=== PATIENT | male | born 1955 | race Caucasian/White ===

== ENCOUNTER 2020-08-31 03:22 | Inpatient (IN) | payer OTHER, MEDICARE, SELFPAY ==
[2020-08-31] VITALS (12 sets, daily range): BP systolic 122–167; BP diastolic 85–101; PULSE 73–96; RESP 12–23; TEMP 36.4–36.7; O2SAT 94–98; BMI 20.7
--- NOTE | 2020-08-31 03:29 | ECG_ITS ---
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 Measurements Intervals [place] Rate: 81 P: NV: -1 QRS: 30 QRSD: 97 T: -70 QT: 368 QTc: 428 Interpretive Statements ATRIAL FIBRILLATION ST DEVIATION AND MODERATE T-WAVE ABNORMALITY, CONSIDER INFERIOR ISCHEMIA [-0.1+ mV T WAVE IN II/aVF] No previous ECG available for comparison Electronically Signed On 08-31-2020 17:27:33 CDT by Brad Rojas M.D. [id number]
--- NOTE | 2020-08-31 03:32 | ED_ITS ---
HPI - Chest Pain General: Chief Complaint: Chest Pain Stated Complaint: CP Time Seen by Provider: 08/31/20 03:29 History of Present Illness: HPI narrative: 65-year-old male presents as a direct admit transfer from [facility] in [facility]. He had come in with chest pain. His chest pain had been resolved, but he began to complain of some chest pressure as they got close to town here. He has a history of bypass surgery, last surgery and 2010. He has not had any intervention or stress test since that time. He does not have a history of atrial fibrillation, but currently is in atrial fibrillation he has not had any known COVID exposure. He has received Nitropaste and Lovenox. MD complaint: chest pain Pertinent past history: coronary artery disease and CABG Onset (ago): hour(s) Prior episodes: Yes Onset: during rest Pain location: substernal Severity: mild Quality: tightness Exacerbating factors: nothing Associated symptoms: Reports dyspnea and palpitations; Deny abdominal pain, fever(s), nausea or vomiting Review of Systems Const: Denies: fever(s) or chills Eyes: Denies: change in vision ENMT: Denies: swelling of lips/tongue or sinus pain Card: Reports: chest pain, palpitations and irregular heart rhythm; Denies: edema or swelling of feet/ankles Resp: Reports: dyspnea; Denies: productive cough, non-productive cough or wheezing GI: Denies: abdominal pain, nausea or vomiting : Denies: difficulty urinating or hematuria Musc: Denies: neck pain, back pain, joint redness or joint warmth Skin/Breast: Denies: rash or erythema Neuro: Denies: headache(s), dizziness or vertigo Psych: Denies: anxiety Physical Exam Const: GENERAL APPEARANCE: well developed ORIENTATION/CONSCIOUSNESS: Yes oriented to person, Yes oriented to place and Yes oriented to time HENMT: COMMON NORMALS: normocephalic, external ears normal and Normal external nose present HEAD & SCALP: normocephalic FACE & SINUS: normal facial exam NOSE: Normal external nose present and No nasal discharge present EXTERNAL EAR: Yes external ears normal Eye: COMMON NORMALS: Equal, round and reactive pupils present, EOMs intact bilaterally and conjunctivae normal EYELID: eyelids normal CONJUNCTIVA: Yes conjunctivae normal PUPIL: Yes Equal, round and reactive pupils present Neck/C-Spine: GENERAL: No tracheal deviation Chest: COMMONS NORMALS: normal inspection of the chest CHEST: No tenderness Resp: COMMON NORMALS: clear to auscultation bilaterally EFFORT & INSPECTION: No tachypneic, No respiratory distress, No retractions, No uses accessory muscles and No tracheal deviation AUSCULTATION: clear to auscultation bilaterally, no rhonchi, no wheezes and lung sounds not diminished Cardio: RHYTHM: abnormal rhythm irregularly irregular HEART SOUNDS: no murmurs PERIPHERAL PULSES: radial pulses present GI: INSPECTION: No abdominal distension AUSCULTATION: No Hyperactive bowel sounds present and No Hypoactive bowel sounds present PALPATION: No Guarding due to palpation present (GI) and No Rigid due to palpation PERCUSSION: no dullness to percussion and no tympanic to percussion Neuro: SENSORIUM/ORIENTATION: Yes oriented to person, Yes oriented to place and Yes oriented to time Psych: COMMON NORMALS: mental status grossly normal Skin: COMMON NORMALS: no rashes or lesions noted GENERAL SKIN EXAM: no rashes or lesions noted Course Vital Signs: Vital signs: Vital Signs Temperature 97.6 F 08/31/20 03:52 Pulse Rate 88 08/31/20 03:52 Respiratory Rate 17 08/31/20 03:52 Blood Pressure 167/100 08/31/20 03:52 Pulse Oximetry 96 08/31/20 03:52 MDM - Chest Pain MDM Narrative: Medical decision making narrative: EKG is done on arrival here. It shows minimal ST depression in the inferior leads. There is biphasic T waves in the lateral leads with minimal depression there as well along with minimal ST elevation in lead I and aVR. It otherwise shows atrial fibrillation with normal axis and rate of 80s. We will repeat a troponin x1 here. His first troponin was 17 at the outside facility. He will go to the [facility] as a direct admit otherwise. Lab Data: Labs: Lab Results 08/31/20 Range/Units 03:35 Troponin T Gen 5 n g/L 24 H (0-15) ng/L Discharge Plan Discharge Patient Disposition: Admitted As Inpatient Clinical Impression: Chest pain Qualifiers: Chest pain type: unspecified Qualified Code(s): R07.9 - Chest pain, unspecified Atrial fibrillation Qualifiers: Atrial fibrillation type: unspecified Qualified Code(s): I48.91 - Unspecified atrial fibrillation Condition: Stable Referrals: Hebert Agustin [Referring] - Coding Level of Care Code ED Power Machine Operator for Chg Fwd Exam Comprehensive
[2020-08-31] MEDS: morphine 4 mg/mL SDV 1 mL IVP (03:43)
[2020-08-31] MEDS: ondansetron 2 mg/ML SDV 2 mL 4 MG IVP (03:43)
[2020-08-31] MEDS: nitroglycerin 1 gm/inch oint Pkt 1.5 INCH TOPICAL (03:44)
[2020-08-31 04:01] LABS: Troponin T (5th) Once 24 ng/L (0-15)
--- NOTE | 2020-08-31 05:05 | PC.NURSE ---
Report given to Kahlil on cardiac step down unit
--- NOTE | 2020-08-31 05:22 | USCV_ITS ---
Shin Valera Age: 65 Gender: M : 1955 Exam Date: 08/31/2020 06:49 Ordering Phys: Courtney Nguyen MD Technologist: Priscila Alexander Exam Location: [facility] Indication: CHEST PAIN CAD BP: 158 / 95 HR: 104 Rhythm: Sinus Technical Quality: Adequate MEASUREMENTS (Male / Female) Normal Values 2D ECHO LV Diastolic Diameter PLAX 3.5 cm 4.2 - 5.9 / 3.9 - 5.3 cm LV Systolic Diameter PLAX 2.9 cm LV Chamber Size 3.7 cm IVS Diastolic Thickness 1.1 cm 0.6 - 1.0 / 0.6 - 0.9 cm IVS Systolic Thickness 1.3 cm LVPW Diastolic Thickness 1.9 cm 0.6 - 1.0 / 0.6 - 0.9 cm LVPW Systolic Thickness 3.2 cm RV Chamber Size 2.5 cm LVOT Diameter 2.0 cm LV Ejection Fraction 2D Teich 38.8 % LV Ejection Fraction MOD 2C 57.0 % LV Ejection Fraction 2C AL 55.1 % LA Diameter 4.3 cm LA Width 3.5 cm LA Height 6.0 cm RA Width 4.0 cm RA Height 5.4 cm Aorta at Sinotubular Diameter 2.1 cm M-MODE LV Diastolic Diameter MM 4.5 cm 4.2 - 5.9 / 3.9 - 5.3 cm LV Systolic Diameter MM 3.1 cm LV Ejection Fraction MM Teich 58.4 % IVS Diastolic Thickness MM 1.0 cm 0.6 - 1.0 / 0.6 - 0.9 cm IVS Systolic Thickness MM 1.1 cm LVPW Diastolic Thickness MM 1.9 cm 0.6 - 1.0 / 0.6 - 0.9 cm LVPW Systolic Thickness MM 2.0 cm Aortic Annulus Diameter 3.4 cm LA Ao Ratio MM 1.5 MV E Point Septal Separation 1.4 cm DOPPLER AV Peak Velocity 110.0 cm/s LVOT Peak Velocity 102.0 cm/s AV Area Cont Eq vti 2.9 cm squared AV Area Cont Eq pk 3.1 cm squared MV Area PHT 8.1 cm squared Mitral E to A Ratio 2.6 MV E' Velocity 53.0 cm/s Mitral E to MV E' Ratio 8.1 Mitral E to LV E' Lateral Ratio 7.7 Mitral E to LV E' Septal Ratio 8.5 TR Peak Velocity 254.5 cm/s TR Peak Gradient 25.9 mmHg TR Mean Velocity 187.9 cm/s TR Mean Gradient 16.5 mmHg TR Velocity Time Integral 108.0 cm TV Peak E Velocity 50.0 cm/s Right Atrial Pressure 3.0 mmHg Pulmonary Artery Systolic Pressu 28.9 mmHg PV Peak Velocity 69.0 cm/s RV Acceleration Time 0.1 s RV Ejection Time 0.3 s RV AcT/ET 0.3 FINDINGS Left Ventricle Moderate diffuse hypokinesia of the inferior wall and basal septal segments. Overall left ventricular ejection fraction around 50-55%. Right Ventricle Possibly of normal size ejection fraction Right Atrium Mildly increased right atrial size. Left Atrium Mildly increased left atrial size. Mitral Valve Thickened mitral valve. Mild mitral valve regurgitation. Aortic Valve Thickened aortic valve. Tricuspid Valve Moderate tricuspid valve regurgitation. Estimated pulmonary artery peak systolic pressure of 29 mmHg Pulmonic Valve Pulmonic valve not well visualized. Pericardium No pericardial effusion. Aorta Normal aortic annulus size. CONCLUSIONS 1. Moderate diffuse hypokinesia of the inferior wall and basal septal segments. Overall left ventricular ejection fraction around 50 to 55 %. 2. Mild biatrial enlargement 3. Thickened aortic and mitral valves. 4.Moderate tricuspid valve regurgitation. Estimated pulmonary artery peak systolic pressure of 29 mmHg. 5. Mild mitral regurgitation 6. There is no pericardial effusion. 7. There are no intracardiac masses. No previous studies are available for comparison Dr Pk Parker MD [facility] (Electronically Signed) Final Date: 31 August 2020 09:38 S
--- NOTE | 2020-08-31 05:30 | ECG_ITS ---
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 Measurements Intervals [place] Rate: 86 P: LA: -1 QRS: 51 QRSD: 96 T: -84 QT: 370 QTc: 443 Interpretive Statements ATRIAL FIBRILLATION ST DEVIATION AND MODERATE T-WAVE ABNORMALITY, CONSIDER INFERIOR ISCHEMIA [-0.1+ mV T WAVE IN II/aVF] Compared to ECG 08/31/2020 03:25:49 No significant changes Electronically Signed On 08-31-2020 17:44:53 CDT by Brad Rojas M.D. [id number]
--- NOTE | 2020-08-31 05:42 | PC.NURSE ---
PT ARRIVED TO ROOM 107 FROM ED. PT HAS A IRREGULAR HEART RHYTHM (A-FIB) WITH A HR OR 78. PT DENIES ANY CHEST DISCOMFORT AT THIS TIME. PT ORIENTATED TO ROOM. CALL LIGHT WITHIN REACH. WILL CONTINUE TO MONITOR.
[2020-08-31] MEDS: atorvastatin 40 mg Tablet 80 MG PO (05:57)
--- NOTE | 2020-08-31 06:03 | P.HP_ITS ---
Providers/Chief Complaint Admitting Physician: Courtney Nguyen MD Primary Care Provider: Hebert Agustin Chief Complaint: CP History of Present Illness Shin Valera is a 65 year old male who originally presented to [facility]. He reports that he had been having some chest pain which he described as intermittent brief episodes of pain in the substernal area over the preceding few weeks. Not many episodes and they were very mild but he did note that they occurred with exertion. Tonight he had much more severe chest discomfort described as a pressure sensation located again in the substernal left side of his chest associated with radiation into his left arm and down to his fingers. He took some nitroglycerin at home without improvement and ultimately ended up p resenting at [facility]. There he received additional nitroglycerin and some aspirin. He had already taken his usual beta-blockade. Initial troponin was 17. Twelve-lead EKG shows some nonspecific ST changes in inferior leads suggestive of ischemia. Patient has a known history of coronary artery disease and underwent coronary artery bypass graft x4 vessels back in possibly 2011. He has not had any type of cardiac testing for several years. He says he does not see a senior laboratory technician regularly because he does not need to. He is on chronic aspirin and beta-grace as well as amlodipine. He says that when he had the pain prior to requiring bypass surgery is much more severe than this but that this feels the same otherwise. She was transferred here for cardiac evaluation and management. On arrival here patient's blood pressure was up and he was complaining of some recurrent chest pain. He received some additional nitroglycerin and morphine with improvement in the pain. Currently chest pain- free. He does have chronic kidney disease. He tells me that his baseline kidney function is around 50% . He denies associated nausea, vomiting, acute shortness of breath. He has not had any fever, cough productive or nonproductive. No known exposures to COVID-19. Medications/Allergies Allergies Allergy/AdvReac Type Severity Reaction Status Date / Time No Known Allergies Allergy Verified 08/31/20 03:26 Additional Medication Information Aspirin 81 mg p.o. daily Metoprolol 50 mg p.o. twice daily Amlodipine 5 mg p.o. daily PFSH Acute PFSH: Medical History (Updated 08/31/20 @ 08:05 by Courtney Nguyen MD) CAD (coronary artery disease) Chronic kidney disease History of Crohn's disease Not currently requiring treatment, no immunosuppressive's History of pancreatitis By his description sounds like gallstone pancreatitis Hypertension Surgical History (Updated 08/31/20 @ 07:47 by Courtney Nguyen MD) History of cholecystectomy History of coronary artery stent placement Right coronary artery, prior to bypass History of four vessel coronary artery bypass graft (~2011) History of resection of large bowel Partial, secondary to Crohn's Family History (Updated 08/31/20 @ 07:48 by Courtney Nguyen MD) Mother Stroke CHF (congestive heart failure) Father Valvular heart disease Social History (Updated 08/31/20 @ 07:48 by Courtney Nguyen MD) Smoking and tobacco status: former smoker Alcohol intake: current Alcohol intake frequency: holidays/special occasions only Alcohol type: beer Substance/Drug Use: never Vitals/I&O/Wt Last Vital Signs Temp 97.8 F 08/31/20 05:38 Pulse 80 08/31/20 05:38 Resp 14 08/31/20 05:38 BP 158/95 08/31/20 05:38 Pulse Ox 96 08/31/20 05:38 Weight last 48 hrs Weight 63.503 kg Physical Exam Const: OTHER: Alert, oriented x3, cooperative HENMT: OTHER: Normocephalic atraumatic, moist mucus membranes Eye: OTHER: Pupils equally round and reactive to light Neck/C-Spine: OTHER: Supple Resp: OTHER: Clear to auscultation bilaterally, no rales, rhonchi or wheezes noted, no accessory muscle use noted Cardio: OTHER: Irregularly irregular rhythm, rate controlled, no murmurs gallops or rubs. Pulses equal throughout GI: OTHER: Abdomen soft, nontender, nondistended with positive bowel sounds : OTHER: Deferred Extremity: NARRATIVE EXTREMITY EXAM: No cyanosis, clubbing or edema Neuro: OTHER: Face symmetric, speech clear, moves all extremities although left hand with subjective decreased sensation at the fingertips Psych: OTHER: Normal affect Skin: OTHER: No rashes or bruising beyond lab draws noted Data Other Labs: Labs from outside facility include the following: White count 13.8, hemoglobin 14, hematocrit 42, platelet count 236, 64% neutrophils and 19% lymphocytes Sodium 140, potassium 3.9, chloride 109, CO2 19, calcium 9.4, BUN/creatinine 29/2.9, glucose 114, albumin 4.4, alkaline phosphatase 93, total bilirubin 0.5, AST 26, ALT 24 Fifth generation troponin T 17 Chest x-ray with mildly enlarged cardiac silhouette small subtle areas of peribronchial opacities within the bilateral lower lung schroeder right greater than left with no focal lung consolidation A&P Assessment and plan (1) Unstable angina: In a patient with known coronary artery disease status post four-vessel coronary artery bypass graft in 2011 and stents prior to that. Has not had any recent cardiac evaluation. Does not follow regularly with cardiology. Has only had symptoms the last few weeks but escalating to being similar to what he had prior to his bypass surgery Status: Acute (2) Atrial fibrillation: New onset, rate controlled with beta blockade Status: Chronic Qualifiers: Atrial fibrillation type: unspecified Qualified Code(s): I48.91 - Unspecified atrial fibrillation (3) Chronic kidney disease: Patient states that his baseline creatinine is around 1.2 but also mentions chronic kidney disease stage IV. I suspect that there may be an element of acute kidney injury on top of chronic kidney disease. Status: Chronic Qualifiers: Chronic kidney disease stage: unspecified stage Qualified Code(s): N18.9 - Chronic kidney disease, unspecified (4) Hypertension: Status: Chronic Qualifiers: Hypertension type: essential hypertension Qualified Code(s): I10 - Essential (primary) hypertension Additional A&P Information Inpatient admission Continue serial cardiac enzymes, EKG as well as a bnp Echocardiogram Consultation to cardiology in the morning Aspirin, statin, beta-blockade Continue nitroglycerin and morphine if needed for pain control Telemetry monitoring Will probably need arrangements for chronic anticoagulation at discharge We will continue Lovenox currently, received a dose at 2 AM at outside facility 1 mg/kg Low volume IV fluids Recheck electrolytes later this morning Urinalysis If ends up needing cardiac catheterization may want to consult nephrology Check lipase Request records from [facility] for GI prophylaxis Treatment dose Lovenox currently provides VTE prophylaxis N.p.o. in case needs cardiac procedure later today Supportive care otherwise Plans discussed with patient and he was given an opportunity to ask questions Full code Attestations Medical Necessity Statement*: Anticipated stay greater than 2 midnights in a gentleman presenting with classic unstable angina who has a known history of coronary artery disease. He additionally has new onset atrial fibrillation. He has baseline chronic kidney disease plus or minus acute kidney injury and will need management to maximize renal function before cardiac evaluation can be adequately undertaken. Coding Level of Care Code Acute Residential Treatment Counselor for Chg Fwd Diagnoses Unstable angina I20.0 Atrial fibrillation I48.91 Atrial fibrillation type: unspecified Chronic kidney disease N18.9 Chronic kidney disease stage: unspecified stage Hypertension I10 Hypertension type: essential hypertension
[2020-08-31 06:06] LABS: Lipase 230 U/L (13-60); NT Pro B Type Natriuretic Pept 7035 pg/mL (0-125)
[2020-08-31 06:53] LABS: Troponin 5 2HR 79.92 ng/L (0-15)
[2020-08-31 07:12] LABS: Troponin 5 2HR Delta 55.92 ABS# (0-10)
--- NOTE | 2020-08-31 07:30 | PC.NURSE ---
Patient resting in bed at time of assessment. Patient states that he is tired and just wants to sleep. A fib, rate controlled on telemetry. No Chest pain or shortness of breath at this time. Nurse to continue to monitor.
--- NOTE | 2020-08-31 08:00 | PC.NURSE ---
Dr. Parker at bedside to evaluate patient. Physician gave verbal order to nurse to request medical records from [facility] in [place], [place], [place]. Consent obtained from patient.
--- NOTE | 2020-08-31 08:08 | PM.CONSULT ---
Providers/Reason For Consult Consulting Physican/Specialty*: Harjeet Parker MD/cardiology Reason for Consult*: Elevated troponin T/new onset atrial fibrillation/ASHD Attending Physician: Camron Martínez MD Primary Care Provider: Hebert Agustin History of Present Illness History of Present Illness Shin Valera is a 65 year old male, with a history of coronary artery disease and four-vessel coronary artery bypass surgery, is presenting with a prolonged episode of chest pain. According the patient, he had a four-vessel coronary artery bypass surgery at the [facility], 2011. He has not had any cardiac follow-up evaluation since then. He is being followed up by his primary care physician at the [place] [facility]. Has not had any chest pain or shortness of breath up until 2 weeks ago when he started having left-sided chest pain. He had 2 episodes of chest pains, each lasting for 2 or 3 minutes and then subsiding spontaneously. Last night around 11:00, he started having pain in the left upper part of the chest which was radiated to the left shoulder and to the inner side of the left arm. He took a total of 2 sublingual nitro. The nitroglycerin was very old. Since there was no relief of the pain, after half an hour or so, he went to the [facility]. He was given 2 more sublingual nitroglycerin and 2 mg of IV morphine in the emergency room. The pain was 8/10 in intensity. Even though the intensity of the pain came down a little bit, because of the persistence of the pain, he was transferred to our hospital emergency room. He received IV nitro, sublingual nitro glycerin and aspirin in our hospital. He is admitted to the hospital for further evaluation and management. He had some discomfort in the epigastric area with the pain. No nausea vomiting. No diarrhea. No fever or chills. No cough. No unusual shortness of breath. No vomiting. No other associated symptoms or radiation of pain. Prior to the open heart surgery in 2011 he had a couple of PCI's. He had a heart attack few years prior to the open heart surgery. Along with a heart attack, he went into cardiac arrest, 3 times. The patient does not know the details but was told about this. He had a cardiac catheterization followed by PCI at that time. The second PCI was few years later. This was done for unstable angina. He was told to have abnormal kidney functions, prior to his open heart surgery. He is currently being followed by a sas developer. He was told to have stage IV kidney failure. He has a history of hypertension for the last more than 25 years. Also is known to have dyslipidemia. No history for any diabetes. History of Crohn disease for many years. No history for any peripheral artery disease, CVA or any bleeding disorders. Review of Systems Narrative: CONSTITUTIONAL: No fever or chills. EYES: No blurring of vision or other visual disturbances lately. ENT: No hoarseness of voice, auditory disturbances or sore throat. CARDIOVASCULAR: As mentioned above. RESPIRATORY: No significant cough. GASTROINTESTINAL: History of Crohn's disease and has not had any GI bleed recently. GENITOURINARY: No dysuria or hematuria. INTEGUMENTARY: Patient has a history of staph cellulitis in the lower extremities, 3 years ago NEURO: No transient ischemic attacks or amaurosis. PSYCHIATRIC: No history of psychosis or major depression. HEMATOLOGIC: No bleeding disorders or significant anemia. ENDOCRINE: No history of polyuria or polydipsia. MUSCULOSKELETAL: No recent joint pain or swelling. ALLERGY/IMMUNOLOGY: As mentioned above. Meds/Allergies Home Medications and Allergies Home Medications Medication Instructions Recorded Confirmed Last Taken Type amlodipine 10 mg PO DAILY 08/31/20 08/31/20 08/30/20 History aspirin 81 mg PO DAILY 08/31/20 08/31/20 08/30/20 History fluticasone propionate 2 spray INTRANASAL DAILY 08/31/20 08/31/20 08/30/20 History metoprolol succinate 200 mg PO DAILY 08/31/20 08/31/20 08/30/20 History testosterone 1 pump TOPICAL DAILY 08/31/20 08/31/20 08/30/20 History Allergies Allergy/AdvReac Type Severity Reaction Status Date / Time No Known Allergies Allergy Verified 08/31/20 03:26 PFSH Acute PFSH: Medical History (Updated 08/31/20 @ 15:56 by Camron Martínez MD) Atherosclerotic heart disease of [place] coronary artery with unstable angina pectoris Benign essential hypertension with target blood pressure below 140/90 CAD (coronary artery disease) Chronic kidney disease History of Crohn's disease Not currently requiring treatment, no immunosuppressive's History of pancreatitis By his description sounds like gallstone pancreatitis Hypertension Surgical History History of cholecystectomy History of coronary artery stent placement Right coronary artery, prior to bypass History of four vessel coronary artery bypass graft (~2011) History of resection of large bowel Partial, secondary to Crohn's Family History Mother Stroke CHF (congestive heart failure) Father Valvular heart disease Social History Smoking and tobacco status: former smoker Alcohol intake: current Alcohol intake frequency: holidays/special occasions only Alcohol type: beer Substance/Drug Use: never Vitals/I&O/Wt Last Vital Signs Temp 97.9 F 08/31/20 06:47 Pulse 87 08/31/20 06:47 Resp 15 08/31/20 06:47 BP 152/91 08/31/20 06:47 Pulse Ox 95 08/31/20 06:47 Weight last 48 hrs Weight 140 lb Physical Exam Narrative: EXAM NARRATIVE: GENERAL: The patient is alert and oriented times three. Not in any acute distress. HEENT: Minimal pallor. No icterus or lymphadenopathy. The pupils are reactant to light. Oral cavity: There are no mucous membrane lesions. Funduscopic examination: The fundus is not visualized NECK: Trachea appears to be central. No masses noted. No JVD or thyromegaly appreciated. No carotid bruit. RESPIRATORY: Chest is symmetrical. No intercostals muscle retraction or any accessory muscle activation. There is no chest wall tenderness. Breath sounds are heard bilaterally. No rales or rhonchi heard. No evidence of any consolidation. BREASTS: Deferred. HEART: The PMI is in the 5th left intercostals space just in the midclavicular line. No palpable precordial events. S1 and S2 is split. No S3 or S4 heard. No pericardial rub or any click heard. ABDOMEN: No vessel pulsations or distention. No tenderness. No organomegaly appreciated. No abdominal bruit. Bowel sounds are normally heard. : Deferred. RECTAL: Deferred. LYMPHATIC: No lymphadenopathy noted in the neck or groin. EXTREMITIES: No edema or cyanosis. No clubbing. The pulses are symmetrical bilaterally. The radial, femoral, dorsalis pedis and the posterior tibial pulses are palpated and found to be in good volume and amplitude. Some hyperpigmentation and superficial scarring in the medial aspect of the right foot. MUSCULOSKELETAL: Gait is normal. There is no joint deformity or swelling noted. No joint tenderness or any effusion. The shoulder and hip joints appear to have normal range of motion. SKIN: There are no significant scars or skin rash noted. NEUROPSYCHIATRIC: The patient is alert and oriented x3. Appears to be in a good mood. The higher functions are grossly within normal limits. No tremors or rigidity noted. Data Labs: Other Labs: Laboratory Last Values Troponin T Gen 5 n g/L 24 ng/L (0-15) H 08/31/20 03:35 Troponin T 120 Min ho-chunk 79.92 ng/L (0-15) H 08/31/20 05:54 Delta Troponin T 55.92 ABS# (0-10) H* 08/31/20 05:54 NT-Pro-B Natriuret Pep 7035 pg/mL (0-125 ) H 08/31/20 03:35 Lipase 230 U/L (13-60) H 08/31/20 03:35 Laboratory Results - last 24 hr 08/31/20 08/31/20 08/31/20 03:35 03:35 05:54 Troponin T Gen 5 n g/L 24 H Troponin T 120 Min ho-chunk 79.92 H Delta Troponin T 55.92 H* NT-Pro-B Natriuret Pep 7035 H Lipase 230 H EKG^: EKG 1: Harness Inspector Interpretation: Atrial fibrillation with a controlled ventricular response rate of [address]-T changes in the inferolateral leads. A&P Assessment and plan (1) Non-ST elevation myocardial infarction (NSTEMI): Patient's clinical features are consistent with a non-ST elevation myocardial infarction. Currently he seems to be stable hemodynamically. Elevated troponin T has a significant delta. EKG changes suggestive of inferolateral wall ischemia. For further evaluation of his condition, an echocardiogram will be helpful. I may start him on IV heparin, p.o. aspirin, Plavix, beta-grace and other current medications. Because of his advanced kidney disease, I may discontinue the Lovenox. We will start him on IV heparin. we will continue with the statin drug. Status: Acute (2) Atherosclerotic heart disease of [place] coronary artery with unstable angina pectoris: We will try to get the medical records from [facility]. After reviewing the echocardiogram and the medical records, further recommendations will be made. For the time being, optimizing the medical treatment would be the plan of action. Because of his stage IV kidney disease, cardiac arrest would be the last option. Status: Acute Qualifiers: [place] vs. transplanted heart: [place] heart Qualified Code(s): I25.110 - Atherosclerotic heart disease of [place] coronary artery with unstable angina pectoris (3) Chronic kidney disease: According the patient, his kidney function has been progressively declining over the years. I will be contacting Dr. Camp, if he requires a cardiac catheterization. Status: Chronic Qualifiers: Chronic kidney disease stage: unspecified stage Qualified Code(s): N18.9 - Chronic kidney disease, unspecified (4) Atrial fibrillation: It is unclear at this point whether the atrial fibrillation is new or old. According the patient, he has not had an EKG for more than 2 years. He apparently has not had any palpitation with chest pain. May continue other medications as mentioned above. For the time being, he may be started on the heparin. He may require long-term oral anticoagulation. Status: Chronic Qualifiers: Atrial fibrillation type: unspecified Qualified Code(s): I48.91 - Unspecified atrial fibrillation (5) Benign essential hypertension with target blood pressure below 140/90: Currently the blood pressure is a stage II. We will try to optimize his medical treatment. Status: Acute Additional A&P Information Based on the patient's clinical progress and the results of the above, further recommendations will be made. Thank you for the opportunity to evaluate this patient and make these recommendations. Coding Level of Care Code Acute [place]acker for g Fwd Diagnoses Non-ST elevation myocardial infarction (NSTEMI) I21.4 Atherosclerotic heart disease of [place] coronary artery with unstable angina pectoris I25.110 [place] vs. transplanted heart: [place] heart Chronic kidney disease N18.9 Chronic kidney disease stage: unspecified stage Atrial fibrillation I48.91 Atrial fibrillation type: unspecified Benign essential hypertension with target blood pressure below 140/90 I10
--- NOTE | 2020-08-31 08:30 | PC.RESP ---
PATIENT DOES NOT HAVE A QUALIFYING HX OF LUNG DISEASE AND DOES NOT QUALIFY FOR PULMONARY REHAB AT THIS TIME.
[2020-08-31 08:46] LABS: Add Urine Microscopic? YES; Bilirubin Urine Neg (Negative); Blood Urine Neg (Negative); Glucose Urine UA Norm (Normal); Ketones Urine Negative (Negative); Leukocyte Esterase Urine Negative (Negative); Nitrate Urine Negative (Negative); Protein Urine Trace (Negative); Urine Appearance Clear (CLEAR); Urine Color Yellow (Yellow); Urobilinogen Urine Norm (Negative); pH Urine 5 (5-7)
[2020-08-31 08:47] LABS: Add Urine Culture? No
[2020-08-31] MEDS: sodium chloride 0.9% 1,000 ML 50 ML IV (08:52)
[2020-08-31] MEDS: aspirin 81 mg EC Tablet PO (08:59)
[2020-08-31] MEDS: pantoprazole DR 40 mg Tablet PO (08:59)
[2020-08-31] MEDS: metoprolol tartrate 50 mg Tablet PO ×2 (08:59→16:34)
[2020-08-31] MEDS: clopidogrel 300 mg Tablet PO (09:04)
[2020-08-31] MEDS: nitroglycerin 1 gm/inch oint Pkt 1 INCH TOPICAL ×3 (09:05→21:33)
--- NOTE | 2020-08-31 09:30 | ECG_ITS ---
[facility] Test Date: 2020-08-31 Pat Name: Shin Valera Department: Room: 107 Gender: Male Nitriles Lab Technician: : 1955 Requested By: Courtney Nguyen Order Number: [id number] Claudio MD: Brad Rojas M.D. Measurements Intervals Blount Rate: 90 P: OK: -1 QRS: 47 QRSD: 88 T: -83 QT: 354 QTc: 433 Interpretive Statements ATRIAL FIBRILLATION MINIMAL VOLTAGE CRITERIA FOR LVH, CONSIDER NORMAL VARIANT [MEETS CRITERIA IN ONE OF: R(aVL), S(V1), R(V5), R(V5/V6)+S(V1)] ST DEVIATION AND MODERATE T-WAVE ABNORMALITY, CONSIDER INFERIOR ISCHEMIA [-0.1+ mV T WAVE IN II/aVF] Compared to ECG 08/31/2020 06:29:38 No significant changes Electronically Signed On 08-31-2020 17:46:14 CDT by Brad Rojas M.D. [id number]
--- NOTE | 2020-08-31 10:15 | PC.NURSE ---
Verbal order received from Dr. Martínez to discontinue lovenox injection and start patient on heparin gtt per protocol, no bolus dose. RBVO.
[2020-08-31 10:22] LABS: Platelet Count 209 10^3/cmm (130-400)
[2020-08-31 10:27] LABS: INR 0.91 (0.8-1.2)
[2020-08-31 10:28] LABS: Partial Thromboplastin Time 36.1 SECONDS (23.9-36.7)
[2020-08-31 10:42] LABS: Troponin 5 6HR 218.5 ng/L (0-15)
[2020-08-31 10:44] LABS: Anion Gap 15.9 (5-19); Blood Urea Nitrogen 28 mg/dL (8-23); Calcium 9.4 mg/dL (8.5-10.5); Carbon Dioxide 18 mmol/L (22-29); Chloride 108 mmol/L (98-107); Chol HDL Ratio 3.28 mg/dL (1.0-5.00); Cholesterol 141 mg/dL (0-200); Glomerular Filtration Rate 22.7 mL/min (90-130); Glucose 104 mg/dL (65-115); HDL Cholesterol 43 mg/dL (60-100); LDL Cholesterol Calculated 74 mg/dL (50-129); LDL HDL Ratio 1.72 RATIO (0.00-3.22); Magnesium 2.1 mg/dL (1.7-2.3); Osmolality Calculated 292 mOsm/kg (285-295); Phosphorus 3.1 mg/dL (2.5-4.5); Potassium 3.9 mmol/L (3.5-5.1); Sodium 138 mmol/L (136-145); Triglycerides 122 mg/dL (0-150); Troponin 5 6HR Delta 194.5 ng/L (0-12); Uric Acid 9.1 mg/dL (3.4-7.0)
[2020-08-31] MEDS: heparin drip 25,000 UNIT/500 ML PREMIX 18 UNIT IV (10:44)
--- NOTE | 2020-08-31 10:44 | PM.PN ---
Subjective Subjective: Interval history: He was lying comfortably in the bed. Has not experienced chest pain which he was having last night. Cardiology is on board, and he has been started on NSTEMI, management, based on the troponin rise, underlying risk factor, EKG, and typical chest pain characteristic. Vitals and labs have been reviewed. 2D echo done: Medications: Reviewed: Yes Vitals/I&O/Wt Last Vital Signs Temp 98.0 F 08/31/20 10:37 Pulse 96 08/31/20 10:37 Resp 18 08/31/20 10:37 BP 158/101 08/31/20 10:37 Pulse Ox 94 08/31/20 10:37 08/30/20 08/31/20 08/31/20 22:59 06:59 14:59 Output Total 200 / 200 Balance -200 / -200 Weight last 48 hrs Weight 63.503 kg Physical Exam Const: COMMON NORMALS: patient oriented x3 HENMT: COMMON NORMALS: normocephalic, atraumatic, hearing grossly normal bilaterally and external ears normal HEAD & SCALP: normocephalic and atraumatic EXTERNAL EAR: Yes external ears normal Eye: COMMON NORMALS: no scleral icterus GENERAL EYE: appearance normal, both eyes and all related structures Chest: COMMONS NORMALS: normal inspection of the chest and normal palpation of entire chest wall CHEST: Yes Symmetrical chest wall rise Resp: COMMON NORMALS: normal respiratory effort, No retractions, No use of accessory muscles and clear to auscultation bilaterally EFFORT & INSPECTION: Yes symmetric chest movement AUSCULTATION: clear to auscultation bilaterally Cardio: COMMON NORMALS: regular rate, regular rhythm, S1 normal heart sound present, S2 normal heart sound present, No gallops present (Cardio), No murmurs present (Cardio), No rub (Cardio) and Peripheral pulses 2+ throughout RATE: regular rate RHYTHM: regular rhythm HEART SOUNDS: S1 normal heart sound present and S2 normal heart sound present PERIPHERAL PULSES: Peripheral pulses 2+ throughout GI: COMMON NORMALS: Normal to inspection, nondistended, normoactive bowel sounds present, Soft to palpation, non-tender, No hepatosplenomegaly present and no masses AUSCULTATION: Yes normoactive bowel sounds PALPATION: Yes Soft to palpation and Yes No hepatosplenomegaly present RECTAL EXAM: Yes deferred Extremity: COMMON NORMALS: no clubbing, cyanosis or edema and no pedal edema Neuro: COMMON NORMALS: patient oriented x3 Data : 08/31/20 09:40 08/31/20 09:40 A&P Assessment and plan (1) Non-ST elevation myocardial infarction (NSTEMI): Clinical features are consistent with a non-ST elevation myocardial infarction. Currently Patient is chest pain free and hemodynamically stable. He Has not experienced chest pain which he was having last night. Cardiology is on board, and he has been started on NSTEMI, management, based on the troponin rise, underlying risk factor, EKG, and typical chest pain characteristic. 2D Echo : Moderate diffuse hypokinesia of the inferior wall and basal septal segments.Overall left ventricular ejection fraction around 50 to 55 %. EKG: changes suggestive of inferolateral wall ischemia. Status: Acute (2) Hypertension: Currently on metoprolol tart 50 mg po q12 h daily.Amlodipine 10 mg oral daily, Hydralazine 25 mg q8 h oral daily. Continue to monitor B.P. Status: Chronic Qualifiers: Hypertension type: essential hypertension Qualified Code(s): I10 - Essential (primary) hypertension (3) Atrial fibrillation: Currently rate controlled.Continue metoprolol tart 50 mg po q12 h daily. Tele Status: Chronic Qualifiers: Atrial fibrillation type: unspecified Qualified Code(s): I48.91 - Unspecified atrial fibrillation (4) CAD (coronary artery disease): CAD s/p CABG. #Management as per #1 Status: Chronic (5) Chronic kidney disease: Currently at baseline SCR: 2.8 continue to Monitor SCR. Status: Chronic Qualifiers: Chronic kidney disease stage: unspecified stage Qualified Code(s): N18.9 - Chronic kidney disease, unspecified (6) Elevated lipase: Has no symptoms consistent with Ac Pancreatitis. Likely 2/2 to underlying CKD. Status: Acute Additional A&P Information DVT PPX: On Heparin Code: Full code Disposition: Home Likely post cath. Attestations Medical Necessity Statement*: Patient needs to be in hospital for the management of NSTEMI. Coding Level of Care Code Acute Bench Hand for [facility] Fwd Exam Comprehensive Diagnoses Non-ST elevation myocardial infarction (NSTEMI) I21.4 Hypertension I10 Hypertension type: essential hypertension Atrial fibrillation I48.91 Atrial fibrillation type: unspecified CAD (coronary artery disease) I25.10 Chronic kidney disease N18.9 Chronic kidney disease stage: unspecified stage Elevated lipase R74.8
[2020-08-31] MEDS: hyDRALAzine 25 mg Tablet PO (16:32)
[2020-08-31 18:25] LABS: Partial Thromboplastin Time 111.7 SECONDS (23.9-36.7)
--- NOTE | 2020-08-31 18:30 | PC.NURSE ---
No acute events throughout shift. Heparin gtt decreased to 14 ml/hr per protocol. No needs identified at this time. Nurse to continue to monitor.
--- NOTE | 2020-08-31 19:35 | PC.NURSE ---
Rounding: patient resting in bed watching TV. Patient denies any complaints and is alert and oriented. Patient is pain free.
[2020-09-01] VITALS (9 sets, daily range): BP systolic 140–165; BP diastolic 78–95; PULSE 81–110; RESP 13–19; TEMP 36.2–36.8; O2SAT 94–98
[2020-09-01] MEDS: acetaminophen 325 mg Tablet 650 MG PO (00:43)
[2020-09-01] MEDS: hyDRALAzine 25 mg Tablet PO ×3 (00:43→16:58)
[2020-09-01 01:51] LABS: Partial Thromboplastin Time 84.4 SECONDS (23.9-36.7)
[2020-09-01] MEDS: nitroglycerin 1 gm/inch oint Pkt 1 INCH TOPICAL ×2 (04:18→09:54)
[2020-09-01] MEDS: sodium chloride 0.9% 1,000 ML 50 ML IV (04:19)
[2020-09-01 04:42] LABS: Basophils % 0.3 %; Eosinophils # 0.4 10^3/uL (0.0-0.8); Eosinophils % 3.7 %; Hematocrit 40.4 % (42.0-52.0); Lymphocytes # 1.8 10^3/uL (0.8-4.8); Mean Corpuscular HGB Conc 32.2 g/dL (30.0-36.0); Mean Corpuscular Hemoglobin 29.5 pg (28.0-34.0); Mean Corpuscular Volume 91.6 fL (80-94); Mean Platelet Volume 9.6 fL (7.4-10.4); Monocytes % 9.4 %; Neutrophils % 68.4 %; Nucleated Red Blood Cells % 0 %; Platelet Count 185 10^3/cmm (130-400); Red Blood Count 4.41 10^6/uL (4.1-5.3); Red Cell Distribution Width 14.9 % (12.1-15.1); White Blood Count 10.1 10^3/uL (4.0-10.0)
[2020-09-01 05:06] LABS: Anion Gap 15.9 (5-19); Blood Urea Nitrogen 25 mg/dL (8-23); Carbon Dioxide 16 mmol/L (22-29); Chloride 108 mmol/L (98-107); Glomerular Filtration Rate 25.9 mL/min (90-130); Glucose 86 mg/dL (65-115); Osmolality Calculated 286 mOsm/kg (285-295); Potassium 3.9 mmol/L (3.5-5.1); Sodium 136 mmol/L (136-145)
--- NOTE | 2020-09-01 06:12 | PC.NURSE ---
End of shift: patient remains alert and oriented and denies any pain. Patient has had a uneventful shift. vitals remain stable.
--- NOTE | 2020-09-01 07:22 | PC.NURSE ---
Patient to stress test at this time.
--- NOTE | 2020-09-01 07:54 | ECG_ITS ---
[facility] Test Date: 2020-09-01 Pat Name: Shin Valera Department: Room: 107 Gender: Male Ophthalmic Medical Assistant: : 1955 Requested By: Camron Martínez Order Number: [id number] Snyder MD: Pk Parker M.D. Interpretive Statements NAME OF STUDY: LEXISCAN SESTAMIBI STRESS TEST INDICATION: a fib, PROCEDURE: At the baseline, the EKG revealed atrial fibrillation with a controlled ventricular response rate of 89/min. ST depression in leads 2, 3, aVF, V4 to V6, suggestive of ischemia.. The baseline blood pressure was 161/100 mm Hg with a heart rate of 89 beats/min. Lexiscan was infused over a period of 20 seconds. A total of 0.4 milligrams of Lexiscan was infused. The stress phase was continued for a total of 5 minutes. Heart rate at the end of the stress phase was 108 with a blood pressure 173/91. The EKG at the peak infusion revealed no significant changes. no significant changes a fib, Sestamibi was injected 20 seconds after the Lexiscan infusion. Blood pressure at the end of the recovery phase was 165/90 with a heart rate of 110 per minute. CONCLUSION: 1. No significant EKG changes with the LexiScan infusion 2. No LexiScan induced chest pain or cardiac arrhythmia 3. Normal blood pressure and heart rate response 4. Sestamibi/sestamibi perfusion scan pending; see separate report. Electronically Signed On 09-02-2020 20:48:32 CDT by Pk Parker M.D. [id number]
[2020-09-01] MEDS: regadenoson 0.4 Mg/5 ml Syringe IVP (07:55)
--- NOTE | 2020-09-01 07:56 | P.PN_ITS ---
Subjective Subjective: Interval history: Patient denies any chest pain or any unusual shortness of breath. No fever or chills. Telemetry shows atrial fibrillation with a controlled ventricular response rate. He underwent a myocardial perfusion imaging today. Results are as mentioned below. Medications: Reviewed: Yes Medication Review Details: Current Medications Acetaminophen (Tylenol) 650 mg PO Q6H PRN PRN Reason: Mild/Mod Pain Or Temp >/= 101 Last Admin: 09/01/20 00:43 Dose: 650 mg Documented by: Aminophylline (Aminophylline) 25 mg IVP Q2M PRN PRN Reason: see dose instructions Stop: 09/02/20 06:42 Amlodipine Besylate (Norvasc) 10 mg PO DAILY [facility] Aspirin (Aspirin Ec) 81 mg PO DAILY [facility] Last Admin: 08/31/20 08:59 Dose: 81 mg Documented by: Atorvastatin Calcium (Lipitor) 80 mg PO BEDTIME [facility] Bisacodyl (Dulcolax) 10 mg PO DAILY PRN PRN Reason: CONSTIPATION Heparin Sodium (Beef Lung) (Heparin) 0 unit IV PRN PRN; Protocol PRN Reason: Heparin weight-base protocol Hydralazine HCl (Apresoline) 25 mg PO Q8H [facility] Last Admin: 09/01/20 00:43 Dose: 25 mg Documented by: Sodium Chloride (Sodium Chloride 0.9%) 1,000 mls @ 50 mls/hr IV .Q20H [facility] Last Infusion: 09/01/20 07:22 Dose: 0 mls/hr Documented by: Heparin Sodium/Sodium Chloride (Heparin Drip) 25,000 unit in 500 mls @ 0 mls/hr IV .Q0M [facility]; Protocol Last Titration: 09/01/20 02:05 Dose: 10.24 unit/kg/hr, 13 mls/hr Documented by: Metoprolol Tartrate (Lopressor) 50 mg PO BID [facility] Last Admin: 08/31/20 16:34 Dose: 50 mg Documented by: Morphine Sulfate (Morphine) 4 mg IVP Q4H PRN PRN Reason: SEVERE PAIN Nitroglycerin (Nitro-Bid) 1 inch TOPICAL Q6H [facility] Last Admin: 09/01/20 04:18 Dose: 1 inch Documented by: Nitroglycerin (Nitrostat) 0.4 mg SUBLINGUAL Q5M PRN PRN Reason: CHEST PAIN Nitroglycerin (Nitrostat) 0.4 mg SUBLINGUAL Q5M PRN PRN Reason: CHEST PAIN Stop: 09/02/20 06:42 Ondansetron HCl (Zofran) 4 mg IVP Q8H PRN PRN Reason: vomiting, or N/V if npo Ondansetron HCl (Zofran) 4 mg IVP Q2M PRN PRN Reason: NAUSEA Pantoprazole Sodium (Protonix) 40 mg PO DAILY [facility] Last Admin: 08/31/20 08:59 Dose: 40 mg Documented by: Vitals/I&O/Wt Last Vital Signs Temp 97.8 F 09/01/20 04:00 Pulse 88 09/01/20 04:00 Resp 13 09/01/20 04:00 BP 148/89 09/01/20 04:00 Pulse Ox 97 09/01/20 04:00 08/31/20 09/01/20 09/01/20 22:59 06:59 14:59 Intake Total 502.8 / 622.8 1476.333 / 2099.133 152.5 / 152.5 Output Total 500 / 700 650 / 1350 Balance 2.8 / -77.2 826.333 / 749.133 152.5 / 152.5 Weight last 48 hrs Weight 140 lb Physical Exam Narrative: EXAM NARRATIVE: GENERAL: The patient is alert and oriented times three. Not in any acute distress. HEENT: No significant pallor, icterus or lymphadenopathy.Oral cavity: There are no mucous membrane lesions. NECK: Trachea appears to be central. No masses noted. No JVD or thyromegaly appreciated. RESPIRATORY: Chest is symmetrical. No intercostals muscle retraction or any accessory muscle activation. There is no chest wall tenderness. Breath sounds are heard bilaterally. No rales or rhonchi heard. No evidence of any consolidation. BREASTS: Deferred. HEART: The first heart sound is variable.. No S3 or S4. Short systolic murmur in the left sternal border.. No pericardial rub ABDOMEN: No vessel pulsations or distention. No tenderness. No organomegaly appreciated. Bowel sounds are normally heard. : Deferred. RECTAL: Deferred. LYMPHATIC: No lymphadenopathy noted in the neck or groin. EXTREMITIES: No edema or cyanosis. No clubbing. Peripheral pulses are palpated in fairly good volume and amplitude MUSCULOSKELETAL: No acute joint deformities or swelling SKIN: There are no significant rashes or ecchymosis NEUROPSYCHIATRIC: The patient is alert and oriented x3. Appears to be in a good mood. No tremors or rigidity noted. Data : 09/01/20 04:03 09/01/20 04:03 Other Labs: Laboratory Last Values WBC 10.1 10^3/uL (4.0-10.0) H 09/01/20 04:03 RBC 4.41 10^6/uL (4.1-5.3) 09/01/20 04:03 Hgb 13.0 g/dL (11.7-16.6) 09/01/20 04:03 Hct 40.4 % (42.0-52.0) L 09/01/20 04:03 MCV 91.6 fL (80-94) 09/01/20 04:03 MCH 29.5 pg (28.0-34.0) 09/01/20 04:03 MCHC 32.2 g/dL (30.0-36.0) 09/01/20 04:03 RDW 14.9 % (12.1-15.1) 09/01/20 04:03 Plt Count 185 10^3/cmm (130-400) 09/01/20 04:03 MPV 9.6 fL (7.4-10.4) 09/01/20 04:03 Neut % (Auto) 68.4 % 09/01/20 04:03 Lymph % (Auto) 18.0 % 09/01/20 04:03 [place] % (Auto) 9.4 % 09/01/20 04:03 Eos % (Auto) 3.7 % 09/01/20 04:03 Baso % (Auto) 0.3 % 09/01/20 04:03 Neut # (Auto) 6.90 10^3/uL (1.8-7.7) 09/01/20 04:03 Lymph # (Auto) 1.8 10^3/uL (0.8-4.8) 09/01/20 04:03 [place] # (Auto) 1.0 10^3/uL (0.2-0.9) H 09/01/20 04:03 Eos # (Auto) 0.4 10^3/uL (0.0-0.8) 09/01/20 04:03 Baso # (Auto) 0.0 10^3/uL (0.0-0.1) 09/01/20 04:03 Nucleated RBC % (auto) 0 % 09/01/20 04:03 Nucleated RBCs # 0.0 /100WBC 09/01/20 04:03 PT 12.50 SECONDS (12.1-14.9) 08/31/20 09:40 INR 0.91 (0.8-1.2) 08/31/20 09:40 APTT 84.4 SECONDS (23.9-36.7) H 09/01/20 01:20 Sodium 136 mmol/L (136-145) 09/01/20 04:03 Potassium 3.9 mmol/L (3.5-5.1) 09/01/20 04:03 Chloride 108 mmol/L (98-107) H 09/01/20 04:03 Carbon Dioxide 16 mmol/L (22-29) L 09/01/20 04:03 Anion Gap 15.9 (5-19) 09/01/20 04:03 BUN 25 mg/dL (8-23) H 09/01/20 04:03 Creatinine 2.5 mg/dL (0.7-1.2) H 09/01/20 04:03 GFR Calculation 25.9 mL/min (90-130) L 09/01/20 04:03 Glucose 86 mg/dL (65-115) 09/01/20 04:03 Calculated Osmolality 286 mOsm/kg (285-295) 09/01/20 04:03 Uric Acid 9.1 mg/dL (3.4-7.0) H 08/31/20 09:40 Calcium 9.0 mg/dL (8.5-10.5) 09/01/20 04:03 Phosphorus 3.1 mg/dL (2.5-4.5) 08/31/20 09:40 Magnesium 2.1 mg/dL (1.7-2.3) 08/31/20 09:40 Troponin T Gen 5 ng/L 24 ng/L (0-15) H 08/31/20 03:35 Troponin T 120 Minute 79.92 ng/L (0-15) H 08/31/20 05:54 Delta Troponin T 55.92 ABS# (0-10) H* 08/31/20 05:54 Troponin T Hi Sens 6Hr 218.5 ng/L (0-15) H 08/31/20 09:40 Troponin T Hi Sens 6Hr Delta 194.5 ng/L (0-12) H* 08/31/20 09:40 NT-Pro-B Natriuret Pep 7035 pg/mL (0-125) H 08/31/20 03:35 Triglycerides 122 mg/dL (0-150) 08/31/20 09:40 Cholesterol 141 mg/dL (0-200) 08/31/20 09:40 LDL Cholesterol, Calc 74 mg/dL (50-129) 08/31/20 09:40 HDL Cholesterol 43 mg/dL (60-100) L 08/31/20 09:40 LDL/HDL Ratio 1.72 RATIO (0.00-3.22) 08/31/20 09:40 Cholesterol/HDL Ratio 3.28 mg/dL (1.0-5.00) 08/31/20 09:40 Lipase 230 U/L (13-60) H 08/31/20 03:35 Urine Color Yellow (Yellow) 08/31/20 08:07 Urine Appearance Clear (CLEAR) 08/31/20 08:07 Urine pH 5 (5-7) 08/31/20 08:07 Ur Specific [place] 1.010 (1.005-1.030) 08/31/20 08:07 Urine Protein Trace (Negative) 08/31/20 08:07 Urine Glucose (UA) Norm (Normal) 08/31/20 08:07 Urine Ketones Negative (Negative) 08/31/20 08:07 Urine Blood Neg (Negative) 08/31/20 08:07 Urine Nitrate Negative (Negative) 08/31/20 08:07 Urine Bilirubin Neg (Negative) 08/31/20 08:07 Urine Urobilinogen Norm mg/dL (Negative) 08/31/20 08:07 Ur Leukocyte Esterase Negative (Negative) 08/31/20 08:07 Urine RBC None /hpf (0-2) 08/31/20 08:07 Urine WBC None /hpf (0-5) 08/31/20 08:07 Ur Squamous Epith Cells None /hpf (0-5) 08/31/20 08:07 Amorphous Sediment Not Reportable 08/31/20 08:07 Urine Bacteria None /hpf (NONE) 08/31/20 08:07 myocardial perfusion imaging from today 1. Myocardial perfusion imaging revealing a small to moderate area of decreased tracer uptake in the mid and apical inferior and mid inferolateral region, with a significant reversibility, suggestive of myocardial scarring with ischemia in the distribution of the right coronary artery/circumflex artery. 2. Normal LV ejection fraction 52%. 3. LV wall motion analysis revealing diffuse hypokinesia of the septum. 4. Minimally elevated LV volume, end-systolic volume of 48 mL. No similar previous studies are available for comparison A&P Assessment and plan (1) Non-ST elevation myocardial infarction (NSTEMI): Patient currently is asymptomatic. May continue the current medications. Status: Acute (2) Atherosclerotic heart disease of [place] coronary artery with unstable angina pectoris: Still awaiting the CABG report from the [facility]. Discussed with the patient in detail, the implications of the myocardial perfusion imaging results. For further evaluation of his coronary status as well as the graft status, he requires a cardiac catheterization. The risk of bleeding, hematoma, vascular injury, myocardial infarction, CVA, renal failure and other concomitant complications were explained in detail. Because of his chronic kidney disease, he carries a high risk for contrast-induced nephropathy. The option of optimizing the medical treatment was also discussed. Patient is undecided at this time. He will let me know. Status: Acute Qualifiers: [place] vs. transplanted heart: [place] heart Qualified Code(s): I25.110 - Atherosclerotic heart disease of [place] coronary artery with unstable angina pectoris (3) Chronic kidney disease: Patient is a GFR is around 26. He carries a high risk for contrast- induced nerve nephropathy. Patient is very much concerned about this. Status: Chronic Qualifiers: Chronic kidney disease stage: unspecified stage Qualified Code(s): N18.9 - Chronic kidney disease, unspecified (4) Atrial fibrillation: Patient is on IV heparin. If the patient decides to try the medical treatment, may discontinue the IV heparin and start him on Eliquis 2.5 mg p.o. twice daily. Discussed with Dr. Martínez. Status: Chronic Qualifiers: Atrial fibrillation type: unspecified Qualified Code(s): I48.91 - Unspecified atrial fibrillation (5) Benign essential hypertension with target blood pressure below 140/90: Currently the blood pressure is a stage II. The blood pressure seems to be slowly getting under control. Status: Acute Additional A&P Information Patient is advised to get up and move around the floor to see whether he has any recurrence of chest pain. If he decides to go home with a medical treatment, I may see him in the office in 3 weeks. Addendum After discussing with the family, the patient has decided to try the medical treatment for a while. If there is any change of mind, he will let us know Attestations Medical Necessity Statement*: Disposition as per the primary Coding Level of Care Code Acute Retail Loan Originator Assistant for [facility] Fwd Diagnoses Non-ST elevation myocardial infarction (NSTEMI) I21.4 Atherosclerotic heart disease of [place] coronary artery with unstable angina pec toris I25.110 [place] vs. transplanted heart: [place] heart Chronic kidney disease N18.9 Chronic kidney disease stage: unspecified stage Atrial fibrillation I48.91 Atrial fibrillation type: unspecified Benign essential hypertension with target blood pressure below 140/90 I10
--- NOTE | 2020-09-01 08:41 | PC.NURSE ---
dr cali called to look at ekg prior to start of test due to an apparent st depression. he okayed the start of stress test. he stayed though test and ordered 5mg of metoprolol iv push one time. administered as prescribed.
--- NOTE | 2020-09-01 09:42 | PC.CHAP ---
Pastoral Care Encounter/Spiritual Assessment Type of Contact [] Declined bundling machine operator visit [] Patient/Family/Request visit [] Outpatient visit [] Follow-up visit [] Physician referral [] Code/Alert [x] Routine visit [] Staff referral [] Actively dying [] Patient sleeping [] Family support [] [x] Out of room [] Palliative care [] [] Receiving care in room [] Pre-surgical visit [] Trauma [] Long length of stay [] ICU visit [] Other: Relational/Emotional Strength [] Patient feels connected with others/family/visitors/staff [] Distress [] Loneliness/isolation [] Abandonment Spirituality of Patient [] Person of Jelly [] Attends Holiness of their Jelly [] Believes in Prayer [] Reads Bible or Judaism materials [] There are Spiritual issues to be addressed Director Software Interventions [] Prayer [] Active listening [] Non-anxious presence [] Spiritual/emotional support [] Crisis/trauma care [] Spiritual counseling [] Bereavement support [] Provided bereavement packet [] Provided Bible/devotional materials [] Provided toy/stuffed animal, coloring book to patient or family member [] Provided Communion [] Anointing/[place] [] Salvation [x] Completed spiritual assessment [] Other: Impact on Illness or Injury [] Angry [] Fearful [] Anxious [] Often cries [] Exhaustion [] Unable to work [] Unable to attend sikh [] Unable to walk/stand [] Unable to read [] Unable to drive [] Unable to eat/drink [] Unable to sleep [] Unable to be with family [] Patient intubated [] Other: Summary Time spent with patient
[2020-09-01] MEDS: aspirin 81 mg EC Tablet PO (09:47)
[2020-09-01] MEDS: amlodipine 10 mg Tablet PO (09:48)
[2020-09-01] MEDS: clopidogrel 75 mg Tablet PO (09:48)
[2020-09-01] MEDS: pantoprazole DR 40 mg Tablet PO (09:48)
[2020-09-01] MEDS: metoprolol tartrate 50 mg Tablet PO ×3 (09:48→17:00)
--- NOTE | 2020-09-01 10:39 | PC.NURSE ---
Dr. Martínez updated on patient condition. Patient a fib c rvr, HR 100-130s BP 155/86. Patient asymptomatic. Patient received 5 mg metoprolol IVP during stress test and 50 mg metoprolol tartrate PO at 0945. Physician gave telephone order to administer additional 50 mg metoprolol tartrate PO now. Call provider in 1 hour if heart rate has not improved. RBTO.
[2020-09-01 10:41] LABS: Partial Thromboplastin Time 56.5 SECONDS (23.9-36.7)
--- NOTE | 2020-09-01 13:47 | PC.NURSE ---
Dr. Martínez gave verbal order to discontinue heparin gtt, RBVO. Dr. Parker at bedside when nurse went to discontinue gtt. Physician gave verbal order to continue heparin gtt per protocol. Physician to discuss plan of care with Dr. Martínez. Nurse to continue to monitor.
[2020-09-01] MEDS: isosorbide mononitrate ER 60 mg Tablet PO (13:52)
[2020-09-01] MEDS: heparin drip 25,000 UNIT/500 ML PREMIX 13 UNIT IV ×2 (13:53→16:57)
[2020-09-01 17:18] LABS: Partial Thromboplastin Time 57.2 SECONDS (23.9-36.7)
--- NOTE | 2020-09-01 19:02 | PC.NURSE ---
CABG Report Fax received from [facility], facility does not have records of seeing patient before 2019. Patient is unsure of which facility he had [facility]. [facility] call back number. Dr. Parker updated on status of records.
--- NOTE | 2020-09-01 20:03 | PC.NURSE ---
Telephone order received from Dr. Parker to discontinue heparin gtt and start patient on eliquis 2.5 mg BID first dose now. RBTO.
[2020-09-01] MEDS: atorvastatin 40 mg Tablet 80 MG PO (20:28)
[2020-09-01] MEDS: apixaban 5 mg Tablet 2.5 MG PO (20:28)
--- NOTE | 2020-09-01 20:50 | NMCV_ITS ---
NM kika perf SPECT r/s* [id number] Shin Valera Age: 65 Gender: M : 1955 Exam Date: 09/01/2020 06:58 Ordering Phys: Pk Parker MD ([email or web address]) Technologist: PB Gee Exam Location: [facility] Indications: CHEST PAIN STRESS TEST [facility] IMAGE PROTOCOL Rest/Stress 1 Lexiscan Day Radiopharmaceutical Dose (mCi) Administration Site Administered by Rest: Tc-99m 10.7 IV PB Puckett Sestamibi Stress:Tc-99m 32.3 IV PB Puckett Sestamibi Rest: 01-Sep-2020 60 Discovery 630 Stress: 01-Sep-2020 30 Discovery 630 0.4mg Lexiscan. Images obtained in supine and prone position. SPECT RESULTS Technical Quality: Excellent Raw Data Analysis: Normal Image Corrections: No attenuation or motion correction applied Summed Stress Score: 5 Summed Rest Score: 0 Summed Difference Score: 5 PERFUSION FINDINGS Small to moderate area of decreased tracer uptake in the mid and apical inferior and mid inferolateral region. Significant reversibility was noted in these regions at rest. FUNCTIONAL RESULTS (calculated via Gated SPECT) Stress Image LV EF (%): 52 Stress EDV (mL):101 TID: 0.86 Stress ESV (mL):48 FUNCTIONAL FINDINGS: Segmental wall motion analysis revealed diffuse hypokinesia of the septum IMPRESSIONS 1. Myocardial perfusion imaging revealing a small to moderate area of decreased tracer uptake in the mid and apical inferior and mid inferolateral region, with a significant reversibility, suggestive of myocardial scarring with ischemia in the distribution of the right coronary artery/circumflex artery. 2. Normal LV ejection fraction 52%. 3. LV wall motion analysis revealing diffuse hypokinesia of the septum. 4. Minimally elevated LV volume, end-systolic volume of 48 mL. No similar previous studies are available for comparison Dr Pk Parker MD FACC (Electronically Signed) Final Date: 01 September 2020 13:33 S
--- NOTE | 2020-09-01 23:19 | PC.NURSE ---
Patient and this nurse ambulated the lazaro 6 times and patient stated he felt great and had no complaints of chest pain.
[2020-09-02] VITALS (7 sets, daily range): BP systolic 139–150; BP diastolic 61–92; PULSE 90–119; RESP 17–18; TEMP 36.4–36.8; O2SAT 95–97
[2020-09-02] MEDS: hyDRALAzine 25 mg Tablet PO ×2 (00:09→08:56)
[2020-09-02] MEDS: sodium chloride 0.9% 1,000 ML 50 ML IV (03:33)
--- NOTE | 2020-09-02 08:53 | P.PN_ITS ---
Subjective Subjective: Interval history: Patient has been ambulating on telemetry. He has not had any chest pain or unusual shortness of breath. According to him, his functional status is back to his baseline. He is wanting to go home today. He has no change of mind regarding the coronary angiogram. Medications: Reviewed: Yes Medication Review Details: Current Medications Acetaminophen (Tylenol) 650 mg PO Q6H PRN PRN Reason: Mild/Mod Pain Or Temp >/= 101 Last Admin: 09/01/20 00:43 Dose: 650 mg Documented by: Amlodipine Besylate (Norvasc) 10 mg PO DAILY [facility] Last Admin: 09/01/20 09:48 Dose: 10 mg Documented by: Apixaban (Eliquis) 2.5 mg PO BID [facility] Last Admin: 09/01/20 20:28 Dose: 2.5 mg Documented by: Aspirin (Aspirin Ec) 81 mg PO DAILY [facility] Last Admin: 09/01/20 09:47 Dose: 81 mg Documented by: Atorvastatin Calcium (Lipitor) 80 mg PO BEDTIME [facility] Last Admin: 09/01/20 20:28 Dose: 80 mg Documented by: Bisacodyl (Dulcolax) 10 mg PO DAILY PRN PRN Reason: CONSTIPATION Clopidogrel Bisulfate (Plavix) 75 mg PO DAILY [facility] Last Admin: 09/01/20 09:48 Dose: 75 mg Documented by: Hydralazine HCl (Apresoline) 25 mg PO Q8H [facility] Last Admin: 09/02/20 00:09 Dose: 25 mg Documented by: Sodium Chloride (Sodium Chloride 0.9%) 1,000 mls @ 50 mls/hr IV .Q20H [facility] Last Admin: 09/02/20 03:33 Dose: 50 mls/hr Documented by: Isosorbide Mononitrate (Imdur) 60 mg PO DAILY [facility] Last Admin: 09/01/20 13:52 Dose: 60 mg Documented by: Metoprolol Tartrate (Lopressor) 50 mg PO BID [facility] Last Admin: 09/01/20 17:00 Dose: 50 mg Documented by: Morphine Sulfate (Morphine) 4 mg IVP Q4H PRN PRN Reason: SEVERE PAIN Nitroglycerin (Nitrostat) 0.4 mg SUBLINGUAL Q5M PRN PRN Reason: CHEST PAIN Ondansetron HCl (Zofran) 4 mg IVP Q8H PRN PRN Reason: vomiting, or N/V if npo Ondansetron HCl (Zofran) 4 mg IVP Q2M PRN PRN Reason: NAUSEA Pantoprazole Sodium (Protonix) 40 mg PO DAILY [facility] Last Admin: 09/01/20 09:48 Dose: 40 mg Documented by: Vitals/I&O/Wt Last Vital Signs Temp 98.2 F 09/02/20 08:00 Pulse 119 H 09/02/20 08:00 Resp 17 09/02/20 08:00 BP 146/92 09/02/20 08:00 Pulse Ox 97 09/02/20 08:00 09/01/20 09/02/20 09/02/20 22:59 06:59 14:59 Intake Total 735.584 / 1621.484 824.167 / 2445.651 720 / 720 Output Total 575 / 1275 Balance 735.584 / 921.484 249.167 / 1170.651 720 / 720 Physical Exam Narrative: EXAM NARRATIVE: GENERAL: The patient is alert and oriented times three. Not in any acute distress. HEENT: No significant pallor, icterus or lymphadenopathy.Oral cavity: There are no mucous membrane lesions. NECK: Trachea appears to be central. No masses noted. No JVD or thyromegaly appreciated. RESPIRATORY: Chest is symmetrical. No intercostals muscle retraction or any acce ssory muscle activation. There is no chest wall tenderness. Breath sounds are heard bilaterally. No rales or rhonchi heard. No evidence of any consolidation. BREASTS: Deferred. HEART: The first heart sound is variable.. No S3 or S4. Short systolic murmur in the left sternal border.. No pericardial rub ABDOMEN: No vessel pulsations or distention. No tenderness. No organomegaly appreciated. Bowel sounds are normally heard. : Deferred. RECTAL: Deferred. LYMPHATIC: No lymphadenopathy noted in the neck or groin. EXTREMITIES: No edema or cyanosis. No clubbing. Peripheral pulses are palpated in fairly good volume and amplitude MUSCULOSKELETAL: No acute joint deformities or swelling SKIN: There are no significant rashes or ecchymosis NEUROPSYCHIATRIC: The patient is alert and oriented x3. Appears to be in a good mood. No tremors or rigidity noted. Data : 09/01/20 04:03 09/01/20 04:03 A&P Assessment and plan (1) Non-ST elevation myocardial infarction (NSTEMI): Patient currently is asymptomatic. May continue the current medications. Status: Acute (2) Atherosclerotic heart disease of [place] coronary artery with unstable angina pectoris: Since the cardiac status seems to be stable, may continue on the current medications. We will hold off on the angiogram at this time as per patient's request. Status: Acute Qualifiers: [place] vs. transplanted heart: [place] heart Qualified Code(s): I25.110 - Atherosclerotic heart disease of [place] coronary artery with unstable angina pectoris (3) Chronic kidney disease: Patient is a GFR is around 26. He carries a high risk for contrast- induced nerve nephropathy. Patient is very much concerned about this. The function seems to be stable at this time. Status: Chronic Qualifiers: Chronic kidney disease stage: unspecified stage Qualified Code(s): N18.9 - Chronic kidney disease, unspecified (4) Atrial fibrillation: Patient is on IV heparin. If the patient decides to try the medical treatment, may discontinue the IV heparin and start him on Eliquis 2.5 mg p.o. twice daily. Discussed with Dr. Martínez. Status: Chronic Qualifiers: Atrial fibrillation type: unspecified Qualified Code(s): I48.91 - Unspecified atrial fibrillation (5) Benign essential hypertension with target blood pressure below 140/90: Currently the blood pressure is a stage II. I may increase the dose of hydralazine to 50 mg p.o. every 8 hours Status: Acute Additional A&P Information The patient continues to remain stable, may be discharged home from a cardiac standpoint. I will see him in the office in 3 weeks. Advised to keep his appointment with the technician submarine cable equipment. In the event of the patient developing any recurrence of chest pain or any new symptoms, advised to contact our office or come back to the hospital. Attestations Medical Necessity Statement*: Possible discharge home today Coding Level of Care Code Acute Latcher for [facility] Diagnoses Non-ST elevation myocardial infarction (NSTEMI) I21.4 Atherosclerotic heart disease of [place] coronary artery with unstable angina pectoris I25.110 [place] vs. transplanted heart: [place] heart Chronic kidney disease N18.9 Chronic kidney disease stage: unspecified stage Atrial fibrillation I48.91 Atrial fibrillation type: unspecified Benign essential hypertension with target blood pressure below 140/90 I10
[2020-09-02] MEDS: aspirin 81 mg EC Tablet PO (08:56)
[2020-09-02] MEDS: pantoprazole DR 40 mg Tablet PO (08:57)
[2020-09-02] MEDS: amlodipine 10 mg Tablet PO (08:57)
[2020-09-02] MEDS: apixaban 5 mg Tablet 2.5 MG PO (08:57)
[2020-09-02] MEDS: isosorbide mononitrate ER 60 mg Tablet PO (08:57)
[2020-09-02] MEDS: metoprolol tartrate 50 mg Tablet PO (08:57)
[2020-09-02] MEDS: clopidogrel 75 mg Tablet PO (08:57)
--- NOTE | 2020-09-02 09:00 | PC.NURSE ---
Afib w/ HR in 110-125 not sustaining. HR ranges from from 110-125. Dr. kimballied.
--- NOTE | 2020-09-02 09:23 | PM.DCS ---
Discharge Providers Date of Admission: 08/31/20 04:48 Date of Discharge: September 02, 2020 Attending Provider at Admission: Courtney Nguyen MD Attending Provider at Discharge: Camron Martínez MD Primary Care Provider: Hebert Agustin Diagnoses at Discharge Discharge Diagnosis (1) Non-ST elevation myocardial infarction (NSTEMI): Status: Acute (2) Atherosclerotic heart disease of [place] coronary artery with unstable angina pectoris: Status: Acute Qualifiers: [place] vs. transplanted heart: [place] heart Qualified Code(s): I25.110 - Atherosclerotic heart disease of [place] coronary artery with unstable angina pectoris (3) Chronic kidney disease: Status: Chronic Qualifiers: Chronic kidney disease stage: unspecified stage Qualified Code(s): N18.9 - Chronic kidney disease, unspecified (4) Atrial fibrillation: Status: Chronic Qualifiers: Atrial fibrillation type: unspecified Qualified Code(s): I48.91 - Unspecified atrial fibrillation (5) Benign essential hypertension with target blood pressure below 140/90: Status: Acute Reason for Visit Reason for Visit: CP Hospital Course Hospital Course: 65-year-old male with past medical history, hypertension, coronary artery disease status post CABG, CKD, with chief complaint of intermittent substernal chest progressively worsing over few-weeks on the day of admission his chest pain was worse when he decided to go to [facility]. Initial troponin was 17. Twelve-lead EKG shows some nonspecific ST changes in inferior leads suggestive of ischemia. Post stabilization [place] [facility] [place] [facility] [place] was diagnosed as NSTEMI based on his troponin and EKG changes, and typical cardiac chest pain characteristics. He was started on ACS protocol. The 2D echo was done: Which showed moderate diffuse hypokinesia of the inferior wall and basal septal segments. Overall left ventricular ejection fraction around 50 to 55 %. Mild biatrial enlargement. Thickened aortic and mitral valves.Moderate tricuspid valve regurgitation. Estimated pulmonary artery peak systolic pressure of 29 mmHg. Mild mitral regurgitation. There is no pericardial effusion. During the hospital stay he was chest pain free: He underwent myocardial perfusion Scan:small to moderate area of decreased tracer uptake in the mid and apical inferior and mid inferolateraL region, with a significant reversibility, suggestive of myocardial scarring with ischemia in the distribution of the right coronary artery/circumflex artery. Possibility of doing coronary angiogram was discussed with him, he was explained the risks and benefit coronary angiogram in presence of stage IV CKD. Patient understood the risk and benefits and he decided to go with medical management. He was a started on imdur 60 mg oral daily along with Plavix. He was also diagnosed with new onset A. fib and hence was started on Eliquis 2.5 mg every 12 hours. Patient was discharged in stable condition to home. Physical Exam Const: COMMON NORMALS: patient oriented x3 HENMT: COMMON NORMALS: normocephalic, atraumatic, hearing grossly normal bilaterally and external ears normal HEAD & SCALP: normocephalic and atraumatic EXTERNAL EAR: Yes external ears normal Eye: COMMON NORMALS: no scleral icterus GENERAL EYE: appearance normal, both eyes and all related structures Chest: COMMONS NORMALS: normal inspection of the chest and normal palpation of entire chest wall CHEST: Yes Symmetrical chest wall rise Resp: COMMON NORMALS: normal respiratory effort, No retractions, No use of accessory muscles and clear to auscultation bilaterally EFFORT & INSPECTION: Yes symmetric chest movement AUSCULTATION: clear to auscultation bilaterally Cardio: COMMON NORMALS: regular rate, regular rhythm, S1 normal heart sound present, S2 normal heart sound present, No gallops present (Cardio), No murmurs present (Cardio), No rub (Cardio) and Peripheral pulses 2+ throughout RATE: regular rate RHYTHM: regular rhythm HEART SOUNDS: S1 normal heart sound present and S2 normal heart sound present PERIPHERAL PULSES: Peripheral pulses 2+ throughout GI: COMMON NORMALS: Normal to inspection, nondistended, normoactive bowel sounds present, Soft to palpation, non-tender, No hepatosplenomegaly present and no masses AUSCULTATION: Yes normoactive bowel sounds PALPATION: Yes Soft to palpation and Yes No hepatosplenomegaly present RECTAL EXAM: Yes deferred Extremity: COMMON NORMALS: no clubbing, cyanosis or edema and no pedal edema Neuro: COMMON NORMALS: patient oriented x3 Discharge Data Data Completed and Pending: Completed Studies During Hospitalization Category Date Time Status Cardiac Stress Te st MIBI [Sestamibi Stress Test Reque st Exams 09/01/20 07:54 Draft ] Routine NM kika perf SPECT r/s* 12912 Routin e Nuc Med 09/01/20 20:50 Completed CV echo complete* 20690 Urgent Ultrasound 08/31/20 05:22 Completed Labs from last 24 hours 09/01/20 09/01/20 17:00 10:12 APTT 57.2 H 56.5 H Vitals: Last Vital Signs Temp 98.2 F 09/02/20 08:00 Pulse 119 H 09/02/20 08:00 Resp 17 09/02/20 08:00 BP 146/92 09/02/20 08:00 Pulse Ox 97 09/02/20 08:00 Discharge Plan Discharge Patient Disposition: Home Condition: Stable Prescriptions: New Eliquis 2.5 mg tablet 2.5 mg PO Q12H Qty: 60 RF: 0 isosorbide mononitrate 60 mg tablet extended release 24 hr 60 mg PO DAILY Qty: 30 RF: 0 Plavix 75 mg tablet 75 mg PO DAILY Qty: 30 RF: 0 Continued metoprolol succinate 200 mg Tablet Extended Release 24 Hr 200 mg PO DAILY RF: 0 amlodipine 10 mg Tablet 10 mg PO DAILY RF: 0 testosterone 20.25 mg/1.25 gram (1.62 %) Gel In Metered-Dose Pump 1 pump TOPICAL DAILY RF: 0 fluticasone propionate 50 mcg/actuation [place],Suspension 2 spray INTRANASAL DAILY RF: 0 Discontinued aspirin 81 mg Tablet,Chewable 81 mg PO DAILY RF: 0 Discharge Orders: Discharge Order (Routine); Ordered 09/02/20 Ordered By: Camron Martínez Referrals: Pk Parker MD [Physician] - 2 weeks (Please follow-up with Dr. Santiago on with check-in at 2:15p.m. If you have any questions or need to reschedule. Please call ) Hebert Agustin [Primary Care Provider] - (Please follow-up with Dr. Agsutin on at 2:00p.m. If you have any questions or need to reschedule. Please call ) Discharge Diet: Cardiac and Low Salt Discharge Activity: Resume usual activity Patient Instructions: Isosorbide Mononitrate (By mouth), Clopidogrel (By mouth), Apixaban (By mouth), Atrial Fibrillation (DC), Chest Pain Stoplight Discharge Date/Time: 09/02/20 12:27 Discharge Attestations Time Spent in Discharge Care*: greater than 30 min Specific Discharge Activities: Specific discharge activities: educating patient, educating and/or supporting family/caregiver, discussing with pcp/other providers, discussing with geriatric case manager/social workers/dc planners, documenting/other paperwork and evaluating patient/reviewing data Status at Discharge: Cognitive status at discharge: cognitively intact, Behavioral status at discharge: cooperative, Functional status at discharge: independent ambulation Overall status at discharge: patient is back to baseline Quality Metrics Clinical Quality Measures During this hospital stay, did patient experience: AMI Clinical Trial Participant: No Contraindication to aspirin (AMI): Aspirin given Contraindication to statin: Statin prescribed Coding Level of Care Code Acute [employer] for [employer] Fwd Diagnoses Non-ST elevation myocardial infarction (NSTEMI) I21.4 Atherosclerotic heart disease of [place] coronary artery with unstable angina pectoris I25.110 [place] vs. transplanted heart: [place] heart Chronic kidney disease N18.9 Chronic kidney disease stage: unspecified stage Atrial fibrillation I48.91 Atrial fibrillation type: unspecified Benign essential hypertension with target blood pressure below 140/90 I10
--- NOTE | 2020-09-02 11:46 | PC.NURSE ---
meds to bed [facility]. He would like us to fill his new Rx for 2 weeks then he can [facility]. [facility].
--- NOTE | 2020-09-02 12:28 | PC.NURSE ---
discharge to home w/ caregiver Instructed pt to follow-up w/pcp and affiliate marketing manager. New meds educated on pt on reason why they are prescribed, dosing, timing and possible s/e. Discharge papers provided to pt. New meds delivered at bedside.
--- NOTE | 2020-09-02 17:18 | PM.PN ---
Subjective Subjective: Interval history: No acute event overnight. Vitals and labs. Reviewed. Patient is due for stress test today. Medications: Reviewed: Yes Vitals/I&O/Wt Last Vital Signs Temp 98.2 F 09/02/20 11:46 Pulse 105 H 09/02/20 12:26 Resp 18 09/02/20 11:46 BP 139/61 09/02/20 11:46 Pulse Ox 96 09/02/20 12:26 09/02/20 09/02/20 09/02/20 06:59 14:59 22:59 Intake Total 824.167 / 2445.651 1200 / 1200 Output Total 575 / 1275 Balance 249.167 / 4344.246 8853 / 1200 Physical Exam Const: COMMON NORMALS: patient oriented x3 HENMT: COMMON NORMALS: normocephalic, atraumatic, hearing grossly normal bilaterally and external ears normal HEAD & SCALP: normocephalic and atraumatic EXTERNAL EAR: Yes external ears normal Eye: COMMON NORMALS: no scleral icterus GENERAL EYE: appearance normal, both eyes and all related structures Chest: COMMONS NORMALS: normal inspection of the chest and normal palpation of entire chest wall CHEST: Yes Symmetrical chest wall rise Resp: COMMON NORMALS: normal respiratory effort, No retractions, No use of accessory muscles and clear to auscultation bilaterally EFFORT & INSPECTION: Yes symmetric chest movement AUSCULTATION: clear to auscultation bilaterally Cardio: COMMON NORMALS: regular rate, regular rhythm, S1 normal heart sound present, S2 normal heart sound present, No gallops present (Cardio), No murmurs present (Cardio), No rub (Cardio) and Peripheral pulses 2+ throughout RATE: regular rate RHYTHM: regular rhythm HEART SOUNDS: S1 normal heart sound present and S2 normal heart sound present PERIPHERAL PULSES: Peripheral pulses 2+ throughout GI: COMMON NORMALS: Normal to inspection, nondistended, normoactive bowel sounds present, Soft to palpation, non-tender, No hepatosplenomegaly present and no masses AUSCULTATION: Yes normoactive bowel sounds PALPATION: Yes Soft to palpation and Yes No hepatosplenomegaly present RECTAL EXAM: Yes deferred Extremity: COMMON NORMALS: no clubbing, cyanosis or edema and no pedal edema Neuro: COMMON NORMALS: patient oriented x3 Data : 09/01/20 04:03 09/01/20 04:03 A&P Assessment and plan (1) Non-ST elevation myocardial infarction (NSTEMI): Clinical features are consistent with a non-ST elevation myocardial infarction. Currently Patient is chest pain free and hemodynamically stable. He Has not experienced chest pain which he was having last night. Cardiology is on board, and he has been started on NSTEMI, management, based on the troponin rise, underlying risk factor, EKG, and typical chest pain characteristic. 2D Echo : Moderate diffuse hypokinesia of the inferior wall and basal septal segments.Overall left ventricular ejection fraction around 50 to 55 %. EKG: changes suggestive of inferolateral wall ischemia. Since the patient is chest pain free: He is due to undergo myocardial perfusion scan. Status: Acute (2) Atherosclerotic heart disease of [place] coronary artery with unstable angina pectoris: Status: Acute Qualifiers: [place] vs. transplanted heart: [place] heart Qualified Code(s): I25.110 - Atherosclerotic heart disease of [place] coronary artery with unstable angina pectoris (3) Chronic kidney disease: Currently at baseline SCR: 2.8 continue to Monitor SCR. Status: Chronic Qualifiers: Chronic kidney disease stage: unspecified stage Qualified Code(s): N18.9 - Chronic kidney disease, unspecified (4) Atrial fibrillation: Currently rate controlled.Continue metoprolol tart 50 mg po q12 h daily. Tele: On heparin drip Status: Chronic Qualifiers: Atrial fibrillation type: unspecified Qualified Code(s): I48.91 - Unspecified atrial fibrillation (5) Benign essential hypertension with target blood pressure below 140/90: Status: Acute Additional A&P Information DVT PPX: On Heparin Code: Full code Disposition: Home Likely post cath. Attestations Medical Necessity Statement*: Patient needs to stay in hospital for management of NSTEMI Coding Level of Care Code Acute Leather Drier for [facility] Fwd Diagnoses Non-ST elevation myocardial infarction (NSTEMI) I21.4 Atherosclerotic heart disease of [place] coronary artery with unstable angina pectoris I25.110 [place] vs. transplanted heart: [place] heart Chronic kidney disease N18.9 Chronic kidney disease stage: unspecified stage Atrial fibrillation I48.91 Atrial fibrillation type: unspecified Benign essential hypertension with target blood pressure below 140/90 I10
== END 2020-09-02 12:27 | disposition home or self-care (01) | DRG 281 ==
LOC: ER 04:54 → CSU 04:55
PROVIDERS: Emergency Medicine; Admitting Provider Hospitalist; PCP Family Medicine; Visit Provider Internal Medicine
DX: I21.4 Non-ST elevation (NSTEMI) myocardial infarction (principal); N18.4 Chronic kidney disease, stage 4 (severe); N17.9 Acute kidney failure, unspecified; I25.110 Atherosclerotic heart disease of native coronary artery with unstable angina pectoris; Z95.1 Presence of aortocoronary bypass graft; Z95.5 Presence of coronary angioplasty implant and graft; I12.9 Hypertensive chronic kidney disease with stage 1 through stage 4 chronic kidney disease, or unspecified chronic kidney disease; Z87.891 Personal history of nicotine dependence; I48.91 Unspecified atrial fibrillation; I25.2 Old myocardial infarction; Z86.74 Personal history of sudden cardiac arrest; E78.5 Hyperlipidemia, unspecified; Z90.49 Acquired absence of other specified parts of digestive tract; I08.1 Rheumatic disorders of both mitral and tricuspid valves
CPT/HCPCS: 12345; 36415; 78452; 80048; 80061; 81001; 83690; 83735; 83880; 84100; 84484; 84550; 85025; 85049; 85610; 85730; 93005; 93017; 93306; 96375; 99283; A9500; G0378; J1644; J2270; J2405; J2785; J3490; J7030

== ENCOUNTER 2020-10-20 13:28 | Emergency (ER) | payer OTHER, MEDICARE, SELFPAY ==
[2020-10-20] VITALS (10 sets, daily range): BP systolic 106–129; BP diastolic 65–81; PULSE 81–100; RESP 15–16; TEMP 36.9; O2SAT 93–98; BMI 19.5
--- NOTE | 2020-10-20 13:42 | ECG_ITS ---
[facility] Test Date: 2020-10-20 Pat Name: Shin Valera Department: Room: Gender: Male Nutrition Worker: : 1955 Requested By: Seda Hinson Order Number: [id number] Claudio MD: LAYLA SHEEHAN Measurements Intervals [place] Rate: 101 P: [place]: QRS: 65 QRSD: 89 T: 62 QT: 354 QTc: 460 Interpretive Statements ATRIAL FIBRILLATION WITH RAPID VENTRICULAR RESPONSE NONSPECIFIC ST & T-WAVE ABNORMALITY ABNORMAL RHYTHM ECG WARNING: DATA QUALITY MAY AFFECT INTERPRETATION Compared to ECG 08/31/2020 10:07:00 Possible ischemia no longer present T-wave abnormality still present Electronically Signed On 10-22-2020 15:26:22 RIVET HOLE PUNCHER by LAYLA SHEEHAN [id number]
--- NOTE | 2020-10-20 13:42 | XR_ITS ---
WS: [id number] XR chest 1V portable [id number] REASON FOR EXAM: abd pain, chest pain FINDINGS: Status post coronary artery bypass surgery. Heart is at the upper limits of normal in size. Calcified granulomatous changes in both hemithoraces. No active pulmonary parenchymal or pleural abnormality noted. Dual-lumen catheter in place through the right internal jugular vein with the tip at the cavoatrial j unction. XR/XR chest 1V portable [id number] IMPRESSION: No acute chest abnormality.
--- NOTE | 2020-10-20 13:42 | CT_ITS ---
WS: [id number] CT ANGIOGRAPHY chest, abdomen and pelvis AORTA HISTORY: recent AAA with repair, now left abdominal pain TECHNIQUE: Noncontrast examination is first performed. CT angiogram is performed during IV injection. Reformation images reviewed. All CT scans at [facility] use at least one of these dose op timization techniques: automated exposure control; mA and/or kV adjustment per patient size (includes targeted exams where dose is matched to clinical indication); or iterative reconstruction. CONTRAST: Visipaque 320; 95 mL IV. DLP: 1039.79 mGy-cm. COMPARISON: None available. Moderate to severe atherosclerosis thoracic aorta. Diameter of the aorta is 3.6 cm. Irregular plaque and intimal thickening. No dissection identified. Pulmonary artery is equal to the aorta. No central pulmonary embolism. Chronic emphysema. Mild haziness over both lungs is probably due to small amount of fluid overload. Calcified benign granuloma LEFT upper lobe. No mass or effusion. Severe enlargemen t of the LEFT heart chambers. Tricuspid regurgitation into hepatic veins. Additional moderate enlarge ment of the LEFT atrium. No pericardial effusion. Abdominal aorta: Endovascular stent graft begins near the level of the renal arteries. Graft extends into the proximal common iliac arteries bilaterally. The [facility] aneurysm size is 5.7 x 5.6 cm. There is good enhancement of the lumen of the endovascular graft. Beginning just above the endovascular aortic graft and at the level of the LEFT renal artery is a foc al outpouching from the LEFT lateral abdominal aorta. Outpouching is beyond the calcification within the wall. On the postcontrast study this does fill with contrast. This outpouching measures 12 x 12 m m. Contrast enhancement is 8 x 8 mm. SMA and celiac axis are still patent although there is significa nt atherosclerotic plaque and luminal irregularity. There is free fluid in the abdomen with mildly increased Hounsfield units. There is no evidence for acute ischemia at this time. There is some very minimal prominence of the vasa recta in the LEFT late ral abdominal wall. Single loop of mild bowel wall thickening at the terminal ileum. No free air. Kidneys are atrophic bilaterally with perinephric stranding. There is mild delayed enhancement. LEFT renal artery is not definitely identified. Atherosclerotic plaque in the proximal RIGHT renal artery. CT/CT angio chest abdomen pelvis IMPRESSION: 1. Status post endovascular graft repair large abdominal aortic aneurysm. 2. 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 3. Cannot identify the LEFT renal artery but there is enhancement of the kidne y. 4. Small amount of free fluid in the pelvis may be hemoperitoneum. 5. No free air or obstruction. 6. Extensive atherosclerotic plaque throughout the entire aorta. 7. Marked cardiomegaly. Notified Seda Mojica MD at 10/20/2020 3:23 PM.
[2020-10-20 14:01] LABS: Basophils % 0.2 %; Eosinophils # 0.5 10^3/uL (0.0-0.8); Eosinophils % 3.3 %; Hematocrit 26.6 % (42.0-52.0); Hemoglobin 8.3 g/dL (11.7-16.6); Lymphocytes # 0.7 10^3/uL (0.8-4.8); Lymphocytes % 5.2 %; Mean Corpuscular HGB Conc 31.2 g/dL (30.0-36.0); Mean Corpuscular Hemoglobin 28.9 pg (28.0-34.0); Mean Corpuscular Volume 92.7 fL (80-94); Mean Platelet Volume 10.6 fL (7.4-10.4); Monocytes # 1.1 10^3/uL (0.2-0.9); Monocytes % 8.1 %; Neutrophils # 11.15 10^3/uL (1.8-7.7); Neutrophils % 82.7 %; Nucleated Red Blood Cells % 0 %; Platelet Count 317 10^3/cmm (130-400); Red Blood Count 2.87 10^6/uL (4.1-5.3); Red Cell Distribution Width 14.1 % (12.1-15.1); White Blood Count 13.5 10^3/uL (4.0-10.0)
[2020-10-20] MEDS: morphine 4 mg/mL SDV 1 mL IVP ×2 (14:15→15:10)
[2020-10-20 14:32] LABS: Alanine Aminotransferase 19 U/L (0-41); Albumin Level 3.7 g/dL (3.5-5.2); Alkaline Phosphatase 80 IU/L (40-130); Anion Gap 15.4 (5-19); Aspartate Amino Transferase 22 U/L (0-40); Blood Urea Nitrogen 18 mg/dL (8-23); Calcium 8.7 mg/dL (8.5-10.5); Carbon Dioxide 29 mmol/L (22-29); Chloride 97 mmol/L (98-107); Glomerular Filtration Rate 12.8 mL/min (90-130); Glucose 128 mg/dL (65-115); Osmolality Calculated 290 mOsm/kg (285-295); Potassium 3.4 mmol/L (3.5-5.1); Sodium 138 mmol/L (136-145); Total Bilirubin 0.7 mg/dL (0.15-1.2); Total Protein 6.7 g/dL (6.6-8.7)
[2020-10-20 14:47] LABS: INR 8.91 (0.8-1.2)
[2020-10-20] MEDS: iodixanol 320 mg/mL 100mL Btl IV (15:12)
[2020-10-20 15:49] LABS: Lipase 217 U/L (13-60)
[2020-10-20] MEDS: phytonadione (ADULT) 10 mg/mL Ampule 1 mL 2.5 MG SUBCUT (16:11)
--- NOTE | 2020-10-20 16:31 | ED_ITS ---
HPI - Abdominal Pain General: Chief Complaint: Abdominal Pain Stated Complaint: abd pain Time Seen by Provider: 10/20/20 13:35 History of Present Illness: HPI narrative: This patient is a 65-year-old gentleman who comes in by ambulance today. He was recently admitted to [facility] with a AAA. He had an endovascular stent placed by Dr. Chahal. He was eventually discharged home on dialysis. He went home and had dialysis yesterday. This morning he woke up and had left-sided abdominal pain. He called the ambulance and was brought here because the CT scanner at [facility] apparently is not working. On arrival he had tenderness in the left upper quadrant. His vital signs were stable. Pain medications given by EMS had relieved his pain somewhat. Our CT scanner was also down because of Covid cleaning and so he was sent by EMS over to the [facility] for an urgent CT. MD elicited complaint: abdominal pain Pertinent past history: other (AAA) Onset (ago): unknown Pain Consistency: constant Location: LUQ Severity: severe Quality: sharp Radiation: none Associated Symptoms: Reports diarrhea; Denies chills, fever(s), nausea and vomiting Review of Systems General: Reports: 10 or more systems reviewed and unremarkable except in HPI and below Const: Reports: fatigue and malaise; Denies: fever(s) or chills Eyes: Denies: change in vision ENMT: Denies: odynophagia Card: Denies: chest pain or swelling of feet/ankles Resp: Denies: dyspnea, productive cough or non-productive cough GI: Reports: abdominal pain and diarrhea; Denies: nausea or vomiting : Denies: flank pain Musc: Denies: neck pain or back pain Skin/Breast: Denies: rash Neuro: Denies: headache(s), numbness in extremities or weakness in extremities Chris/Lymph: Denies: easy bruising or easy bleeding PFS ED PFSH: Medical History (Updated 10/20/20 @ 18:02 by Seda Mojica MD) Atherosclerotic heart disease of [place] coronary artery with unstable angina pectoris Atrial fibrillation Benign essential hypertension with target blood pressure below 140/90 CAD (coronary artery disease) Chronic kidney disease History of Crohn's disease Not currently requiring treatment, no immunosuppressive's History of pancreatitis By his description sounds like gallstone pancreatitis Hypertension Non-ST elevation myocardial infarction (NSTEMI) Recent non-ST elevation myocardial infarction Unstable angina Surgical History History of cholecystectomy History of coronary artery stent placement Right coronary artery, prior to bypass History of four vessel coronary artery bypass graft (~2011) History of resection of large bowel Partial, secondary to Crohn's Family History Mother Stroke CHF (congestive heart failure) Father Valvular heart disease Social History Smoking and tobacco status: former smoker Alcohol intake: never Physical Exam Const: COMMON NORMALS: no acute distress, patient oriented x3, no limitations and alert GENERAL APPEARANCE: cooperative and comfortable HENMT: HEAD & SCALP: normal to inspection FACE & SINUS: normal facial exam Eye: GENERAL EYE: appearance normal, both eyes and all related structures Neck/C-Spine: COMMON NORMALS: supple, no meningeal signs and no JVD Chest: COMMONS NORMALS: normal inspection of the chest Resp: COMMON NORMALS: normal respiratory effort, No use of accessory muscles and clear to auscultation bilaterally AUSCULTATION: clear to auscultation bilaterally Cardio: COMMON NORMALS: no JVD, regular rate, regular rhythm and No murmurs present (Cardio) RATE: regular rate RHYTHM: regular rhythm GI: PALPATION: Yes Tenderness to palpation present (GI) Details: LUQ and Yes Palpable mass present (Fullness to the left and superior of the umbilicus) Back/Pelvis: COMMON NORMALS: thoracic and lumbar spine normal to inspection Extremity: COMMON NORMALS: normal to inspection NARRATIVE EXTREMITY EXAM: 2+ pulses in both arms and both feet Neuro: COMMON NORMALS: patient oriented x3, moves all extremities, no focal motor deficits and no sensory deficits noted SENSORIUM/ORIENTATION: Yes alert MENINGEAL SIGNS: Yes no meningeal signs Psych: COMMON NORMALS: mental status grossly normal, cooperative and normal affect Skin: COMMON NORMALS: no rashes or lesions noted and turgor normal GENERAL SKIN EXAM: no rashes or lesions noted and turgor normal Course ED course: Patient was sent to the [facility] for an emergent CT. This showed no obvious leak. It did show the stent in place in the aortic aneurysm. 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 That is 12 mm x 12 mm. The renal artery was not visualized but there is perfusion to the kidney on delayed imaging. There is some fluid in the pelvis which could be hemoperitoneum. There are some other vascular issues including plaque and partial blockages in the celiac and SMA. There is no evidence of ischemic bowel. Patient's INR came back at 8.9. Hemoglobin is 8.3. Creatinine is 4.6. He does tell me that he did not take his Plavix this morning because he did not like the idea of being on 2 blood thinners. I spoke to Dr. Chahal from [facility]. We were able to share the images to them and he was able to review them as we were on the phone. He did not feel there was anything that needed acute intervention but did agree that the patient should be admitted. He suggested some vitamin K to reverse the INR. He would like the patient admitted to the hospitalist. The family support coordinator at [facility] spoke to the hospitalist and he did not feel that he should be admitting the patient. I then spoke to Dr. Salazar from trauma surgery and he did not feel there was any sort of surgical issue at this time either. At this point were just trying to find an admitting physician to transfer the patient back to [facility]. I did go ahead and give 2-1/2 mg of subcu vitamin K. I am hesitant to fully reverse the INR given the questionable findings of some partial blockages and delayed flow to the kidney on CT. Vital Signs: Vital signs: Vital Signs Temperature 98.4 F 10/20/20 13:31 Pulse Rate 100 10/20/20 18:59 Respiratory Rate 16 10/20/20 18:59 Blood Pressure 129/72 10/20/20 18:59 Pulse Oximetry 95 10/20/20 18:59 MDM - Abdominal Pain Lab Data: Labs: Lab Results 10/20/20 10/20/20 10/20/20 Range/Units 12:40 12:40 12:40 WBC 13.5 H (4.0-10.0) 10^3/ uL RBC 2.87 L (4.1-5.3) 10^6/u L Hgb 8.3 L (11.7-16.6) g/dL Hct 26.6 L (42.0-52.0) % MCV 92.7 (80-94) fL MCH 28.9 (28.0-34.0) pg MCHC 31.2 (30.0-36.0) g/dL RDW 14.1 (12.1-15.1) % Plt Count 317 (130-400) 10^3/c mm MPV 10.6 H (7.4-10.4) fL Neut % (Auto) 82.7 % Lymph % (Auto) 5.2 % [place] % (Auto) 8.1 % Eos % (Auto) 3.3 % Baso % (Auto) 0.2 % Neut # (Auto) 11.15 H (1.8-7.7) 10^3/u L Lymph # (Auto) 0.7 L (0.8-4.8) 10^3/u L [place] # (Auto) 1.1 H (0.2-0.9) 10^3/u L Eos # (Auto) 0.5 (0.0-0.8) 10^3/u L Baso # (Auto) 0.0 (0.0-0.1) 10^3/u L Nucleated RBC % (a uto) 0 % Nucleated RBCs # 0.0 /100WBC PT 76.60 H (12.1-14.9) SECO NDS INR 8.91 H* (0.8-1.2) Sodium 138 (136-145) mmol/L Potassium 3.4 L (3.5-5.1) mmol/L Chloride 97 L (98-107) mmol/L Carbon Dioxide 29 (22-29) mmol/L Anion Gap 15.4 (5-19) BUN 18 (8-23) mg/dL Creatinine 4.6 H (0.7-1.2) mg/dL GFR Calculation 12.8 L (90-130) mL/min Glucose 128 H (65-115) mg/dL Calculated Osmolal ity 290 (285-295) mOsm/k g Calcium 8.7 (8.5-10.5) mg/dL Total Bilirubin 0.7 (0.15-1.2) mg/dL AST 22 (0-40) U/L ALT 19 (0-41) U/L Alkaline Phosphata se 80 (40-130) IU/L Total Protein 6.7 (6.6-8.7) g/dL Albumin 3.7 (3.5-5.2) g/dL Globulin 3.0 (1.3-4.6) g/dL Lipase (13-60) U/L 24/20 Range/Units 12:40 WBC (4.0-10.0) 10^3/ uL RBC (4.1-5.3) 10^6/u L Hgb (11.7-16.6) g/dL Hct (42.0-52.0) % MCV (80-94) fL MCH (28.0-34.0) pg MCHC (30.0-36.0) g/dL RDW (12.1-15.1) % Plt Count (130-400) 10^3/c mm MPV (7.4-10.4) fL Neut % (Auto) % Lymph % (Auto) % [place] % (Auto) % Eos % (Auto) % Baso % (Auto) % Neut # (Auto) (1.8-7.7) 10^3/u L Lymph # (Auto) (0.8-4.8) 10^3/u L [place] # (Auto) (0.2-0.9) 10^3/u L Eos # (Auto) (0.0-0.8) 10^3/u L Baso # (Auto) (0.0-0.1) 10^3/u L Nucleated RBC % (a uto) % Nucleated RBCs # /100WBC PT (12.1-14.9) SECO NDS INR (0.8-1.2) Sodium (136-145) mmol/L Potassium (3.5-5.1) mmol/L Chloride (98-107) mmol/L Carbon Dioxide (22-29) mmol/L Anion Gap (5-19) BUN (8-23) mg/dL Creatinine (0.7-1.2) mg/dL GFR Calculation (90-130) mL/min Glucose (65-115) mg/dL Calculated Osmolal ity (285-295) mOsm/k g Calcium (8.5-10.5) mg/dL Total Bilirubin (0.15-1.2) mg/dL AST (0-40) U/L ALT (0-41) U/L Alkaline Phosphata se (40-130) IU/L Total Protein (6.6-8.7) g/dL Albumin (3.5-5.2) g/dL Globulin (1.3-4.6) g/dL Lipase 217 H (13-60) U/L Discharge Plan Discharge Patient Disposition: Xfer Short-Term Hosp Clinical Impression: Coagulopathy Abdominal pain Qualifiers: Abdominal location: left upper quadrant Qualified Code(s): R10.12 - Left upper quadrant pain Condition: Stable Patient Instructions: Abdominal Pain (ED) Coding Level of Care Code ED Seafood Preparer for Singh Fwd Exam Comprehensive
== END 2020-10-20 19:00 | disposition short-term general hospital (02) ==
PROVIDERS: Emergency Provider Emergency Medicine
DX: R10.12 Left upper quadrant pain (principal); D68.9 Coagulation defect, unspecified; I48.91 Unspecified atrial fibrillation; I25.10 Atherosclerotic heart disease of native coronary artery without angina pectoris; I10 Essential (primary) hypertension; I25.2 Old myocardial infarction; Z87.891 Personal history of nicotine dependence
CPT/HCPCS: 12345; 71045; 71275; 74174; 80053; 83690; 85025; 85610; 93005; 96372; 96374; 96376; 99283; J2270; J3430; Q9967

== ENCOUNTER 2020-11-02 02:47 | Inpatient (IN) | payer OTHER, MEDICARE, SELFPAY ==
[2020-11-02] VITALS (135 sets, daily range): BP systolic 121–162; BP diastolic 61–126; PULSE 83–156; RESP 12–45; TEMP 36.7–37.8; O2SAT 70–100; BMI 16.7
--- NOTE | 2020-11-02 03:03 | XR_ITS ---
WS: [id number] XR chest 1V portable [id number] REASON FOR EXAM: sob FINDINGS: The chest is unchanged compared to previous examination of 10/20/2020. Previous coronary artery bypass surgery. The heart is not enlarged. Right internal jugular temporary dialysis catheter with tip at the cavoatrial junction. No active pulmonary parenchymal or pleural disease is identified. Bony thorax is intact. XR/XR chest 1V portable [id number] IMPRESSION: No acute abnormality.
--- NOTE | 2020-11-02 03:04 | ECG_ITS ---
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: : [id number] Requested By: Arya Cassidy Order Number: [id number] Claudio MD: LAYLA SHEEHAN Measurements Intervals [place] Rate: 107 P: VT: QRS: 70 QRSD: 88 T: 30 QT: 308 QTc: 411 Interpretive Statements ATRIAL FIBRILLATION WITH RAPID VENTRICULAR RESPONSE NONSPECIFIC ST & T-WAVE ABNORMALITY ABNORMAL RHYTHM ECG INTERPRETATION BASED ON A DEFAULT AGE OF 40 YEARS Compared to ECG 10/20/2020 14:02:17 No significant changes Electronically Signed On 11-02-2020 18:38:56 [employer]REL LATHE OPERATOR OUTSIDE by LAYLA SHEEHAN [email or web address]
[2020-11-02 03:24] LABS: ABG PCO2 35.3 mmHg (35-45); ABG PH Result 7.47 (7.35-7.45); Arterial Blood Gas Hematocrit 21.6 % (42-52); Base Excess ABG 2.2 mmol/L (-2.0-2.0); Blood Gas Allen Test Pos; Blood Gas Sample Site Radial, left; Blood Gas Sample Type Arterial; Carboxyhemoglobin 1.4 %THgb (0.4-20.1); HCO3 ABG 25.9 mmol/L (22-26); HGB O2 Sat 96.6 % (95-100); Methemoglobin 1.2 % (0.4-1.5); Oxygen Device NC; PO2 ABG 98.4 mmHg (80.0-100.0); Total Hemoglobin 7.1 g/dL (14-18)
--- NOTE | 2020-11-02 03:29 | W.ED.SOB ---
Documented by User: Arya Sky DO 11/02/20 05:38 HPI - SOB/Dyspnea General: Chief Complaint: Shortness of Breath/Dyspnea Stated Complaint: FEVER Time Seen by Provider: 11/02/20 03:28 History of Present Illness: HPI Narrative: 65-year-old dialysis patient who was in a group home. He reports sudden onset of shortness of breath around 130. It worsened, and evidently had a low pulse ox in the group home. He also had a temperature of 102 there. He had received a gram of Tylenol, and it is on its way down now. He notes a nonproductive cough for the past 24 to 48 hours. MD elicited complaint: shortness of breath and cough Pertinent past history: congestive heart failure Onset (ago): hour(s) Associated symptoms: Deny abdominal pain, chest pain, dizziness, fever(s), nausea, palpitations or vomiting Review of Systems Const: Denies: fever(s) or chills Eyes: Denies: change in vision or blurry vision ENMT: Denies: odynophagia or sinus pain Card: Denies: chest pain, palpitations or irregular heart rhythm Resp: Reports: dyspnea and non-productive cough; Denies: productive cough or wheezing GI: Denies: abdominal pain, nausea or vomiting : Denies: difficulty urinating, dysuria or hematuria Musc: Reports: back pain; Denies: neck pain, joint redness or joint warmth Skin/Breast: Denies: rash, pruritus or erythema Neuro: Denies: headache(s), dizziness, vertigo or confusion Psych: Denies: anxiety PFSH ED PFSH: Medical History (Updated 11/02/20 @ 09:39 by Edson Yu DO) 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 Atrial fibrillation Benign essential hypertension with target blood pressure below 140/90 CAD (coronary artery disease) Chronic kidney disease History of Crohn's disease Not currently requiring treatment, no immunosuppressive's History of pancreatitis By his description sounds like gallstone pancreatitis Hypertension Non-ST elevation myocardial infarction (NSTEMI) Recent non-ST elevation myocardial infarction Unstable angina Surgical History History of cholecystectomy History of coronary artery stent placement Right coronary artery, prior to bypass History of four vessel coronary artery bypass graft (~2011) History of resection of large bowel Partial, secondary to Crohn's Family History Mother Stroke CHF (congestive heart failure) Father Valvular heart disease Social History Smoking and tobacco status: former smoker Alcohol intake: never Physical Exam Const: GENERAL APPEARANCE: well developed ORIENTATION/CONSCIOUSNESS: Yes oriented to person, Yes oriented to place and Yes oriented to time HENMT: COMMON NORMALS: normocephalic, external ears normal and Normal external nose present HEAD & SCALP: normocephalic FACE & SINUS: normal facial exam NOSE: Normal external nose present and No nasal discharge present EXTERNAL EAR: Yes external ears normal Eye: COMMON NORMALS: Equal, round and reactive pupils present, EOMs intact bilaterally and conjunctivae normal EYELID: eyelids normal CONJUNCTIVA: Yes conjunctivae normal PUPIL: Yes Equal, round and reactive pupils present Neck/C-Spine: GENERAL: No tracheal deviation Chest: COMMONS NORMALS: normal inspection of the chest CHEST: No tenderness Resp: COMMON NORMALS: clear to auscultation bilaterally EFFORT & INSPECTION: Yes tachypneic, No respiratory distress, No retractions, No uses accessory muscles and No tracheal deviation AUSCULTATION: clear to auscultation bilaterally, no rhonchi, no wheezes and lung sounds not diminished Cardio: COMMON NORMALS: regular rate and regular rhythm RATE: regular rate RHYTHM: regular rhythm HEART SOUNDS: no murmurs PERIPHERAL PULSES: radial pulses present GI: INSPECTION: No abdominal distension AUSCULTATION: No Hyperactive bowel sounds present and No Hypoactive bowel sounds present PALPATION: No Guarding due to palpation present (GI) and No Rigid due to palpation PERCUSSION: no dullness to percussion and no tympanic to percussion Neuro: SENSORIUM/ORIENTATION: Yes oriented to person, Yes oriented to place and Yes oriented to time Psych: COMMON NORMALS: mental status grossly normal Skin: COMMON NORMALS: no rashes or lesions noted GENERAL SKIN EXAM: no rashes or lesions noted Course Vital Signs: Vital signs: Vital Signs Temperature 98.0 F 11/02/20 06:00 Pulse Rate 89 11/02/20 06:00 Respiratory Rate 17 11/02/20 06:00 Blood Pressure 126/67 11/02/20 06:00 Pulse Oximetry 98 11/02/20 06:00 MDM - SOB/Dyspnea MDM Narrative: Medical decision making narrative: 65-year-old male presents with a temperature of 102, and acute onset of shortness of breath. He is a dialysis patient. His white blood cell count is 17.4. His hemoglobin is down to 6.1. His BUN and creatinine are 38 and 7.8. Sodium 132. Magnesium and phosphorus pending. His D-dimer is significantly elevated. His chest x-ray does not show an infiltrate. His rapid COVID-19 test is negative. He is going to CTA, which will be pending. He will be checked out to Dr. Yu at shift change. Lab Data: Labs: Lab Results 11/02/20 11/02/20 11/02/20 Range/Units 03:15 03:20 03:30 WBC 17.4 H (4.0-10.0) 10^3/ uL RBC 2.14 L (4.1-5.3) 10^6/u L Hgb 6.1 L* (11.7-16.6) g/dL Hct 19.7 L* (42.0-52.0) % MCV 92.1 (80-94) fL MCH 28.5 (28.0-34.0) pg MCHC 31.0 (30.0-36.0) g/dL RDW 15.2 H (12.1-15.1) % Plt Count 201 (130-400) 10^3/c mm MPV 10.1 (7.4-10.4) fL Neut % (Auto) 85.8 % Lymph % (Auto) 5.2 % Wallace % (Auto) 5.4 % Eos % (Auto) 2.7 % Baso % (Auto) 0.1 % Neut # (Auto) 14.89 H (1.8-7.7) 10^3/u L Lymph # (Auto) 0.9 (0.8-4.8) 10^3/u L Wallace # (Auto) 0.9 (0.2-0.9) 10^3/u L Eos # (Auto) 0.5 (0.0-0.8) 10^3/u L Baso # (Auto) 0.0 (0.0-0.1) 10^3/u L Nucleated RBC % (a uto) 0.1 % Nucleated RBCs # 0.0 /100WBC PT (12.1-14.9) SECO NDS INR (0.8-1.2) D-Dimer (0-0.59) ug/mIFE U Specimen Type Arterial Sample Site Radial, left ABG pH 7.47 H (7.35-7.45) ABG pCO2 35.3 (35-45) mmHg ABG pO2 98.4 (80.0-100.0) mmH g ABG HCO3 25.9 (22-26) mmol/L ABG Base Excess 2.2 H (-2.0-2.0) mmol/ L Eusebio Test Pos Hematocrit 21.6 L (42-52) % Hgb O2 Saturation 96.6 (95-100) % Carboxyhemoglobin 1.4 (0.4-20.1) %THgb Methemoglobin 1.2 (0.4-1.5) % Total Hemoglobin 7.1 L (14-18) g/dL O2 Delivery Device Nc O2 Liters/Min 5.0 % FiO2 40.0 % Balance Wheel Hand Filer ID [id number] Sodium (136-145) mmol/L Potassium (3.5-5.1) mmol/L Chloride (98-107) mmol/L Carbon Dioxide (22-29) mmol/L Anion Gap (5-19) BUN (8-23) mg/dL Creatinine (0.7-1.2) mg/dL GFR Calculation (90-130) mL/min Glucose (65-115) mg/dL Calculated Osmolal ity (285-295) mOsm/k g Lactic Acid (0.5-2.2) mmol/L Calcium (8.5-10.5) mg/dL Total Bilirubin (0.15-1.2) mg/dL AST (0-40) U/L ALT (0-41) U/L Alkaline Phosphata se (40-130) IU/L Lactate Dehydrogen ase (135-225) U/L Troponin T Baselin e (0-15) ng/L Troponin T 120 Min [place] (0-15) ng/L Delta Troponin T (0-10) ABS# C-Reactive Protein (0.0-4.9) mg/L NT-Pro-B Natriuret Pep (0-125) pg/mL Total Protein (6.6-8.7) g/dL Albumin (3.5-5.2) g/dL Globulin (1.3-4.6) g/dL Procalcitonin (0-0.5) ng/mL SARS-CoV-2 Ag (Rap id) Negative (Negative) Blood Type Rho(D) Type Antibody Screen Crossmatch 11/02/20 11/02/20 11/02/20 Range/Units 03:30 03:30 03:30 WBC (4.0-10.0) 10^3/ uL RBC (4.1-5.3) 10^6/u L Hgb (11.7-16.6) g/dL Hct (42.0-52.0) % MCV (80-94) fL MCH (28.0-34.0) pg MCHC (30.0-36.0) g/dL RDW (12.1-15.1) % Plt Count (130-400) 10^3/c mm MPV (7.4-10.4) fL Neut % (Auto) % Lymph % (Auto) % Wallace % (Auto) % Eos % (Auto) % Baso % (Auto) % Neut # (Auto) (1.8-7.7) 10^3/u L Lymph # (Auto) (0.8-4.8) 10^3/u L Wallace # (Auto) (0.2-0.9) 10^3/u L Eos # (Auto) (0.0-0.8) 10^3/u L Baso # (Auto) (0.0-0.1) 10^3/u L Nucleated RBC % (a uto) % Nucleated RBCs # /100WBC PT 33.50 H (12.1-14.9) SECO NDS INR 3.14 H (0.8-1.2) D-Dimer 2.19 H (0-0.59) ug/mIFE U Specimen Type Sample Site ABG pH (7.35-7.45) ABG pCO2 (35-45) mmHg ABG pO2 (80.0-100.0) mmH g ABG HCO3 (22-26) mmol/L ABG Base Excess (-2.0-2.0) mmol/ L Eusebio Test Hematocrit (42-52) % Hgb O2 Saturation (95-100) % Carboxyhemoglobin (0.4-20.1) %THgb Methemoglobin (0.4-1.5) % Total Hemoglobin (14-18) g/dL O2 Delivery Device O2 Liters/Min % FiO2 % Balance Wheel Hand Filer ID Sodium 132 L (136-145) mmol/L Potassium 4.6 (3.5-5.1) mmol/L Chloride 94 L (98-107) mmol/L Carbon Dioxide 26 (22-29) mmol/L Anion Gap 16.6 (5-19) BUN 38 H (8-23) mg/dL Creatinine 7.8 H* (0.7-1.2) mg/dL GFR Calculation 7.0 L (90-130) mL/min Glucose 129 H (65-115) mg/dL Calculated Osmolal ity 285 (285-295) mOsm/k g Lactic Acid 1.4 (0.5-2.2) mmol/L Calcium 8.3 L (8.5-10.5) mg/dL Total Bilirubin 0.4 (0.15-1.2) mg/dL AST 23 (0-40) U/L ALT 21 (0-41) U/L Alkaline Phosphata se 84 (40-130) IU/L Lactate Dehydrogen ase 215 (135-225) U/L Troponin T Baselin e (0-15) ng/L Troponin T 120 Min [place] (0-15) ng/L Delta Troponin T (0-10) ABS# C-Reactive Protein 36.9 H (0.0-4.9) mg/L NT-Pro-B Natriuret Pep > 52610 H (0-125) pg/mL Total Protein 6.2 L (6.6-8.7) g/dL Albumin 3.0 L (3.5-5.2) g/dL Globulin 3.2 (1.3-4.6) g/dL Procalcitonin 1.03 H (0-0.5) ng/mL SARS-CoV-2 Ag (Rap id) (Negative) Blood Type Rho(D) Type Antibody Screen Crossmatch 11/02/20 11/02/20 11/02/20 Range/Units 03:30 05:00 05:00 WBC (4.0-10.0) 10^3/ uL RBC (4.1-5.3) 10^6/u L Hgb 6.0 L* (11.7-16.6) g/dL Hct (42.0-52.0) % MCV (80-94) fL MCH (28.0-34.0) pg MCHC (30.0-36.0) g/dL RDW (12.1-15.1) % Plt Count (130-400) 10^3/c mm MPV (7.4-10.4) fL Neut % (Auto) % Lymph % (Auto) % Wallace % (Auto) % Eos % (Auto) % Baso % (Auto) % Neut # (Auto) (1.8-7.7) 10^3/u L Lymph # (Auto) (0.8-4.8) 10^3/u L Wallace # (Auto) (0.2-0.9) 10^3/u L Eos # (Auto) (0.0-0.8) 10^3/u L Baso # (Auto) (0.0-0.1) 10^3/u L Nucleated RBC % (a uto) % Nucleated RBCs # /100WBC PT (12.1-14.9) SECO NDS INR (0.8-1.2) D-Dimer (0-0.59) ug/mIFE U Specimen Type Sample Site ABG pH (7.35-7.45) ABG pCO2 (35-45) mmHg ABG pO2 (80.0-100.0) mmH g ABG HCO3 (22-26) mmol/L ABG Base Excess (-2.0-2.0) mmol/ L Eusebio Test Hematocrit (42-52) % Hgb O2 Saturation (95-100) % Carboxyhemoglobin (0.4-20.1) %THgb Methemoglobin (0.4-1.5) % Total Hemoglobin (14-18) g/dL O2 Delivery Device O2 Liters/Min % FiO2 % Balance Wheel Hand Filer ID Sodium (136-145) mmol/L Potassium (3.5-5.1) mmol/L Chloride (98-107) mmol/L Carbon Dioxide (22-29) mmol/L Anion Gap (5-19) BUN (8-23) mg/dL Creatinine (0.7-1.2) mg/dL GFR Calculation (90-130) mL/min Glucose (65-115) mg/dL Calculated Osmolal ity (285-295) mOsm/k g Lactic Acid (0.5-2.2) mmol/L Calcium (8.5-10.5) mg/dL Total Bilirubin (0.15-1.2) mg/dL AST (0-40) U/L ALT (0-41) U/L Alkaline Phosphata se (40-130) IU/L Lactate Dehydrogen ase (135-225) U/L Troponin T Baselin e 68 H (0-15) ng/L Troponin T 120 Min [place] 65.12 H (0-15) ng/L Delta Troponin T -2.88 L (0-10) ABS# C-Reactive Protein (0.0-4.9) mg/L NT-Pro-B Natriuret Pep (0-125) pg/mL Total Protein (6.6-8.7) g/dL Albumin (3.5-5.2) g/dL Globulin (1.3-4.6) g/dL Procalcitonin (0-0.5) ng/mL SARS-CoV-2 Ag (Rap id) (Negative) Blood Type Rho(D) Type Antibody Screen Crossmatch 11/02/20 Range/Units 05:28 WBC (4.0-10.0) 10^3/ uL RBC (4.1-5.3) 10^6/u L Hgb (11.7-16.6) g/dL Hct (42.0-52.0) % MCV (80-94) fL MCH (28.0-34.0) pg MCHC (30.0-36.0) g/dL RDW (12.1-15.1) % Plt Count (130-400) 10^3/c mm MPV (7.4-10.4) fL Neut % (Auto) % Lymph % (Auto) % Wallace % (Auto) % Eos % (Auto) % Baso % (Auto) % Neut # (Auto) (1.8-7.7) 10^3/u L Lymph # (Auto) (0.8-4.8) 10^3/u L Wallace # (Auto) (0.2-0.9) 10^3/u L Eos # (Auto) (0.0-0.8) 10^3/u L Baso # (Auto) (0.0-0.1) 10^3/u L Nucleated RBC % (a uto) % Nucleated RBCs # /100WBC PT (12.1-14.9) SECO NDS INR (0.8-1.2) D-Dimer (0-0.59) ug/mIFE U Specimen Type Sample Site ABG pH (7.35-7.45) ABG pCO2 (35-45) mmHg ABG pO2 (80.0-100.0) mmH g ABG HCO3 (22-26) mmol/L ABG Base Excess (-2.0-2.0) mmol/ L Eusebio Test Hematocrit (42-52) % Hgb O2 Saturation (95-100) % Carboxyhemoglobin (0.4-20.1) %THgb Methemoglobin (0.4-1.5) % Total Hemoglobin (14-18) g/dL O2 Delivery Device O2 Liters/Min % FiO2 % Balance Wheel Hand Filer ID Sodium (136-145) mmol/L Potassium (3.5-5.1) mmol/L Chloride (98-107) mmol/L Carbon Dioxide (22-29) mmol/L Anion Gap (5-19) BUN (8-23) mg/dL Creatinine (0.7-1.2) mg/dL GFR Calculation (90-130) mL/min Glucose (65-115) mg/dL Calculated Osmolal ity (285-295) mOsm/k g Lactic Acid (0.5-2.2) mmol/L Calcium (8.5-10.5) mg/dL Total Bilirubin (0.15-1.2) mg/dL AST (0-40) U/L ALT (0-41) U/L Alkaline Phosphata se (40-130) IU/L Lactate Dehydrogen ase (135-225) U/L Troponin T Baselin e (0-15) ng/L Troponin T 120 Min [place] (0-15) ng/L Delta Troponin T (0-10) ABS# C-Reactive Protein (0.0-4.9) mg/L NT-Pro-B Natriuret Pep (0-125) pg/mL Total Protein (6.6-8.7) g/dL Albumin (3.5-5.2) g/dL Globulin (1.3-4.6) g/dL Procalcitonin (0-0.5) ng/mL SARS-CoV-2 Ag (Rap id) (Negative) Blood Type A Positive Rho(D) Type Positive Antibody Screen Positive Crossmatch See Detail Discharge Plan Discharge Patient Disposition: Admitted As Inpatient Clinical Impression: Anemia, End stage chronic kidney disease, Bladder outlet obstruction, Acute dyspnea Condition: Stable Prescriptions: No Action warfarin 5 mg tablet 5 mg PO DAILY Qty: 90 RF: 3 metoprolol succinate 200 mg Tablet Extended Release 24 Hr 200 mg PO DAILY RF: 0 amlodipine 10 mg Tablet 10 mg PO DAILY RF: 0 testosterone 20.25 mg/1.25 gram (1.62 %) Gel In Metered-Dose Pump 1 pump TOPICAL DAILY RF: 0 fluticasone propionate 50 mcg/actuation [place],Suspension 2 spray INTRANASAL DAILY RF: 0 isosorbide mononitrate 60 mg tablet extended release 24 hr 60 mg PO DAILY Qty: 30 RF: 0 clopidogrel [Plavix] 75 mg tablet 75 mg PO DAILY Qty: 30 RF: 0 omeprazole 40 mg Capsule,Delayed Release(Dr/Ec) 40 mg PO BID RF: 0 Protonix 40 mg tablet,delayed release (DR/EC) 40 mg PO DAILY RF: 0 Benadryl 25 mg Capsule 25 mg PO PRN RF: 0 Sign Out Sign Out Data: Patient Sign Out occurred on 11/02/20 at 06:39. Patient's care was discussed, and care was transferred from to Edson Yu DO. 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 Atrial fibrillation Benign essential hypertension with target blood pressure below 140/90 CAD (coronary artery disease) Chronic kidney disease History of Crohn's disease Not currently requiring treatment, no immunosuppressive's History of pancreatitis By his description sounds like gallstone pancreatitis Hypertension Non-ST elevation myocardial infarction (NSTEMI) Recent non-ST elevation myocardial infarction Unstable angina Surgical History History of cholecystectomy History of coronary artery stent placement Right coronary artery, prior to bypass History of four vessel coronary artery bypass graft (~2011) History of resection of large bowel Partial, secondary to Crohn's Family History Mother Stroke CHF (congestive heart failure) Father Valvular heart disease Social History Smoking and tobacco status: former smoker Alcohol intake: never Course Vital Signs: Vital signs: Vital Signs Temperature 98.0 F 11/02/20 06:00 Pulse Rate 89 11/02/20 06:00 Respiratory Rate 17 11/02/20 06:00 Blood Pressure 126/67 11/02/20 06:00 Pulse Oximetry 98 11/02/20 06:00 MDM - SOB/Dyspnea MDM Narrative: Medical decision making narrative: Assumed a change of shift. CT does not show anything acute other than there is urine in the bladder some which is obviously new as it has contrast. Neal placed. Discussed Dr. Avelar patient will be admitted to ICU transfused nephrology consulted for dialysis. Lab Data: Labs: Lab Results 11/02/20 11/02/20 11/02/20 Range/Units 03:15 03:20 03:30 WBC 17.4 H (4.0-10.0) 10^3/ uL RBC 2.14 L (4.1-5.3) 10^6/u L Hgb 6.1 L* (11.7-16.6) g/dL Hct 19.7 L* (42.0-52.0) % MCV 92.1 (80-94) fL MCH 28.5 (28.0-34.0) pg MCHC 31.0 (30.0-36.0) g/dL RDW 15.2 H (12.1-15.1) % Plt Count 201 (130-400) 10^3/c mm MPV 10.1 (7.4-10.4) fL Neut % (Auto) 85.8 % Lymph % (Auto) 5.2 % Wallace % (Auto) 5.4 % Eos % (Auto) 2.7 % Baso % (Auto) 0.1 % Neut # (Auto) 14.89 H (1.8-7.7) 10^3/u L Lymph # (Auto) 0.9 (0.8-4.8) 10^3/u L Wallace # (Auto) 0.9 (0.2-0.9) 10^3/u L Eos # (Auto) 0.5 (0.0-0.8) 10^3/u L Baso # (Auto) 0.0 (0.0-0.1) 10^3/u L Nucleated RBC % (a uto) 0.1 % Nucleated RBCs # 0.0 /100WBC PT (12.1-14.9) SECO NDS INR (0.8-1.2) D-Dimer (0-0.59) ug/mIFE U Specimen Type Arterial Sample Site Radial, left ABG pH 7.47 H (7.35-7.45) ABG pCO2 35.3 (35-45) mmHg ABG pO2 98.4 (80.0-100.0) mmH g ABG HCO3 25.9 (22-26) mmol/L ABG Base Excess 2.2 H (-2.0-2.0) mmol/ L Eusebio Test Pos Hematocrit 21.6 L (42-52) % Hgb O2 Saturation 96.6 (95-100) % Carboxyhemoglobin 1.4 (0.4-20.1) %THgb Methemoglobin 1.2 (0.4-1.5) % Total Hemoglobin 7.1 L (14-18) g/dL O2 Delivery Device Nc O2 Liters/Min 5.0 % FiO2 40.0 % Balance Wheel Hand Filer ID [id number] Sodium (136-145) mmol/L Potassium (3.5-5.1) mmol/L Chloride (98-107) mmol/L Carbon Dioxide (22-29) mmol/L Anion Gap (5-19) BUN (8-23) mg/dL Creatinine (0.7-1.2) mg/dL GFR Calculation (90-130) mL/min Glucose (65-115) mg/dL Calculated Osmolal ity (285-295) mOsm/k g Lactic Acid (0.5-2.2) mmol/L Calcium (8.5-10.5) mg/dL Total Bilirubin (0.15-1.2) mg/dL AST (0-40) U/L ALT (0-41) U/L Alkaline Phosphata se (40-130) IU/L Lactate Dehydrogen ase (135-225) U/L Troponin T Baselin e (0-15) ng/L Troponin T 120 Min [place] (0-15) ng/L Delta Troponin T (0-10) ABS# C-Reactive Protein (0.0-4.9) mg/L NT-Pro-B Natriuret Pep (0-125) pg/mL Total Protein (6.6-8.7) g/dL Albumin (3.5-5.2) g/dL Globulin (1.3-4.6) g/dL Procalcitonin (0-0.5) ng/mL SARS-CoV-2 Ag (Rap id) Negative (Negative) Blood Type Rho(D) Type Antibody Screen Crossmatch 11/02/20 11/02/20 11/02/20 Range/Units 03:30 03:30 03:30 WBC (4.0-10.0) 10^3/ uL RBC (4.1-5.3) 10^6/u L Hgb (11.7-16.6) g/dL Hct (42.0-52.0) % MCV (80-94) fL MCH (28.0-34.0) pg MCHC (30.0-36.0) g/dL RDW (12.1-15.1) % Plt Count (130-400) 10^3/c mm MPV (7.4-10.4) fL Neut % (Auto) % Lymph % (Auto) % Wallace % (Auto) % Eos % (Auto) % Baso % (Auto) % Neut # (Auto) (1.8-7.7) 10^3/u L Lymph # (Auto) (0.8-4.8) 10^3/u L Wallace # (Auto) (0.2-0.9) 10^3/u L Eos # (Auto) (0.0-0.8) 10^3/u L Baso # (Auto) (0.0-0.1) 10^3/u L Nucleated RBC % (a uto) % Nucleated RBCs # /100WBC PT 33.50 H (12.1-14.9) SECO NDS INR 3.14 H (0.8-1.2) D-Dimer 2.19 H (0-0.59) ug/mIFE U Specimen Type Sample Site ABG pH (7.35-7.45) ABG pCO2 (35-45) mmHg ABG pO2 (80.0-100.0) mmH g ABG HCO3 (22-26) mmol/L ABG Base Excess (-2.0-2.0) mmol/ L Eusebio Test Hematocrit (42-52) % Hgb O2 Saturation (95-100) % Carboxyhemoglobin (0.4-20.1) %THgb Methemoglobin (0.4-1.5) % Total Hemoglobin (14-18) g/dL O2 Delivery Device O2 Liters/Min % FiO2 % Balance Wheel Hand Filer ID Sodium 132 L (136-145) mmol/L Potassium 4.6 (3.5-5.1) mmol/L Chloride 94 L (98-107) mmol/L Carbon Dioxide 26 (22-29) mmol/L Anion Gap 16.6 (5-19) BUN 38 H (8-23) mg/dL Creatinine 7.8 H* (0.7-1.2) mg/dL GFR Calculation 7.0 L (90-130) mL/min Glucose 129 H (65-115) mg/dL Calculated Osmolal ity 285 (285-295) mOsm/k g Lactic Acid 1.4 (0.5-2.2) mmol/L Calcium 8.3 L (8.5-10.5) mg/dL Total Bilirubin 0.4 (0.15-1.2) mg/dL AST 23 (0-40) U/L ALT 21 (0-41) U/L Alkaline Phosphata se 84 (40-130) IU/L Lactate Dehydrogen ase 215 (135-225) U/L Troponin T Baselin e (0-15) ng/L Troponin T 120 Min [place] (0-15) ng/L Delta Troponin T (0-10) ABS# C-Reactive Protein 36.9 H (0.0-4.9) mg/L NT-Pro-B Natriuret Pep > 50363 H (0-125) pg/mL Total Protein 6.2 L (6.6-8.7) g/dL Albumin 3.0 L (3.5-5.2) g/dL Globulin 3.2 (1.3-4.6) g/dL Procalcitonin 1.03 H (0-0.5) ng/mL SARS-CoV-2 Ag (Rap id) (Negative) Blood Type Rho(D) Type Antibody Screen Crossmatch 11/02/20 11/02/20 11/02/20 Range/Units 03:30 05:00 05:00 WBC (4.0-10.0) 10^3/ uL RBC (4.1-5.3) 10^6/u L Hgb 6.0 L* (11.7-16.6) g/dL Hct (42.0-52.0) % MCV (80-94) fL MCH (28.0-34.0) pg MCHC (30.0-36.0) g/dL RDW (12.1-15.1) % Plt Count (130-400) 10^3/c mm MPV (7.4-10.4) fL Neut % (Auto) % Lymph % (Auto) % Wallace % (Auto) % Eos % (Auto) % Baso % (Auto) % Neut # (Auto) (1.8-7.7) 10^3/u L Lymph # (Auto) (0.8-4.8) 10^3/u L Wallace # (Auto) (0.2-0.9) 10^3/u L Eos # (Auto) (0.0-0.8) 10^3/u L Baso # (Auto) (0.0-0.1) 10^3/u L Nucleated RBC % (a uto) % Nucleated RBCs # /100WBC PT (12.1-14.9) SECO NDS INR (0.8-1.2) D-Dimer (0-0.59) ug/mIFE U Specimen Type Sample Site ABG pH (7.35-7.45) ABG pCO2 (35-45) mmHg ABG pO2 (80.0-100.0) mmH g ABG HCO3 (22-26) mmol/L ABG Base Excess (-2.0-2.0) mmol/ L Eusebio Test Hematocrit (42-52) % Hgb O2 Saturation (95-100) % Carboxyhemoglobin (0.4-20.1) %THgb Methemoglobin (0.4-1.5) % Total Hemoglobin (14-18) g/dL O2 Delivery Device O2 Liters/Min % FiO2 % Balance Wheel Hand Filer ID Sodium (136-145) mmol/L Potassium (3.5-5.1) mmol/L Chloride (98-107) mmol/L Carbon Dioxide (22-29) mmol/L Anion Gap (5-19) BUN (8-23) mg/dL Creatinine (0.7-1.2) mg/dL GFR Calculation (90-130) mL/min Glucose (65-115) mg/dL Calculated Osmolal ity (285-295) mOsm/k g Lactic Acid (0.5-2.2) mmol/L Calcium (8.5-10.5) mg/dL Total Bilirubin (0.15-1.2) mg/dL AST (0-40) U/L ALT (0-41) U/L Alkaline Phosphata se (40-130) IU/L Lactate Dehydrogen ase (135-225) U/L Troponin T Baselin e 68 H (0-15) ng/L Troponin T 120 Min [place] 65.12 H (0-15) ng/L Delta Troponin T -2.88 L (0-10) ABS# C-Reactive Protein (0.0-4.9) mg/L NT-Pro-B Natriuret Pep (0-125) pg/mL Total Protein (6.6-8.7) g/dL Albumin (3.5-5.2) g/dL Globulin (1.3-4.6) g/dL Procalcitonin (0-0.5) ng/mL SARS-CoV-2 Ag (Rap id) (Negative) Blood Type Rho(D) Type Antibody Screen Crossmatch 11/02/20 Range/Units 05:28 WBC (4.0-10.0) 10^3/ uL RBC (4.1-5.3) 10^6/u L Hgb (11.7-16.6) g/dL Hct (42.0-52.0) % MCV (80-94) fL MCH (28.0-34.0) pg MCHC (30.0-36.0) g/dL RDW (12.1-15.1) % Plt Count (130-400) 10^3/c mm MPV (7.4-10.4) fL Neut % (Auto) % Lymph % (Auto) % Wallace % (Auto) % Eos % (Auto) % Baso % (Auto) % Neut # (Auto) (1.8-7.7) 10^3/u L Lymph # (Auto) (0.8-4.8) 10^3/u L Wallace # (Auto) (0.2-0.9) 10^3/u L Eos # (Auto) (0.0-0.8) 10^3/u L Baso # (Auto) (0.0-0.1) 10^3/u L Nucleated RBC % (a uto) % Nucleated RBCs # /100WBC PT (12.1-14.9) SECO NDS INR (0.8-1.2) D-Dimer (0-0.59) ug/mIFE U Specimen Type Sample Site ABG pH (7.35-7.45) ABG pCO2 (35-45) mmHg ABG pO2 (80.0-100.0) mmH g ABG HCO3 (22-26) mmol/L ABG Base Excess (-2.0-2.0) mmol/ L Eusebio Test Hematocrit (42-52) % Hgb O2 Saturation (95-100) % Carboxyhemoglobin (0.4-20.1) %THgb Methemoglobin (0.4-1.5) % Total Hemoglobin (14-18) g/dL O2 Delivery Device O2 Liters/Min % FiO2 % Balance Wheel Hand Filer ID Sodium (136-145) mmol/L Potassium (3.5-5.1) mmol/L Chloride (98-107) mmol/L Carbon Dioxide (22-29) mmol/L Anion Gap (5-19) BUN (8-23) mg/dL Creatinine (0.7-1.2) mg/dL GFR Calculation (90-130) mL/min Glucose (65-115) mg/dL Calculated Osmolal ity (285-295) mOsm/k g Lactic Acid (0.5-2.2) mmol/L Calcium (8.5-10.5) mg/dL Total Bilirubin (0.15-1.2) mg/dL AST (0-40) U/L ALT (0-41) U/L Alkaline Phosphata se (40-130) IU/L Lactate Dehydrogen ase (135-225) U/L Troponin T Baselin e (0-15) ng/L Troponin T 120 Min [place] (0-15) ng/L Delta Troponin T (0-10) ABS# C-Reactive Protein (0.0-4.9) mg/L NT-Pro-B Natriuret Pep (0-125) pg/mL Total Protein (6.6-8.7) g/dL Albumin (3.5-5.2) g/dL Globulin (1.3-4.6) g/dL Procalcitonin (0-0.5) ng/mL SARS-CoV-2 Ag (Rap id) (Negative) Blood Type A Positive Rho(D) Type Positive Antibody Screen Positive Crossmatch See Detail Discharge Plan Discharge Patient Disposition: Admitted As Inpatient Clinical Impression: Anemia, End stage chronic kidney disease, Bladder outlet obstruction, Acute dyspnea Condition: Stable Prescriptions: No Action warfarin 5 mg tablet 5 mg PO DAILY Qty: 90 RF: 3 metoprolol succinate 200 mg Tablet Extended Release 24 Hr 200 mg PO DAILY RF: 0 amlodipine 10 mg Tablet 10 mg PO DAILY RF: 0 testosterone 20.25 mg/1.25 gram (1.62 %) Gel In Metered-Dose Pump 1 pump TOPICAL DAILY RF: 0 fluticasone propionate 50 mcg/actuation [place],Suspension 2 spray INTRANASAL DAILY RF: 0 isosorbide mononitrate 60 mg tablet extended release 24 hr 60 mg PO DAILY Qty: 30 RF: 0 clopidogrel [Plavix] 75 mg tablet 75 mg PO DAILY Qty: 30 RF: 0 omeprazole 40 mg Capsule,Delayed Release(Dr/Ec) 40 mg PO BID RF: 0 Protonix 40 mg tablet,delayed release (DR/EC) 40 mg PO DAILY RF: 0 Benadryl 25 mg Capsule 25 mg PO PRN RF: 0 Sign Out Sign Out Data: Patient Sign Out occurred on 11/02/20 at 06:39. Patient's care was discussed, and care was transferred from to Edson Yu DO. Coding Level of Care Code ED Burning Supervisor for Chg Fwd Exam Comprehensive
--- NOTE | 2020-11-02 03:30 | PC.NURSE ---
Pt presents to ED with reports of sudden onset SOB from [facility] Nursing. [facility] reports pt had fever greater than 102F and was given tylenol 1000mg PO there. Also reports that pt pulse ox was 71% at nursing facility. Pt arrived on 4L per [facility] with pulse ox 98% on arrival. Noted dialysis CVC to right chest wall on arrival. Noted that CVC had no dressing in place and was open to air. Pt reports that staff at [facility] removed dressing on Monday and reported that [facility] would replace dressing on Monday. Noted slightly red around insertion site with no drainage. Site slightly tender per pt report. Dr Sky notified. Site cleaned with clorahexadine swabs x 3, covered with sterile 2x2, and dressed with tegaderm using sterile procedure. Blood cultures obtained from venouse lumen of CVC, flushed with 10ml NS, and packed with 1.8 ML heparin flush per labeling on clamp of catheter. CVC clamped and cap replaced using sterile procedure. All done per Dr Sky's orders. Pt tolerated well.
[2020-11-02 04:12] LABS: Basophils % 0.1 %; Eosinophils # 0.5 10^3/uL (0.0-0.8); Eosinophils % 2.7 %; Lymphocytes # 0.9 10^3/uL (0.8-4.8); Lymphocytes % 5.2 %; Mean Corpuscular Hemoglobin 28.5 pg (28.0-34.0); Mean Corpuscular Volume 92.1 fL (80-94); Mean Platelet Volume 10.1 fL (7.4-10.4); Monocytes # 0.9 10^3/uL (0.2-0.9); Monocytes % 5.4 %; Neutrophils # 14.89 10^3/uL (1.8-7.7); Neutrophils % 85.8 %; Nucleated Red Blood Cells % 0.1 %; Platelet Count 201 10^3/cmm (130-400); Red Blood Count 2.14 10^6/uL (4.1-5.3); Red Cell Distribution Width 15.2 % (12.1-15.1); White Blood Count 17.4 10^3/uL (4.0-10.0)
[2020-11-02 04:14] LABS: INR 3.14 (0.8-1.2)
[2020-11-02 04:16] LABS: D Dimer 2.19 ug/mIFEU (0-0.59)
[2020-11-02 04:20] LABS: Lactic Sepsis W/Reflex 1.4 mmol/L (0.5-2.2)
[2020-11-02 04:22] LABS: Troponin(5th) Baseline 68 ng/L (0-15)
--- NOTE | 2020-11-02 04:44 | PC.NURSE ---
Lab called for update on labs. Diamond in lab reports that machine is down at this time and working to recover. Will result as soon as possible.
--- NOTE | 2020-11-02 04:51 | CTR_ITS ---
PROCEDURE INFORMATION: Exam: CT Angiography Chest With Contrast Exam date and time: 11/02/2020 5:37 AM Age: 65 years old Clinical indication: Abnormal findings; Other: Elevated d dimer; Prior surgery; Surgery date: 6+ months; Surgery type: Cabg , dialysis cath; Additional info: Chest pain TECHNIQUE: Imaging protocol: Computed tomographic angiography of the chest with intravenous contrast. 3D rendering (Not supervised by radiologist): MIP and/or 3D reconstructed images were created by the technologist. Radiation optimization: All CT scans at this facility use at least one of these dose optimization techniques: automated exposure control; mA and/or kV adjustment per patient size (includes targeted exams where dose is matched to clinical indication); or iterative reconstruction. Contrast material: VISI 320; Contrast volume: 95 ml; Contrast route: INTRAVENOUS (IV); COMPARISON: CT angio chest abdomen pelvis 10/20/2020 2:32 PM RADIATION DOSE METRICS: Total DLP (mGy-cm): 548.95 FINDINGS: Tubes, catheters and devices: Tip of the right dialysis catheter still in the right atrium. Pulmonary arteries: Still no central or segmental pulmonary embolus. No suggestion of a subsegmental embolus. Aorta: Continued atherosclerosis. Still no aortic aneurysm. No significant aortic enhancement. Superior aspect of the endovascular stent in the abdominal aorta again evident. Lungs: Continued calcified granuloma in the left upper and lower lobes. Innumerable centrilobular and paraseptal blebs again evident in the lungs. Pleural space: Interval appearance of the small right pleural effusion. Still no pneumothorax or left pleural fluid. Heart: Continued cardiomegaly. CABG again apparent. Still no pericardial effusion. Lymph nodes: Continued calcified nodes in the left hilum. Gallbladder and bile ducts: Cholecystectomy again evident. Intraperitoneal space: Interval extensive stranding and haziness in the left anterior pararenal and bilateral perirenal fat. Interval stranding and haziness in the fat around the adrenal glands. Probable interval worsening of the plumpness of the left adrenal gland. Bones/joints: Median sternotomy again evident. Old compression fractures again evident. Continued degeneration of a few discs and the right glenohumeral joint. Old bilateral rib fractures still present. Soft tissues: Continued little subcutaneous fat. CT/CT angio chest PE protcl [id number] IMPRESSION: 1. No apparent pulmonary embolus. 2. Prominent emphysema again evident. Interval small right pleural effusion. 3. Interval haziness and stranding in the posterior fat in the upper abdomen as detailed above, significance unclear. 4. Stable positioning of the right dialysis catheter. Continued cardiomegaly and evidence of CABG. Other findings detailed above. Radiation Dose CTDIVOL = (mGy): DLP = 548.95 (mGy-cm)
[2020-11-02 04:53] LABS: Hemoglobin 6.1 g/dL (11.7-16.6)
[2020-11-02 04:54] LABS: Hematocrit 19.7 % (42.0-52.0)
[2020-11-02 04:59] LABS: Alanine Aminotransferase 21 U/L (0-41); Alkaline Phosphatase 84 IU/L (40-130); Anion Gap 16.6 (5-19); Aspartate Amino Transferase 23 U/L (0-40); Blood Urea Nitrogen 38 mg/dL (8-23); C Reactive Protein 36.9 mg/L (0.0-4.9); Calcium 8.3 mg/dL (8.5-10.5); Carbon Dioxide 26 mmol/L (22-29); Chloride 94 mmol/L (98-107); Globulin 3.2 g/dL (1.3-4.6); Glucose 129 mg/dL (65-115); Lactate Dehydrogenase 215 U/L (135-225); Osmolality Calculated 285 mOsm/kg (285-295); Potassium 4.6 mmol/L (3.5-5.1); Sodium 132 mmol/L (136-145); Total Bilirubin 0.4 mg/dL (0.15-1.2); Total Protein 6.2 g/dL (6.6-8.7)
--- NOTE | 2020-11-02 05:04 | ECG_ITS ---
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 Measurements Intervals [place] Rate: 90 P: [place]: QRS: 72 QRSD: 90 T: 69 QT: 339 QTc: 416 Interpretive Statements ATRIAL FIBRILLATION MODERATE ST DEPRESSION [0.05+ mV ST DEPRESSION] Compared to ECG 10/20/2020 14:02:17 ST (T wave) deviation now present T-wave abnormality no longer present Electronically Signed On 11-03-2020 17:17:46 MARKET MAKER by Brielle Valderrama M.D. [id number] f
[2020-11-02 05:12] LABS: SARS Covid-2 Antigen Negative (Negative)
--- NOTE | 2020-11-02 05:32 | PC.NURSE ---
Blood for type and cross collected per policy. Given to Diamond in lab and labeling verified.
--- NOTE | 2020-11-02 05:47 | PC.NURSE ---
DELANEY Vogel at [facility] notified pt in hospital. Reported condition of CVC dialysis catheter to DELANEY Vogel. Lela reports that pt is scheduled to get Mircera 50mcg q 2 weeks. Lela reported extended absence from dialysis due to hospitalization. Reports that pt had labs drawn while there on Monday and that pt did not receive Mircera. Unknown last administration of Mircera.
[2020-11-02] MEDS: iodixanol 320 mg/mL 100mL Btl IV ×2 (05:55→08:10)
[2020-11-02 05:56] LABS: NT Pro B Type Natriuretic Pept > 70000 pg/mL (0-125); Procalcitonin 1.03 ng/mL (0-0.5)
[2020-11-02 07:00] LABS: Troponin 5 2HR 65.12 ng/L (0-15)
[2020-11-02 07:10] LABS: Troponin 5 2HR Delta -2.88 ABS# (0-10)
--- NOTE | 2020-11-02 07:11 | CT_ITS ---
WS: [id number] CT ABDOMEN AND PELVIS WITH CONTRAST HISTORY: Abdominal pain, short of breath. TECHNIQUE: Imaging performed of the abdomen and pelvis with IV contrast. Single phase imaging of the abdomen. Coronal and sagittal reformats are submitted. All CT scans at [facility] use at least one of these dose optimization techniques: automated exposure control; mA and/or kV adjustment per patient size (includes targeted exams where dose is matched to clinical indication); or iterativ e reconstruction. IV CONTRAST: Visipaque 320; 95 mL IV. Oral contrast: No DLP: 278.37 mGy.cm COMPARISON: 10/20/2020 Lower thorax: Chronic emphysematous changes at the lung bases. Moderately enlarged heart. Small hiata l hernia. Small RIGHT pleural effusion since 10/20/2020. Liver/biliary system: Mildly enlarged liver. No mass or bile duct dilatation. Gallbladder: Prior cholecystectomy. Pancreas: Pancreatic duct is top normal size. Spleen: Variable enhancement pattern throughout the spleen. There may be prior infarcts. Early phase of enhancement may be responsible for some of the variability. Similar in appearance to prior studies . Adrenal glands: Normal. Right kidney: Small RIGHT kidney with variable enhancement. Moderate amount of stranding around the e ntire kidney. There is decreased enhancement. Renal artery is difficult to visualize. Left kidney: Small kidney with moderate perinephric stranding. No obstruction. Aorta: Status post endovascular graft repair. 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 No endovascular leak is identified. Size of the [place] aneurysm is stable. Lymphadenopathy: None. Free fluid: Small amount of fluid in the pelvis. There is diffuse soft tissue anasarca with mesenteri c edema. GI tract: Diffuse constipation. No obstruction or free air. Abdominal wall: Unremarkable abdominal wall. No hernia. Pelvis: Well-distended urinary bladder. There is high density contrast in the urinary bladder from pr ior contrast injections. Bones: Unremarkable. CT/CT abdomen pelvis w con* [id number] IMPRESSION: 1. Mild diffuse mesenteric edema and a small amount of free fluid. May be rela nehemias to renal failure/fluid overload. 2. Endovascular graft repair of the abdominal aortic aneurysm is similar to . No rupture. 3. 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 4. Bilateral heterogeneous enhancement within each kidney with perinephric str anding and renal atrophy. Differential includes renal insufficiency as a possib le etiology. 5. New small RIGHT pleural effusion. 6. Marked cardiomegaly. Notified Edson Yu DO at 11/02/2020 8:42 AM.
[2020-11-02] MEDS: vancomycin 750 MG in sodium chloride 0.9% 250 ML 250 MG IV (08:17)
[2020-11-02] MEDS: pantoprazole 40 mg SDV IVP (09:03)
--- NOTE | 2020-11-02 09:04 | ECG_ITS ---
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 Measurements Intervals [place] Rate: 93 P: [place]: QRS: 62 QRSD: 104 T: 29 QT: 332 QTc: 413 Interpretive Statements ATRIAL FIBRILLATION NONSPECIFIC ST & T-WAVE ABNORMALITY Compared to ECG 11/02/2020 04:53:44 T-wave abnormality now present ST (T wave) deviation no longer present Electronically Signed On 11-03-2020 17:17:10 EXPERIMENTAL MACHINIST by Brielle Valderrama M.D. [id number]
[2020-11-02 10:02] LABS: Bilirubin Urine Neg (Negative); Blood Urine Neg (Negative); Glucose Urine UA Norm (Normal); Ketones Urine Negative (Negative); Leukocyte Esterase Urine Negative (Negative); Mucus Urine 1+ /hpf; Nitrate Urine Negative (Negative); Protein Urine Trace (Negative); RBC Urine 0-4 /hpf (0-2); Squamous Epithelial Cell Urine 0-4 /hpf (0-5); Urine Appearance Cloudy (CLEAR); Urine Color Yellow (Yellow); Urobilinogen Urine Norm (Negative); pH Urine 6.5 (5-7)
[2020-11-02 10:03] LABS: Add Urine Culture? No
[2020-11-02 10:20] LABS: Bacteria Urine 1+ /hpf
[2020-11-02] MEDS: piperacillin-tazobactam 3.375 GM in sodium chloride 0.9% (plus) 50 ML IV ×2 (10:20→22:38)
--- NOTE | 2020-11-02 11:18 | PM.HP ---
Providers/Chief Complaint Admitting Physician: Golden Harris MD Chief Complaint: FEVER History of Present Illness Shin Valera is a 65 year old male who presents from the nursing facility where he is getting rehabilitation, secondary to fever 102 ?F. He reports he has felt cold, and had some chills. He felt short of breath, with a fever and was placed on 3 L of oxygen at the emergency department. He denies any productive cough but has had a nonproductive cough for several days. No nausea or vomiting. He was recently at the hospital in [facility], October 22 for concerns of endovascular leak. He had previously had an abdominal aortic aneurysm repair with a stent graft on October 04. Apparently prior to his surgery he had a Dieulafoy lesion in his colon that was cauterized. On their evaluation at [facility], there was no evidence of endovascular leak or fistula and he was discharged on October 28. They maintained him on Zosyn during his hospital stay for concerns of possible enteritis. He reports he has had some slight abdominal discomfort since that time, but nothing new. In the emergency department, stool stained slightly heme positive. Review of Systems General: Reports: 10 or more systems reviewed and unremarkable except in HPI and below Const: Reports: fever(s) and fatigue Eyes: Denies: change in vision ENMT: Denies: throat pain Card: Denies: chest pain Resp: Denies: dyspnea GI: Reports: abdominal pain; Denies: hematochezia or melena : Denies: flank pain Musc: Denies: neck pain Skin/Breast: Denies: rash Neuro: Denies: headache(s) Psych: Denies: anxiety Endo: Denies: polyuria Chris/Lymph: Denies: easy bruising All/Imm: Denies: urticaria Medications/Allergies Home Medications Medication Instructions Recorded Confirmed Last Taken Type amlodipine 10 mg PO DAILY 08/31/20 11/02/20 08/30/20 History fluticasone propionate 2 spray INTRANASAL DAILY PRN 08/31/20 11/02/20 08/30/20 History metoprolol succinate 200 mg PO DAILY 08/31/20 11/02/20 08/30/20 History testosterone 1 pump TOPICAL DAILY 08/31/20 11/02/20 08/30/20 History clopidogrel [Plavix] 75 mg PO DAILY #30 tab 09/02/20 11/02/20 Unknown Rx isosorbide mononitrate 60 mg PO DAILY #30 tab 09/02/20 11/02/20 Unknown Rx warfarin 5 mg tablet 5 mg PO DAILY #90 tab 09/10/20 11/02/20 Unknown Rx diphenhydramine HCl [Benadryl] 25 mg PO PRN 11/02/20 11/02/20 Unknown History omeprazole 40 mg PO BID 11/02/20 11/02/20 Unknown History pantoprazole [Protonix] 40 mg PO DAILY 11/02/20 11/02/20 Unknown History Allergies Allergy/AdvReac Type Severity Reaction Status Date / Time No Known Allergies Allergy Verified 11/02/20 09:40 PFSH Acute PFSH: Medical History (Updated 11/02/20 @ 11:35 by Golden Harris MD) Abdominal aortic aneurysm Atherosclerotic heart disease of [place] coronary artery with unstable angina pectoris Atrial fibrillation Benign essential hypertension with target blood pressure below 140/90 CAD (coronary artery disease) Chronic kidney disease History of Crohn's disease Not currently requiring treatment, no immunosuppressive's History of pancreatitis By his description sounds like gallstone pancreatitis Hypertension Non-ST elevation myocardial infarction (NSTEMI) Recent non-ST elevation myocardial infarction Unstable angina Surgical History H/O aortic aneurysm repair 09/2020 [facility] History of cholecystectomy History of coronary artery stent placement Right coronary artery, prior to bypass History of four vessel coronary artery bypass graft (~2011) History of resection of large bowel Partial, secondary to Crohn's Family History Mother Stroke CHF (congestive heart failure) Father Valvular heart disease Social History Smoking and tobacco status: former smoker Alcohol intake: never Vitals/I&O/Wt Last Vital Signs Temp 98.0 F 11/02/20 06:00 Pulse 89 11/02/20 06:00 Resp 17 11/02/20 06:00 BP 126/67 11/02/20 06:00 Pulse Ox 98 11/02/20 06:00 Weight last 48 hrs Weight 51.256 kg Physical Exam Narrative: EXAM NARRATIVE: General exam is a white male, in no apparent distress. Vital signs appear stable HEENT: Pupils equally round. Oropharynx clear. Neck is supple no lymphadenopathy or thyromegaly Cardiovascular regular rate and rhythm without murmur, no S3 or S4 Lungs a few crackles noted left side. No wheezes. Abdomen is soft. Slight periumbilical tenderness. Positive bowel sounds. No obvious organomegaly was deferred Extremities no cyanosis clubbing or edema, cap refill brisk Skin no rash Neuro no obvious focal deficits Urinary Catheter Management^: Neal: Cath Placed During This Visit: yes Reason for Continuing Indwelling Catheter: Not indwelling catheter Urinary Catheter Date of Insertion: 11/02/20 Urinary Catheter Time of Insertion: : Data : 11/02/20 05:00 11/02/20 03:30 Micro: Microbiology 11/02/20 03:14 Blood Culture - Preliminary Blood SPECIMEN COLLECTED 11/02/20 03:30 Blood Culture - Preliminary Blood SPECIMEN COLLECTED Other data: INR 3.14 ABG demonstrates a pH 7.47, PCO2 35, PO2 98 Lactic acid 1.4 Calcium 8.3 Troponin 68 with repeat 65 and 120 minutes BNP greater than 70,000 CRP 37 Pro calcitonin 1.03 Urinalysis 5-10 white blood cells 1+ bacteria 0-4 reds Covid PCR pending and rapid negative CT abdomen and pelvis with contrast demonstrated mild diffuse mesenteric edema, graft repair, pseudoaneurysm left renal artery stable, mild enhancement each kidney, small right pleural effusion, cardiomegaly CTA chest no pulmonary embolism, dialysis catheter Chest x-ray negative A&P Assessment and plan (1) Fever: Not hypotensive or tachycardic, and lactic acid normal but could potentially be developing sepsis. Sources could be UTI, dialysis catheter, aortic graft although less likely. Also with nonproductive cough, although no CT findings of pneumonia, Covid is still a possibility and PCR is being obtained. Zosyn, vancomycin will be initiated Blood, urine cultures Dialysis port was visualized right side of chest, tunneled catheter, no obvious evidence of infection on viewing. Status: Acute (2) Anemia: Significant anemia. History of chronic anemia and I do not believe he has had any Epogen products lately. Transfuse 1 unit packed red blood cells with dialysis Stool Hemoccult was lightly positive in the emergency department, light brown stool Protonix 40 mg twice daily Monitor for any significant bleeding Hold Coumadin for now. Consider restarting to shoot for INR approximately 2 if restarted Hold Plavix today, reevaluate tomorrow. Overall does not appear to be having bowel ischemia. Status: Acute (3) Acute dyspnea: Requiring 3 L of oxygen. Taper as tolerated Await Covid PCR May be related to fluid overload and dialysis may help Echocardiogram in August demonstrated an EF of approximately 50%. We will check a limited echo for EF. Status: Acute (4) Acute hypoxemic respiratory failure: Oxygen as needed Status: Acute (5) Leukocytosis: See notations under fever Status: Acute (6) Coagulopathy: Hold Coumadin currently Status: Acute (7) Hyponatremia: Recheck tomorrow following dialysis Status: Acute (8) UTI (urinary tract infection): Zosyn, vancomycin Await culture Status: Acute Additional A&P Information Atrial fibrillation. Currently heart rate controlled History of aortic aneurysm repair. No evidence of fistula currently Coronary artery disease. No evidence of chest discomfort currently End-stage renal disease on hemodialysis. History of hypertension History of Crohn's disease Multiple other medical problems as outlined in past medical history Full code SCDs for DVT prophylaxis. Pharmacological on hold secondary to concern of anemia and GI bleed Attestations Medical Necessity Statement*: Will need greater than 2 midnight stay for evaluation of significant severe anemia and fever. Critical Care Time: 63 minutes spent in critical care time at bedside reviewing patient's clinical course, multiple records from hospitalization at [facility], discussing with subspecialist in this patient with severe anemia, heme positive stool, fever, possible early sepsis, recent aortic aneurysm grafting, need for transfusion. High risk for decompensation and/or disability. Coding Level of Care Code Acute Pick Pulling Machine Tender for Singh Chairez Diagnoses Fever R50.9 Anemia D64.9 Acute dyspnea R06.00 Acute hypoxemic respiratory failure J96.01 Leukocytosis D72.829 Coagulopathy D68.9 Hyponatremia E87.1 UTI (urinary tract infection) N39.0
[2020-11-02 11:35] LABS: Lactate (Lactic Acid level) 1.3 mmol/L (0.5-2.2)
--- NOTE | 2020-11-02 12:35 | USCV_ITS ---
Shin Valera Age: 65 Gender: M : 1955 Exam Date: 11/02/2020 15:08 Ordering Phys: Golden Harris MD Technologist: Marito Zavaleta [place] [facility] [place]: ? EF BP: 148 / 91 HR: 102 Rhythm: Sinus Technical Quality: Fair MEASUREMENTS (Male / Female) Normal Values 2D ECHO LV Diastolic Diameter PLAX 3.7 cm 4.2 - 5.9 / 3.9 - 5.3 cm LV Systolic Diameter PLAX 2.4 cm IVS Diastolic Thickness 0.9 cm 0.6 - 1.0 / 0.6 - 0.9 cm IVS Systolic Thickness 1.3 cm LVPW Diastolic Thickness 1.1 cm 0.6 - 1.0 / 0.6 - 0.9 cm LVPW Systolic Thickness 1.3 cm LVOT Diameter 2.1 cm LV Ejection Fraction 2D Teich 54.5 % LV Ejection Fraction MOD 2C 54.7 % LV Ejection Fraction 2C AL 55.2 % LA Diameter 4.4 cm LA Width 4.8 cm LA Height 4.3 cm RA Width 3.6 cm RA Height 5.0 cm M-MODE LV Diastolic Diameter MM 6.4 cm 4.2 - 5.9 / 3.9 - 5.3 cm LV Systolic Diameter MM 4.4 cm LV Ejection Fraction MM Teich 57.5 % IVS Diastolic Thickness MM 1.0 cm 0.6 - 1.0 / 0.6 - 0.9 cm IVS Systolic Thickness MM 1.5 cm LVPW Diastolic Thickness MM 1.1 cm 0.6 - 1.0 / 0.6 - 0.9 cm LVPW Systolic Thickness MM 2.0 cm RV Diastolic Diameter MM 0.6 cm Aortic Annulus Diameter 3.6 cm LA Ao Ratio MM 1.3 MV E Point Septal Separation 0.9 cm FINDINGS Left Ventricle Normal left ventricular cavity size. Normal left ventricular wall thickness. Normal left ventricular systolic function. Left ventricular ejection fraction is estimated at 50-55 %. There is septal hypokinesis. Right Ventricle Normal right ventricular size and systolic function. Right Atrium Mildly increased right atrial size. Left Atrium Moderately increased left atrial size. Mitral Valve Thickened mitral valve. Aortic Valve Aortic valve not well visualized. Tricuspid Valve Structurally normal tricuspid valve. Pulmonic Valve Structurally normal pulmonic valve. Pericardium Trivial pericardial effusion. Aorta Normal-sized aortic root. CONCLUSIONS 1. This is a limited study. 2. Normal left ventricular cavity size and systolic function. Left ventricular ejection fraction is estimated at 50-55 %. There is septal hypokinesis. 3. When compared to previous echocardiogram dated 08/31/2020, there may not has been any significant change. Brielle Valderrama MD (Electronically Signed) Final Date: 02 November 2020 18:35 S
--- NOTE | 2020-11-02 12:48 | PM.CONSULT ---
Providers/Reason For Consult Consulting Physican/Specialty*: Nephrology Reason for Consult*: ESRD Attending Physician: Golden Harris MD History of Present Illness History of Present Illness Thank you for consultation. Today I reviewed Mr. Valera for evaluation and management of renal failure. He presented today having difficulty catching his breath he felt generally weak and unwell. He did have a fever of 102.4 with the occasional chills. He denies any cough, sputum. Recent hospitalization in [place] for concerns of endovascular leak. He reports that he has been on dialysis only for 2-3 weeks. He has a right tunneled dialysis catheter. Typically he dialyzes for 4 hours. He is unsure of his dry weight. He was noted to be quite profoundly anemic with hemoglobin level of 6 and is pending a blood transfusion for this. Rapid Covid test was negative. Other basic chemistries looked well balanced with minor aberration. Imaging including CTA of the abdomen pelvis and chest demonstrates an array of abnormalities, however no evidence of acute bleeding, no evidence of pulmonary edema, no evidence of pulmonary embolism, prominent emphysema. Review of Systems Narrative: ROS - 12 point review of systems completed per HPI and subjective assessment, this includes Constitutional: Weakness, fatigue Respiratory: No SOB on exertion, comfortable at rest CardioVasc: No chest pain, palpitations Gastrointestinal: No nausea, no vomiting Neurological: No seizures, no AMS Derm: No new rashes, lesions or wounds Immunological: No seasonal and no food allergies Meds/Allergies Home Medications and Allergies Home Medications Medication Instructions Recorded Confirmed Last Taken Type amlodipine 10 mg PO DAILY 08/31/20 11/02/20 08/30/20 History fluticasone propionate 2 spray INTRANASAL DAILY PRN 08/31/20 11/02/20 08/30/20 History metoprolol succinate 200 mg PO DAILY 08/31/20 11/02/20 08/30/20 History testosterone 1 pump TOPICAL DAILY 08/31/20 11/02/20 08/30/20 History clopidogrel [Plavix] 75 mg PO DAILY #30 tab 09/02/20 11/02/20 Unknown Rx isosorbide mononitrate 60 mg PO DAILY #30 tab 09/02/20 11/02/20 Unknown Rx warfarin 5 mg tablet 5 mg PO DAILY #90 tab 09/10/20 11/02/20 Unknown Rx diphenhydramine HCl [Benadryl] 25 mg PO PRN 11/02/20 11/02/20 Unknown History omeprazole 40 mg PO BID 11/02/20 11/02/20 Unknown History pantoprazole [Protonix] 40 mg PO DAILY 11/02/20 11/02/20 Unknown History Allergies Allergy/AdvReac Type Severity Reaction Status Date / Time No Known Allergies Allergy Verified 11/02/20 09:40 Current Medications Current Medications Generic Name Dose Route Start Last Admin Trade Name Freq PRN Reason Stop Dose Admin Piperacillin Sod/Tazobactam 50 mls @ 12.5 mls/hr 11/02/20 09:00 11/02/20 10:20 Sod 3.375 gm/ Sodium Chloride IV 12.5 mls/hr Q12H LEOBARDO Administration Protocol PFSH Acute PFSH: Medical History (Updated 11/02/20 @ 11:35 by Golden Harris MD) Abdominal aortic aneurysm Atherosclerotic heart disease of telida coronary artery with unstable angina pectoris Atrial fibrillation Benign essential hypertension with target blood pressure below 140/90 CAD (coronary artery disease) Chronic kidney disease History of Crohn's disease Not currently requiring treatment, no immunosuppressive's History of pancreatitis By his description sounds like gallstone pancreatitis Hypertension Non-ST elevation myocardial infarction (NSTEMI) Recent non-ST elevation myocardial infarction Unstable angina Surgical History H/O aortic aneurysm repair 09/2020 [facility] History of cholecystectomy History of coronary artery stent placement Right coronary artery, prior to bypass History of four vessel coronary artery bypass graft (~2011) History of resection of large bowel Partial, secondary to Crohn's Family History Mother Stroke CHF (congestive heart failure) Father Valvular heart disease Social History Smoking and tobacco status: former smoker Alcohol intake: never Vitals/I&O/Wt Last Vital Signs Temp 98.4 F 11/02/20 11:54 Pulse 99 11/02/20 11:54 Resp 20 H 11/02/20 11:54 BP 142/91 11/02/20 11:54 Pulse Ox 92 11/02/20 11:54 Weight last 48 hrs Weight 51.256 kg Physical Exam Narrative: EXAM NARRATIVE: Constitutional: Awake, conversant HEENT: Wet mucosa, no jvp, non icteric Lungs: Bilaterally clear without discernible wheeze, rales in all lung zones CVS: S1 S2, no murmurs Abdo: Soft, BS ok Ext 4: Minimal edema, peripheral perfusion with no cyanosis Neurological: Grossly non-focal Urinary Catheter Management^: Neal: Cath Placed During This Visit: yes Reason for Continuing Indwelling Catheter: Not indwelling catheter Urinary Catheter Date of Insertion: 11/02/20 Urinary Catheter Time of Insertion: 09:20 Data Micro: Micro: Microbiology 11/02/20 03:14 Blood Culture - Pr eliminary Blood SPEC[facility]EN [facility] 11/02/20 03:30 Blood Culture - Pr eliminary Blood [facility] A&P Additional A&P Information 1. End-stage kidney disease. Hemodialysis is prescribed today. We will ultrafilter him 2.5 L on a 3K bath. Continue Monday dialysis schedule. Dose medications for GFR less than 15 on dialysis. 2. Anemia. No evidence of acute bleeding, consider FOBT. Pending blood transfusion. As an outpatient he will be receiving iron and Epogen in the dialysis clinic. A.m. iron levels. 3. Hemodynamics. Remained stable. We will continue to monitor closely during dialysis. 4. Shortness of breath. Likely in part secondary to his severe anemia and underlying emphysema. Covid rapid test is negative, PCR is pending. Received combination antibiotics to cover him for healthcare acquired pneumonia. Khanh Orr MD Nephrology [phone] Patient seen and examined via telemedicine, with the assistance of the bedside RN Coding Level of Care Code Acute Slag Expander for Singh Chairez
[2020-11-02] MEDS: metoprolol tartrate 50 mg Tablet 100 MG PO (16:43)
[2020-11-02] MEDS: sodium chloride 0.9% (100 ml) 100 ML (17:52)
--- NOTE | 2020-11-02 17:57 | PC.NURSE ---
Call to physician patient stating that he is feeling anxious. vital signs: HR between 140s-160s BP:160/103. oral metoprolol already given per MAR by primary nurse. Call to physician and updated on patient complaint and current vital signs. telephone order for Ativan 0.25IVP Q6H PRN for anxiety. Diltiazem gtt to be started.
[2020-11-02] MEDS: LORazepam 2 mg/mL INJ 1 mL 0.25 MG IVP (18:05)
[2020-11-02 21:14] LABS: Basophils # 0.1 10^3/uL (0.0-0.1); Basophils % 0.3 %; Eosinophils # 0.1 10^3/uL (0.0-0.8); Eosinophils % 0.8 %; Hematocrit 24.7 % (42.0-52.0); Hemoglobin 7.8 g/dL (11.7-16.6); Lymphocytes # 0.8 10^3/uL (0.8-4.8); Lymphocytes % 4.3 %; Mean Corpuscular HGB Conc 31.6 g/dL (30.0-36.0); Mean Corpuscular Hemoglobin 28.5 pg (28.0-34.0); Mean Corpuscular Volume 90.1 fL (80-94); Mean Platelet Volume 9.6 fL (7.4-10.4); Monocytes # 0.9 10^3/uL (0.2-0.9); Monocytes % 5.1 %; Neutrophils # 16.35 10^3/uL (1.8-7.7); Neutrophils % 88.7 %; Nucleated Red Blood Cells % 0 %; Platelet Count 164 10^3/cmm (130-400); Red Blood Count 2.74 10^6/uL (4.1-5.3); Red Cell Distribution Width 15.4 % (12.1-15.1); White Blood Count 18.4 10^3/uL (4.0-10.0)
[2020-11-03] VITALS (208 sets, daily range): BP systolic 120–154; BP diastolic 66–99; PULSE 75–123; RESP 11–33; TEMP 36.7–37.1; O2SAT 65–100; BMI 16.7
[2020-11-03 04:18] LABS: INR 3.54 (0.8-1.2)
[2020-11-03 04:31] LABS: Alanine Aminotransferase 17 U/L (0-41); Albumin Level 2.7 g/dL (3.5-5.2); Alkaline Phosphatase 78 IU/L (40-130); Aspartate Amino Transferase 18 U/L (0-40); Blood Urea Nitrogen 33 mg/dL (8-23); Calcium 8.1 mg/dL (8.5-10.5); Carbon Dioxide 22 mmol/L (22-29); Chloride 96 mmol/L (98-107); Globulin 2.9 g/dL (1.3-4.6); Glomerular Filtration Rate 8.8 mL/min (90-130); Glucose 160 mg/dL (65-115); Osmolality Calculated 287 mOsm/kg (285-295); Sodium 133 mmol/L (136-145); Total Bilirubin 0.5 mg/dL (0.15-1.2); Total Protein 5.6 g/dL (6.6-8.7)
[2020-11-03] MEDS: metoprolol tartrate 50 mg Tablet 100 MG PO ×2 (04:55→18:11)
[2020-11-03 05:49] LABS: Basophils % 0.3 %; Eosinophils # 0.2 10^3/uL (0.0-0.8); Eosinophils % 1.2 %; Hematocrit 23.1 % (42.0-52.0); Hemoglobin 7.4 g/dL (11.7-16.6); Lymphocytes % 7.6 %; Mean Corpuscular Hemoglobin 28.6 pg (28.0-34.0); Mean Corpuscular Volume 89.2 fL (80-94); Mean Platelet Volume 10.4 fL (7.4-10.4); Monocytes # 0.9 10^3/uL (0.2-0.9); Monocytes % 6.7 %; Neutrophils # 11.28 10^3/uL (1.8-7.7); Neutrophils % 83.6 %; Nucleated Red Blood Cells % 0 %; Platelet Count 166 10^3/cmm (130-400); Red Blood Count 2.59 10^6/uL (4.1-5.3); Red Cell Distribution Width 15.9 % (12.1-15.1); White Blood Count 13.5 10^3/uL (4.0-10.0)
--- NOTE | 2020-11-03 08:01 | PM.PN ---
Subjective Subjective: Interval history: He. He would like something to eat. He reports he had a bowel movement yesterday, and no evidence of blood. Unfortunately I do not think Hemoccult was done on this. Medications: Reviewed: Yes Vitals/I&O/Wt Last Vital Signs Temp 98.1 F 11/03/20 01:50 Pulse 89 11/03/20 05:55 Resp 23 H 11/03/20 05:55 BP 154/76 11/03/20 05:55 Pulse Ox 98 11/03/20 05:55 11/02/20 11/03/20 11/03/20 22:59 06:59 14:59 Intake Total 352.5 / 402.5 360 / 762.5 Output Total 400 / 400 Balance 352.5 / 402.5 -40 / 362.5 Weight last 48 hrs Weight 51.256 kg Weight 51.256 kg Physical Exam Narrative: EXAM NARRATIVE: General exam is a white male, in no apparent distress. He has many appropriate conditions regarding his condition Cardiovascular irregular, irregular without murmur Lungs clear but with diminished breath sounds today Abdomen is soft. No tenderness Extremities no cyanosis clubbing or edema, cap refill brisk Urinary Catheter Management^: Neal: Cath Placed During This Visit: yes Reason for Continuing Indwelling Catheter: Accurate Measurement of Urinary Output in Critically Ill Patients Urinary Catheter Date of Insertion: 11/02/20 Urinary Catheter Time of Insertion: : Data : 11/03/20 03:10 11/03/20 03:10 Micro: Microbiology 11/02/20 03:14 Blood Culture - Preliminary Blood NEGATIVE TO DATE 11/02/20 03:30 Blood Culture - Preliminary Blood NEGATIVE TO DATE A&P Assessment and plan (1) Fever: Not hypotensive or tachycardic, and lactic acid normal but could potentially be developing sepsis. Sources could be UTI, dialysis catheter, aortic graft although less likely. Also with nonproductive cough, although no CT findings of pneumonia, Covid is still a possibility and PCR was obtained and pending Continue Zosyn and vancomycin. Await blood and urine cultures Dialysis port was visualized right side of chest, tunneled catheter, no obvious evidence of infection on viewing. Status: Acute (2) Anemia: Significant anemia. History of chronic anemia and I do not believe he has had any Epogen products lately. He was transfused 2 units of packed red blood cells. Hemoglobin this morning 7.4, following transfusion 7.8. No evidence of active bleeding. Currently he is asymptomatic. Stool Hemoccult pending. May need further transfusion but will await hemoglobin tomorrow prior to decision. If needed, would like to give with dialysis. Continue Protonix Continue to hold Coumadin currently. Note that his INR is 3.5 today. Stool Hemoccult was lightly positive in the emergency department, light brown stool Need to hold Plavix currently Overall does not appear to be having bowel ischemia. Advance diet Status: Acute (3) Acute dyspnea: Significantly improved after dialysis. May have been fluid related. Await Covid PCR Echocardiogram limited views demonstrated no change, EF 50 to 55% Wean oxygen off if tolerated Status: Acute (4) Acute hypoxemic respiratory failure: Appears to be resolving. Try to wean oxygen off. Status: Acute (5) Leukocytosis: Significantly improved. Status: Acute (6) Coagulopathy: Hold Coumadin currently Status: Acute (7) Hyponatremia: Improved Status: Acute (8) UTI (urinary tract infection): Continue Zosyn, vancomycin Await culture Status: Acute Additional A&P Information Atrial fibrillation. Left atrial fibrillation with rapid ventricular rate. Cardizem initiated. Home metoprolol started. Cardizem being tapered off. Hopefully heart rate will remain stable. History of aortic aneurysm repair. No evidence of fistula currently Coronary artery disease. No evidence of chest discomfort currently End-stage renal disease on hemodialysis. History of hypertension History of Crohn's disease Multiple other medical problems as outlined in past medical history Full code SCDs for DVT prophylaxis. Pharmacological on hold secondary to concern of anemia and GI bleed May transfer out of ICU to CSU. 11/03 Awaiting cultures. Continue IV antibiotics. Recheck hemoglobin tomorrow. Transfer out of ICU. Neal can stay off Cardizem. Attestations Medical Necessity Statement*: Needs continued hospital stay for follow-up of fever, concern of UTI and possible early sepsis. Needs continued hospitalization for significant anemia as well. Coding Level of Care Code Acute Steam Bone Press Tender for Chg Fwd Diagnoses Fever R50.9 Anemia D64.9 Acute dyspnea R06.00 Acute hypoxemic respiratory failure J96.01 Leukocytosis D72.829 Coagulopathy D68.9 Hyponatremia E87.1 UTI (urinary tract infection) N39.0
--- NOTE | 2020-11-03 08:20 | PC.CHAP ---
Pastoral Care Encounter/Spiritual Assessment Type of Contact [] Declined kitchen porter visit [] Patient/Family/Request visit [] Outpatient visit [] Follow-up visit [] Physician referral [] Code/Alert [] Routine visit [] Staff referral [] Actively dying [] Patient sleeping [] Family support [] [] Out of room [] Palliative care [] [] Receiving care in room [] Pre-surgical visit [] Trauma [] Long length of stay [] ICU visit [] Other: Relational/Emotional Strength [] Patient feels connected with others/family/visitors/staff [] Distress [] Loneliness/isolation [] Abandonment Spirituality of Patient [] Person of Jelly [] Attends Episcopal of their Jelly [] Believes in Prayer [] Reads Bible or Protestant materials [] There are Spiritual issues to be addressed Gas Pit Worker Interventions [x] Prayer [] Active listening [] Non-anxious presence [] Spiritual/emotional support [] Crisis/trauma care [] Spiritual counseling [] Bereavement support [] Provided bereavement packet [] Provided Bible/devotional materials [] Provided toy/stuffed animal, coloring book to patient or family member [] Provided Communion [] Anointing/[place] [] Salvation [x] Completed spiritual assessment [] Other: Impact on Illness or Injury [] Angry [] Fearful [] Anxious [] Often cries [] Exhaustion [] Unable to work [] Unable to attend caodaism [] Unable to walk/stand [] Unable to read [] Unable to drive [] Unable to eat/drink [] Unable to sleep [] Unable to be with family [] Patient intubated [] Other: Summary Time spent with patient
[2020-11-03 09:10] LABS: Coronavirus Lab Test PTC Negative
[2020-11-03] MEDS: piperacillin-tazobactam 3.375 GM in sodium chloride 0.9% (plus) 50 ML IV ×2 (09:47→21:29)
[2020-11-03] MEDS: isosorbide mononitrate ER 60 mg Tablet PO (09:49)
--- NOTE | 2020-11-03 11:09 | PC.NURSE ---
Shift status: Patient to transfer to CSU when bed available. Patient has been anxious without success to redirection related to hospital admission. Patient demanding with care, restless, and impulsive. Patient has had x2 liquid brown mucoid type of bowel movement. One large and one medium in size. Protonix IV changed to PO due to unavailability of IV form. Patient spoke with superintendent of generation. Patient to dialyze tomorrow. HD catheter to right anterior chest wall with occlusive dressing clean dry and intact. Patient has not c/o any pain or discomfort since beginning of this shift. Patient can turn and reposition independently in bed but needs encouragement. Verbal order by Dr. Harris to remove SPO2 line, Discontinue O2 as patient has been in upper 90% and does not use O2 at home, and BP to cycle Q2 hours. Interventions initiated to decrease anxiety and restlessness.
--- NOTE | 2020-11-03 12:52 | P.PN_ITS ---
Subjective Subjective: Interval history: He feels significantly better today. Breathing much more comfortably. His atrial fibrillation was controlled with a pulse down to 84, however, on my interview with him his pulse had popped up to 120. He was somewhat anxious on dialysis yesterday and we did stop the treatment early. He denies uremic symptoms, denies extremity edema and other volume symptoms. Medications: Reviewed: Yes Vitals/I&O/Wt Last Vital Signs Temp 98.5 F 11/03/20 08:00 Pulse 114 H 11/03/20 12:15 Resp 27 H 11/03/20 12:15 BP 141/82 11/03/20 12:15 Pulse Ox 92 11/03/20 08:15 11/02/20 11/03/20 11/03/20 22:59 06:59 14:59 Intake Total 352.5 / 402.5 410 / 812.5 480 / 480 Output Total 400 / 400 625 / 625 Balance 352.5 / 402.5 10 / 412.5 -145 / -145 Weight last 48 hrs Weight 51.256 kg Weight 51.256 kg Physical Exam 2 Narrative: EXAM NARRATIVE: Constitutional: Awake, conversant HEENT: Wet mucosa, no jvp, non icteric Lungs: Bilaterally clear without discernible wheeze, rales in all lung zones CVS: S1 S2, no murmurs Abdo: Soft, BS ok Ext 4: Minimal edema, peripheral perfusion with no cyanosis Neurological: Grossly non-focal Urinary Catheter Management^: Neal: Cath Placed During This Visit: yes Reason for Continuing Indwelling Catheter: Accurate Measurement of Urinary Output in Critically Ill Patients Urinary Catheter Date of Insertion: 11/02/20 Urinary Catheter Time of Insertion: 09:20 Data : 11/03/20 03:10 11/03/20 03:10 Micro: Microbiology 11/03/20 08:30 Occult Blood (FIT) - Final Stool - Stool Aspirate 11/02/20 03:14 Blood Culture - Preliminary Blood NEGATIVE TO DATE 11/02/20 03:30 Blood Culture - Preliminary Blood NEGATIVE TO DATE A&P Additional A&P Information 1. End-stage kidney disease. Continue Monday dialysis schedule. 3K, UF 2-3L Dose medications for GFR less than 15 on dialysis. 2. Anemia. No evidence of acute bleeding, FOBT pending. S/p blood transfusion. As an outpatient he will be receiving iron and Epogen in the dialysis clinic. Iron levels pending 3. Hemodynamics. Remained stable. We will continue to monitor closely during dialysis. 4. Shortness of breath. Likely in part secondary to his severe anemia and underlying emphysema. Covid neg. Received combination antibiotics to cover him for healthcare acquired pneumonia. Khanh Orr MD Nephrology [phone] Patient seen and examined via telemedicine, with the assistance of the bedside RN Attestations Medical Necessity Statement*: eval for ESRD mgmt Coding Level of Care Code Acute Development Representative for Singh Chairez
[2020-11-03] MEDS: dilTIAZem 30 mg Tablet PO ×2 (13:41→19:26)
[2020-11-03] MEDS: pantoprazole DR 40 mg Tablet PO (18:11)
[2020-11-03] MEDS: vancomycin 750 MG in sodium chloride 0.9% 250 ML 250 MG IV ×2 (18:30→18:36)
--- NOTE | 2020-11-03 18:37 | PC.NURSE ---
Vancomycin was ordered for after HD last noc but presumed to have never been administered. Spoke with pharmacist about dosing and assumed missed dose from last noc. Vancomycin started at this time. Patient has transfer orders with room assignment that was assigned at 1830. Report not called at this time as patient is eating dinner and vanc started.
[2020-11-03] MEDS: amlodipine 10 mg Tablet PO (21:29)
[2020-11-04] VITALS (9 sets, daily range): BP systolic 113–140; BP diastolic 74–79; PULSE 84–98; RESP 16–29; TEMP 36.4–37.1; O2SAT 98; BMI 18.1
[2020-11-04] MEDS: dilTIAZem 30 mg Tablet PO ×2 (01:23→07:43)
[2020-11-04] MEDS: metoprolol tartrate 50 mg Tablet 100 MG PO (04:25)
[2020-11-04 05:39] LABS: Basophils % 0.3 %; Eosinophils # 0.6 10^3/uL (0.0-0.8); Eosinophils % 6.8 %; Hematocrit 24.2 % (42.0-52.0); Hemoglobin 7.7 g/dL (11.7-16.6); Lymphocytes # 0.9 10^3/uL (0.8-4.8); Lymphocytes % 10.1 %; Mean Corpuscular HGB Conc 31.8 g/dL (30.0-36.0); Mean Corpuscular Hemoglobin 28.3 pg (28.0-34.0); Mean Platelet Volume 10.5 fL (7.4-10.4); Monocytes # 0.6 10^3/uL (0.2-0.9); Monocytes % 6.4 %; Neutrophils # 6.97 10^3/uL (1.8-7.7); Neutrophils % 75.7 %; Nucleated Red Blood Cells % 0 %; Platelet Count 197 10^3/cmm (130-400); Red Blood Count 2.72 10^6/uL (4.1-5.3); Red Cell Distribution Width 15.9 % (12.1-15.1); White Blood Count 9.2 10^3/uL (4.0-10.0)
[2020-11-04 06:10] LABS: Alanine Aminotransferase 16 U/L (0-41); Albumin Level 2.7 g/dL (3.5-5.2); Alkaline Phosphatase 82 IU/L (40-130); Anion Gap 17.8 (5-19); Aspartate Amino Transferase 14 U/L (0-40); Blood Urea Nitrogen 43 mg/dL (8-23); Calcium 8.4 mg/dL (8.5-10.5); Carbon Dioxide 21 mmol/L (22-29); Chloride 99 mmol/L (98-107); Globulin 3.1 g/dL (1.3-4.6); Glomerular Filtration Rate 6.7 mL/min (90-130); Glucose 95 mg/dL (65-115); Osmolality Calculated 289 mOsm/kg (285-295); Potassium 3.8 mmol/L (3.5-5.1); Sodium 134 mmol/L (136-145); Total Bilirubin 0.4 mg/dL (0.15-1.2); Total Protein 5.8 g/dL (6.6-8.7)
--- NOTE | 2020-11-04 06:19 | PC.NURSE ---
PT ARRIVED TO ROOM 107 VIA WHEELCHAIR. PT DENIES PAIN. VS WNL. PT ORIENTATED TO ROOM. WILL CONTINUE TO MONITOR.
[2020-11-04 06:28] LABS: INR 3.47 (0.8-1.2)
--- NOTE | 2020-11-04 06:32 | PC.NURSE ---
VENAGUARD TO RIGHT FA WAS REPLACE AND OPTIFOAM WAS PLACE ON THE COCCYX. WILL CONTINUE TO MONITOR.
--- NOTE | 2020-11-04 06:42 | PC.NURSE ---
PT DIDN'T SLEEP VERY WELL. PT UP MOST OF THE NIGHT. PT STATES THAT THEY ARE GOING TO ASK THE DR FOR SOMETHING TO HELP THEM SLEEP TONIGHT. WILL PASS ALONG TO DAYSHIFT NURSE.
--- NOTE | 2020-11-04 06:50 | PC.NURSE ---
CREATININE OF 8.1 WAS CALLED TO
[2020-11-04] MEDS: lanolin oint 7 gm 1 APPLIC TOPICAL (08:32)
--- NOTE | 2020-11-04 10:39 | PM.DCS ---
Discharge Providers Date of Admission: 11/02/20 09:26 Date of Discharge: November 04, 2020 Attending Provider at Admission: Golden Harris MD Attending Provider at Discharge: Golden Harris MD Diagnoses at Discharge Discharge Diagnosis (1) Fever: Status: Acute Permanent problem details: Resolved (2) Anemia: Status: Acute Permanent problem details: Lightly heme positive stool. Ultimately transfused 2 units. Hemoglobin currently stable. (3) Acute dyspnea: Status: Acute Permanent problem details: Resolved (4) Acute hypoxemic respiratory failure: Status: Acute Permanent problem details: Resolved (5) Leukocytosis: Status: Acute Permanent problem details: Resolved (6) Coagulopathy: Status: Acute (7) Hyponatremia: Status: Acute (8) UTI (urinary tract infection): Status: Acute Reason for Visit Reason for Visit: FEVER Hospital Course Hospital Course Shin is a 65-year-old white male who came into the emergency department after the nursing facility reported he had a fever of 102 ?F, was short of breath and had a nonproductive cough. On arrival to the emergency department he was afebrile, had an elevated white blood cell count, and had a hemoglobin of 6. He has underlying end-stage renal disease on hemodialysis, history of abdominal aortic aneurysm, history of GI bleeding with intervention rather recently, and recent history of non-ST elevation CT. His anticoagulation of Plavix and Coumadin were held. He was transfused 2 units of packed red blood cells. Broad-spectrum antibiotics were started and cultures obtained. Nephrology was consulted. Over the course of his hospital stay he received 2 treatments of dialysis. White blood cell count slowly returned to normal. He had no evidence of fever. He required slight amount of oxygen initially which he was able to be tapered off of after dialysis. Rapid and PCR Covid were negative and CT chest demonstrated no evidence of pneumonia. He did have some diarrhea during his hospital stay and there was concern of colitis. Secondary to anemia, a heme positive stool in the hospital that was lightly heme positive his anticoagulation was reduced. Plavix was changed to aspirin 81 mg. Coumadin was discontinued as he was coagulopathic on admission. He will take Eliquis 2.5 mg twice daily. The risks and benefits of these changes were discussed in detail with the patient. He will follow-up with his primary care provider as an outpatient and receive a hemoglobin with the next hemodialysis. Hemoglobin 7.7 prior to dialysis on November 04. He will receive dialysis prior to discharge. While in the hospital he did have concerns of atrial fibrillation with rapid ventricular rate. Control was achieved with discontinuing Norvasc, and adding diltiazem which she will continue as an outpatient. He should not start his Eliquis until his INR is less than 3. Physical Exam Narrative: EXAM NARRATIVE: General exam is no apparent distress Cardiovascular irregular, irregular Lungs clear Abdomen is soft and positive bowel sounds. Nontender. Extremities no cyanosis clubbing or edema Right chest demonstrates dialysis port without any evidence of infection. Urinary Catheter Management^: Neal: Cath Placed During This Visit: yes Reason for Continuing Indwelling Catheter: Accurate Measurement of Urinary Output in Critically Ill Patients Urinary Catheter Date of Insertion: 11/02/20 Urinary Catheter Time of Insertion: 09: Discharge Data Data Completed and Pending: Completed Studies During Hospitalization Category Date Time Status CT abdomen pelvis w con* [id number] Stat Cat Scan 11/02/20 07:[address] angio chest PE protcl [id number] Urge nt Cat Scan 11/02/20 04:51 Completed XR chest 1V consuelo ble [id number] Urgent Exams 11/02/20 03:03 Completed CV echo limited 9 [id number] Routine Ultrasound 11/02/20 12:35 Completed Pending at discharge Category Date Time Status Blood Culture Sta t Lab 11/02/20 03:14 Results Clostridioides Di fficile PCR Routin e Lab 11/03/20 08:30 Results Stool Culture, Ba cterial [Enteric B acterial Panel by Lab 11/03/20 08:30 Results PCR] Routine Labs from last 24 hours 11/04/20 11/04/20 11/04/20 03:35 03:35 03:35 WBC 9.2 RBC 2.72 L Hgb 7.7 L Hct 24.2 L MCV 89.0 MCH 28.3 MCHC 31.8 RDW 15.9 H Plt Count 197 MPV 10.5 H Neut % (Auto) 75.7 Lymph % (Auto) 10.1 [place] % (Auto) 6.4 Eos % (Auto) 6.8 Baso % (Auto) 0.3 Neut # (Auto) 6.97 Lymph # (Auto) 0.9 [place] # (Auto) 0.6 Eos # (Auto) 0.6 Baso # (Auto) 0.0 Nucleated RBC % (a uto) 0 Nucleated RBCs # 0.0 PT 36.20 H INR 3.47 H Sodium 134 L Potassium 3.8 Chloride 99 Carbon Dioxide 21 L Anion Gap 17.8 BUN 43 H Creatinine 8.1 H* GFR Calculation 6.7 L Glucose 95 Calculated Osmolal ity 289 Calcium 8.4 L Total Bilirubin 0.4 AST 14 ALT 16 Alkaline Phosphata se 82 Total Protein 5.8 L Albumin 2.7 L Globulin 3.1 Vitals: Last Vital Signs Temp 98.7 F 11/04/20 07:41 Pulse 86 11/04/20 07:41 Resp 21 H 11/04/20 07:41 BP 116/79 11/04/20 07:41 Pulse Ox 98 11/04/20 07:41 Discharge Plan Discharge Patient Disposition: Xfer SNF Condition: Stable Prescriptions: New metoprolol tartrate 50 mg Tablet 100 mg PO Q12H Qty: 60 RF: 0 diltiazem HCl 120 mg capsule,extended release 24 hr 120 mg PO DAILY Qty: 30 RF: 0 aspirin 81 mg tablet,delayed release (DR/EC) 81 mg PO DAILY Qty: 30 RF: 0 metronidazole [Flagyl] 500 mg tablet 500 mg PO TID Qty: 15 RF: 0 Eliquis 2.5 mg tablet 2.5 mg PO BID Qty: 60 RF: 0 ciprofloxacin HCl [Cipro] 250 mg tablet 250 mg PO Q24H Qty: 5 RF: 0 Continued testosterone 20.25 mg/1.25 gram (1.62 %) Gel In Metered-Dose Pump 1 pump TOPICAL DAILY RF: 0 fluticasone propionate 50 mcg/actuation [place],Suspension 2 spray INTRANASAL DAILY PRN (Reason: Allergy Symptoms) RF: 0 isosorbide mononitrate 60 mg tablet extended release 24 hr 60 mg PO DAILY Qty: 30 RF: 0 omeprazole 40 mg Capsule,Delayed Release(Dr/Ec) 40 mg PO BID RF: 0 Protonix 40 mg tablet,delayed release (DR/EC) 40 mg PO DAILY RF: 0 Benadryl 25 mg Capsule 25 mg PO PRN RF: 0 Discontinued warfarin 5 mg tablet 5 mg PO DAILY Qty: 90 RF: 3 metoprolol succinate 200 mg Tablet Extended Release 24 Hr 200 mg PO DAILY RF: 0 amlodipine 10 mg Tablet 10 mg PO DAILY RF: 0 clopidogrel [Plavix] 75 mg tablet 75 mg PO DAILY Qty: 30 RF: 0 Discharge Orders: Discharge Order (Routine); Ordered 11/04/20 Ordered By: Golden Harris Referrals: Madi Griffith DO [Physician] - 4-7 days Discharge Diet: Usual diet Discharge Activity: Increase activity as tolerated Activity Restrictions/Additional Instructions: Resume renal diet. INR tomorrow. Repeat daily until INR less than 2 Start Eliquis when INR less than 2. Hemoglobin with next dialysis on Monday. Keep follow-up with nephrology Keep follow-up with physicians in [place]. Discharge Attestations Time Spent in Discharge Care*: greater than 30 min Status at Discharge: Cognitive status at discharge: cognitively intact, Behavioral status at discharge: cooperative, Quality Metrics Clinical Quality Measures During this hospital stay, did patient experience: None Coding Level of Care Code Acute Operator Coating Furnace for Chg Fwd Diagnoses Fever R50.9 Anemia D64.9 Acute dyspnea R06.00 Acute hypoxemic respiratory failure J96.01 Leukocytosis D72.829 Coagulopathy D68.9 Hyponatremia E87.1 UTI (urinary tract infection) N39.0
--- NOTE | 2020-11-04 11:51 | PM.PN ---
Subjective Subjective: Interval history: Doing well today and has no specific complaints. He is seen and examined on hemodialysis. Blood pressure noted to be 116/85 and a pulse of 80. Breathing comfortably, no cough cold, fevers or chills. No extremity edema or other volume associated symptoms. Medications: Reviewed: Yes Vitals/I&O/Wt Last Vital Signs Temp 98.7 F 11/04/20 07:41 Pulse 86 11/04/20 07:41 Resp 21 H 11/04/20 07:41 BP 116/79 11/04/20 07:41 Pulse Ox 98 11/04/20 07:41 11/03/20 11/04/20 11/04/20 22:59 06:59 14:59 Intake Total 640 / 1170 110 / 1280 Output Total 0 / 625 Balance 640 / 545 110 / 655 Weight last 48 hrs Weight 55.928 kg Weight 51.256 kg Physical Exam Narrative: EXAM NARRATIVE: Constitutional: Awake, conversant HEENT: Wet mucosa, no jvp, non icteric Lungs: Bilaterally clear without discernible wheeze, rales in all lung zones CVS: S1 S2, no murmurs Abdo: Soft, BS ok Ext 4: Minimal edema, peripheral perfusion with no cyanosis Neurological: Grossly non-focal Urinary Catheter Management^: Neal: Cath Placed During This Visit: yes Reason for Continuing Indwelling Catheter: Accurate Measurement of Urinary Output in Critically Ill Patients Urinary Catheter Date of Insertion: 11/02/20 Urinary Catheter Time of Insertion: 09:20 Data : 11/04/20 03:35 11/04/20 03:35 Micro: Microbiology 11/03/20 08:30 C.difficile Toxin B Gene (PCR) - Final Stool Routine Collection 11/03/20 08:30 Occult Blood (FIT) - Final Stool - Stool Aspirate A&P Additional A&P Information 1. End-stage kidney disease. Continue Monday dialysis schedule. seen and examined on dialysis today 3K, UF 2-3L Dose medications for GFR less than 15 on dialysis. 2. Anemia. No evidence of acute bleeding, FOBT pending. S/p blood transfusion. As an outpatient he will be receiving iron and Epogen in the dialysis clinic. Iron levels pending 3. Hemodynamics. Remained stable. We will continue to monitor closely during dialysis. 4. Shortness of breath. Likely in part secondary to his severe anemia and underlying emphysema. Covid neg. Received combination antibiotics to cover him for healthcare acquired pneumonia. - likely DC back to SNF today Khanh Orr MD Nephrology [phone] Patient seen and examined via telemedicine, with the assistance of the bedside RN Attestations Medical Necessity Statement*: eval and mgmt of ESRD Coding Level of Care Code Acute Food Service Supervisor for [facility] Mihaela
[2020-11-04] MEDS: isosorbide mononitrate ER 60 mg Tablet PO (13:10)
[2020-11-04] MEDS: dilTIAZem ER (24HR) 120 mg Capsule PO (13:10)
[2020-11-04] MEDS: pantoprazole DR 40 mg Tablet PO (13:11)
== END 2020-11-04 15:58 | disposition skilled nursing facility (03) | DRG 871 ==
LOC: ER 09:39 → ICU 10:44 → CSU 11-03 20:33
PROVIDERS: Emergency Medicine; Admitting Provider Internal Medicine; Emergency Provider Family Medicine; Visit Provider Internal Medicine
DX: A41.9 Sepsis, unspecified organism (principal); J96.01 Acute respiratory failure with hypoxia; N18.6 End stage renal disease; D68.9 Coagulation defect, unspecified; E87.1 Hypo-osmolality and hyponatremia; N39.0 Urinary tract infection, site not specified; K92.2 Gastrointestinal hemorrhage, unspecified; I12.0 Hypertensive chronic kidney disease with stage 5 chronic kidney disease or end stage renal disease; D64.9 Anemia, unspecified; Z99.2 Dependence on renal dialysis; I25.2 Old myocardial infarction; Z79.01 Long term (current) use of anticoagulants; Z79.02 Long term (current) use of antithrombotics/antiplatelets; I25.10 Atherosclerotic heart disease of native coronary artery without angina pectoris; I48.91 Unspecified atrial fibrillation; Z95.5 Presence of coronary angioplasty implant and graft; Z95.1 Presence of aortocoronary bypass graft; Z87.891 Personal history of nicotine dependence; Z20.828 Contact with and (suspected) exposure to other viral communicable diseases
CPT/HCPCS: 12345; 36415; 36430; 36600; 51702; 71045; 71275; 74177; 80053; 80500; 81001; 82274; 82805; 83605; 83615; 83880; 84145; 84484; 85018; 85025; 85378; 85610; 86140; 86850; 86870; 86900; 86920; 87040; 87426; 87493; 87506; 87635; 90935; 93005; 93308; 96375; 99283; C9113; J1642; J2060; J2543; J3370; J3490; J7050; P9016; Q3014; Q9967

== ENCOUNTER 2021-04-04 22:01 | Inpatient (IN) | payer OTHER, MEDICARE, SELFPAY ==
[2021-04-04 22:06] VITALS: BP 127/92; PULSE 74; RESP 18; TEMP 34.2; O2SAT 71; BMI 22.1
--- NOTE | 2021-04-04 22:12 | XRR_ITS ---
PROCEDURE INFORMATION: Exam: XR Chest Exam date and time: 04/04/2021 10:56 PM Age: 66 years old Clinical indication: Device placement; Ett placement (vent status); Prior surgery; Surgery type: Aaa, gb, stent, cabg; Additional info: Tube placement TECHNIQUE: Imaging protocol: XR of the chest. Views: 1 view. COMPARISON: CR XR chest 1V portable [id number] 11/02/2020 3:02 AM FINDINGS: Tubes, catheters and devices: Endotracheal tube tip resides 3.8 cm above the ulices. Dual lumen central vascular catheter tip at the cavoatrial junction. Left infrahilar and medial left lower lung parenchymal opacity reflecting infiltrate or atelectasis is significantly obscured by external defibrillator pad. Lungs: Calcified granuloma left mid lung. Pleural spaces: See Diaphragm finding. Heart/Mediastinum: Cardiac enlargement. Vasculature: Calcified thoracic aorta. Diaphragm: Slight elevation left hemidiaphragm. Minor blunting left costophrenic angle. Bones/joints: Postoperative sternotomy. Gastrointestinal tract: Moderate air distention of the stomach. XR/XR chest 1V portable [id number] IMPRESSION: Left infrahilar and left lower lung atelectasis versus infiltrate.
--- NOTE | 2021-04-04 22:12 | ECG_ITS ---
[facility] Test Date: 2021-04-04 Pat Name: Shin Valera Department: Room: Gender: Male Emergency Technician: : 1955 Requested By: Socorro Ambrocio Order Number: [id number] Claudio MD: Brielle Valderrama M.D. Measurements Intervals [place] Rate: 72 P: OR: QRS: 80 QRSD: 96 T: 202 QT: 373 QTc: 409 Interpretive Statements ATRIAL FIBRILLATION LOW QRS VOLTAGE IN EXTREMITY LEADS [QRS DEFLECTION < 0.5 mV IN LIMB LEADS] ST DEVIATION AND MODERATE T-WAVE ABNORMALITY, CONSIDER ANTEROLATERAL ISCHEMIA [-0.1+ mV T WAVE IN V3-V6] Compared to ECG 11/02/2020 10:38:15 Low QRS voltage now present Possible ischemia now present T-wave abnormality still present Electronically Signed On 04-06-2021 9:32:43 CDT by Brielle Valderrama M.D. [id number] f
[2021-04-04 22:22] LABS: Basophils # 0.1 10^3/uL (0.0-0.1); Basophils % 0.7 %; Eosinophils # 0.3 10^3/uL (0.0-0.8); Hematocrit 41.7 % (42.0-52.0); Hemoglobin 12.1 g/dL (11.7-16.6); Lymphocytes # 2.7 10^3/uL (0.8-4.8); Lymphocytes % 28.1 %; Mean Corpuscular Hemoglobin 27.3 pg (28.0-34.0); Mean Corpuscular Volume 94.1 fL (80-94); Mean Platelet Volume 10.5 fL (7.4-10.4); Monocytes # 0.8 10^3/uL (0.2-0.9); Monocytes % 8.5 %; Neutrophils # 5.58 10^3/uL (1.8-7.7); Neutrophils % 59.2 %; Nucleated Red Blood Cells % 0 %; Platelet Count 177 10^3/cmm (130-400); Red Blood Count 4.43 10^6/uL (4.1-5.3); Red Cell Distribution Width 19.1 % (12.1-15.1); White Blood Count 9.4 10^3/uL (4.0-10.0)
[2021-04-04 22:25] LABS: Glucose Point of Care 84 mg/dL (70-110)
[2021-04-04 22:26] LABS: ABG PCO2 35.5 mmHg (35-45); Arterial Blood Gas Hematocrit 26.4 % (42-52); Base Excess ABG -15.8 mmol/L (-2.0-2.0); Blood Gas Allen Test Pos; Blood Gas Sample Site Brachial, right; Blood Gas Sample Type Arterial; Carboxyhemoglobin 1.5 %THgb (0.4-20.1); HGB O2 Sat 84.9 % (95-100); Ionized Calcium Level - ABG 0.7 mmol/L (1.1-1.4); Oxygen Device AMBU; Oxygen Saturation ABG 87.1; PO2 ABG 69.8 mmHg (80.0-100.0); Potassium Level - ABG 4.7 mmol/L (3.5-5.0); Total Hemoglobin 8.6 g/dL (14-18)
[2021-04-04 22:27] LABS: ABG PH Result 7.14 (7.35-7.45); Alveolar-Arterial Oxygen Gradi 77.8 mmHg (5-10)
[2021-04-04 22:30] VITALS: RESP 14
--- NOTE | 2021-04-04 22:34 | PC.NURSE ---
Pt triaged by Ewa Ford RN
[2021-04-04 22:43] LABS: Blood Urea Nitrogen 23 mg/dL (8-23); Chloride 103 mmol/L (98-107); Sodium 139 mmol/L (136-145); Total Bilirubin 0.4 mg/dL (0.15-1.2)
[2021-04-04 23:05] VITALS: BP 145/85; PULSE 99; RESP 18; O2SAT 100
[2021-04-04 23:13] LABS: Alanine Aminotransferase 27 U/L (0-41); Alkaline Phosphatase 130 IU/L (40-130); Aspartate Amino Transferase 24 U/L (0-40); Carbon Dioxide 22 mmol/L (22-29); Globulin 3.5 g/dL (1.3-4.6); Glucose 108 mg/dL (65-115); Osmolality Calculated 292 mOsm/kg (285-295); Total Protein 6.6 g/dL (6.6-8.7)
[2021-04-04 23:16] LABS: Lactate (Lactic Acid level) 5.7 mmol/L (0.5-2.2)
[2021-04-04 23:18] LABS: Albumin Level 3.1 g/dL (3.5-5.2); Anion Gap 19.7 (5-19); Calcium 8.2 mg/dL (8.5-10.5); Potassium 5.7 mmol/L (3.5-5.1)
--- NOTE | 2021-04-04 23:30 | CTR_ITS ---
PROCEDURE INFORMATION: Exam: CT Head Without Contrast Exam date and time: 04/04/2021 11:44 PM Age: 66 years old Clinical indication: Other: Unresponsive TECHNIQUE: Imaging protocol: Computed tomography of the head without contrast. Radiation optimization: All CT scans at this facility use at least one of these dose optimization techniques: automated exposure control; mA and/or kV adjustment per patient size (includes targeted exams where dose is matched to clinical indication); or iterative reconstruction. COMPARISON: No relevant prior studies available. RADIATION DOSE METRICS: Total DLP (mGy-cm): 777.95 FINDINGS: Brain: No acute intracranial hemorrhage or mass effect. There is decreased attenuation in the periventricular white matter, likely from microvascular disease. There are old lacunar infarcts in the basal ganglia/internal capsule regions bilaterally. Old infarct in the superior left cerebellar hemisphere. Old infarct in the high right posterior parietal region. No definite acute infarct by CT. MRI could be more sensitive/specific for detection, as clinically directed. Cerebral ventricles: Ventricle size is normal for age. Bones/joints: No definite acute skull fracture. Paranasal sinuses: Included paranasal sinuses are essentially clear. Mastoid air cells: No significant acute finding. Vasculature: Prominent vascular calcifications in the internal carotid arteries. CT/CT head wo con* [id number] IMPRESSION: 1. No acute intracranial hemorrhage or mass effect. 2. Changes of microvascular disease, and old infarcts, details above. 3. No definite acute infarct by CT, see above. 4. Other findings discussed above. Radiation Dose CTDIVOL = (mGy): DLP = 777.95 (mGy-cm)
[2021-04-05] VITALS (47 sets, daily range): BP systolic 103–121; BP diastolic 54–84; PULSE 60–131; RESP 14–18; TEMP 37; O2SAT 90–100
[2021-04-05] MEDS: EPINEPHrine 2.5 MG in sodium chloride 0.9% 250 ML 12.1 MG IV ×2 (00:41→05:56)
[2021-04-05] MEDS: dextrose 50% syringe 50 mL IVP ×2 (01:00→21:16)
--- NOTE | 2021-04-05 01:15 | PC.NURSE ---
pt becoming agitated, gag reflex returning. Dr notified. vo obtained for fentanyl drip with 50mcg loading dose and titrate to effect
--- NOTE | 2021-04-05 01:21 | PM.HP ---
Providers/Chief Complaint Chief Complaint: cpr History of Present Illness Shin Valera is a 66 year old male who has history of end-stage renal disease, atrial fibrillation, history of abdominal aortic aneurysm, GI bleed, coronary artery disease status post CABG, takes Eliquis 2.5 twice called EMS for low blood pressure and heart rate today. On arrival of EMS, blood pressure was low heart rate in 30s he was given 2 doses of atropine 0.5 mg which did not show much improvement, decision to start transcutaneous pacing was made for which Versed 5 mg was given according to EMS protocol which sedated him completely, failed attempt of intubation by EMS, he was brought in with LMA with undetectable blood pressure and pulse in the 30s slow ventricular response, however after given 1 mg of epinephrine adequate blood pressure and heart rate detected, he was intubated by Dr. Sky with ET tube size 8 secured at lip by 25 cm, failed right femoral vein central line placement, Lt internal jugular triple-lumen catheter was placed successfully, chest x-ray showing satisfactory position of IJ and ET tube,. At the time of my evaluation he is on epinephrine gtt. at 1mics per minute, blood pressure 127/92 pulse 101 atrial fibrillation, rectal temperature 93.5 currently on Rosendo hugger, blood glucose 85 improved to 160 after 2 amps of D50, brother Anil Valera was updated and notified. After intubation and initiation of vasopressors patient started waking up, he was biting tube, opening his eyes positive gag reflex, fentanyl was initiated. It was running at 100 at the time of my evaluation, Versed added because he was not adequately sedated. I am requesting another EKG, serial troponin, D-dimer, holding his Eliquis and start him on heparin drip, telemetry nephro consulted Accu-Cheks every 6 hours, ICU nurse updated Review of Systems General: Reports: ROS unobtainable due to endotracheal tube Medications/Allergies Home Medications Medication Instructions Recorded Confirmed Last Taken Type fluticasone propionate 2 spray INTRANASAL DAILY PRN 08/31/20 11/02/20 08/30/20 History testosterone 1 pump TOPICAL DAILY 08/31/20 11/02/20 08/30/20 History isosorbide mononitrate 60 mg PO DAILY #30 tab 09/02/20 11/02/20 Unknown Rx Benadryl 25 mg PO PRN 11/02/20 11/02/20 Unknown History Protonix 40 mg PO DAILY 11/02/20 11/02/20 Unknown History omeprazole 40 mg PO BID 11/02/20 11/02/20 Unknown History aspirin 81 mg PO DAILY #30 tab 11/04/20 Unknown Rx ciprofloxacin HCl [Cipro] 250 mg PO Q24H #5 tab 11/04/20 Unknown Rx diltiazem HCl 120 mg PO DAILY #30 cap 11/04/20 Unknown Rx metoprolol tartrate 100 mg PO Q12H #60 tab 11/04/20 Unknown Rx metronidazole [Flagyl] 500 mg PO TID #15 tab 11/04/20 Unknown Rx apixaban 2.5 mg tablet 2.5 mg PO BID #120 tab 11/10/20 Unknown Rx Allergies Allergy/AdvReac Type Severity Reaction Status Date / Time No Known Allergies Allergy Verified 01/27/21 08:38 PFSH Acute PFSH: Medical History (Updated 04/05/21 @ 02:38 by Marla Solis MD) Abdominal aortic aneurysm Atherosclerotic heart disease of [place] coronary artery with unstable angina pectoris Atrial fibrillation CAD (coronary artery disease) Chronic kidney disease History of Crohn's disease History of pancreatitis Gallstone pancreatitis Hypertension Non-ST elevation myocardial infarction (NSTEMI) Recent non-ST elevation myocardial infarction Unstable angina Surgical History H/O aortic aneurysm repair 09/[address] [facility] History of cholecystectomy History of coronary artery stent placement Right coronary artery, prior to bypass History of four vessel coronary artery bypass graft (~2011) History of resection of large bowel Partial, secondary to Crohn's Family History Mother Stroke CHF (congestive heart failure) Father Valvular heart disease Social History Smoking and tobacco status: former smoker Alcohol intake: never Vitals/I&O/Wt Last Vital Signs Temp 93.5 F L 04/04/21 22:06 Pulse 74 04/04/21 22:06 Resp 14 04/05/21 00:56 BP 127/92 04/04/21 22:06 Pulse Ox 71 L 04/04/21 22:06 Weight last 48 hrs Weight 68.039 kg Physical Exam Narrative: EXAM NARRATIVE: Patient is currently intubated and sedated ET tube size 8 secured at lip by 25 cm Patient is showing gag reflex with his attempt to bite the tube on fentanyl running at 100, Atrial fibrillation heart rate 101, mean arterial pressure 90 mmHg Variable S1-S2 no murmur appreciated no signs of active fluid overload Surgical scar juan manuel noted Right fifth toe amputation, right toes with cyanosis however Doppler detected weak dorsalis pedis pulses, no active signs of ischemic ulcer Pupils are equal however sluggish to react, positive gag reflex, Soft abdomen, nondistended Neuro exam limited Assisted bilateral breath sound Currently on Rosendo hugger for hypothermia No joint swelling or signs of cellulitis Urinary Catheter Management^: Neal: Cath Placed During This Visit: yes Urinary Catheter Date of Insertion: 04/05/21 Data : 04/04/21 20:51 04/04/21 20:51 Micro: Microbiology 04/04/21 22:36 Blood Culture - Preliminary Blood SPECIMEN COLLECTED A&P Assessment and plan (1) Atrial fibrillation with slow ventricular response: Status: Acute (2) Hypothermia: Status: Acute (3) Bradycardia: Status: Acute (4) Hypotension: Status: Acute (5) End stage chronic kidney disease: Status: Acute (6) Metabolic acidosis: Status: Acute Additional A&P Information 66-year-old male who has history of end-stage renal disease, atrial fibrillation chronic anticoagulation with Eliquis who called EMS for low heart rate and blood pressure, did not respond to atropine 0.5 mg x 2, for transcutaneous pacing he was given 5 mg of Versed which caused respiratory failure with subsequent placement of LMA after unsuccessful intubation by EMS Respiratory failure requiring mechanical ventilation Respiratory failure in the field after getting 5 mg of Versed, patient never lost pulse, never required chest compressions, responded well to 1 mg of epi in the ER and later on epinephrine gtt. Currently on CMV settings PEEP 5 FiO2 50% tidal volume 400 with good minute ventilation He received 2 A of bicarb metabolic acidosis Chest x-ray does not show any signs of pneumonia, mild pulmonary vascular congestion Clinically does not look fluid overloaded Sedation with fentanyl and Versed avoid propofol for now Hypothermia with slow ventricular response Avoid transcutaneous pacing until body temperature is normal Current heart rate 101 atrial fibrillation mean arterial pressure 90 mmHg Titrated epinephrine down to 1 mics per minute Check TSH Hold AV yesica blocking agent Would use heparin for anticoagulation, first EKG showing T wave inversion and ST depression however no infarctive changes no QTC prolongation, first troponin is 70, please note he has history of GI bleed, after his NSTEMI Plavix was discontinued along Coumadin and Eliquis low-dose was initiated, currently hemoglobin stable, closely monitor for now He takes to AV yesica blocking agents Cardizem and metoprolol, I will hold these agents for now, potassium 5.7, hypothermia and AV yesica blocking agent most likely related to his slow ventricular response, I do not see any significant AV yesica blockage on EKG, beta and calcium grace toxicity not ruled out, please consider cardiology evaluation in the morning Serial troponin and EKG for now Requested D-dimer End-stage renal disease Telemetry nephro consulted Potassium 5.7 We will give 1 amp of calcium gluconate Received 2 A of bicarb as well Hypoglycemia Received 2 A of D50 which improved his blood sugar 160 Accu-Cheks every 6 hours, start tube feeding High anion gap metabolic acidosis secondary to lactic acidemia No active signs of sepsis or infection this most likely secondary to respiratory failure requiring mechanical ventilation, hypoperfusion secondary to hypotension Currently hemodynamically stable Full code: Anil Valera updated and notified Start nasogastric tube feeding DVT prophylaxis not indicated Attestations Medical Necessity Statement*: Anticipating stay in the hospital cross more than 2 midnights for respiratory failure requiring mechanical ventilation, slow ventricular response Time Spent in Patient Care: (>than 50% of time spent in counselling and/or direct pt care on unit). 40mins Coding Level of Care Code Acute Zoology Technical Officer for [facility] Fwd Diagnoses Atrial fibrillation with slow ventricular response I48.91 Hypothermia T68.XXXA Bradycardia R00.1 Hypotension I95.9 End stage chronic kidney disease N18.6 Metabolic acidosis E87.2
[2021-04-05 01:31] LABS: Glucose Point of Care 162 mg/dL (70-110)
--- NOTE | 2021-04-05 02:22 | ECG_ITS ---
[facility] Test Date: 2021-04-05 Pat Name: Shin Valera Department: Room: ICU11 Gender: Male Housing Assistant Property Manager: : 1955 Requested By: Marla Solis Order Number: [id number] Claudio MD: Brielle Valderrama M.D. Measurements Intervals [place] Rate: 104 P: IA: QRS: 71 QRSD: 111 T: 245 QT: 364 QTc: 480 Interpretive Statements ATRIAL FLUTTER/TACHYCARDIA WITH RAPID VENTRICULAR RESPONSE MODERATE INTRAVENTRICULAR CONDUCTION DELAY [110+ ms QRS DURATION] ST DEVIATION AND MODERATE T-WAVE ABNORMALITY, CONSIDER LATERAL ISCHEMIA [-0.1+ mV T WAVE IN I/aVL/V5/V6] ST DEVIATION AND MODERATE T-WAVE ABNORMALITY, CONSIDER INFERIOR ISCHEMIA [-0.1+ mV T WAVE IN II/aVF] Compared to ECG 04/04/2021 22:05:10 Intraventricular conduction delay now present Atrial fibrillation no longer present T-wave abnormality still present Possible ischemia still present Electronically Signed On 04-06-2021 9:32:27 CDT by Brielle Valderrama M.D. [email or web address] [email or web address].[email or web address]/[id number]
[2021-04-05 02:39] LABS: Troponin(5th) Baseline 70 ng/L (0-15)
[2021-04-05] MEDS: sodium bicarbonate 8.4% 1 mEq/mL 50mL Syr 100 MEQ IVP (02:49)
--- NOTE | 2021-04-05 02:52 | PC.NURSE ---
arrived from ED via stretcher, Dr. Solis at bedside gave v.o. for Versed drip, Bicarb 100 mEq IVP, Levophed and to transition off of the Epi drip, ET 25 @ lip
[2021-04-05 02:57] LABS: Troponin 5 2HR 63.13 ng/L (0-15)
[2021-04-05 02:59] LABS: Troponin 5 2HR Delta -6.87 ABS# (0-10)
[2021-04-05 02:59] LABS: D Dimer 6.15 ug/mIFEU (0-0.59)
--- NOTE | 2021-04-05 03:19 | USCV_ITS ---
Soto Shin Age: 66 Gender: M : 1955 Exam Date: 04/05/2021 06:26 Ordering Phys: Marla Solis MD Technologist: Wendy Roque Exam Location: [facility] [place] Indication: BLE SWELLING HISTORY: Lower extremity swelling. PROCEDURES: Venous duplex imaging was performed in bilateral lower extremities. The following venous structures were evaluated: common femoral vein, profunda vein, proximal portion of the greater saphenous vein, superficial femoral vein, and the popliteal vein. In addition, the posterior tibial and peroneal trunk were evaluated. Serial compression, augmentation maneuvers, and spectral Doppler flow evaluation were performed. FINDINGS: Extensive , occlusive DVT right CFV, deep profunda and SFV. RIGHT POP V, PTV, and peroneal V are negative for DVT. NO DVT SEEN LLE AT THIS TIME. CONCLUSIONS Acute right lower extremity deep venous thrombosis. No DVT left lower extremity. Nurse notified at time of study. Dr. Shawanda Flowers DO (Electronically Signed) Final Date: 05 Apr 2021 10:25 S
--- NOTE | 2021-04-05 03:22 | XRR_ITS ---
PROCEDURE INFORMATION: Exam: XR Chest Exam date and time: 04/05/2021 1:00 AM Age: 66 years old Clinical indication: Device placement; Prior surgery; Surgery type: Aaa, gb, stent, cabg; Additional info: Post line placement TECHNIQUE: Imaging protocol: XR of the chest. Views: 1 view. COMPARISON: CR XR chest 1V portable [id number] 04/04/2021 10:10 PM FINDINGS: Tubes, catheters and devices: Dual lumen central vascular catheter tip overlies cavoatrial junction. A left internal jugular central vascular catheter tip resides at the lower superior vena cava. CS endotracheal tube tip resides 3.6 cm above the ulices. Lungs: Interstitial opacity of left lower lobe with suspected manifesting left effusion. Hazy opacity of right lower lung. Pleural spaces: No pneumothorax. Heart/Mediastinum: Accentuation of the heart size. Bones/joints: Postoperative sternotomy. XR/XR chest 1V portable [id number] IMPRESSION: 1. Cardiac enlargement. 2. Infiltrate left lower lobe with left effusion. 3. Interstitial opacity of right lower lung which may reflect atelectasis or early interstitial infiltrates.
[2021-04-05] MEDS: sodium chloride 0.9% 250 ML IV (03:24)
[2021-04-05] MEDS: calcium gluconate 0.1 gm/mL 10% SDV 10mL 1 GM IVP (03:30)
[2021-04-05 03:40] LABS: Basophils # 0.1 10^3/uL (0.0-0.1); Basophils % 0.4 %; Eosinophils % 0.1 %; Hematocrit 37.9 % (42.0-52.0); Lymphocytes # 0.5 10^3/uL (0.8-4.8); Lymphocytes % 3.3 %; Mean Corpuscular Hemoglobin 27.4 pg (28.0-34.0); Mean Corpuscular Volume 94.3 fL (80-94); Mean Platelet Volume 10.7 fL (7.4-10.4); Monocytes # 1.2 10^3/uL (0.2-0.9); Monocytes % 8.8 %; Neutrophils # 11.59 10^3/uL (1.8-7.7); Nucleated Red Blood Cells % 0 %; Platelet Count 166 10^3/cmm (130-400); Red Blood Count 4.02 10^6/uL (4.1-5.3); Red Cell Distribution Width 19.1 % (12.1-15.1); White Blood Count 13.5 10^3/uL (4.0-10.0)
[2021-04-05] MEDS: heparin drip 25,000 UNIT/500 ML PREMIX 19 UNIT IV (03:50)
[2021-04-05 03:56] LABS: ABG PCO2 34.9 mmHg (35-45); ABG PH Result 7.44 (7.35-7.45); Arterial Blood Gas Hematocrit 33.5 % (42-52); Base Excess ABG -0.1 mmol/L (-2.0-2.0); Blood Gas Allen Test Pos; Blood Gas Sample Type Arterial; HCO3 ABG 23.8 mmol/L (22-26)
[2021-04-05 03:57] LABS: Blood Gas Sample Site Radial, right; Blood Gas Tidal Volume 0.45; Oxygen Device VENT
[2021-04-05 04:11] LABS: Lactate (Lactic Acid level) 2.3 mmol/L (0.5-2.2)
[2021-04-05 04:15] LABS: Anion Gap 20.2 (5-19); Blood Urea Nitrogen 25 mg/dL (8-23); Calcium 7.2 mg/dL (8.5-10.5); Carbon Dioxide 23 mmol/L (22-29); Chloride 104 mmol/L (98-107); Glomerular Filtration Rate 9.4 mL/min (90-130); Glucose 160 mg/dL (65-115); Osmolality Calculated 302 mOsm/kg (285-295); Potassium 5.2 mmol/L (3.5-5.1); Sodium 142 mmol/L (136-145); Thyroid Stimulating Hormone 2.41 uIU/mL (0.27-4.20)
--- NOTE | 2021-04-05 04:27 | ECG_ITS ---
[facility] Test Date: 2021-04-05 Pat Name: Shin Valera Department: Room: ICU11 Gender: Male Outside Medical Sales Representative: : 1955 Requested By: Marla Solis Order Number: [id number] Claudio MD: Brielle Valderrama M.D. Measurements Intervals [place] Rate: 79 P: AR: QRS: 68 QRSD: 103 T: 265 QT: 391 QTc: 449 Interpretive Statements ATRIAL FLUTTER/TACHYCARDIA LOW QRS VOLTAGE IN EXTREMITY LEADS [QRS DEFLECTION < 0.5 mV IN LIMB LEADS] ST DEVIATION AND MODERATE T-WAVE ABNORMALITY, CONSIDER INFERIOR ISCHEMIA [-0.1+ mV T WAVE IN II/aVF] WARNING: DATA QUALITY MAY AFFECT INTERPRETATION Compared to ECG 04/05/2021 02:23:25 Low QRS voltage now present Intraventricular conduction delay no longer present T-wave abnormality still present Possible ischemia still present Electronically Signed On 04-06-2021 17:42:23 CDT by Brielle Valderrama M.D. [id number]
--- NOTE | 2021-04-05 04:42 | ED_ITS ---
HPI - General Adult General: Chief complaint: General Medical Stated complaint: cpr Time Seen by Provider: 04/04/21 22:18 History of Present Illness: HPI narrative: 66-year-old dialysis patient presents unresponsive. EMS was called for weakness, and found the patient to have a low blood pressure and heart rate. His blood pressure was low, and heart rate was in the 30s. They attempted atropine 0.5 mg twice without improvement. They decided to pace the patient, at which point they gave the patient 5 mg of midazolam. Shortly after, his breathing stopped. Attempted intubation was made in route, but failed, and an LMA was placed. Patient has not nor did he ever lose pulses, but has been unresponsive. Onset (ago): minute(s) Radiation: non-radiation Severity: severe Review of Systems General: Reports: ROS unobtainable due to medical condition and ROS unobtainab le due to mental status [facility] ED PFSH: Medical History (Updated 04/05/21 @ 05:01 by Arya Sky DO) Abdominal aortic aneurysm Atherosclerotic heart disease of hoh coronary artery with unstable angina pectoris Atrial fibrillation CAD (coronary artery disease) Chronic kidney disease History of Crohn's disease History of pancreatitis Gallstone pancreatitis Hypertension Non-ST elevation myocardial infarction (NSTEMI) Recent non-ST elevation myocardial infarction Unstable angina Surgical History H/O aortic aneurysm repair 09/2020 [place] History of cholecystectomy History of coronary artery stent placement Right coronary artery, prior to bypass History of four vessel coronary artery bypass graft (~2011) History of resection of large bowel Partial, secondary to Crohn's Family History Mother Stroke CHF (congestive heart failure) Father Valvular heart disease Social History Smoking and tobacco status: former smoker Alcohol intake: never Physical Exam Const: EXAM LIMITATIONS: altered mental status GENERAL APPEARANCE: ill appearing and patient mechanically ventilated NUTRITIONAL APPEARANCE: thin ORIENTATION/CONSCIOUSNESS: Yes Other orientation findings HENMT: COMMON NORMALS: normocephalic and atraumatic HEAD & SCALP: normocephalic and atraumatic FACE & SINUS: face symmetric Chest: CHEST: No crepitus, No Sternal flail present and No Ecchymosis present Resp: AUSCULTATION: diminished lung sounds GI: COMMON NORMALS: Soft to palpation INSPECTION: Yes abdominal distension (mild) PALPATION: Yes Soft to palpation Neuro: VANE COMA SCALE: document GCS findings Vane coma scale eye opening: None Vane coma scale verbal response: None [place] coma scale motor response: None [place] coma scale total score: 3 Procedures Central Line Placement Left IJ: Time Out Performed: No Patient Placed on Monitor/Pulse Ox: Yes MD Prep: mask, gown and gloves Central Line Prep: Chlorhexidine scrub and sterile drapes applied Local Anesthetic: lidocaine 1% Amount of anesthesia used (mL): 3 Ultrasound Used for Placement: Yes Central Line Lumen Inserted: triple Post Procedure: sutured in place, good blood return, all ports aspirated, flushed, capped and sterile dressing applied Post Procedure X-Ray: tip of catheter in good position and no pneumothorax seen Patient Tolerated Procedure: no complications Complications: none Intubation Time out performed: No sedative: none Laryngoscope: Pati (4) ET Tube Size: 8 ET Tube Uncuffed: No Tube Secured Depth (cm): 22 Tube Secured Location: lips Tube Placement Confirmation: visualized tube passing through cords, equal breath sounds bilaterally, no breath sounds over epigastrium and confirmation by capnometry Patient Tolerated Procedure: no complications Intubation Complications: unable to intubate Course Consultations: Consultation #1: ricky Vital Signs: Vital signs: Vital Signs Temperature 93.5 F L 04/04/21 22:06 Pulse Rate 94 04/05/21 02:54 Respiratory Rate 18 04/05/21 02:54 Blood Pressure 113/84 04/05/21 02:54 Pulse Oximetry 100 04/05/21 02:54 MDM - General Adult MDM Narrative: Medical decision making narrative: Unresponsive 66-year-old male dialysis patient presents on arrival with a thready bradycardic pulse, not consistently generating a blood pressure, and with bag valve respirations via LMA. On arrival he was given 1 mg of epinephrine IV. His increase his heart rate and his blood pressure appropriately. He received 3 L of fluid for resuscitation. He was placed on an epinephrine drip. On his arrival, the LMA was replaced with an endotracheal tube without complication. His initial temperature was 93.5 rectal. Bear hugger was placed. These parameters improved significantly, to the point that he had an increased heart rate into the 100s, and blood pressures in the 120s systolic. He began to bite on the tube and moved to some degree. A triple-lumen catheter was attempted in the right groin, but the wire would not pass. It was instead placed in the left internal jugular vein without complication he will go to the ICU. Hospitalist is involved. Lab Data: Labs: Lab Results 04/04/21 04/04/21 04/04/21 Range/Units 20:51 20:51 20:51 WBC 9.4 (4.0-10.0) 10^3/ uL RBC 4.43 (4.1-5.3) 10^6/u L Hgb 12.1 (11.7-16.6) g/dL Hct 41.7 L (42.0-52.0) % MCV 94.1 H (80-94) fL MCH 27.3 L (28.0-34.0) pg MCHC 29.0 L (30.0-36.0) g/dL RDW 19.1 H (12.1-15.1) % Plt Count 177 (130-400) 10^3/c mm MPV 10.5 H (7.4-10.4) fL Neut % (Auto) 59.2 % Lymph % (Auto) 28.1 % [place] % (Auto) 8.5 % Eos % (Auto) 3.0 % Baso % (Auto) 0.7 % Neut # (Auto) 5.58 (1.8-7.7) 10^3/u L Lymph # (Auto) 2.7 (0.8-4.8) 10^3/u L [place] # (Auto) 0.8 (0.2-0.9) 10^3/u L Eos # (Auto) 0.3 (0.0-0.8) 10^3/u L Baso # (Auto) 0.1 (0.0-0.1) 10^3/u L Nucleated RBC % (a uto) 0 % Nucleated RBCs # 0.0 /100WBC Specimen Type Sample Site ABG pH (7.35-7.45) ABG pCO2 (35-45) mmHg ABG pO2 (80.0-100.0) mmH g ABG HCO3 (22-26) mmol/L ABG O2 Saturation ABG Base Excess (-2.0-2.0) mmol/ L Eusebio Test A-a O2 Gradient (5-10) mmHg Hematocrit (42-52) % Hgb O2 Saturation (95-100) % Carboxyhemoglobin (0.4-20.1) %THgb Methemoglobin (0.4-1.5) % Total Hemoglobin (14-18) g/dL Ionized Calcium (1.1-1.4) mmol/L O2 Delivery Device O2 Liters/Min % FiO2 % Lamination Spinner ID Sodium 139 (136-145) mmol/L Potassium 5.7 H (3.5-5.1) mmol/L Chloride 103 (98-107) mmol/L Carbon Dioxide 22 (22-29) mmol/L Anion Gap 19.7 H (5-19) BUN 23 (8-23) mg/dL Creatinine 6.2 H* (0.7-1.2) mg/dL GFR Calculation 9.0 L (90-130) mL/min Glucose 108 (65-115) mg/dL POC Glucose (70-110) mg/dL Calculated Osmolal ity 292 (285-295) mOsm/k g Lactate (0.5-2.2) mmol/L Calcium 8.2 L (8.5-10.5) mg/dL Total Bilirubin 0.4 (0.15-1.2) mg/dL AST 24 (0-40) U/L ALT 27 (0-41) U/L Alkaline Phosphata se 130 (40-130) IU/L Troponin T Gen 5 n g/L Cancelled Troponin T Baselin e (0-15) ng/L Troponin T 120 Min lizabeth (0-15) ng/L Delta Troponin T (0-10) ABS# Total Protein 6.6 (6.6-8.7) g/dL Albumin 3.1 L (3.5-5.2) g/dL Globulin 3.5 (1.3-4.6) g/dL 04/04/21 04/04/21 04/04/21 Range/Units 20:51 22:16 22:22 WBC (4.0-10.0) 10^3/ uL RBC (4.1-5.3) 10^6/u L Hgb (11.7-16.6) g/dL Hct (42.0-52.0) % MCV (80-94) fL MCH (28.0-34.0) pg MCHC (30.0-36.0) g/dL RDW (12.1-15.1) % Plt Count (130-400) 10^3/c mm MPV (7.4-10.4) fL Neut % (Auto) % Lymph % (Auto) % [place] % (Auto) % Eos % (Auto) % Baso % (Auto) % Neut # (Auto) (1.8-7.7) 10^3/u L Lymph # (Auto) (0.8-4.8) 10^3/u L [place] # (Auto) (0.2-0.9) 10^3/u L Eos # (Auto) (0.0-0.8) 10^3/u L Baso # (Auto) (0.0-0.1) 10^3/u L Nucleated RBC % (a uto) % Nucleated RBCs # /100WBC Specimen Type Arterial Sample Site Brachial, right ABG pH 7.14 L* (7.35-7.45) ABG pCO2 35.5 (35-45) mmHg ABG pO2 69.8 L (80.0-100.0) mmH g ABG HCO3 12.0 L (22-26) mmol/L ABG O2 Saturation 87.1 ABG Base Excess -15.8 L (-2.0-2.0) mmol/ L Eusebio Test Pos A-a O2 Gradient 77.8 H (5-10) mmHg Hematocrit 26.4 L (42-52) % Hgb O2 Saturation 84.9 L (95-100) % Carboxyhemoglobin 1.5 (0.4-20.1) %THgb Methemoglobin 1.0 (0.4-1.5) % Total Hemoglobin 8.6 L (14-18) g/dL Ionized Calcium 0.7 L (1.1-1.4) mmol/L O2 Delivery Device Ambu O2 Liters/Min 15.0 % FiO2 100.0 % Lamination Spinner ID jmn Sodium 137.0 (136-145) mmol/L Potassium 4.7 (3.5-5.1) mmol/L Chloride (98-107) mmol/L Carbon Dioxide (22-29) mmol/L Anion Gap (5-19) BUN (8-23) mg/dL Creatinine (0.7-1.2) mg/dL GFR Calculation (90-130) mL/min Glucose 63.0 L (65-115) mg/dL POC Glucose 84 (70-110) mg/dL Calculated Osmolal ity (285-295) mOsm/k g Lactate (0.5-2.2) mmol/L Calcium (8.5-10.5) mg/dL Total Bilirubin (0.15-1.2) mg/dL AST (0-40) U/L ALT (0-41) U/L Alkaline Phosphata se (40-130) IU/L Troponin T Gen 5 n g/L Troponin T Baselin e 70 H (0-15) ng/L Troponin T 120 Min lizabeth (0-15) ng/L Delta Troponin T (0-10) ABS# Total Protein (6.6-8.7) g/dL Albumin (3.5-5.2) g/dL Globulin (1.3-4.6) g/dL 04/04/21 04/04/21 04/05/21 Range/Units 22:36 22:36 01:28 WBC (4.0-10.0) 10^3/ uL RBC (4.1-5.3) 10^6/u L Hgb (11.7-16.6) g/dL Hct (42.0-52.0) % MCV (80-94) fL MCH (28.0-34.0) pg MCHC (30.0-36.0) g/dL RDW (12.1-15.1) % Plt Count (130-400) 10^3/c mm MPV (7.4-10.4) fL Neut % (Auto) % Lymph % (Auto) % [place] % (Auto) % Eos % (Auto) % Baso % (Auto) % Neut # (Auto) (1.8-7.7) 10^3/u L Lymph # (Auto) (0.8-4.8) 10^3/u L [place] # (Auto) (0.2-0.9) 10^3/u L Eos # (Auto) (0.0-0.8) 10^3/u L Baso # (Auto) (0.0-0.1) 10^3/u L Nucleated RBC % (a uto) % Nucleated RBCs # /100WBC Specimen Type Sample Site ABG pH (7.35-7.45) ABG pCO2 (35-45) mmHg ABG pO2 (80.0-100.0) mmH g ABG HCO3 (22-26) mmol/L ABG O2 Saturation ABG Base Excess (-2.0-2.0) mmol/ L Eusebio Test A-a O2 Gradient (5-10) mmHg Hematocrit (42-52) % Hgb O2 Saturation (95-100) % Carboxyhemoglobin (0.4-20.1) %THgb Methemoglobin (0.4-1.5) % Total Hemoglobin (14-18) g/dL Ionized Calcium (1.1-1.4) mmol/L O2 Delivery Device O2 Liters/Min % FiO2 % Lamination Spinner ID Sodium (136-145) mmol/L Potassium (3.5-5.1) mmol/L Chloride (98-107) mmol/L Carbon Dioxide (22-29) mmol/L Anion Gap (5-19) BUN (8-23) mg/dL Creatinine (0.7-1.2) mg/dL GFR Calculation (90-130) mL/min Glucose (65-115) mg/dL POC Glucose 162 H (70-110) mg/dL Calculated Osmolal ity (285-295) mOsm/k g Lactate 5.7 H* (0.5-2.2) mmol/L Calcium (8.5-10.5) mg/dL Total Bilirubin (0.15-1.2) mg/dL AST (0-40) U/L ALT (0-41) U/L Alkaline Phosphata se (40-130) IU/L Troponin T Gen 5 n g/L Troponin T Baselin e (0-15) ng/L Troponin T 120 Min lizabeth 63.13 H (0-15) ng/L Delta Troponin T -6.87 L (0-10) ABS# Total Protein (6.6-8.7) g/dL Albumin (3.5-5.2) g/dL Globulin (1.3-4.6) g/dL Critical Care Time Critical Care Time: Critical Care Time: Yes Total Critical Care Time: 50 Attestation: This case had a high probability of a clinically significant, sudden, or life threatening deterioration of this patient's condition which required my full and direct attention, intervention and personal management. Discharge Plan Discharge Patient Disposition: Admitted As Inpatient Admit Provider: Marla Solis Clinical Impression: Recent non-ST elevation myocardial infarction, Atrial fibrillation with slow ventricular response, Hypotension Condition: Stable Coding Level of Care Code ED Medical Transcriptionist for Singh Chairez
[2021-04-05 04:45] LABS: Troponin 5 6HR 36.62 ng/L (0-15)
[2021-04-05 05:15] LABS: Glucose Point of Care 69 mg/dL (70-110)
[2021-04-05 06:37] LABS: Glucose Point of Care 108 mg/dL (70-110)
--- NOTE | 2021-04-05 08:27 | ECG_ITS ---
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 Measurements Intervals [place] Rate: 82 P: DC: QRS: 66 QRSD: 101 T: 267 QT: 393 QTc: 461 Interpretive Statements ATRIAL FLUTTER LOW QRS VOLTAGE IN EXTREMITY LEADS ST DEVIATION AND MODERATE T-WAVE ABNORMALITY, CONSIDER INFERIOR ISCHEMIA Compared to ECG 04/05/2021 04:41:49 No significant changes Electronically Signed On 04-06-2021 17:41:02 CDT by Brielle Valderrama M.D. [id number]
[2021-04-05 10:30] LABS: Partial Thromboplastin Time 111.2 SECONDS (23.9-36.7)
[2021-04-05 11:14] LABS: Hepatitis B Surface Antigen Non-Reactive (Nonreactive); Hepatitis C Virus Antibody Reactive (Nonreactive)
--- NOTE | 2021-04-05 11:16 | PM.PN ---
Subjective Subjective: Interval history: Chart reviewed. Not entirely sure what happened. Patient had called for EMS. He was bradycardic and hypotensive. He did not respond to atropine but did respond to epinephrine. He had received some Versed for transcutaneous pacing and subsequently had respiratory arrest and required intubation. No loss of pulses, no CPR required. Venous duplex of the lower extremities has revealed DVT in the right lower extremity. Heparin drip was started. He has been on sedation. Nephrology is consulted and will he will be dialyzed today. He is a chronic dialysis patient. He has had a trend downward in his troponin series here therefore no positive delta. Medications: Reviewed: Yes Medication Review Details: Antibiotics: None Anticoagulants: Heparin drip secondary to DVT right lower extremity IV meds to monitor: Epinephrine at 2 Norepinephrine at 4 Versed at 2 Fentanyl at 75 Heparin drip Other medications to note: None currently Vitals/I&O/Wt Last Vital Signs Temp 93.5 F L 04/04/21 22:06 Pulse 60 04/05/21 06:55 Resp 16 04/05/21 10:37 BP 113/84 04/05/21 02:54 Pulse Ox 96 04/05/21 10:37 04/04/21 04/05/21 04/05/21 22:59 06:59 14:59 Intake Total 28.543 / 28.543 132.367 / 132.367 Balance 28.543 / 28.543 132.367 / 132.367 Weight last 48 hrs Weight 67.132 kg Weight 67.132 kg Weight 68.039 kg Physical Exam Narrative: EXAM NARRATIVE: Constitutional: Sedated on ventilator HEENT: Pupils are equally round and reactive Respiratory: Clear to auscultation bilaterally, no is rales rhonchi or wheezes noted Cardiovascular: Irregularly irregular rhythm, no murmurs, JVD noted Abdomen: Soft, positive bowel sounds, nondistended Extremities: Right lower extremity larger than left lower extremity, pulses intact Neuro: Normal reflexes Other: Dialysis catheter intact right upper chest, has bruising in the right upper chest medial to this. Also has bruising to the upper extremities left more so than right. Skin is dry. Urinary Catheter Management^: Neal: Cath Placed During This Visit: yes Reason for Continuing Indwelling Catheter: Accurate Measurement of Urinary Output in Critically Ill Patients Urinary Catheter Date of Insertion: 04/05/21 Data : 04/05/21 02:58 04/05/21 02:58 Micro: Microbiology 04/04/21 22:36 Blood Culture - Preliminary Blood SPECIMEN COLLECTED Other data: Labs: Initial ABG with metabolic acidosis, initial lactate 5.7, repeat down to 2.3, hepatitis C antibody positive, hepatitis B surface antigen negative, TSH normal, albumin 3.1 Laboratory Tests 04/04/21 04/04/21 04/05/21 20:51 22:36 02:58 Troponin T Baseline 70 H Troponin T 120 Minute 63.13 H Troponin T Hi Sens 6Hr 36.62 H Micro: Blood culture pending Radiological studies: CT head FINDINGS: Brain: No acute intracranial hemorrhage or mass effect. There is decreased attenuation in the periventricular white matter, likely from microvascular disease. There are old lacunar infarcts in the basal ganglia/internal capsule regions bilaterally. Old infarct in the superior left cerebellar hemisphere. Old infarct in the high right posterior parietal region. No definite acute infarct by CT. MRI could be more sensitive/specific for detection, as clinically directed. Cerebral ventricles: Ventricle size is normal for age. Bones/joints: No definite acute skull fracture. Paranasal sinuses: Included paranasal sinuses are essentially clear. Mastoid air cells: No significant acute finding. Vasculature: Prominent vascular calcifications in the internal carotid arteries. IMPRESSION: 1. No acute intracranial hemorrhage or mass effect. 2. Changes of microvascular disease, and old infarcts, details above. 3. No definite acute infarct by CT, see above. 4. Other findings discussed above. Venous Duplex Lower Extremities PROCEDURES: Venous duplex imaging was performed in bilateral lower extremities. The following venous structures were evaluated: common femoral vein, profunda vein, proximal portion of the greater saphenous vein, superficial femoral vein, and the popliteal vein. In addition, the posterior tibial and peroneal trunk were evaluated. Serial compression, augmentation maneuvers, and spectral Doppler flow evaluation were performed. FINDINGS: Extensive , occlusive DVT right CFV, deep profunda and SFV. RIGHT POP V, PTV, and peroneal V are negative for DVT. NO DVT SEEN LLE AT THIS TIME. CONCLUSIONS Acute right lower extremity deep venous thrombosis. No DVT left lower extremity. CXR FINDINGS: Tubes, catheters and devices: Dual lumen central vascular catheter tip overlies cavoatrial junction. A left internal jugular central vascular catheter tip resides at the lower superior vena cava. CS endotracheal tube tip resides 3.6 cm above the ulices. Lungs: Interstitial opacity of left lower lobe with suspected manifesting left effusion. Hazy opacity of right lower lung. Pleural spaces: No pneumothorax. Heart/Mediastinum: Accentuation of the heart size. Bones/joints: Postoperative sternotomy. XR/XR chest 1V portable [id number] IMPRESSION: 1. Cardiac enlargement. 2. Infiltrate left lower lobe with left effusion. 3. Interstitial opacity of right lower lung which may reflect atelectasis or early interstitial infiltrates. Discussed with other providers: Dr Parker, Dr Martinez A&P Assessment and plan (1) Respiratory arrest: In the field, necessitated intubation upon arrival to the ER Status: Acute (2) Atrial fibrillation with slow ventricular response: Heart rate in the 30s on EMS arrival, ultimately treated with epinephrine Status: Acute (3) Hypotension: Upon arrival, has required pressor support thus far Status: Acute Qualifiers: Hypotension type: other hypotension type Qualified Code(s): I95.89 - Other hypotension (4) DVT (deep venous thrombosis): Right lower extremity, extensive, present prior to admission Status: Acute Qualifiers: DVT location: lower extremity Affected thrombotic vein of extremity: other lower extremity vein Chronicity: acute Laterality: right Qualified Code(s): I82.491 - Acute embolism and thrombosis of other specified deep vein of right lower extremity (5) Hypothermia: Unclear reason currently, temperature was 93, not stated anywhere if he was found outside or if windows open. Temperature was in the 40s upper last night. Temperature has improved to 98 with bear hugger. No urine production thus far. Chest x-ray with some infiltrates versus atelectasis noted. Status: Acute Qualifiers: Encounter type: initial encounter Qualified Code(s): T68.XXXA - Hypothermia, initial encounter (6) Lactic acidosis: Likely related to respiratory arrest, improved with respiratory and cardiovascular support Status: Acute (7) End stage chronic kidney disease: Status: Acute (8) CAD (coronary artery disease): Status: Chronic Qualifiers: Coronary Disease-Associated Artery/Lesion type: [place] artery [place] vs. transplanted heart: [place] heart Associated angina: without angina Qualified Code(s): I25.10 - Atherosclerotic heart disease of [place] coronary artery without angina pectoris (9) Chronic anticoagulation: Secondary to atrial fibrillation, usually on Coumadin Status: Chronic Additional A&P Information Currently suspect patient likely had PE contributing to bradycardia, hypotension and subsequent respiratory arrest although unclear at this time. He does have DVT and was started on heparin drip. He is supposed to be chronically on Coumadin. Elevated troponin, currently of unclear significance, may be type II process from above but he does have known coronary artery disease with prior bypass Hepatitis C positive antibody, prior history unknown Variable blood sugar Cardiology consultation given downward trend of troponins and nonspecific EKG changes combined with history; my suspicion is that this is probably due to a thrombotic event secondary to the DVT Stat INR Continue heparin drip currently Would ideally like to get a CTA of the chest to evaluate for PE under the circumstances but will need to coordinate with dialysis/nephrology Wean pressors as able Nephrology is on board for dialysis, briefly discussed with Dr. Martinez Not currently on any IV fluids Maintain Neal catheter presently for monitoring of urine output until we get a bit more history but I suspect he does not make urine Follow-up pending blood cultures Check sputum culture Monitor for indication to initiate antibiotics Watch blood sugars Follow temperature curve off of bear hugger which I have asked to stop Tube feeds with Nepro Start weaning sedation after dialysis so we can evaluate what his current status is I have requested medical records to verify if he has had previous hepatitis C positivity or not as well as to get a clearer problem with medication list Supportive care otherwise Plans discussed with nursing staff Pending/ordered tests to follow: Blood culture, sputum culture, echo Lines/tubes: Dialysis catheter in the right upper chest, EJ in the neck, no central line DVT prophylaxis: Currently on heparin drip secondary to DVT in the right lower extremity Anticipated Disposition: Currently anticipate disposition home but will depend on clinical course Code Status: Full code Attestations Medical Necessity Statement*: Patient requires ongoing inpatient stay for continued management of issues as noted above. He is presently requiring both ventilatory and cardiovascular support. Coding Level of Care Code Acute [employer] for [facility] Mihaela Diagnoses Respiratory arrest R09.2 Atrial fibrillation with slow ventricular response I48.91 Hypotension I95.89 Hypotension type: other hypotension type DVT (deep venous thrombosis) I82.491 DVT location: lower extremity Affected thrombotic vein of extremity: other lower extremity vein Chronicity: acute Laterality: right Hypothermia T68.XXXA Encounter type: initial encounter Lactic acidosis E87.2 End stage chronic kidney disease N18.6 CAD (coronary artery disease) I25.10 Coronary Disease-Associated Artery/Lesion type: [place] artery [place] vs. transplanted heart: [place] heart Associated angina: without angina Chronic anticoagulation Z79.01
[2021-04-05 11:38] LABS: Glucose Point of Care 80 mg/dL (70-110)
--- NOTE | 2021-04-05 12:24 | P.CONIM_ITS ---
Providers/Reason For Consult Consulting Physican/Specialty*: RADHA Parker MD/cardiology Reason for Consult*: Patient with bradycardia/hypotension/elevated troponin T/ASHD Requesting Physcian: Courtney Nguyen MD Attending Physician: Courtney Nguyen MD History of Present Illness History of Present Illness Shin Valera is a 66 year old male with a history of atherosclerotic heart disease, status post coronary bypass surgery, end-stage renal disease, on hemodialysis, is admitted to hospital through the emergency room where he was brought by EMS in an unresponsive state. Apparently the EMS was called in for slow heart rate and low blood pressure. His heart rate was reported as in the 30s. He was given atropine in the field but was of no response. At that time external pacing premature atrial contractions initiated. Was given 5 mg of Versed prior to this. Based on the records, patient became unresponsive afterwards. Intubation was attempted in the field but was unsuccessful. Patient was intubated in the emergency room. He was started on IV vasopressors. He is admitted to hospital for further evaluation management. Currently the patient's heart rate is in the 80s. He is on IV Levophed of 4 mics per KG per minute. His blood pressure is around 100. He states intubated and continues to be semiunresponsive. Patient apparently lives alone and has no family numbers or friends available for any other details. This patient was admitted to hospital August of last year with features of a non-ST elevation myocardial infarction. At that time, he had a myocardial perfusion imaging which revealed some small areas of reversible defect. He decided not to have a cardiac catheterization at that time. Patient is known to have coronary artery disease and had a four-vessel coronary bypass surgery in 2011 at the [facility], in [facility]. Det ails of this is not available.Prior to the open heart surgery in 2011 he had a couple of PCI's. He had a heart attack few years prior to the open heart surgery. Along with a heart attack, he went into cardiac arrest, 3 times. The patient does not know the details but was told about this. He had a cardiac catheterization followed by PCI at that time. The second PCI was few years later. This was done for unstable angina. He was told to have abnormal kidney functions, prior to his open heart surgery. He is currently being followed by a [facility] consultant. He was told to have stage IV kidney failure. He has a history of hypertension for the last more than 25 years. Also is known to have dyslipidemia. No history for any diabetes. History of Crohn disease for many years. No history for any peripheral artery disease, CVA or any bleeding disorders. Review of Systems Narrative: CONSTITUTIONAL: No documented fever or chills. EYES: No specific complaints documented ENT: No documentation of any specific complaints CARDIOVASCULAR: As mentioned above. RESPIRATORY: As mentioned above GASTROINTESTINAL: No hematemesis or melena. GENITOURINARY: On hemodialysis INTEGUMENTARY: No skin rashes or history of skin cancer. NEURO: Patient is currently intubated and sedated PSYCHIATRIC: No specific history of any ongoing psychiatric illness HEMATOLOGIC: History of anemia ENDOCRINE: No history of polyuria or polydipsia. MUSCULOSKELETAL: No recent injuries documented ALLERGY/IMMUNOLOGY: As mentioned above. Meds/Allergies Home Medications and Allergies Home Medications Medication Instructions Recorded Confirmed Last Taken Type fluticasone propionate 2 spray INTRANASAL DAILY PRN 08/31/20 04/05/21 08/30/20 History testosterone 1 pump TOPICAL DAILY 08/31/20 04/05/21 08/30/20 History isosorbide mononitrate 60 mg PO DAILY #30 tab 09/02/20 04/05/21 Unknown Rx diphenhydramine HCl [Benadryl] 25 mg PO PRN 11/02/20 04/05/21 Unknown History pantoprazole [Protonix] 40 mg PO DAILY 11/02/20 04/05/21 Unknown History aspirin 81 mg PO DAILY #30 tab 11/04/20 04/05/21 Unknown Rx diltiazem HCl 120 mg PO DAILY #30 cap 11/04/20 04/05/21 Unknown Rx metoprolol tartrate 100 mg PO Q12H #60 tab 11/04/20 04/05/21 Unknown Rx apixaban 2.5 mg tablet 2.5 mg PO BID #120 tab 11/10/20 04/05/21 Unknown Rx gabapentin 300 mg PO TID 04/05/21 04/05/21 Unknown History Allergies Allergy/AdvReac Type Severity Reaction Status Date / Time No Known Allergies Allergy Verified 01/27/21 08:38 Current Medications Current Medications Generic Name Dose Route Start Last Admin Trade Name Freq PRN Reason Stop Dose Admin Aspirin 81 mg 04/05/21 09:00 04/05/21 09:19 Aspirin 81 Mg Ec Tablet PO Not Given DAILY LEOBARDO Norepinephrine Bitartrate 4 mg 254 mls @ 0 mls/hr 04/05/21 02:30 04/05/21 05:31 / Dextrose IV 4 mcg/min .Q0M LEOBARDO 15.2 mls/hr Titration Protocol Per Protocol Midazolam HCl 100 mg/ Sodium 100 mls @ 0 mls/hr 04/05/21 02:30 04/05/21 05:32 Chloride IV 2 mg/hr .Q0M LEOBARDO 2 mls/hr Titration Protocol Per Protocol Heparin Sodium/Sodium Chloride 25,000 unit in 500 mls @ 0 mls/hr 04/05/21 02:45 04/05/21 10:48 Heparin Drip IV 11.76 unit/kg/hr .Q0M LEOBARDO 16 mls/hr Titration Protocol Per Protocol Fentanyl 1,000 mcg/ Sodium 100 mls @ 0 mls/hr 04/05/21 05:45 04/05/21 12:17 Chloride IV 75 mcg/hr .Q0M LEOBARDO 7.5 mls/hr Administration Protocol Per Protocol Epinephrine HCl 2.5 mg/ Sodium 252.5 mls @ 0 mls/hr 04/05/21 05:45 04/05/21 11:59 Chloride IV 1 mcg/min .Q0M LEOBARDO 6.1 mls/hr Titration Protocol Per Protocol Pantoprazole Sodium 40 mg 04/05/21 09:00 04/05/21 09:[address] 40 Mg Tablet PO Not Given BID LEOBARDO PFSH Acute PFSH: Medical History Abdominal aortic aneurysm Anemia Atherosclerotic heart disease of [place] coronary artery with unstable angina pe ctoris Atrial fibrillation CAD (coronary artery disease) Chronic kidney disease History of Crohn's disease History of pancreatitis Gallstone pancreatitis Hypertension Surgical History H/O aortic aneurysm repair 09/2020 [facility] History of cholecystectomy History of coronary artery stent placement Right coronary artery, prior to bypass History of four vessel coronary artery bypass graft (~2011) History of resection of large bowel Partial, secondary to Crohn's Family History Mother Stroke CHF (congestive heart failure) Father Valvular heart disease Social History Smoking and tobacco status: former smoker Alcohol intake: never Vitals/I&O/Wt Last Vital Signs Temp 93.5 F L 04/04/21 22:06 Pulse 60 04/05/21 06:55 Resp 16 04/05/21 10:37 BP 113/84 04/05/21 02:54 Pulse Ox 96 04/05/21 10:37 04/04/21 04/05/21 04/05/21 22:59 06:59 14:59 Intake Total 28.543 / 28.543 205.572 / 205.572 Balance 28.543 / 28.543 205.572 / 205.572 Weight last 48 hrs Weight 148 lb Weight 148 lb Weight 150 lb Physical Exam Narrative: EXAM NARRATIVE: GENERAL: The patient is intubated and sedated. HEENT: Minimal pallor. Pupils are dilated and sluggishly reacting to light. Oral cavity: There are no mucous membrane lesions. Funduscopic examination: The fundus is not visualized NECK: Trachea appears to be central. No masses noted. No JVD or thyromegaly appreciated. No carotid bruit. RESPIRATORY: There are some slight bilateral no rales or rhonchi BREASTS: Deferred. HEART: The heart sounds are normal no S3 or S4. Short systolic murmur in the left sternal border. Ejection systolic murmur of grade 2/6 in the aortic area. No diastolic murmurs. ABDOMEN: No vessel pulsations or distention. No tenderness. No organomegaly appreciated. No abdominal bruit. Bowel sounds are normally heard. : Deferred. RECTAL: Deferred. LYMPHATIC: No lymphadenopathy noted in the neck or groin. EXTREMITIES: There is hematoma in the left upper extremity. Dialysis access site on the left side. MUSCULOSKELETAL: No acute joint deformities or swelling. SKIN: Multiple ecchymotic areas in the upper extremity. Healing skin abrasions in the anterior knee bilaterally NEUROPSYCHIATRIC: Patient is intubated and sedated. Moving all extremities. Urinary Catheter Management^: Neal: Cath Placed During This Visit: yes Urinary Catheter Date of Insertion: 04/05/21 Data Labs: Other Labs: Laboratory Last Values WBC 13.5 10^3/uL (4.0 -10.0) H 04/05/21 02:58 RBC 4.02 10^6/uL (4.1 -5.3) L 04/05/21 02:58 Hgb 11.0 g/dL (11.7-1 6.6) L 04/05/21 02:58 Hct 37.9 % (42.0-52.0 ) L 04/05/21 02:58 MCV 94.3 fL (80-94) H 04/05/21 02:58 MCH 27.4 pg (28.0-34. 0) L 04/05/21 02:58 MCHC 29.0 g/dL (30.0-3 6.0) L 04/05/21 02:58 RDW 19.1 % (12.1-15.1 ) H 04/05/21 02:58 Plt Count 166 10^3/cmm (130 -400) 04/05/21 02:58 MPV 10.7 fL (7.4-10.4 ) H 04/05/21 02:58 Neut % (Auto) 86.0 % 04/05/21 02:58 Lymph % (Auto) 3.3 % 04/05/21 02:58 Sheridan % (Auto) 8.8 % 04/05/21 02:58 Eos % (Auto) 0.1 % 04/05/21 02:58 Baso % (Auto) 0.4 % 04/05/21 02:58 Neut # (Auto) 11.59 10^3/uL (1. 8-7.7) H 04/05/21 02:58 Lymph # (Auto) 0.5 10^3/uL (0.8- 4.8) L 04/05/21 02:58 Sheridan # (Auto) 1.2 10^3/uL (0.2- 0.9) H 04/05/21 02:58 Eos # (Auto) 0.0 10^3/uL (0.0- 0.8) 04/05/21 02:58 Baso # (Auto) 0.1 10^3/uL (0.0- 0.1) 04/05/21 02:58 Nucleated RBC % (a uto) 0 % 04/05/21 02:58 Nucleated RBCs # 0.0 /100WBC 04/05/21 02:58 APTT 111.2 SECONDS (23 .9-36.7) H 04/05/21 09:58 D-Dimer 6.15 ug/mIFEU (0- 0.59) H 04/05/21 02:31 Specimen Type Arterial 04/05/21 03:44 Sample Site Radial, right 04/05/21 03:44 ABG pH 7.44 (7.35-7.45) 04/05/21 03:44 ABG pCO2 34.9 mmHg (35-45) L 04/05/21 03:44 ABG pO2 105.0 mmHg (80.0- 100.0) H 04/05/21 03:44 ABG HCO3 23.8 mmol/L (22-2 6) 04/05/21 03:44 ABG O2 Saturation 87.1 04/04/21 22:16 ABG Base Excess -0.1 mmol/L (-2.0 -2.0) 04/05/21 03:44 Eusebio Test Pos 04/05/21 03:44 A-a O2 Gradient 77.8 mmHg (5-10) H 04/04/21 22:16 Hematocrit 33.5 % (42-52) L 04/05/21 03:44 Hgb O2 Saturation 84.9 % (95-100) L 04/04/21 22:16 Carboxyhemoglobin 1.5 %THgb (0.4-20 .1) 04/04/21 22:16 Methemoglobin 1.0 % (0.4-1.5) 04/04/21 22:16 Total Hemoglobin 8.6 g/dL (14-18) L 04/04/21 22:16 Sodium 137.0 mmol/L (131 -143) 04/04/21 22:16 Potassium 4.7 mmol/L (3.5-5 .0) 04/04/21 22:16 Glucose 63.0 mg/dL (70-11 5) L 04/04/21 22:16 Ionized Calcium 0.7 mmol/L (1.1-1 .4) L 04/04/21 22:16 O2 Delivery Device Vent 04/05/21 03:44 O2 Liters/Min 15.0 % 04/04/21 22:16 FiO2 50.0 % 04/05/21 03:44 Tidal Volume 0.45 04/05/21 03:44 PEEP 5.0 cmH20 04/05/21 03:44 Char Dust Clean[employer] Salvager ID [id number] 04/05/21 03:44 Sodium 142 mmol/L (136-1 45) 04/05/21 02:58 Potassium 5.2 mmol/L (3.5-5 .1) H 04/05/21 02:58 Chloride 104 mmol/L (98-10 7) 04/05/21 02:58 Carbon Dioxide 23 mmol/L (22-29) 04/05/21 02:58 Anion Gap 20.2 (5-19) H 04/05/21 02:58 BUN 25 mg/dL (8-23) H 04/05/21 02:58 Creatinine 6.0 mg/dL (0.7-1. 2) H* 04/05/21 02:58 GFR Calculation 9.4 mL/min (90-13 0) L 04/05/21 02:58 Glucose 160 mg/dL (65-115 ) H 04/05/21 02:58 POC Glucose 80 mg/dL (70-110) 04/05/21 11:36 Calculated Osmolal ity 302 mOsm/kg (285- 295) H 04/05/21 02:58 Lactate 2.3 mmol/L (0.5-2 .2) H 04/05/21 02:58 Calcium 7.2 mg/dL (8.5-10 .5) L 04/05/21 02:58 Total Bilirubin 0.4 mg/dL (0.15-1 .2) 04/04/21 20:51 AST 24 U/L (0-40) 04/04/21 20:51 ALT 27 U/L (0-41) 04/04/21 20:51 Alkaline Phosphata se 130 IU/L (40-130) 04/04/21 20:51 Troponin T Gen 5 n g/L Cancelled 04/04/21 20:51 Troponin T Baselin e 70 ng/L (0-15) H 04/04/21 20:51 Troponin T 120 Min lizabeth 63.13 ng/L (0-15) H 04/04/21 22:36 Delta Troponin T -6.87 ABS# (0-10) L 04/04/21 22:36 Troponin T Hi Sens 6Hr 36.62 ng/L (0-15) H 04/05/21 02:58 Troponin T Hi Sens 6Hr Delta -33.38 ng/L (0-12 ) L 04/05/21 02:58 Total Protein 6.6 g/dL (6.6-8.7 ) 04/04/21 20:51 Albumin 3.1 g/dL (3.5-5.2 ) L 04/04/21 20:51 Globulin 3.5 g/dL (1.3-4.6 ) 04/04/21 20:51 TSH 2.41 uIU/mL (0.27 -4.20) 04/05/21 02:58 Hep Bs Antigen Non-reactive (No nreactive) 04/05/21 09:58 Hepatitis C Antibo dy Reactive (Nonrea ctive) H 04/05/21 09:58 Micro: Micro: Microbiology 04/04/21 22:36 Blood Culture - Pr eliminary Blood SPECIMEN [facility] Imaging^: Echo: My impression: Echocardiogram on 08/31/2020 1. Moderate diffuse hypokinesia of the inferior wall and basal septal segments. Overall left ventricular ejection fraction around 50 to 55 %. 2. Mild biatrial enlargement 3. Thickened aortic and mitral valves. 4.Moderate tricuspid valve regurgitation. Estimated pulmonary artery peak systolic pressure of 29 mmHg. 5. Mild mitral regurgitation 6. There is no pericardial effusion. 7. There are no intracardiac masses. No previous studies are available for comparison Myocardial perfusion imaging in August 2020: My impression: IMPRESSIONS 09/15/2020 1. Myocardial perfusion imaging revealing a small to moderate area of decreased tracer uptake in the mid and apical inferior and mid inferolateral region, with a significant reversibility, suggestive of myocardial scarring with ischemia in the distribution of the right coronary artery/circumflex artery. 2. Normal LV ejection fraction 52%. 3. LV wall motion analysis revealing diffuse hypokinesia of the septum. 4. Minimally elevated LV volume, end-systolic volume of 48 mL. No similar previous studies are available for comparison EKG^: EKG 1: My Interpretation: Atrial fibrillation with a controlled ventricular response rate of [address]-T changes. A&P Assessment and plan (1) Bradycardia: Patient may have a sinus yesica dysfunction causing the bradycardia. However the medications, acute hypoxia etc. causing this also are considerations. Currently the patient is in the normal rate. He has been taking high dose of metoprolol at home along with the Cardizem. Currently he may not require any specific intervention Status: Acute (2) Respiratory arrest: Allergies not clear. Medication could be accountability factor. An acute pulmonary embolism causing respiratory distress also is a consideration e specially in view of the oximeter DVT. Status: Acute (3) DVT (deep venous thrombosis): Etiology is not clear. Patient is currently on IV heparin. Status: Acute Qualifiers: Affected thrombotic vein of extremity: other lower extremity vein Chronicity: acute DVT location: lower extremity Laterality: right Qualified Code(s): I82.491 - Acute embolism and thrombosis of other specified deep vein of right lower extremity (4) Chronic anticoagulation: He has a history of longstanding atrial fibrillation. He is on oral anticoagulation Status: Chronic (5) Atrial fibrillation with slow ventricular response: Patient may have underlying sinus floor dysfunction. Medication causing the bradycardia also are considerations. Status: Acute (6) Hypotension: This could be multifactorial. Chronic kidney disease, medications, pulmonary embolism, sepsis, etc. are considerations. Blood pressure seems to be slowly improving. Status: Acute Qualifiers: Hypotension type: other hypotension type Qualified Code(s): I95.89 - Other hypotension (7) Elevated troponin: In view of the underlying end-stage renal disease, the relevance of elevated troponin T is not clear. The EKG does not reveal any acute ischemic changes. Status: Acute Additional A&P Information An echocardiogram would be helpful to evaluate LV function and rule out any other pathology. After reviewing the above and also based on the patient's clinical progress, further recommendations will be made. For the time being, we may hold off on the Cardizem and the metoprolol. We may have to slowly reinstate his medications at a lower lower dose. Also may try to gradually taper off the vasopressors as the blood pressure stabilized. 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
--- NOTE | 2021-04-05 12:24 | USCV_ITS ---
Shin Valera Age: 66 Gender: M : 1955 Exam Date: 04/05/2021 13:33 Ordering Phys: Courtney Nguyen MD Technologist: CULLEN [place] [facility] [place]: EF BP: 109 / 69 HR: 80 Rhythm: Sinus Technical Quality: Good MEASUREMENTS (Male / Female) Normal Values 2D ECHO LV Diastolic Diameter PLAX 5.0 cm 4.2 - 5.9 / 3.9 - 5.3 cm LV Systolic Diameter PLAX 4.5 cm IVS Diastolic Thickness 1.1 cm 0.6 - 1.0 / 0.6 - 0.9 cm IVS Systolic Thickness 1.1 cm LVPW Diastolic Thickness 0.8 cm 0.6 - 1.0 / 0.6 - 0.9 cm LVPW Systolic Thickness 1.4 cm LVOT Diameter 2.0 cm LV Ejection Fraction 2D Teich 24.1 % LV Ejection Fraction MOD 2C 48.1 % LV Ejection Fraction 2C AL 51.0 % LA Diameter 3.8 cm LA Width 3.3 cm LA Height 7.0 cm RA Width 4.1 cm RA Height 6.5 cm Aorta at Sinotubular Diameter 3.4 cm M-MODE LV Diastolic Diameter MM 5.8 cm 4.2 - 5.9 / 3.9 - 5.3 cm LV Systolic Diameter MM 5.1 cm LV Ejection Fraction MM Teich 26.1 % IVS Diastolic Thickness MM 0.7 cm 0.6 - 1.0 / 0.6 - 0.9 cm IVS Systolic Thickness MM 1.3 cm LVPW Diastolic Thickness MM 0.8 cm 0.6 - 1.0 / 0.6 - 0.9 cm LVPW Systolic Thickness MM 1.1 cm Aortic Annulus Diameter 3.1 cm LA Ao Ratio MM 1.0 DOPPLER MV E' Velocity 11.0 cm/s TR Peak Velocity 263.1 cm/s TR Peak Gradient 27.7 mmHg TR Mean Velocity 185.5 cm/s TR Mean Gradient 15.5 mmHg TR Velocity Time Integral 80.4 cm Right Atrial Pressure 15.0 mmHg Pulmonary Artery Systolic Pressu 42.7 mmHg FINDINGS Left Ventricle Normal LV size with a diminished ejection fraction of around 40-45%. Diffuse hypokinesia of the ventricle Right Ventricle Mildly increased right ventricular size. Right Atrium Moderately increased right atrial size. Left Atrium Mildly increased left atrial size. Mitral Valve Minimally thickened Aortic Valve Thickened aortic valve. Tricuspid Valve Severe tricuspid valve regurgitation. Pulmonary hypertension with an estimated pulmonary artery peak systolic pressure of 43 mmHg Pulmonic Valve Pulmonic valve not well visualized. Pericardium Normal pericardium without effusion. Aorta Normal aortic annulus size. CONCLUSIONS Normal LV size with a diminished ejection fraction of around 40 to 45%. Wall motion of abnormalities as mentioned above Mild biatrial enlargement Mildly dilated right ventricle with a slightly diminished ejection fraction. Pulmonary hypertension with estimated pulmonary artery peak systolic pressure of 43 mmHg. Mildly thickened aortic, mitral and tricuspid valve leaflets. Severe tricuspid valve regurgitation. Compared to the previous study from 08/31/2020, there is worsening of the LV systolic function and tricuspid regurgitation Dr Pk Parker MD FAC (Electronically Signed) Final Date: 05 Apr 2021 19:58 S
[2021-04-05 12:39] LABS: INR 1.76 (0.8-1.2)
--- NOTE | 2021-04-05 15:02 | XRR_ITS ---
PROCEDURE INFORMATION: Exam: XR Chest Exam date and time: 04/05/2021 3:04 PM Age: 66 years old Clinical indication: Device placement; Other: Og; Additional info: Og placement TECHNIQUE: Imaging protocol: XR of the chest. Views: 1 view. COMPARISON: CR XR chest 1V portable [id number] 04/05/2021 12:58 AM FINDINGS: Tubes, catheters and devices: There is a large bore right central line extending into the right atrium Endotracheal tube is 6.5 cm above the ulices. NG tube extends into the stomach. Lungs: Unremarkable. No consolidation. Pleural spaces: Unremarkable. No pleural effusion. No pneumothorax. Heart/Mediastinum: Unremarkable. No cardiomegaly. Vasculature: A left jugular line is in place extending into the SVC. Bones/joints: Metallic sternotomy wires are in place. XR/XR chest 1V portable [id number] IMPRESSION: 1. No acute findings. 2. Right central line in the right atrium 3. Left central line in the SVC 4. Endotracheal tube is above the ulices 5. NG tube is in the stomach 6. Status post sternotomy
--- NOTE | 2021-04-05 15:33 | P.CONIM_ITS ---
Providers/Reason For Consult Consulting Physican/Specialty*: Sugar Martinez DO, telenephrology Reason for Consult*: ESRD Attending Physician: Courtney Nguyen MD History of Present Illness History of Present Illness Shin Valera is a 66 year old male called EMS - low BP/HR, respiratory arrest, now on pressors, intubated. ESRD, HD MWF Review of Systems General: Reports: ROS unobtainable due to endotracheal tube and ROS unobtai nable due to medical condition Meds/Allergies Home Medications and Allergies Home Medications Medication Instructions Recorded Confirmed Last Taken Type fluticasone propionate 2 spray INTRANASAL DAILY PRN 08/31/20 04/05/21 08/30/20 History testosterone 1 pump TOPICAL DAILY 08/31/20 04/05/21 08/30/20 History isosorbide mononitrate 60 mg PO DAILY #30 tab 09/02/20 04/05/21 Unknown Rx diphenhydramine HCl [Benadryl] 25 mg PO PRN 11/02/20 04/05/21 Unknown History pantoprazole [Protonix] 40 mg PO DAILY 11/02/20 04/05/21 Unknown History aspirin 81 mg PO DAILY #30 tab 11/04/20 04/05/21 Unknown Rx diltiazem HCl 120 mg PO DAILY #30 cap 11/04/20 04/05/21 Unknown Rx metoprolol tartrate 100 mg PO Q12H #60 tab 11/04/20 04/05/21 Unknown Rx apixaban 2.5 mg tablet 2.5 mg PO BID #120 tab 11/10/20 04/05/21 Unknown Rx gabapentin 300 mg PO TID 04/05/21 04/05/21 Unknown History Allergies Allergy/AdvReac Type Severity Reaction Status Date / Time No Known Allergies Allergy Verified 01/27/21 08:38 Current Medications Current Medications Generic Name Dose Route Start Last Admin Trade Name Freq PRN Reason Stop Dose Admin Aspirin 81 mg 04/05/21 09:00 04/05/21 09:19 Aspirin 81 Mg Ec Tablet PO Not Given DAILY LEOBARDO Norepinephrine Bitartrate 4 mg 254 mls @ 0 mls/hr 04/05/21 02:30 04/05/21 05:31 / Dextrose IV 4 mcg/min .Q0M LEOBARDO 15.2 mls/hr Titration Protocol Per Protocol Midazolam HCl 100 mg/ Sodium 100 mls @ 0 mls/hr 04/05/21 02:30 04/05/21 15:10 Chloride IV 0 mg/hr .Q0M LEOBARDO 0 mls/hr Titration Protocol Per Protocol Heparin Sodium/Sodium Chloride 25,000 unit in 500 mls @ 0 mls/hr 04/05/21 02:45 04/05/21 10:48 Heparin Drip IV 11.76 unit/kg/hr .Q0M LEOBARDO 16 mls/hr Titration Protocol Per Protocol Fentanyl 1,000 mcg/ Sodium 100 mls @ 0 mls/hr 04/05/21 05:45 04/05/21 12:17 Chloride IV 75 mcg/hr .Q0M LEOBARDO 7.5 mls/hr Administration Protocol Per Protocol Epinephrine HCl 2.5 mg/ Sodium 252.5 mls @ 0 mls/hr 04/05/21 05:45 04/05/21 11:59 Chloride IV 1 mcg/min .Q0M LEOBARDO 6.1 mls/hr Titration Protocol Per Protocol Pantoprazole Sodium 40 mg 04/05/21 09:00 04/05/21 09:[address] 40 Mg Tablet PO Not Given BID LEOBARDO PFSH Acute PFSH: Medical History Abdominal aortic aneurysm Anemia Atherosclerotic heart disease of [place] coronary artery with unstable angina pectoris Atrial fibrillation CAD (coronary artery disease) Chronic kidney disease History of Crohn's disease History of pancreatitis Gallstone pancreatitis Hypertension Surgical History H/O aortic aneurysm repair 09/2020 [facility] History of cholecystectomy History of coronary artery stent placement Right coronary artery, prior to bypass History of four vessel coronary artery bypass graft (~2011) History of resection of large bowel Partial, secondary to Crohn's Family History Mother Stroke CHF (congestive heart failure) Father Valvular heart disease Social History Smoking and tobacco status: former smoker Alcohol intake: never Vitals/I&O/Wt Last Vital Signs Temp 93.5 F L 04/04/21 22:06 Pulse 60 04/05/21 06:55 Resp 14 04/05/21 14:30 BP 113/84 04/05/21 02:54 Pulse Ox 97 04/05/21 14:30 04/05/21 04/05/21 04/05/21 06:59 14:59 22:59 Intake Total 28.543 / 28.543 205.572 / 205.572 19.267 / 224.839 Balance 28.543 / 28.543 205.572 / 205.572 19.267 / 224.839 Weight last 48 hrs Weight 67.132 kg Weight 67.132 kg Weight 68.039 kg Physical Exam Const: OTHER: sedated on ventilator, on epi and norepi Neck/C-Spine: OTHER: tunneled right IJ dialysis catheter Extremity: GENERAL: Yes edema (1+ LE) OTHER: 1+ LE edema Urinary Catheter Management^: Neal: Cath Placed During This Visit: yes Reason for Continuing Indwelling Catheter: Accurate Measurement of Urinary Output in Critically Ill Patients Urinary Catheter Date of Insertion: 04/05/21 Data Labs: Other Labs: 7.44/35/105 50% Micro: Micro: Microbiology 04/04/21 22:36 Blood Culture - Pr eliminary Blood SPECIMEN COLLEC CHIKA Other Data: Other data: CXR 1. No acute findings. 2. Right central line in the right atrium 3. Left central line in the SVC 4. Endotracheal tube is above the ulices 5. NG tube is in the stomach 6. Status post sternotomy A&P Additional A&P Information 1. ESRD, HD MWF 2. Bradycardia, hypotension, improved Recommend: HD today, 2L UF as BP tolerates via dialysis catheter. Adjust meds for eGFR < 10 ml/min Consult Attestations Medical Necessity Statement: critically ill in ICU Time Spent in Patient Care: 16 - 35 minutes Coding Level of Care Code Acute Superintendent Transportation for Singh Chairez
[2021-04-05 16:58] LABS: Partial Thromboplastin Time 88.7 SECONDS (23.9-36.7)
[2021-04-05 17:15] LABS: Glucose Point of Care 75 mg/dL (70-110)
[2021-04-05 21:16] LABS: Glucose Point of Care 54 mg/dL (70-110)
[2021-04-05 21:16] LABS: Glucose Point of Care 41 mg/dL (70-110)
[2021-04-05] MEDS: dextrose 5 % 500 ML 100 ML IV (21:17)
--- NOTE | 2021-04-05 21:22 | ECG_ITS ---
[facility] Test Date: 2021-04-05 Pat Name: Shin Valera Department: Room: ICU11 Gender: Male Senior Business Architect: : 1955 Requested By: Courtney Nguyen Order Number: [id number] Claudio MD: Pk Parker M.D. Measurements Intervals Elmer Rate: 89 P: SC: QRS: 56 QRSD: 95 T: 262 QT: 331 QTc: 405 Interpretive Statements ATRIAL FLUTTER/TACHYCARDIA ST DEVIATION AND MODERATE T-WAVE ABNORMALITY, CONSIDER INFERIOR ISCHEMIA [-0.1+ mV T WAVE IN II/aVF] Compared to ECG 04/05/2021 08:10:01 No significant changes Electronically Signed On 04-06-2021 19:24:56 CDT by Pk Parker M.D. [id number]
[2021-04-05 21:58] LABS: Glucose Point of Care 147 mg/dL (70-110)
[2021-04-05 22:19] LABS: Partial Thromboplastin Time 84.8 SECONDS (23.9-36.7)
[2021-04-06] VITALS (163 sets, daily range): BP systolic 79–131; BP diastolic 46–82; PULSE 66–117; RESP 14–37; TEMP 36.7–38.3; O2SAT 86–100
[2021-04-06 04:19] LABS: Basophils % 0.4 %; Eosinophils # 0.1 10^3/uL (0.0-0.8); Hematocrit 35.6 % (42.0-52.0); Hemoglobin 10.9 g/dL (11.7-16.6); Lymphocytes # 1.5 10^3/uL (0.8-4.8); Lymphocytes % 14.7 %; Mean Corpuscular HGB Conc 30.6 g/dL (30.0-36.0); Mean Corpuscular Hemoglobin 27.4 pg (28.0-34.0); Mean Corpuscular Volume 89.4 fL (80-94); Mean Platelet Volume 9.4 fL (7.4-10.4); Monocytes # 0.8 10^3/uL (0.2-0.9); Monocytes % 7.6 %; Neutrophils % 75.9 %; Nucleated Red Blood Cells % 0 %; Platelet Count 174 10^3/cmm (130-400); Red Blood Count 3.98 10^6/uL (4.1-5.3); Red Cell Distribution Width 19.4 % (12.1-15.1); White Blood Count 10.4 10^3/uL (4.0-10.0)
[2021-04-06 04:31] LABS: Partial Thromboplastin Time 59.5 SECONDS (23.9-36.7)
[2021-04-06 04:36] LABS: Anion Gap 11.2 (5-19); Blood Urea Nitrogen 14 mg/dL (8-23); Calcium 7.3 mg/dL (8.5-10.5); Carbon Dioxide 28 mmol/L (22-29); Chloride 98 mmol/L (98-107); Glomerular Filtration Rate 14.6 mL/min (90-130); Glucose 89 mg/dL (65-115); Magnesium 1.9 mg/dL (1.7-2.3); Osmolality Calculated 276 mOsm/kg (285-295); Phosphorus 3.1 mg/dL (2.5-4.5); Potassium 4.2 mmol/L (3.5-5.1); Sodium 133 mmol/L (136-145)
--- NOTE | 2021-04-06 06:50 | PC.NURSE ---
Shift Summary; Patient has had eventful shift. Increase in HR reported at beginning of shift to Patrick, with decrease pressures. New orders for EKG to be completed. Results reported inside of chart. During BG check, RN found patient to be hypoglycemic with BG level in 40's. D50 and D5W given per protocol. MD Patrick updated on this change. After patient became sedated and settled, HR converted to a SR/Aflutter. Some spikes in rate noted at times, but has remained 70-115 a-flutter. Weaning trial initiated in vice president of nursing hours. Levo titrated down alongside Fentanyl, per Will's instructions. Patient failed weaning trials, and became extremely agitated, with large increase in RR and HR. BP and Map's decreased at same time. Sedation and levo restarted as ordered. 25 u/o in gallegos noted. 2L reportedly removed by dialysis nurse. Patient currently resting a this time. Report given to harley hill RN.
[2021-04-06 06:56] LABS: Procalcitonin 2.99 ng/mL (0-0.5)
--- NOTE | 2021-04-06 07:35 | XRR_ITS ---
PROCEDURE INFORMATION: Exam: XR Chest Exam date and time: 04/06/2021 7:49 AM Age: 66 years old Clinical indication: Device placement; Ett placement (vent status); Fever; Additional info: Fever, vent TECHNIQUE: Imaging protocol: XR of the chest. Views: 1 view. COMPARISON: CR XR chest 1V portable [id number] 04/05/2021 3:13 PM FINDINGS: Tubes, catheters and devices: Endotracheal tube tip resides 4.2 cm above the ulices. Central vascular catheter tips reside at the right atrium and cavoatrial junction. Enteric tube extends to the lateral left upper quadrant. Lungs: Minor interstitial stranding in the lower left lung. Left lung suspected calcified granulomata. No pneumothorax. Pleural spaces: Minor blunting at the left costophrenic angle. Heart/Mediastinum: Similar cardiomediastinal silhouette. Bones/joints: Postoperative sternotomy. XR/XR chest 1V portable [id number] IMPRESSION: 1. Stable chest without acute process. 2. Stable position of life support structures.
--- NOTE | 2021-04-06 08:12 | PM.PN ---
Subjective Subjective: Interval history: Patient had transient A. fib with RVR last evening. Metoprolol was ordered but was not given as he had normalization of rate prior to administration. Had hypoglycemia last evening. No insulin had been given. There was a question of potential beta-grace toxicity as a cause for presentation. Hypoglycemia can go along with that but has not had persistent bradycardia or hypotension. He is on trophic feeds. He did receive D5W/D50 for blood sugar of 41. He remains on ventilator. Weaning trial this morning was unsuccessful. He has had some fevers this morning. Medications: Reviewed: Yes Medication Review Details: Antibiotics: None prior to today Anticoagulants: On heparin drip IV medicaitons of note: Epinephrine off Norepinephrine at 2 Versed off On Fentanyl Vitals/I&O/Wt Last Vital Signs Temp 100.9 F H 04/06/21 05:00 Pulse 84 04/06/21 06:45 Resp 37 H 04/06/21 04:15 BP 96/62 04/06/21 06:45 Pulse Ox 95 04/06/21 06:45 04/05/21 04/06/21 04/06/21 22:59 06:59 14:59 Intake Total 681.166 / 886.738 828.956 / 1715.694 Balance 681.166 / 886.738 828.956 / 1715.694 Weight last 48 hrs Weight 67.214 kg Weight 67.132 kg Weight 67.132 kg Weight 68.039 kg Physical Exam Narrative: EXAM NARRATIVE: Constitutional: Sedated on ventilator, awakens, with direction will follow simple commands HEENT: Pupils are equally round and reactive, lips with some dried blood on the right side, do not see any cut to the lip Respiratory: Clear to auscultation bilaterally, no is rales rhonchi or wheezes noted, chest expansion equal bilaterally Cardiovascular: Irregularly irregular rhythm, no murmurs, no JVD noted today Abdomen: Soft, positive bowel sounds, nondistended Extremities: Right lower extremity remains slightly larger than left lower extremity. Fifth digit on the right foot is missing with scabbed wound without erythema or drainage. Neuro: moves all extremities, face symmetric Other: Dialysis catheter intact right upper chest, no new bruising, skin dry Urinary Catheter Management^: Gallegos: Cath Placed During This Visit: yes Reason for Continuing Indwelling Catheter: Accurate Measurement of Urinary Output in Critically Ill Patients Urinary Catheter Date of Insertion: 04/05/21 Data : 04/06/21 04:00 04/06/21 04:00 Other Labs: Short CBC 04/06/21 Range/Units 04:00 WBC 10.4 H (4.0-10.0) 10^3/uL Hgb 10.9 L (11.7-16.6) g/dL Hct 35.6 L (42.0-52.0) % Plt Count 174 (130-400) 10^3/cmm BMP 04/06/21 04:00 Sodium 133 L Potassium 4.2 Chloride 98 Carbon Dioxide 28 BUN 14 Creatinine 4.1 H Glucose 89 Calcium 7.3 L Micro: Microbiology 04/04/21 22:36 Blood Culture - Preliminary Blood NEGATIVE TO DATE Other data: ECHO CONCLUSIONS Normal LV size with a diminished ejection fraction of around 40 to 45%. Wall motion of abnormalities as mentioned above Mild biatrial enlargement Mildly dilated right ventricle with a slightly diminished ejection fraction. Pulmonary hypertension with estimated pulmonary artery peak systolic pressure of 43 mmHg. Mildly thickened aortic, mitral and tricuspid valve leaflets. Severe tricuspid valve regurgitation. Compared to the previous study from 08/31/2020, there is worsening of the LV systolic function and tricuspid regurgitation A&P Assessment and plan (1) Respiratory arrest: In the field, necessitated intubation upon arrival to the ER. Occurred after administration of Versed for pacing. PE is within the differential and with elevation in D-dimer, right lower extremity DVT and other findings current working diagnosis. Chest x-ray has shown some infiltrates versus atelectasis. Low-grade fever today could be from either atelectasis or infection. Status: Acute (2) Hypoglycemia: Unclear inciting event. He does not have a diagnosis of diabetes. Repeat EKG at the time of hypoglycemia only showed nonspecific changes with atrial flutter/fibrillation at that time rate controlled. Beta-grace toxicity a consideration. Infection. Status: Acute (3) Atrial fibrillation with slow ventricular response: Heart rate in the 30s on EMS arrival, ultimately treated with epinephrine. Has not had recurrent bradycardia but remains on Levophed presently. Has had transient A. fib with RVR but thus far not required treatment. Chronically on Cardizem and beta-grace for rate control. Status: Acute (4) Hypotension: Upon arrival, has required pressor support thus far. Differential includes medication effect, sepsis, cardio pulmonary etiology. Sepsis secondary to infection seems less likely given improvement without antibiotic coverage. Status: Acute Qualifiers: Hypotension type: other hypotension type Qualified Code(s): I95.89 - Other hypotension (5) Elevated troponin: Unclear significance, may be type II process from above but he does have known coronary artery disease with prior bypass. Has had previous similar baseline elevations. Status: Acute (6) DVT (deep venous thrombosis): Right lower extremity, extensive, present prior to admission Status: Acute Qualifiers: DVT location: lower extremity Affected thrombotic vein of extremity: other lower extremity vein Chronicity: acute Laterality: right Qualified Code(s): I82.491 - Acute embolism and thrombosis of other specified deep vein of right lower extremity (7) Hypothermia: Unclear reason currently, temperature was 93 initially, not stated anywhere if he was found outside or if windows open. Temperature was in the 40s upper last night. Temperature improved with bear hugger. Infection is a consideration. Now with low-grade fever making this more likely possibility. Status: Acute Qualifiers: Encounter type: initial encounter Qualified Code(s): T68.XXXA - Hypothermia, initial encounter (8) Lactic acidosis: Van related to respiratory arrest, improved with respiratory and cardiovascular support. Status: Acute (9) Hepatitis C antibody test positive: Prior history unknown Status: Acute (10) End stage chronic kidney disease: On hemodialysis Wednesdays and Fridays Status: Acute (11) CAD (coronary artery disease): Prior coronary artery bypass and PCI as previously Status: Chronic Qualifiers: Coronary Disease-Associated Artery/Lesion type: [place] artery [place] vs. transplanted heart: [place] heart Associated angina: without angina Qualified Code(s): I25.10 - Atherosclerotic heart disease of [place] coronary artery without angina pectoris (12) Chronic anticoagulation: Secondary to atrial fibrillation, usually on Coumadin, INR was subtherapeutic at arrival Status: Chronic Additional A&P Information Current working diagnosis is PE secondary to DVT in the right lower extremity. Low-grade fevers could be associated with this but cannot rule out an infection. Procalcitonin level is elevated suggesting possibility of pneumonia which would have been present on admission given nonspecific infiltrates on chest x-ray since that time. Add broad-spectrum antibiotics Repeat blood cultures Repeat chest x-ray Continue heparin drip Will need resumption of Coumadin and bridging therapy Need to discuss with nephrology coordination of CTA tomorrow prior to dialysis to evaluate for PE Nephrology and cardiology have been consulted; assistance greatly appreciated Monitor rate for need to resume lower dose diltiazem and/or beta-blockade Also at home isosorbide On home PPI and aspirin Dialysis Wednesdays and Fridays Continue to wean pressors Now that patient is more awake will repeat weaning trial, discussed with respiratory Maintain Gallegos catheter for monitoring of urine output in this ICU patient Follow-up pending blood culture and sputum culture thus far no growth to date Increase tube feeds per nutrition recommendations Monitor blood sugars Check hemoglobin A1c; had lipid panel in August 2020 with low HDL but otherwise unremarkable Await requested medical records Check hepatitis C viral load and genotype Need to review with family when available Supportive care otherwise Pending/ordered tests to follow: Blood cultures, sputum culture Lines/tubes: Dialysis catheter in the right upper chest, EJ in the neck, no central rosina, gallegos DVT prophylaxis: Currently on heparin drip secondary to DVT in the right lower extremity Anticipated Disposition: Currently anticipate disposition home but will depend on clinical course Code Status: Full code Attestations Medical Necessity Statement*: Requires ongoing inpatient stay for continued management of respiratory arrest and other abnormalities as noted below. Remains on ventilator, heparin drip and IV antibiotics have been started. Coding Level of Care Code Acute Photograph Enlarger for [facility] Mihaela Diagnoses Respiratory arrest R09.2 Hypoglycemia E16.2 Atrial fibrillation with slow ventricular response I48.91 Hypotension I95.89 Hypotension type: other hypotension type Elevated troponin R77.8 DVT (deep venous thrombosis) I82.491 DVT location: lower extremity Affected thrombotic vein of extremity: other lower extremity vein Chronicity: acute Laterality: right Hypothermia T68.XXXA Encounter type: initial encounter Lactic acidosis E87.2 Hepatitis C antibody test positive R76.8 End stage chronic kidney disease N18.6 CAD (coronary artery disease) I25.10 Coronary Disease-Associated Artery/Lesion type: [place] artery [place] vs. transplanted heart: [place] heart Associated angina: without angina Chronic anticoagulation Z79.01
--- NOTE | 2021-04-06 08:57 | P.PN_ITS ---
Subjective Subjective: Interval history: Patient still remains intubated. Apparently try to wean him off the vent but was unsuccessful. He remains afebrile. He, according to the nurses, was responding appropriately, while being off the IV sedation. No fever or chills. No cough. Medications: Reviewed: Yes Medication Review Details: Current Medications Aspirin (Aspirin 81 Mg Ec Tablet) 81 mg PO DAILY LEOBARDO Last Admin: 04/05/21 09:19 Dose: Not Given Documented by: Dextrose (Dextrose 50% Syringe 50 Ml) 25 ml IVP ONCE PRN; Protocol PRN Reason: hypoglycemia protocol Dextrose (Dextrose 50% Syringe 50 Ml) 50 ml IVP PRN PRN; Protocol PRN Reason: hypoglycemia protocol Last Admin: 04/05/21 21:16 Dose: 50 ml Documented by: Glucagon (Glucagon 1 Mg/Ml Inj 1 Ml) 1 mg IM ONCE PRN; Protocol PRN Reason: Adult Acute Hypoglycemia Prot. Heparin Sodium (Beef Lung) (Heparin 5,000 Unit/Ml Inj 1 Ml) 0 unit IV PRN PRN; Protocol PRN Reason: Heparin weight-base protocol Norepinephrine Bitartrate 4 mg (/ Dextrose) 254 mls @ 0 mls/hr IV .Q0M LEOBARDO; Protocol Last Titration: 04/06/21 05:03 Dose: 2 mcg/min, 7.6 mls/hr Documented by: Midazolam HCl 100 mg/ Sodium (Chloride) 100 mls @ 0 mls/hr IV .Q0M LEOBARDO; Protocol Last Titration: 04/05/21 15:10 Dose: 0 mg/hr, 0 mls/hr Documented by: Heparin Sodium/Sodium Chloride (Heparin Drip) 25,000 unit in 500 mls @ 0 mls/hr IV .Q0M LEOBARDO; Protocol Last Titration: 04/05/21 22:24 Dose: 9.55 unit/kg/hr, 13 mls/hr Documented by: Fentanyl 1,000 mcg/ Sodium (Chloride) 100 mls @ 0 mls/hr IV .Q0M LEOBARDO; Protocol Last Titration: 04/06/21 05:35 Dose: 75 mcg/hr, 7.5 mls/hr Documented by: Epinephrine HCl 2.5 mg/ Sodium (Chloride) 252.5 mls @ 0 mls/hr IV .Q0M LEOBARDO; Protocol Last Titration: 04/05/21 19:03 Dose: 0 mcg/min, 0 mls/hr Documented by: Sodium Chloride (Sodium Chloride 0.9%) 1,000 mls @ 0 mls/hr IV .Q0M PRN PRN Reason: hypotension or symptomatic Dextrose (D5w) 500 mls @ 100 mls/hr IV ONCE PRN; Protocol PRN Reason: Adult Acute Hypoglycemia Prot Last Infusion: 04/06/21 02:30 Dose: Infused Documented by: Vancomycin HCl 750 mg/ Sodium (Chloride) 250 mls @ 250 mls/hr IV MoWeFr LEOBARDO; Protocol Piperacillin Sod/Tazobactam (Sod 3.375 gm/ Sodium Chloride) 50 mls @ 12.5 mls/hr IV Q12H LEOBARDO; Protocol Levofloxacin/Dextrose (Levaquin-D5w) 750 mg in 150 mls @ 100 mls/hr IV ONCE ONE; Protocol Stop: 04/06/21 09:29 Levofloxacin/Dextrose (Levaquin-D5w) 500 mg in 100 mls @ 100 mls/hr IV Q48H LEOBARDO Vancomycin/PEG/NADA/Lysine/Water (Vancocin) 1,250 mg in 250 mls @ 200 mls/hr IV ONCE ONE Stop: 04/06/21 11:14 Insulin Aspart (Insulin Aspart 100 Unit/1 Ml) 0 unit SUBCUT BEDTIME LEOBARDO; Protocol Last Admin: 04/05/21 21:28 Dose: Not Given Documented by: Insulin Aspart (Insulin Aspart 100 Unit/1 Ml) 0 unit SUBCUT TIDWM LEOBARDO; Protocol Last Admin: 04/05/21 18:26 Dose: Not Given Documented by: Pantoprazole Sodium (Pantoprazole Dr 40 Mg Tablet) 40 mg PO BID LEOBARDO Last Admin: 04/05/21 18:26 Dose: Not Given Documented by: Vitals/I&O/Wt Last Vital Signs Temp 100.9 F H 04/06/21 05:00 Pulse 84 04/06/21 06:45 Resp 14 04/06/21 08:32 BP 96/62 04/06/21 06:45 Pulse Ox 96 04/06/21 08:32 04/05/21 04/06/21 04/06/21 22:59 06:59 14:59 Intake Total 681.166 / 886.738 828.956 / 1715.694 Balance 681.166 / 886.738 828.956 / 1715.694 Weight last 48 hrs Weight 148 lb 2.904 oz Weight 148 lb Weight 148 lb Weight 150 lb Physical Exam Narrative: EXAM NARRATIVE: GENERAL: The patient is intubated and sedated. HEENT: Minimal pallor. Pupils are dilated and sluggishly reacting to light. Or al cavity: There are no mucous membrane lesions. Funduscopic examination: The fundus is not visualized NECK: Trachea appears to be central. No masses noted. No JVD or thyromegaly appreciated. No carotid bruit. RESPIRATORY: There are some slight bilateral no rales or rhonchi BREASTS: Deferred. HEART: The heart sounds are normal no S3 or S4. Short systolic murmur in the left sternal border. Ejection systolic murmur of grade 2/6 in the aortic area. No diastolic murmurs. ABDOMEN: No vessel pulsations or distention. No tenderness. No organomegaly appreciated. No abdominal bruit. Bowel sounds are normally heard. : Deferred. RECTAL: Deferred. LYMPHATIC: No lymphadenopathy noted in the neck or groin. EXTREMITIES: There is hematoma in the left upper extremity. Dialysis access site on the left side. MUSCULOSKELETAL: No acute joint deformities or swelling. SKIN: Multiple ecchymotic areas in the upper extremity. Healing skin abrasions in the anterior knee bilaterally NEUROPSYCHIATRIC: Patient is intubated and sedated. Moving all extremities. Urinary Catheter Management^: Neal: Cath Placed During This Visit: yes Reason for Continuing Indwelling Catheter: Accurate Measurement of Urinary Output in Critically Ill Patients Urinary Catheter Date of Insertion: 04/05/21 Data : 04/07/21 05:32 04/07/21 05:32 Other Labs: Laboratory Last Values WBC 10.4 10^3/uL (4.0-10.0) H 04/06/21 04:00 RBC 3.98 10^6/uL (4.1-5.3) L 04/06/21 04:00 Hgb 10.9 g/dL (11.7-16.6) L 04/06/21 04:00 Hct 35.6 % (42.0-52.0) L 04/06/21 04:00 MCV 89.4 fL (80-94) 04/06/21 04:00 MCH 27.4 pg (28.0-34.0) L 04/06/21 04:00 MCHC 30.6 g/dL (30.0-36.0) 04/06/21 04:00 RDW 19.4 % (12.1-15.1) H 04/06/21 04:00 Plt Count 174 10^3/cmm (130-400) 04/06/21 04:00 MPV 9.4 fL (7.4-10.4) 04/06/21 04:00 Neut % (Auto) 75.9 % 04/06/21 04:00 Lymph % (Auto) 14.7 % 04/06/21 04:00 [place] % (Auto) 7.6 % 04/06/21 04:00 Eos % (Auto) 1.0 % 04/06/21 04:00 Baso % (Auto) 0.4 % 04/06/21 04:00 Neut # (Auto) 7.90 10^3/uL (1.8-7.7) H 04/06/21 04:00 Lymph # (Auto) 1.5 10^3/uL (0.8-4.8) 04/06/21 04:00 [place] # (Auto) 0.8 10^3/uL (0.2-0.9) 04/06/21 04:00 Eos # (Auto) 0.1 10^3/uL (0.0-0.8) 04/06/21 04:00 Baso # (Auto) 0.0 10^3/uL (0.0-0.1) 04/06/21 04:00 Nucleated RBC % (auto) 0 % 04/06/21 04:00 Nucleated RBCs # 0.0 /100WBC 04/06/21 04:00 PT 18.50 SECONDS (12.1-14.9) H 04/06/21 04:00 INR 1.50 (0.8-1.2) H 04/06/21 04:00 APTT 59.5 SECONDS (23.9-36.7) H 04/06/21 04:00 D-Dimer 6.15 ug/mIFEU (0-0.59) H 04/05/21 02:31 Specimen Type Arterial 04/05/21 03:44 Sample Site Radial, right 04/05/21 03:44 ABG pH 7.44 (7.35-7.45) 04/05/21 03:44 ABG pCO2 34.9 mmHg (35-45) L 04/05/21 03:44 ABG pO2 105.0 mmHg (80.0-100.0) H 04/05/21 03:44 ABG HCO3 23.8 mmol/L (22-26) 04/05/21 03:44 ABG O2 Saturation 87.1 04/04/21 22:16 ABG Base Excess -0.1 mmol/L (-2.0-2.0) 04/05/21 03:44 Eusebio Test Pos 04/05/21 03:44 A-a O2 Gradient 77.8 mmHg (5-10) H 04/04/21 22:16 Hematocrit 33.5 % (42-52) L 04/05/21 03:44 Hgb O2 Saturation 84.9 % (95-100) L 04/04/21 22:16 Carboxyhemoglobin 1.5 %THgb (0.4-20.1) 04/04/21 22:16 Methemoglobin 1.0 % (0.4-1.5) 04/04/21 22:16 Total Hemoglobin 8.6 g/dL (14-18) L 04/04/21 22:16 Sodium 137.0 mmol/L (131-143) 04/04/21 22:16 Potassium 4.7 mmol/L (3.5-5.0) 04/04/21 22:16 Glucose 63.0 mg/dL (70-115) L 04/04/21 22:16 Ionized Calcium 0.7 mmol/L (1.1-1.4) L 04/04/21 22:16 O2 Delivery Device Vent 04/05/21 03:44 O2 Liters/Min 15.0 % 04/04/21 22:16 FiO2 50.0 % 04/05/21 03:44 Tidal Volume 0.45 04/05/21 03:44 PEEP 5.0 cmH20 04/05/21 03:44 Biodiesel Process Control Technician ID [email or web address] 04/05/21 03:44 Sodium 133 mmol/L (136-145) L 04/06/21 04:00 Potassium 4.2 mmol/L (3.5-5.1) 04/06/21 04:00 Chloride 98 mmol/L (98-107) 04/06/21 04:00 Carbon Dioxide 28 mmol/L (22-29) 04/06/21 04:00 Anion Gap 11.2 (5-19) 04/06/21 04:00 BUN 14 mg/dL (8-23) 04/06/21 04:00 Creatinine 4.1 mg/dL (0.7-1.2) H 04/06/21 04:00 GFR Calculation 14.6 mL/min (90-130) L 04/06/21 04:00 Glucose 89 mg/dL (65-115) 04/06/21 04:00 POC Glucose 147 mg/dL (70-110) H 04/05/21 21:54 Calculated Osmolality 276 mOsm/kg (285-295) L 04/06/21 04:00 Lactate 2.3 mmol/L (0.5-2.2) H 04/05/21 02:58 Calcium 7.3 mg/dL (8.5-10.5) L 04/06/21 04:00 Phosphorus 3.1 mg/dL (2.5-4.5) 04/06/21 04:00 Magnesium 1.9 mg/dL (1.7-2.3) 04/06/21 04:00 Total Bilirubin 0.4 mg/dL (0.15-1.2) 04/04/21 20:51 AST 24 U/L (0-40) 04/04/21 20:51 ALT 27 U/L (0-41) 04/04/21 20:51 Alkaline Phosphatase 130 IU/L (40-130) 04/04/21 20:51 Troponin T Gen 5 ng/L Cancelled 04/04/21 20:51 Troponin T Baseline 70 ng/L (0-15) H 04/04/21 20:51 Troponin T 120 Minute 63.13 ng/L (0-15) H 04/04/21 22:36 Delta Troponin T -6.87 ABS# (0-10) L 04/04/21 22:36 Troponin T Hi Sens 6Hr 36.62 ng/L (0-15) H 04/05/21 02:58 Troponin T Hi Sens 6Hr Delta -33.38 ng/L (0-12) L 04/05/21 02:58 Total Protein 6.6 g/dL (6.6-8.7) 04/04/21 20:51 Albumin 3.1 g/dL (3.5-5.2) L 04/04/21 20:51 Globulin 3.5 g/dL (1.3-4.6) 04/04/21 20:51 Procalcitonin 2.99 ng/mL (0-0.5) H 04/06/21 04:00 TSH 2.41 uIU/mL (0.27-4.20) 04/05/21 02:58 Hep Bs Antigen Non-reactive (Nonreactive) 04/05/21 09:58 Hepatitis C Antibody Reactive (Nonreactive) H 04/05/21 09:58 Micro: Microbiology 04/04/21 22:36 Blood Culture - Preliminary Blood NEGATIVE TO DATE Echo: I personally reviewed and interpreted this imaging study as follows: My impression: Echocardiogram from 04/05/2021 revealed Normal LV size with a diminished ejection fraction of around 40 to 45%. Wall motion of abnormalities as mentioned above Mild biatrial enlargement Mildly dilated right ventricle with a slightly diminished ejection fraction. Pulmonary hypertension with estimated pulmonary artery peak systolic pressure of 43 mmHg. Mildly thickened aortic, mitral and tricuspid valve leaflets. Severe tricuspid valve regurgitation. Compared to the previous study from 08/31/2020, there is worsening of the LV systolic function and tricuspid regurgitation A&P Assessment and plan (1) Bradycardia: The heart rate is in the normal range at this time. Patient continues to be in atrial fibrillation. Status: Acute (2) Respiratory arrest: Etiology is not clear. Medication could be a contributing factor . An acute pulmonary embolism causing respiratory distress also is a consideration especially in view of the proximal DVT. May continue on the heparin. Status: Acute (3) DVT (deep venous thrombosis): Etiology is not clear. Patient is currently on IV heparin. Status: Acute Qualifiers: Affected thrombotic vein of extremity: other lower extremity vein Chronicity: acute DVT location: lower extremity Laterality: right Qualified Code(s): I82.491 - Acute embolism and thrombosis of other specified deep vein of right lower extremity (4) Chronic anticoagulation: He has a history of longstanding atrial fibrillation. He is on oral anticoagulation Status: Chronic (5) Atrial fibrillation with slow ventricular response: Patient may have underlying sinus yesica dysfunction. Medication causing the bradycardia also are considerations. Currently the heart rate is in the normal range. May continue on the current measures. Status: Acute (6) Hypotension: This could be multifactorial. Chronic kidney disease, medications, pulmonary embolism, sepsis, etc. are considerations. Blood pressure seems to be slowly improving. Currently on 2 mics per KG per minute of Levophed. Is in the process of being tapered off. Status: Acute Qualifiers: Hypotension type: other hypotension type Qualified Code(s): I95.89 - Other hypotension (7) Elevated troponin: He has LV dysfunction, possibility of him having had a coronary event causing elevated troponin T and LV systolic dysfunction is a consideration. Patient may benefit from a cardiac catheterization, to further evaluate the coronary status. Status: Acute Additional A&P Information Once the patient is medical condition is stable, we may consider doing a cardiac catheterization, to further evaluate the coronary status and decide on further management. Attestations Medical Necessity Statement*: Patient requires continued hospital stay for close monitoring and further management Coding Level of Care Code Acute Director Of Physician Practices for [facility] Diagnoses Bradycardia R00.1 Respiratory arrest R09.2 DVT (deep venous thrombosis) I82.491 Affected thrombotic vein of extremity: other lower extremity vein Chronicity: acute DVT location: lower extremity Laterality: right Chronic anticoagulation Z79.01 Atrial fibrillation with slow ventricular response I48.91 Hypotension I95.89 Hypotension type: other hypotension type Elevated troponin R77.8
[2021-04-06] MEDS: aspirin 81 mg EC Tablet PO (09:04)
[2021-04-06] MEDS: levofloxacin-dextrose 5 % 750 MG/150 ML PREMIX 100 MG IV (09:04)
[2021-04-06] MEDS: pantoprazole DR 40 mg Tablet PO ×2 (09:05→18:14)
[2021-04-06] MEDS: vancomycin 1,250 MG/250 ML PIGGYBACK 200 MG IV (09:05)
[2021-04-06 10:32] LABS: Glucose Point of Care 82 mg/dL (70-110)
[2021-04-06 10:41] LABS: Partial Thromboplastin Time 59.1 SECONDS (23.9-36.7)
[2021-04-06 11:12] LABS: Glucose Point of Care 74 mg/dL (70-110)
--- NOTE | 2021-04-06 11:18 | PC.NUTR ---
Tube feeding recommendations: Recommend increase Nepro 1.8 by 10 ml/hr every 6-8 hours to reach goal of 42 ml/hr with 100 ml H2O flush q 4 hours, to provide 1784 kcal, 82 g protein, 1333 ml H2O. Additional fluid to be provided at MD discretion. Will adjust recommendations at follow up according to vent status and other nutritional indicators. See full RD assessments for nutritional needs estimations and other details.
[2021-04-06] MEDS: piperacillin-tazobactam 3.375 GM in sodium chloride 0.9% (plus) 50 ML IV (11:36)
--- NOTE | 2021-04-06 12:19 | PC.CHAP ---
Pastoral Care Encounter/Spiritual Assessment Type of Contact [] Declined heat treating operator visit [] Patient/Family/Request visit [] Outpatient visit [] Follow-up visit [] Physician referral [] Code/Alert [x] Routine visit [] Staff referral [] Actively dying [x] Patient sleeping [] Family support [] [] Out of room [] Palliative care [] [] Receiving care in room [] Pre-surgical visit [] Trauma [] Long length of stay [] ICU visit [] Other: Relational/Emotional Strength [] Patient feels connected with others/family/visitors/staff [] Distress [] Loneliness/isolation [] Abandonment Spirituality of Patient [] Person of Jelly [] Attends Sabianist of their Jelly [] Believes in Prayer [] Reads Bible or Druze materials [] There are Spiritual issues to be addressed Scooter Mechanic Interventions [] Prayer [] Active listening [] Non-anxious presence [] Spiritual/emotional support [] Crisis/trauma care [] Spiritual counseling [] Bereavement support [] Provided bereavement packet [] Provided Bible/devotional materials [] Provided toy/stuffed animal, coloring book to patient or family member [] Provided Communion [] Anointing/[place] [] Salvation [] Completed spiritual assessment [] Other: Impact on Illness or Injury [] Angry [] Fearful [] Anxious [] Often cries [] Exhaustion [] Unable to work [] Unable to attend uatsdin [] Unable to walk/stand [] Unable to read [] Unable to drive [] Unable to eat/drink [] Unable to sleep [] Unable to be with family [] Patient intubated [] Other: Summary Time spent with patient
--- NOTE | 2021-04-06 13:47 | P.PN_ITS ---
Subjective Subjective: Interval history: He remains intubated and mechanically ventilated. He is opening his eyes and responds to verbal command however he did fail a spontaneous breathing trial this morning. FiO2 noted to be 35% and PEEP noted to be 5. Atrial fibrillation with RVR overnight and he is currently on Levophed at 2. He did receive hemodialysis yesterday. Vitals/I&O/Wt Last Vital Signs Temp 100.9 F H 04/06/21 05:00 Pulse 84 04/06/21 06:45 Resp 19 H 04/06/21 13:16 BP 96/62 04/06/21 06:45 Pulse Ox 98 04/06/21 13:16 04/05/21 04/06/21 04/06/21 22:59 06:59 14:59 Intake Total 681.166 / 886.738 828.956 / 1715.694 Balance 681.166 / 886.738 828.956 / 1715.694 Weight last 48 hrs Weight 67.214 kg Weight 67.132 kg Weight 67.132 kg Weight 68.039 kg Physical Exam Narrative: EXAM NARRATIVE: Constitutional: Sedated and vented HEENT: Wet mucosa, no jvp, non icteric Lungs: Bilaterally clear without discernible wheeze, rales in all lung zones CVS: S1 S2, no murmurs Abdo: Soft, BS ok Ext 4: Minimal edema, peripheral perfusion with no cyanosis Neurological: Grossly non-focal Urinary Catheter Management^: Neal: Cath Placed During This Visit: yes Reason for Continuing Indwelling Catheter: Accurate Measurement of Urinary Output in Critically Ill Patients Urinary Catheter Date of Insertion: 04/05/21 Data : 04/06/21 04:00 04/06/21 04:00 Micro: Microbiology 04/06/21 08:36 Blood Culture - Preliminary Blood SPECIMEN COLLECTED 04/06/21 08:56 Blood Culture - Preliminary Blood SPECIMEN COLLECTED 04/04/21 22:36 Blood Culture - Preliminary Blood NEGATIVE TO DATE A&P Additional A&P Information 1. ESRD No acute indication for dialysis today, plan to do dialysis again on him tomorrow, 2K, UF 2-3 L. Dose medication GFR less than 15 on dialysis 2. Vent dependent respiratory failure Weaning per ICU team. Opening his eyes, neurologically responsive which is promising. Currently vent settings are quite stable. 3. Hemodynamics A. fib with RVR last evening management per Dr. Parker is noted. Khanh Orr MD Nephrology [phone] Patient seen and examined via telemedicine, with the assistance of the bedside RN > 25 min spent in evaluation and mgmt of patient Attestations Medical Necessity Statement*: eval for ESRD mgmt Coding Level of Care Code Acute Diagnostic Technologist for [facility]
[2021-04-06] MEDS: heparin drip 25,000 UNIT/500 ML PREMIX 13 UNIT IV (16:24)
[2021-04-06] MEDS: dextrose 50% syringe 50 mL IVP ×2 (16:30→21:05)
--- NOTE | 2021-04-06 16:40 | PC.NURSE ---
Patient blood glucose low. Treated per hypoglycemia protocol. Will recheck blood glucose in [address] Clay.
--- NOTE | 2021-04-06 16:50 | PC.NURSE ---
Dr. Clay in ICU. Updated on patient condition et recent hypoglycemic episode et treatment. No new orders at this time.
[2021-04-06 17:25] LABS: Partial Thromboplastin Time 41.5 SECONDS (23.9-36.7)
[2021-04-06 17:34] LABS: Glucose Point of Care 65 mg/dL (70-110)
[2021-04-06 17:34] LABS: Glucose Point of Care 174 mg/dL (70-110)
[2021-04-06] MEDS: heparin 5,000 unit/mL INJ 1 mL IV (18:14)
[2021-04-06] MEDS: dextrose 5%-sod chloride 0.9% 1,000 ML 100 ML IV (21:11)
[2021-04-06 23:35] LABS: Partial Thromboplastin Time 55.1 SECONDS (23.9-36.7)
[2021-04-07] VITALS (103 sets, daily range): BP systolic 88–136; BP diastolic 47–88; PULSE 65–112; RESP 14–18; TEMP 36.8–37.7; O2SAT 88–100; BMI 21.6
[2021-04-07] MEDS: piperacillin-tazobactam 3.375 GM in sodium chloride 0.9% (plus) 50 ML IV ×2 (00:23→16:04)
[2021-04-07] MEDS: dextrose 50% syringe 50 mL IVP (04:14)
[2021-04-07 04:27] LABS: Glucose Point of Care 56 mg/dL (70-110)
[2021-04-07 04:27] LABS: Glucose Point of Care 109 mg/dL (70-110)
[2021-04-07 04:50] LABS: Glucose Point of Care 66 mg/dL (70-110)
[2021-04-07 05:57] LABS: Basophils % 0.3 %; Eosinophils # 0.2 10^3/uL (0.0-0.8); Eosinophils % 1.6 %; Hematocrit 36.8 % (42.0-52.0); Hemoglobin 11.1 g/dL (11.7-16.6); Lymphocytes # 1.1 10^3/uL (0.8-4.8); Mean Corpuscular HGB Conc 30.2 g/dL (30.0-36.0); Mean Corpuscular Hemoglobin 27.5 pg (28.0-34.0); Mean Corpuscular Volume 91.1 fL (80-94); Mean Platelet Volume 9.9 fL (7.4-10.4); Monocytes # 0.9 10^3/uL (0.2-0.9); Monocytes % 8.7 %; Neutrophils # 7.71 10^3/uL (1.8-7.7); Neutrophils % 77.9 %; Nucleated Red Blood Cells % 0 %; Platelet Count 147 10^3/cmm (130-400); Red Blood Count 4.04 10^6/uL (4.1-5.3); Red Cell Distribution Width 18.6 % (12.1-15.1); White Blood Count 9.9 10^3/uL (4.0-10.0)
[2021-04-07 06:26] LABS: Estmated Average Glucose 91; Hemoglobin A1C 4.8 % (4.0-6.0)
[2021-04-07 06:32] LABS: Anion Gap 11.3 (5-19); Blood Urea Nitrogen 25 mg/dL (8-23); Calcium 7.3 mg/dL (8.5-10.5); Carbon Dioxide 26 mmol/L (22-29); Chloride 97 mmol/L (98-107); Glomerular Filtration Rate 11.1 mL/min (90-130); Glucose 128 mg/dL (65-115); Magnesium 1.9 mg/dL (1.7-2.3); Osmolality Calculated 276 mOsm/kg (285-295); Phosphorus 4.4 mg/dL (2.5-4.5); Potassium 4.3 mmol/L (3.5-5.1); Sodium 130 mmol/L (136-145)
--- NOTE | 2021-04-07 08:27 | CT_ITS ---
WS: [id number] CT CHEST ANGIOGRAPHY WITH REFORMATS HISTORY: Respiratory failure, DVT, not weaning from vent TECHNIQUE: Contiguous axial images are obtained through the chest during arterial injection of intrav enous contrast. Images are reconstructed to evaluate the pulmonary arteries. MIP imaging also reviewe d. All CT scans at [facility] use at least one of these dose optimization techniques: aut omated exposure control; mA and/or kV adjustment per patient size (includes targeted exams where dose is matched to clinical indication); or iterative reconstruction. CONTRAST: Visipaque 320; 95 mL IV. DLP: 573.02 mGy.cm COMPARISON: 11/02/2020 Adequate opacification of the pulmonary arteries. No pulmonary embolism through the segmental and por tions of the subsegmental branches. Pulmonary artery size is slightly enlarged. Moderate atherosclero tic changes throughout the thoracic aorta. No aneurysm. There is marked enlargement of the RIGHT heart chambers which has progressed since 11/02/2020. There i s also mild RIGHT heart strain with clockwise rotation of the heart which is new since 11/02/2020. Mil d flattening of the interventricular septum. There is tricuspid regurgitation into hepatic veins. Patient is intubated. Endotracheal tube ends just above the ulices in good position. There is also a nasogastric tube with tip terminating in the stomach. RIGHT subclavian dialysis catheter with tips te rminating over the RIGHT heart. There is also a LEFT central line. At the LEFT central line insertion site there is increased soft tissue stranding within the anterior mediastinal fat which is probably some hemorrhage related to the line placement. Moderate bilateral pleural effusions with compressive atelectasis in the dependent lungs. There is al so evidence for mild paraseptal emphysema. Mild CHF and fluid overload. Benign calcified granuloma LE FT upper lobe. Mildly prominent RIGHT hilar lymph nodes are probably reactive. Prior CABG. Small amount of ascites surrounding the liver. Mild soft tissue anasarca. CT/CT angio chest PE protcl [id number] IMPRESSION: 1. No pulmonary embolism. 2. Moderate bilateral pleural effusions with compressive atelectasis at the tanya ng bases. 3. Endotracheal and nasogastric tubes in good position. 4. Marked enlargement of the RIGHT heart chambers with evidence for increased RIGHT heart strain and tricuspid regurgitation into the hepatic veins. The RIGH T heart has increased in size since 11/02/2020. 5. Small amount of ascites adjacent to the liver. 6. Anterior mediastinal stranding secondary to small amount of posttraumatic b leeding at the site of the LEFT central line insertion site. No active bleeding . 7. Soft tissue anasarca.
--- NOTE | 2021-04-07 08:28 | PM.PN ---
Subjective Subjective: Interval history: Was not cooperative with weaning attempts yesterday. Increase secretions noted. He did have some drop in saturations. He continues to have intermittent hypoglycemia. Was put on some low dose D5W. He has not received any insulin though it is ordered. Remains on Levophed at 1 mcg. Still on heparin drip. For hemodialysis today. Have discussed case with Dr. Gavin Reviewed with Dr. Orr Discussed overnight events with nursing Family evidently reached out and indicated that all of his medications were messed up at home. Not sure what this indicates. Have not been able to speak with them directly. Medications: Reviewed: Yes Vitals/I&O/Wt Last Vital Signs Temp 98.6 F 04/07/21 08:00 Pulse 80 04/07/21 08:00 Resp 14 04/07/21 07:51 BP 103/53 04/07/21 08:00 Pulse Ox 100 04/07/21 08:00 04/06/21 04/07/21 04/07/21 22:59 06:59 14:59 Intake Total 1071.458 / 1614.125 306.087 / 1920.212 Output Total 0 / 0 50 / 50 Balance 1071.458 / 1614.125 256.087 / 1870.212 No bowel movement recorded Little to no urine output at baseline Weight last 48 hrs Weight 66.366 kg Weight 67.214 kg Physical Exam Narrative: EXAM NARRATIVE: Constitutional: Will awaken, follow simple commands HEENT: Lips are not as dry, tubes intact Respiratory: Scattered wheeze right more so than left otherwise clear, chest expansion equal bilaterally Cardiovascular: Irregularly irregular in the 80s Abdomen: Soft, positive bowel sounds, nondistended : gallegos in place Extremities: Decreased edema in the right lower extremity. No change to fifth digit wound on the right foot. Neuro: Moves all extremities, face symmetric, positive gag Other: Dialysis catheter intact right upper chest Urinary Catheter Management^: Gallegos: Cath Placed During This Visit: yes Reason for Continuing Indwelling Catheter: Accurate Measurement of Urinary Output in Critically Ill Patients Urinary Catheter Date of Insertion: 04/05/21 Data : 04/07/21 05:32 04/07/21 05:32 Micro: Microbiology 04/06/21 08:36 Blood Culture - Preliminary Blood SPECIMEN COLLECTED 04/06/21 08:56 Blood Culture - Preliminary Blood SPECIMEN COLLECTED A&P Assessment and plan (1) Respiratory arrest: In the field, necessitated intubation upon arrival to the ER. Occurred after administration of Versed for pacing. PE is within the differential and with elevation in D-dimer, right lower extremity DVT and other findings current working diagnosis. Chest x-ray has shown some infiltrates versus atelectasis. Low-grade fever 04/06 could be from either atelectasis or infection. Having increased secretions. Status: Acute (2) Hypoglycemia: Recurrent problem despite being on feeds. He does not have a diagnosis of diabetes. No medications to specifically account for hypoglycemia. No evidence of acute coronary syndrome identified. Beta-grace toxicity a consideration from the time of admission and could still be a recurring problem. Infection also in the differential as her other metabolic processes. A1c 4.8. Unknown if any sulfonylureas in his home Status: Acute (3) Atrial fibrillation with slow ventricular response: Heart rate in the 30s on EMS arrival, ultimately treated with epinephrine. Has not had recurrent bradycardia but remains on Levophed presently. Has had transient A. fib with RVR but thus far not required treatment. Chronically on Cardizem and beta-grace for rate control. Status: Acute (4) Hypotension: Upon arrival, has required pressor support thus far. Differential includes medication effect, sepsis, cardiopulmonary etiology such as PE. Sepsis secondary to infection seems less likely given initial improvement without antibiotic coverage. Status: Acute Qualifiers: Hypotension type: other hypotension type Qualified Code(s): I95.89 - Other hypotension (5) Elevated troponin: Unclear acute significance, may be type II process from above but he does have known coronary artery disease with prior bypass. Has had previous similar baseline elevations. Status: Acute (6) DVT (deep venous thrombosis): Right lower extremity, extensive, present prior to admission Status: Acute Qualifiers: DVT location: lower extremity Affected thrombotic vein of extremity: other lower extremity vein Chronicity: acute Laterality: right Qualified Code(s): I82.491 - Acute embolism and thrombosis of other specified deep vein of right lower extremity (7) Hypothermia: Unclear reason currently, temperature was 93 initially, not stated anywhere if he was found outside or if windows open. Temperature was in the 40s upper night of admission. Temperature improved with bear hugger. Infection is a consideration as is other etiology for the impaired thermoregulation. Status: Acute Qualifiers: Encounter type: initial encounter Qualified Code(s): T68.XXXA - Hypothermia, initial encounter (8) Lactic acidosis: [place] related to respiratory arrest, improved with respiratory and cardiovascular support. Status: Acute (9) Hepatitis C antibody test positive: Prior history unknown Status: Acute (10) End stage chronic kidney disease: On hemodialysis Wednesdays and Fridays Status: Acute (11) CAD (coronary artery disease): Prior coronary artery bypass and PCI previously Status: Chronic Qualifiers: Coronary Disease-Associated Artery/Lesion type: [place] artery [place] vs. transplanted heart: l[place] heart Associated angina: without angina Qualified Code(s): I25.10 - Atherosclerotic heart disease of [place] coronary artery without angina pectoris (12) Chronic anticoagulation: Secondary to atrial fibrillation, previously was on coumadin last cardiology visit 08/2020. Home medication list at admission (taken from [place] records but not confirmed due to unable to reach family and medical condition) apixaban. Indications in cardiology notes are that he was on coumadin. Unclear which he was taking. Status: Chronic Additional A&P Information Current working diagnosis is PE secondary to DVT in the right lower extremity. Low-grade fevers could be associated with this but cannot rule out an infection. Procalcitonin level is elevated suggesting possibility of pneumonia which would have been present on admission given nonspecific infiltrates on chest x-ray since that time. Continues to have intermittent hypoglycemia and requiring low-dose pressor support. Not weaning from ventilator as expected. Continue antibiotics Follow-up blood cultures Pulmonology consultation today CTA of the chest prior to hemodialysis today Continue hemodialysis support as per usual Wednesdays and Fridays schedule, appreciate nephrology assistance We will work on further weaning post hemodialysis Continue heparin drip Will need resumption of oral anticoagulation when medically appropriate - either coumadin versus eliquis, unclear what he was taking prior to admission Continue attempts to wean off pressors Cardiology follows, cardiac catheterization may be considered when medically stableCardiology follows, cardiac catheterization may be considered when medically stable Monitor rate for need to resume lower dose diltiazem and/or beta-blockade Off of home isosorbide On home PPI and aspirin Continue Gallegos catheter for now with plan to remove once extubated On trophic tube feeds Monitor blood sugars closely If hypoglycemia persists, consider checking insulin, c-peptide, betahydroxybuterate, proinsulin and drug levels (sulfonylurea and meglitinide) Requested medical records have still not arrived Hepatitis C viral load and genotype pending Need to review with family when available, they did call last evening Supportive care otherwise Pending/ordered tests to follow: Blood cultures, sputum culture, Hep C labs Lines/tubes: Dialysis catheter in the right upper chest, EJ in the neck, no central line, gallegos DVT prophylaxis: Currently on heparin drip secondary to DVT in the right lower extremity Anticipated Disposition: Currently anticipate disposition home but will depend on clinical course Code Status: Full code Attestations Medical Necessity Statement*: Requires ongoing inpatient care for management as noted above. Continues to require question of support, ventilatory support, heparin drip, antibiotics. Coding Level of Care Code Acute Reclaimer for [facility] Fwd Diagnoses Respiratory arrest R09.2 Hypoglycemia E16.2 Atrial fibrillation with slow ventricular response I48.91 Hypotension I95.89 Hypotension type: other hypotension type Elevated troponin R77.8 DVT (deep venous thrombosis) I82.491 DVT location: lower extremity Affected thrombotic vein of extremity: other lower extremity vein Chronicity: acute Laterality: right Hypothermia T68.XXXA Encounter type: initial encounter Lactic acidosis E87.2 Hepatitis C antibody test positive R76.8 End stage chronic kidney disease N18.6 CAD (coronary artery disease) I25.10 Coronary Disease-Associated Artery/Lesion type: [place] artery [place] vs. transplanted heart: l[place] heart Associated angina: without angina Chronic anticoagulation Z79.01
[2021-04-07] MEDS: iodixanol 320 mg/mL 100mL Btl IV (09:06)
[2021-04-07] MEDS: pantoprazole DR 40 mg Tablet PO ×2 (09:20→17:43)
[2021-04-07] MEDS: aspirin 81 mg EC Tablet PO (09:20)
[2021-04-07] MEDS: dextrose 5%-sod chloride 0.9% 1,000 ML 100 ML IV ×3 (09:20→23:26)
--- NOTE | 2021-04-07 10:30 | PC.NURSE ---
Patient to CT on monitor with RN et RT.
--- NOTE | 2021-04-07 11:00 | PC.NURSE ---
Patient returned to ICU #11. Patient connected to bedside monitor. Patient tolerated CT et transport well.
[2021-04-07 11:39] LABS: HEP C RNA Viral Load Quant <1.18 NOT DETECTED Log IU/mL (NOT DETECTED); HEP C RNA Viral Load Quant <15 NOT DETECTED IU/mL (NOT DETECTED)
[2021-04-07 12:02] LABS: Glucose Point of Care 80 mg/dL (70-110)
[2021-04-07 12:02] LABS: Glucose Point of Care 97 mg/dL (70-110)
--- NOTE | 2021-04-07 13:45 | PM.PN ---
Subjective Subjective: Interval history: He remains intubated and mechanically ventilated. FiO2 noted to be 30% and PEEP noted to be 5. Will be having SBTs after dialysis today. CT shows fluid overload and no PE Vitals/I&O/Wt Last Vital Signs Temp 98.6 F 04/07/21 08:00 Pulse 104 H 04/07/21 09:15 Resp 17 04/07/21 11:36 BP 126/71 04/07/21 09:15 Pulse Ox 99 04/07/21 11:36 04/06/21 04/07/21 04/07/21 22:59 06:59 14:59 Intake Total 1071.458 / 1614.125 306.087 / 7671.938 2870 / 1000 Output Total 0 / 0 50 / 50 Balance 1071.458 / 1614.125 256.087 / 9454.644 7608 / 1000 Weight last 48 hrs Weight 66.366 kg Weight 67.214 kg Physical Exam Narrative: EXAM NARRATIVE: Constitutional: Sedated and vented HEENT: Wet mucosa, no jvp, non icteric Lungs: Bilaterally clear without discernible wheeze, rales in all lung zones CVS: S1 S2, no murmurs Abdo: Soft, BS ok Ext 4: Minimal edema, peripheral perfusion with no cyanosis Neurological: Grossly non-focal Urinary Catheter Management^: Neal: Cath Placed During This Visit: yes Reason for Continuing Indwelling Catheter: Accurate Measurement of Urinary Output in Critically Ill Patients Urinary Catheter Date of Insertion: 04/05/21 Data : 04/07/21 05:32 04/07/21 05:32 Micro: Microbiology 04/06/21 08:36 Blood Culture - Preliminary Blood NEGATIVE TO DATE 04/06/21 08:56 Blood Culture - Preliminary Blood NEGATIVE TO DATE A&P Additional A&P Information 1. ESRD Seen and examined on dialysis, 2K, UF 2-3 L. Plan next treatment on Monday but will review tomorrow for additional need Dose medication GFR less than 15 on dialysis 2. Vent dependent respiratory failure Weaning per ICU team. Opening his eyes, neurologically responsive which is promising. Currently vent settings are quite stable. SBTs after dialysis today 3. Hemodynamics A. fib with RVR last evening management per Dr. 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
[2021-04-07] MEDS: vancomycin 750 MG in sodium chloride 0.9% 250 ML 250 MG IV (16:03)
--- NOTE | 2021-04-07 17:41 | P.CONIM_ITS ---
Providers/Reason For Consult Consulting Physican/Specialty*: Jeremías Gavin MD/ Pulmonary critical care Reason for Consult*: vent management and help with weaning Requesting Physcian: Courtney Nguyen MD Attending Physician: Courtney Nguyen MD History of Present Illness History of Present Illness Shin Valera is a 65 year old male with a history of end-stage renal disease, atrial fibrillation, history of abdominal aortic aneurysm, GI bleed, coronary artery disease status post CABG, takes Eliquis 2.5 twice brought by EMS to ER for low blood pressure and bradycardia s/p 2 doses of atropine 0.5 mg which did not show much improvement, decision to start transcutaneous pacing was made for which Versed 5 mg was given according to EMS protocol which sedated him completely, failed attempt of intubation by EMS, he was brought in with LMA with undetectable blood pressure and pulse in the 30s slow ventricular response, however after given 1 mg of epinephrine adequate blood pressure and heart rate detected, he was intubated by Dr. Sky with ET tube size 8 secured at lip by 25 cm, failed right femoral vein central line placement, Lt internal jugular triple-lumen catheter was placed successfully. Later patient noted to be in atrial fibrillation and required vasopressors initially. This patient was admitted to hospital August of last year with features of a non-ST elevation myocardial infarction. At that time, he had a myocardial perfusion imaging which revealed some small areas of reversible defect. He decided not to have a cardiac catheterization at that time.Patient is known to have CAD and had a four-vessel coronary bypass surgery in [address] [facility], in [facility]. Details of this is not available.Prior to the open heart surgery in 2011 he had a couple of PCI's. He had a heart attack few years prior to the open heart surgery. Along with a heart attack, he went into cardiac arrest, 3 times. The patient does not know the details but was told about this. He had a cardiac catheterization followed by PCI at that time. The second PCI was few years later. This was done for unstable angina. He was told to have abnormal kidney functions, prior to his open heart surgery. 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 He was told to have stage IV kidney failure.He has a history of hypertension for the last more than 25 years. Also is known to have dyslipidemia. No history for any diabetes. History of Crohn disease for many years. No history for any peripheral artery disease, CVA or any bleeding disorders. Other work-up during this admission showed acute right lower extremity DVT showing extensive occlusive DVT with common femoral vein, deep profunda and superior femoral vein and started on IV heparin due to underlying kidney disease. Today patient underwent a CT angiogram before dialysis which did not show any pulmonary embolism. There are moderate bilateral pleural effusions with compressive atelectasis of the lung bases. Also there is mild enlargement of right heart chambers with evidence of increased right heart strain and tricuspid regurgitation into the hepatic veins. The RIGHT heart has increased in size since 11/02/2020. Pulmonary consultation requested Patient seen at bedside today sedated with fentanyl 75 mg/h Arousable and moving all his limbs On minimal vent settings with FiO2 50% today plan is to get HD Review of Systems General: Reports: 10 or more systems reviewed and unremarkable except in HPI and below, ROS unobtainable due to endotracheal tube and ROS unobtainable due to medical condition Meds/Allergies Home Medications and Allergies Home Medications Medication Instructions Recorded Confirmed Last Taken Type fluticasone propionate 2 spray INTRANASAL DAILY PRN 08/31/20 04/05/21 08/30/20 History testosterone 1 pump TOPICAL DAILY 08/31/20 04/05/21 08/30/20 History isosorbide mononitrate 60 mg PO DAILY #30 tab 09/02/20 04/05/21 Unknown Rx diphenhydramine HCl [Benadryl] 25 mg PO PRN 11/02/20 04/05/21 Unknown History pantoprazole [Protonix] 40 mg PO DAILY 11/02/20 04/05/21 Unknown History aspirin 81 mg PO DAILY #30 tab 11/04/20 04/05/21 Unknown Rx diltiazem HCl 120 mg PO DAILY #30 cap 11/04/20 04/05/21 Unknown Rx metoprolol tartrate 100 mg PO Q12H #60 tab 11/04/20 04/05/21 Unknown Rx apixaban 2.5 mg tablet 2.5 mg PO BID #120 tab 11/10/20 04/05/21 Unknown Rx gabapentin 300 mg PO TID 04/05/21 04/05/21 Unknown History Allergies Allergy/AdvReac Type Severity Reaction Status Date / Time No Known Allergies Allergy Verified 01/27/21 08:38 Current Medications Current Medications Generic Name Dose Route Start Last Admin Trade Name Freq PRN Reason Stop Dose Admin Aspirin 81 mg 04/05/21 09:00 04/07/21 09:20 Aspirin 81 Mg Ec Tablet PO 81 mg DAILY LEOBARDO Administration Heparin Sodium (Beef Lung) 0 unit 04/05/21 02:31 04/06/21 18:14 Heparin 5,000 Unit/Ml Inj 1 Ml IV 2,700 unit PRN PRN Administration Heparin weight-base protocol Protocol Norepinephrine Bitartrate 4 mg 254 mls @ 0 mls/hr 04/05/21 02:30 04/07/21 04:44 / Dextrose IV Infused .Q0M LEOBARDO Titration Protocol Per Protocol Midazolam HCl 100 mg/ Sodium 100 mls @ 0 mls/hr 04/05/21 02:30 04/05/21 15:10 Chloride IV 0 mg/hr .Q0M LEOBARDO 0 mls/hr Titration Protocol Per Protocol Heparin Sodium/Sodium Chloride 25,000 unit in 500 mls @ 0 mls/hr 04/05/21 02:45 04/06/21 18:14 Heparin Drip IV 11.76 unit/kg/hr .Q0M LEOBARDO 16 mls/hr Titration Protocol Per Protocol Fentanyl 1,000 mcg/ Sodium 100 mls @ 0 mls/hr 04/05/21 05:45 04/07/21 06:06 Chloride IV 75 mcg/hr .Q0M LEOBARDO 7.5 mls/hr Administration Protocol Per Protocol Epinephrine HCl 2.5 mg/ Sodium 252.5 mls @ 0 mls/hr 04/05/21 05:45 04/05/21 19:03 Chloride IV 0 mcg/min .Q0M LEOBARDO 0 mls/hr Titration Protocol Per Protocol Dextrose 500 mls @ 100 mls/hr 04/05/21 12:53 04/06/21 02:30 D5w IV Infused ONCE PRN Infusion Adult Acute Hypoglycemia Prot Protocol Vancomycin HCl 750 mg/ Sodium 250 mls @ 250 mls/hr 04/07/21 15:00 04/07/21 16:03 Chloride IV 250 mls/hr MoWeFr LEOBARDO Administration Protocol Piperacillin Sod/Tazobactam 50 mls @ 12.5 mls/hr 04/06/21 11:30 04/07/21 16:04 Sod 3.375 gm/ Sodium Chloride IV 12.5 mls/hr Q12H LEOBARDO Administration Protocol Dextrose/Sodium Chloride 1,000 mls @ 100 mls/hr 04/06/21 21:00 04/07/21 16:08 Dextrose 5%-Sod Chloride 0.9% IV 100 mls/hr .Q10H LEOBARDO Administration Insulin Aspart 0 unit 04/05/21 21:00 04/06/21 20:41 Insulin Aspart 100 Unit/1 Ml SUBCUT Not Given BEDTIME LEOBARDO Protocol Insulin Aspart 0 unit 04/05/21 18:00 04/07/21 17:08 Insulin Aspart 100 Unit/1 Ml SUBCUT Not Given TIDWM LEOBARDO Protocol Pantoprazole Sodium 40 mg 04/05/21 09:00 04/07/21 09:[address] 40 Mg Tablet PO 40 mg BID LEOBARDO Administration PFSH Acute PFSH: Medical History Abdominal aortic aneurysm Anemia Atherosclerotic heart disease of [place] coronary artery with unstable angina pectoris Atrial fibrillation CAD (coronary artery disease) Chronic kidney disease History of Crohn's disease History of pancreatitis Gallstone pancreatitis Hypertension Surgical History H/O aortic aneurysm repair 09/2020 [facility] History of cholecystectomy History of coronary artery stent placement Right coronary artery, prior to bypass History of four vessel coronary artery bypass graft (~2011) History of resection of large bowel Partial, secondary to Crohn's Family History Mother Stroke CHF (congestive heart failure) Father Valvular heart disease Social History Smoking and tobacco status: former smoker Alcohol intake: never Vitals/I&O/Wt Last Vital Signs Temp 98.4 F 04/07/21 16:00 Pulse 77 04/07/21 17:00 Resp 16 04/07/21 16:37 BP 106/62 04/07/21 17:00 Pulse Ox 100 04/07/21 17:00 04/07/21 04/07/21 04/07/21 06:59 14:59 22:59 Intake Total 306.087 / 1459.510 6858 / 1050 680 / 1730 Output Total 50 / 50 0 / 0 Balance 256.087 / 0531.292 0103 / 1050 680 / 1730 Weight last 48 hrs Weight 146 lb 5 oz Weight 148 lb 2.904 oz Physical Exam Narrative: EXAM NARRATIVE: PHYSICAL EXAM: General: lying in bed, sedated and intubated. HEENT:NCAT, PERRLA, EOMI Neck: Supple Lungs: Clear, Heart: s1/s2, RRR Abd: soft, NT, ND, BS + Normoactive Extremities: No edema CARPET RENOVATOR: sedated and limited CARPET RENOVATOR exam possible. SKIN: no rash LDA: # CVC: LEFT IJ 04/05/21 # HD Cath : right subclavian Urinary Catheter Management^: Neal: Cath Placed During This Visit: yes Reason for Continuing Indwelling Catheter: Accurate Measurement of Urinary Output in Critically Ill Patients Urinary Catheter Date of Insertion: 04/05/21 Data Labs: Other Labs: Laboratory Results WBC 9.9 10^3/uL (4.0- 10.0) 04/07/21 05:32 RBC 4.04 10^6/uL (4.1 -5.3) L 04/07/21 05:32 Hgb 11.1 g/dL (11.7-1 6.6) L 04/07/21 05:32 Hct 36.8 % (42.0-52.0 ) L 04/07/21 05:32 MCV 91.1 fL (80-94) 04/07/21 05:32 MCH 27.5 pg (28.0-34. 0) L 04/07/21 05:32 MCHC 30.2 g/dL (30.0-3 6.0) 04/07/21 05:32 RDW 18.6 % (12.1-15.1 ) H 04/07/21 05:32 Plt Count 147 10^3/cmm (130 -400) 04/07/21 05:32 MPV 9.9 fL (7.4-10.4) 04/07/21 05:32 Neut % (Auto) 77.9 % 04/07/21 05:32 Lymph % (Auto) 11.0 % 04/07/21 05:32 Harmon % (Auto) 8.7 % 04/07/21 05:32 Eos % (Auto) 1.6 % 04/07/21 05:32 Baso % (Auto) 0.3 % 04/07/21 05:32 Neut # (Auto) 7.71 10^3/uL (1.8 -7.7) H 04/07/21 05:32 Lymph # (Auto) 1.1 10^3/uL (0.8- 4.8) 04/07/21 05:32 Harmon # (Auto) 0.9 10^3/uL (0.2- 0.9) 04/07/21 05:32 Eos # (Auto) 0.2 10^3/uL (0.0- 0.8) 04/07/21 05:32 Baso # (Auto) 0.0 10^3/uL (0.0- 0.1) 04/07/21 05:32 Nucleated RBC % (a uto) 0 % 04/07/21 05:32 Nucleated RBCs # 0.0 /100WBC 04/07/21 05:32 PT 18.50 SECONDS (12 .1-14.9) H 04/06/21 04:00 INR 1.50 (0.8-1.2) H 04/06/21 04:00 APTT 50.0 SECONDS (23. 9-36.7) H 04/07/21 16:40 D-Dimer 6.15 ug/mIFEU (0- 0.59) H 04/05/21 02:31 Specimen Type Arterial 04/05/21 03:44 Sample Site Radial, right 04/05/21 03:44 ABG pH 7.44 (7.35-7.45) 04/05/21 03:44 ABG pCO2 34.9 mmHg (35-45) L 04/05/21 03:44 ABG pO2 105.0 mmHg (80.0- 100.0) H 04/05/21 03:44 ABG HCO3 23.8 mmol/L (22-2 6) 04/05/21 03:44 ABG O2 Saturation 87.1 04/04/21 22:16 ABG Base Excess -0.1 mmol/L (-2.0 -2.0) 04/05/21 03:44 Eusebio Test Pos 04/05/21 03:44 A-a O2 Gradient 77.8 mmHg (5-10) H 04/04/21 22:16 Hematocrit 33.5 % (42-52) L 04/05/21 03:44 Hgb O2 Saturation 84.9 % (95-100) L 04/04/21 22:16 Carboxyhemoglobin 1.5 %THgb (0.4-20 .1) 04/04/21 22:16 Methemoglobin 1.0 % (0.4-1.5) 04/04/21 22:16 Total Hemoglobin 8.6 g/dL (14-18) L 04/04/21 22:16 Sodium 137.0 mmol/L (131 -143) 04/04/21 22:16 Potassium 4.7 mmol/L (3.5-5 .0) 04/04/21 22:16 Glucose 63.0 mg/dL (70-11 5) L 04/04/21 22:16 Ionized Calcium 0.7 mmol/L (1.1-1 .4) L 04/04/21 22:16 O2 Delivery Device Vent 04/05/21 03:44 O2 Liters/Min 15.0 % 04/04/21 22:16 FiO2 50.0 % 04/05/21 03:44 Tidal Volume 0.45 04/05/21 03:44 PEEP 5.0 cmH20 04/05/21 03:44 Dental Services Director ID jmn 04/05/21 03:44 Sodium 130 mmol/L (136-1 45) L 04/07/21 05:32 Potassium 4.3 mmol/L (3.5-5 .1) 04/07/21 05:32 Chloride 97 mmol/L (98-107 ) L 04/07/21 05:32 Carbon Dioxide 26 mmol/L (22-29) 04/07/21 05:32 Anion Gap 11.3 (5-19) 04/07/21 05:32 BUN 25 mg/dL (8-23) H 04/07/21 05:32 Creatinine 5.2 mg/dL (0.7-1. 2) H 04/07/21 05:32 GFR Calculation 11.1 mL/min (90-1 30) L 04/07/21 05:32 Glucose 128 mg/dL (65-115 ) H 04/07/21 05:32 POC Glucose 80 mg/dL (70-110) 04/07/21 10:30 Estimat Average Gl ucose 91 04/07/21 05:32 Hemoglobin A1c 4.8 % (4.0-6.0) 04/07/21 05:32 Calculated Osmolal ity 276 mOsm/kg (285- 295) L 04/07/21 05:32 Lactate 2.3 mmol/L (0.5-2 .2) H 04/05/21 02:58 Calcium 7.3 mg/dL (8.5-10 .5) L 04/07/21 05:32 Phosphorus 4.4 mg/dL (2.5-4. 5) 04/07/21 05:32 Magnesium 1.9 mg/dL (1.7-2. 3) 04/07/21 05:32 Total Bilirubin 0.4 mg/dL (0.15-1 .2) 04/04/21 20:51 AST 24 U/L (0-40) 04/04/21 20:51 ALT 27 U/L (0-41) 04/04/21 20:51 Alkaline Phosphata se 130 IU/L (40-130) 04/04/21 20:51 Troponin T Gen 5 n g/L Cancelled 04/04/21 20:51 Troponin T Baselin e 70 ng/L (0-15) H 04/04/21 20:51 Troponin T 120 Min lizabeth 63.13 ng/L (0-15) H 04/04/21 22:36 Delta Troponin T -6.87 ABS# (0-10) L 04/04/21 22:36 Troponin T Hi Sens 6Hr 36.62 ng/L (0-15) H 04/05/21 02:58 Troponin T Hi Sens 6Hr Delta -33.38 ng/L (0-12 ) L 04/05/21 02:58 Total Protein 6.6 g/dL (6.6-8.7 ) 04/04/21 20:51 Albumin 3.1 g/dL (3.5-5.2 ) L 04/04/21 20:51 Globulin 3.5 g/dL (1.3-4.6 ) 04/04/21 20:51 Procalcitonin 2.99 ng/mL (0-0.5 ) H 04/06/21 04:00 TSH 2.41 uIU/mL (0.27 -4.20) 04/05/21 02:58 Hep Bs Antigen Non-reactive (No nreactive) 04/05/21 09:58 Hepatitis C Antibo dy Reactive (Nonrea ctive) H 04/05/21 09:58 HCV RNA (PCR) IUs/ ml <1.18 not detecte d Log IU/mL (NOT D ETECTED) 04/06/21 04:00 HCV RNA (PCR) IU l og10 <15 not detected IU/mL (NOT DETECTE D) 04/06/21 04:[address] 04/04/21 23:30 IMPRESSION: 1. No acute intracranial hemorrhage or mass effect. 2. Changes of microvascular disease, and old infarcts, details above. 3. No definite acute infarct by CT, see above. 4. Other findings discussed above. Radiation Dose CTDIVOL = (mGy): DLP = 777.95 (mGy-cm) Chest X-Ray 04/06/21 07:35 IMPRESSION: 1. Stable chest without acute process. 2. Stable position of life support structures. Chest CTA 04/07/21 08:27 IMPRESSION: 1. No pulmonary embolism. 2. Moderate bilateral pleural effusions with compressive atelectasis at the lung bases. 3. Endotracheal and nasogastric tubes in good position. 4. Marked enlargement of the RIGHT heart chambers with evidence for increased RIGHT heart strain and tricuspid regurgitation into the hepatic veins. The RIGHT heart has increased in size since 11/02/2020. 5. Small amount of ascites adjacent to the liver. 6. Anterior mediastinal stranding secondary to small amount of posttraumatic bl eeding at the site of the LEFT central line insertion site. No active bleeding. 7. Soft tissue anasarca. Micro: Micro: Microbiology 04/06/21 08:36 Blood Culture - Pr eliminary Blood NEGATIVE TO AURELIO E 04/06/21 08:56 Blood Culture - Pr eliminary Blood NEGATIVE TO AURELIO E A&P Assessment and plan (1) CAD (coronary artery disease): Status: Chronic Qualifiers: Coronary Disease-Associated Artery/Lesion type: [place] artery [place] vs. transplanted heart: [place] heart Associated angina: without angina Qualified Code(s): I25.10 - Atherosclerotic heart disease of [place] coronary artery without angina pectoris (2) DVT (deep venous thrombosis): Status: Acute Qualifiers: DVT location: lower extremity Affected thrombotic vein of extremity: other lower extremity vein Chronicity: acute Laterality: right Qualified Code(s): I82.491 - Acute embolism and thrombosis of other specified deep vein of right lower extremity (3) Bradycardia: Status: Acute (4) Atrial fibrillation with slow ventricular response: Status: Acute (5) End stage chronic kidney disease: Status: Acute (6) Recent non-ST elevation myocardial infarction: Status: Acute (7) Ventilator dependent: Status: Acute #Acute hypoxic respiratory failure secondary to bradycardia/atrial fibrillation with RVR in patient with ESRD and right leg DVT suspected PE -Currently on mechanical ventilator 450/5/50 %/14-7.4 4/34/105/23/90% -Currently on fentanyl 75 0 -CTA today: No evidence of PE moderate bilateral pleural effusions likely secondary to CHF and ESRD -= scheduled for dialysis today -Taper off sedation do awakening trial tomorrow and if successful will put on SBT -Plan for extubation tomorrow a.m. -Currently off pressors, normal WBC count, afebrile -Initial procalcitonin 2.99-So far cultures negative -Covered with Zosyn, Levaquin and vancomycin -Currently also on IV heparin for right leg DVT seen on venous Doppler Consult Attestations Medical Necessity Statement: Currently intubated and mechanically ventilated for respiratory support in a patient with bilateral moderate pleural effusion secondary to CHF and A. fib and ESRD. on iv heparin in pt. with right leg DVT Time Spent in Patient Care: Greater than 35 minutes (>than 50% of time spent in counselling and/or direct pt care on unit) . Critical Care Time: The high probability of a clinically significant, sudden or life threatening deterioration of the patient's respiratory, cardiac, renal, neurological system(s) required my full and direct attention, intervention and personal management. The critical care time is as shown. This time is in addition to time spent performing any reported procedures but includes the following: [x] Data and vital sign review and interpretation [x] Patient assessment, examination and intervention [x] Documentation [x] Medication orders and management Critical Care Time (min): 45 Coding Level of Care Code New Pt Acute Health Administrator for Chg Fwd Patient Type New History Comprehensive Exam Comprehensive Medical Decision Making High Complexity Diagnoses CAD (coronary artery disease) I25.10 Coronary Disease-Associated Artery/Lesion type: [place] artery [place] vs. transplanted heart: [place] heart Associated angina: without angina DVT (deep venous thrombosis) I82.491 DVT location: lower extremity Affected thrombotic vein of extremity: other lower extremity vein Chronicity: acute Laterality: right Bradycardia R00.1 Atrial fibrillation with slow ventricular response I48.91 End stage chronic kidney disease N18.6 Recent non-ST elevation myocardial infarction Ventilator dependent Z99.11 Time Spent (min) 45
--- NOTE | 2021-04-07 17:56 | PM.PN ---
Subjective Subjective: Interval history: The patient still remains intubated. But he is more alert to be responding to the commands. No chest pain or chest tightness. Remains afebrile. Vital signs remained stable. Medications: Reviewed: Yes Medication Review Details: Current Medications Aspirin (Aspirin 81 Mg Ec Tablet) 81 mg PO DAILY LEOBARDO Last Admin: 04/05/21 09:19 Dose: Not Given Documented by: Dextrose (Dextrose 50% Syringe 50 Ml) 25 ml IVP ONCE PRN; Protocol PRN Reason: hypoglycemia protocol Dextrose (Dextrose 50% Syringe 50 Ml) 50 ml IVP PRN PRN; Protocol PRN Reason: hypoglycemia protocol Last Admin: 04/05/21 21:16 Dose: 50 ml Documented by: Glucagon (Glucagon 1 Mg/Ml Inj 1 Ml) 1 mg IM ONCE PRN; Protocol PRN Reason: Adult Acute Hypoglycemia Prot. Heparin Sodium (Beef Lung) (Heparin 5,000 Unit/Ml Inj 1 Ml) 0 unit IV PRN PRN; Protocol PRN Reason: Heparin weight-base protocol Norepinephrine Bitartrate 4 mg (/ Dextrose) 254 mls @ 0 mls/hr IV .Q0M LEOBARDO; Protocol Last Titration: 04/06/21 05:03 Dose: 2 mcg/min, 7.6 mls/hr Documented by: Midazolam HCl 100 mg/ Sodium (Chloride) 100 mls @ 0 mls/hr IV .Q0M LEOBARDO; Protocol Last Titration: 04/05/21 15:10 Dose: 0 mg/hr, 0 mls/hr Documented by: Heparin Sodium/Sodium Chloride (Heparin Drip) 25,000 unit in 500 mls @ 0 mls/hr IV .Q0M LEOBARDO; Protocol Last Titration: 04/05/21 22:24 Dose: 9.55 unit/kg/hr, 13 mls/hr Documented by: Fentanyl 1,000 mcg/ Sodium (Chloride) 100 mls @ 0 mls/hr IV .Q0M LEOBARDO; Protocol Last Titration: 04/06/21 05:35 Dose: 75 mcg/hr, 7.5 mls/hr Documented by: Epinephrine HCl 2.5 mg/ Sodium (Chloride) 252.5 mls @ 0 mls/hr IV .Q0M LEOBARDO; Protocol Last Titration: 04/05/21 19:03 Dose: 0 mcg/min, 0 mls/hr Documented by: Sodium Chloride (Sodium Chloride 0.9%) 1,000 mls @ 0 mls/hr IV .Q0M PRN PRN Reason: hypotension or symptomatic Dextrose (D5w) 500 mls @ 100 mls/hr IV ONCE PRN; Protocol PRN Reason: Adult Acute Hypoglycemia Prot Last Infusion: 04/06/21 02:30 Dose: Infused Documented by: Vancomycin HCl 750 mg/ Sodium (Chloride) 250 mls @ 250 mls/hr IV MoWeFr LEOBARDO; Protocol Piperacillin Sod/Tazobactam (Sod 3.375 gm/ Sodium Chloride) 50 mls @ 12.5 mls/hr IV Q12H LEOBARDO; Protocol Levofloxacin/Dextrose (Levaquin-D5w) 750 mg in 150 mls @ 100 mls/hr IV ONCE ONE; Protocol Stop: 04/06/21 09:29 Levofloxacin/Dextrose (Levaquin-D5w) 500 mg in 100 mls @ 100 mls/hr IV Q48H LEOBARDO Vancomycin/PEG/NADA/Lysine/Water (Vancocin) 1,250 mg in 250 mls @ 200 mls/hr IV ONCE ONE Stop: 04/06/21 11:14 Insulin Aspart (Insulin Aspart 100 Unit/1 Ml) 0 unit SUBCUT BEDTIME LEOBARDO; Protocol Last Admin: 04/05/21 21:28 Dose: Not Given Documented by: Insulin Aspart (Insulin Aspart 100 Unit/1 Ml) 0 unit SUBCUT TIDWM LEOBARDO; Protocol Last Admin: 04/05/21 18:26 Dose: Not Given Documented by: Pantoprazole Sodium (Pantoprazole Dr 40 Mg Tablet) 40 mg PO BID LEOBARDO Last Admin: 04/05/21 18:26 Dose: Not Given Documented by: Vitals/I&O/Wt Last Vital Signs Temp 98.4 F 04/07/21 16:00 Pulse 77 04/07/21 17:00 Resp 16 04/07/21 16:37 BP 106/62 04/07/21 17:00 Pulse Ox 100 04/07/21 17:00 04/07/21 04/07/21 04/07/21 06:59 14:59 22:59 Intake Total 306.087 / 2153.977 3349 / 1050 1262.267 / 2312.267 Output Total 50 / 50 0 / 0 Balance 256.087 / 0250.092 6478 / 1050 1262.267 / 2312.267 Weight last 48 hrs Weight 146 lb 5 oz Weight 148 lb 2.904 oz Physical Exam Narrative: EXAM NARRATIVE: GENERAL: The patient is intubated and sedated. HEENT: Minimal pallor. Pupils are dilated and sluggishly reacting to light. Oral cavity: There are no mucous membrane lesions. Funduscopic examination: The fundus is not visualized NECK: Trachea appears to be central. No masses noted. No JVD or thyromegaly appreciated. No carotid bruit. RESPIRATORY: There are some slight bilateral no rales or rhonchi BREASTS: Deferred. HEART: The heart sounds are normal no S3 or S4. Short systolic murmur in the left sternal border. Ejection systolic murmur of grade 2/6 in the aortic area. No diastolic murmurs. ABDOMEN: No vessel pulsations or distention. No tenderness. No organomegaly appreciated. No abdominal bruit. Bowel sounds are normally heard. : Deferred. RECTAL: Deferred. LYMPHATIC: No lymphadenopathy noted in the neck or groin. EXTREMITIES: There is hematoma in the left upper extremity. Dialysis access site on the left side. In the right leg, the big toe and the lateral 2 toes appears to be cyanotic some cyanotic changes are noted in the plantar aspect of the toes on the left side. Dorsalis pedis and posterior pulses are extremely weak bilaterally. MUSCULOSKELETAL: No acute joint deformities or swelling. SKIN: Multiple ecchymotic areas in the upper extremity. Healing skin abrasions in the anterior knee bilaterally NEUROPSYCHIATRIC: Patient is intubated. Moving all extremities. Urinary Catheter Management^: Neal: Cath Placed During This Visit: yes Reason for Continuing Indwelling Catheter: Accurate Measurement of Urinary Output in Critically Ill Patients Urinary Catheter Date of Insertion: 04/05/21 Data : 04/08/21 05:08 04/08/21 05:08 Other Labs: Laboratory Last Values WBC 9.9 10^3/uL (4.0-10.0) 04/07/21 05:32 RBC 4.04 10^6/uL (4.1-5.3) L 04/07/21 05:32 Hgb 11.1 g/dL (11.7-16.6) L 04/07/21 05:32 Hct 36.8 % (42.0-52.0) L 04/07/21 05:32 MCV 91.1 fL (80-94) 04/07/21 05:32 MCH 27.5 pg (28.0-34.0) L 04/07/21 05:32 MCHC 30.2 g/dL (30.0-36.0) 04/07/21 05:32 RDW 18.6 % (12.1-15.1) H 04/07/21 05:32 Plt Count 147 10^3/cmm (130-400) 04/07/21 05:32 MPV 9.9 fL (7.4-10.4) 04/07/21 05:32 Neut % (Auto) 77.9 % 04/07/21 05:32 Lymph % (Auto) 11.0 % 04/07/21 05:32 [place] % (Auto) 8.7 % 04/07/21 05:32 Eos % (Auto) 1.6 % 04/07/21 05:32 Baso % (Auto) 0.3 % 04/07/21 05:32 Neut # (Auto) 7.71 10^3/uL (1.8-7.7) H 04/07/21 05:32 Lymph # (Auto) 1.1 10^3/uL (0.8-4.8) 04/07/21 05:32 [place] # (Auto) 0.9 10^3/uL (0.2-0.9) 04/07/21 05:32 Eos # (Auto) 0.2 10^3/uL (0.0-0.8) 04/07/21 05:32 Baso # (Auto) 0.0 10^3/uL (0.0-0.1) 04/07/21 05:32 Nucleated RBC % (auto) 0 % 04/07/21 05:32 Nucleated RBCs # 0.0 /100WBC 04/07/21 05:32 PT 18.50 SECONDS (12.1-14.9) H 04/06/21 04:00 INR 1.50 (0.8-1.2) H 04/06/21 04:00 APTT 50.0 SECONDS (23.9-36.7) H 04/07/21 16:40 D-Dimer 6.15 ug/mIFEU (0-0.59) H 04/05/21 02:31 Specimen Type Arterial 04/05/21 03:44 Sample Site Radial, right 04/05/21 03:44 ABG pH 7.44 (7.35-7.45) 04/05/21 03:44 ABG pCO2 34.9 mmHg (35-45) L 04/05/21 03:44 ABG pO2 105.0 mmHg (80.0-100.0) H 04/05/21 03:44 ABG HCO3 23.8 mmol/L (22-26) 04/05/21 03:44 ABG O2 Saturation 87.1 04/04/21 22:16 ABG Base Excess -0.1 mmol/L (-2.0-2.0) 04/05/21 03:44 Eusebio Test Pos 04/05/21 03:44 A-a O2 Gradient 77.8 mmHg (5-10) H 04/04/21 22:16 Hematocrit 33.5 % (42-52) L 04/05/21 03:44 Hgb O2 Saturation 84.9 % (95-100) L 04/04/21 22:16 Carboxyhemoglobin 1.5 %THgb (0.4-20.1) 04/04/21 22:16 Methemoglobin 1.0 % (0.4-1.5) 04/04/21 22:16 Total Hemoglobin 8.6 g/dL (14-18) L 04/04/21 22:16 Sodium 137.0 mmol/L (131-143) 04/04/21 22:16 Potassium 4.7 mmol/L (3.5-5.0) 04/04/21 22:16 Glucose 63.0 mg/dL (70-115) L 04/04/21 22:16 Ionized Calcium 0.7 mmol/L (1.1-1.4) L 04/04/21 22:16 O2 Delivery Device Vent 04/05/21 03:44 O2 Liters/Min 15.0 % 04/04/21 22:16 FiO2 50.0 % 04/05/21 03:44 Tidal Volume 0.45 04/05/21 03:44 PEEP 5.0 cmH20 04/05/21 03:44 Senior Accounting Manager ID [email or web address] 04/05/21 03:44 Sodium 130 mmol/L (136-145) L 04/07/21 05:32 Potassium 4.3 mmol/L (3.5-5.1) 04/07/21 05:32 Chloride 97 mmol/L (98-107) L 04/07/21 05:32 Carbon Dioxide 26 mmol/L (22-29) 04/07/21 05:32 Anion Gap 11.3 (5-19) 04/07/21 05:32 BUN 25 mg/dL (8-23) H 04/07/21 05:32 Creatinine 5.2 mg/dL (0.7-1.2) H 04/07/21 05:32 GFR Calculation 11.1 mL/min (90-130) L 04/07/21 05:32 Glucose 128 mg/dL (65-115) H 04/07/21 05:32 POC Glucose 80 mg/dL (70-110) 04/07/21 10:30 Estimat Average Glucose 91 04/07/21 05:32 Hemoglobin A1c 4.8 % (4.0-6.0) 04/07/21 05:32 Calculated Osmolality 276 mOsm/kg (285-295) L 04/07/21 05:32 Lactate 2.3 mmol/L (0.5-2.2) H 04/05/21 02:58 Calcium 7.3 mg/dL (8.5-10.5) L 04/07/21 05:32 Phosphorus 4.4 mg/dL (2.5-4.5) 04/07/21 05:32 Magnesium 1.9 mg/dL (1.7-2.3) 04/07/21 05:32 Total Bilirubin 0.4 mg/dL (0.15-1.2) 04/04/21 20:51 AST 24 U/L (0-40) 04/04/21 20:51 ALT 27 U/L (0-41) 04/04/21 20:51 Alkaline Phosphatase 130 IU/L (40-130) 04/04/21 20:51 Troponin T Gen 5 ng/L Cancelled 04/04/21 20:51 Troponin T Baseline 70 ng/L (0-15) H 04/04/21 20:51 Troponin T 120 Minute 63.13 ng/L (0-15) H 04/04/21 22:36 Delta Troponin T -6.87 ABS# (0-10) L 04/04/21 22:36 Troponin T Hi Sens 6Hr 36.62 ng/L (0-15) H 04/05/21 02:58 Troponin T Hi Sens 6Hr Delta -33.38 ng/L (0-12) L 04/05/21 02:58 Total Protein 6.6 g/dL (6.6-8.7) 04/04/21 20:51 Albumin 3.1 g/dL (3.5-5.2) L 04/04/21 20:51 Globulin 3.5 g/dL (1.3-4.6) 04/04/21 20:51 Procalcitonin 2.99 ng/mL (0-0.5) H 04/06/21 04:00 TSH 2.41 uIU/mL (0.27-4.20) 04/05/21 02:58 Hep Bs Antigen Non-reactive (Nonreactive) 04/05/21 09:58 Hepatitis C Antibody Reactive (Nonreactive) H 04/05/21 09:58 HCV RNA (PCR) IUs/ml <1.18 not detected Log IU/mL (NOT DETECTED) 04/06/21 04:00 HCV RNA (PCR) IU log10 <15 not detected IU/mL (NOT DETECTED) 04/06/21 04:00 Micro: Microbiology 04/06/21 08:36 Blood Culture - Preliminary Blood NEGATIVE TO DATE 04/06/21 08:56 Blood Culture - Preliminary Blood NEGATIVE TO DATE A&P Assessment and plan (1) Atrial fibrillation with slow ventricular response: Patient may have underlying sinus yesica dysfunction. Medication causing the bradycardia also are considerations. Currently the heart rate is in the normal range. May continue on the current measures. Status: Acute (2) Hypotension: Currently the patient is off all the vaso pressors. His blood pressure seems to be stable. In the process of being extubated Status: Acute Qualifiers: Hypotension type: other hypotension type Qualified Code(s): I95.89 - Other hypotension (3) Respiratory arrest: The respiratory status seems to be improving. Patient had a CTA of the chest. Pulmonary embolism was ruled out. Status: Acute (4) DVT (deep venous thrombosis): Patient is on IV heparin. Consider restarting the oral anticoagulation Status: Acute Qualifiers: Affected thrombotic vein of extremity: other lower extremity vein Chronicity: acute DVT location: lower extremity Laterality: right Qualified Code(s): I82.491 - Acute embolism and thrombosis of other specified deep vein of right lower extremity (5) Elevated troponin: He has LV dysfunction, possibility of him having had a coronary event causing elevated troponin T and LV systolic dysfunction is a consideration. Patient may benefit from a cardiac catheterization, to further evaluate the coronary status. Status: Acute (6) Chronic anticoagulation: He has a history of longstanding atrial fibrillation. Unless there is a contraindication, he may be put back on the Eliquis Status: Chronic (7) End-stage renal disease (ESRD): Patient had a hemodialysis today. Scheduled for next dialysis on Monday. Status: Acute (8) Peripheral cyanosis: Could be related to the peripheral arterial disease. We may go out and do an arterial Doppler examination and RITA. Based on the findings, further management decisions will be made Status: Acute Additional A&P Information Once the patient is medical condition is stable, we may consider doing a cardiac catheterization, to further evaluate the coronary status and decide on further management. Attestations Medical Necessity Statement*: Patient requires continued hospital stay for close monitoring and further management Coding Level of Care Code Acute Hardware Engineering Manager for g Fwd Diagnoses Atrial fibrillation with slow ventricular response I48.91 Hypotension I95.89 Hypotension type: other hypotension type Respiratory arrest R09.2 DVT (deep venous thrombosis) I82.491 Affected thrombotic vein of extremity: other lower extremity vein Chronicity: acute DVT location: lower extremity Laterality: right Elevated troponin R77.8 Chronic anticoagulation Z79.01 End-stage renal disease (ESRD) N18.6 Peripheral cyanosis R23.0
[2021-04-07 21:03] LABS: Glucose Point of Care 72 mg/dL (70-110)
[2021-04-07 21:57] LABS: Glucose Point of Care 119 mg/dL (70-110)
[2021-04-07] MEDS: heparin drip 25,000 UNIT/500 ML PREMIX 17 UNIT IV (23:28)
[2021-04-07 23:41] LABS: Partial Thromboplastin Time 73.9 SECONDS (23.9-36.7)
[2021-04-08] VITALS (59 sets, daily range): BP systolic 98–147; BP diastolic 52–93; PULSE 81–128; RESP 10–26; TEMP 36.4–37.1; O2SAT 91–100
--- NOTE | 2021-04-08 01:33 | PC.NURSE ---
ASSUMING CARE Patient is resting in bed on mechanical ventilation, FiO2 at 30%, PEEP 5, TV 450, and Rate of 14. Patient is awake and watching nurse walk around room. Patient nods his head no when asked if he is in pain, and he follows all commands. D5NS running at 100 mL/hour, heparin drip running at 17 mL/hour, and fentanyl drip running at 75 mcg/hour. Right pedal pulses doppled, left pedal pulses 1+ palpable. Left triple lumen IJ in place.
[2021-04-08] MEDS: piperacillin-tazobactam 3.375 GM in sodium chloride 0.9% (plus) 50 ML IV ×2 (03:54→16:17)
[2021-04-08 05:22] LABS: Basophils % 0.4 %; Eosinophils # 0.3 10^3/uL (0.0-0.8); Eosinophils % 3.6 %; Hematocrit 32.4 % (42.0-52.0); Hemoglobin 9.8 g/dL (11.7-16.6); Lymphocytes # 0.9 10^3/uL (0.8-4.8); Lymphocytes % 11.3 %; Mean Corpuscular HGB Conc 30.2 g/dL (30.0-36.0); Mean Corpuscular Hemoglobin 27.5 pg (28.0-34.0); Mean Corpuscular Volume 90.8 fL (80-94); Mean Platelet Volume 10.2 fL (7.4-10.4); Monocytes # 0.8 10^3/uL (0.2-0.9); Monocytes % 9.5 %; Neutrophils # 6.04 10^3/uL (1.8-7.7); Neutrophils % 74.8 %; Nucleated Red Blood Cells % 0 %; Platelet Count 133 10^3/cmm (130-400); Red Blood Count 3.57 10^6/uL (4.1-5.3); Red Cell Distribution Width 18.6 % (12.1-15.1); White Blood Count 8.1 10^3/uL (4.0-10.0)
[2021-04-08] MEDS: lanolin oint 7 gm 1 APPLIC TOPICAL (05:30)
[2021-04-08 05:39] LABS: ABG PCO2 41.9 mmHg (35-45); ABG PH Result 7.42 (7.35-7.45); Arterial Blood Gas Hematocrit 32.1 % (42-52); Base Excess ABG 2.5 mmol/L (-2.0-2.0); Blood Gas Allen Test Pos; Blood Gas Sample Type Arterial; HCO3 ABG 27.3 mmol/L (22-26)
[2021-04-08 05:41] LABS: Blood Gas Operator Identificat HARKR; Blood Gas Sample Site Radial, right; Blood Gas Tidal Volume 0.45; Oxygen Device VENT
[2021-04-08 05:42] LABS: Partial Thromboplastin Time 83.1 SECONDS (23.9-36.7)
[2021-04-08 05:47] LABS: Anion Gap 9.6 (5-19); Blood Urea Nitrogen 15 mg/dL (8-23); Carbon Dioxide 27 mmol/L (22-29); Chloride 99 mmol/L (98-107); Glomerular Filtration Rate 15.5 mL/min (90-130); Glucose 93 mg/dL (65-115); Osmolality Calculated 275 mOsm/kg (285-295); Potassium 3.6 mmol/L (3.5-5.1); Sodium 132 mmol/L (136-145)
[2021-04-08 06:09] LABS: Glucose Point of Care 92 mg/dL (70-110)
[2021-04-08 07:25] LABS: Glucose Point of Care 103 mg/dL (70-110)
--- NOTE | 2021-04-08 07:36 | USCV_ITS ---
Shin Valera Age: 66 Gender: M : 1955 Exam Date: 04/08/2021 14:38 Ordering Phys: Pk Parker MD ([email or web address]) Technologist: Priscila Alexander Exam Location: [facility] [place] Indication: MOTTLED Risk Factors: Previous Vascular Surgery: RIGHT LEFT BP: 141.0 / 83.00 BP: / 0 Waveform Velocity (cm/s) Velocity (cm/s) Waveform Triphasic 69.4 Iliac Prox 105.9 Triphasic Triphasic 85.9 Iliac Mid 100.2 Triphasic Triphasic 91.3 Iliac Distal 123.0 Triphasic Triphasic 96.8 AUTOMATED WEAVER 124.2 Triphasic Triphasic 51.1 SFA Prox 98.0 Triphasic Biphasic 71.3 SFA Mid 88.8 Triphasic Biphasic 81.0 SFA Dist 90.0 Triphasic Triphasic 53.0 POP 58.1 Triphasic Triphasic 61.0 CHIEF SECURITY AND SAFETY OFFICER 63.8 Triphasic Triphasic 75.2 DPA 67.2 Triphasic 1.2 RITA 1.1 FINDINGS RT CHIEF SECURITY AND SAFETY OFFICER 110, RT DPA 170 LT CHIEF SECURITY AND SAFETY OFFICER 130, LT DPA 150 Normal resting ABIs bilaterally Normal arterial Doppler waveforms CONCLUSIONS No significant arterial obstruction, based on the above findings Dr Pk Parker MD [facility] (Electronically Signed) Final Date: 09 Apr 2021 19:58 S
--- NOTE | 2021-04-08 08:30 | PC.NURSE ---
Patient on breathing trial. Dr. Gavin at bedside. With RT, the air was removed from the ETT cuff without a cuff leak noted. Dr. Gavin ordered dose of solu-medrol et air was added back into ETT cuff. Will reassess at a later
[2021-04-08] MEDS: levofloxacin-dextrose 5 % 500 MG/100 ML PREMIX 100 MG IV (08:49)
[2021-04-08] MEDS: aspirin 81 mg EC Tablet PO (08:50)
[2021-04-08] MEDS: pantoprazole DR 40 mg Tablet PO ×2 (08:50→19:14)
--- NOTE | 2021-04-08 09:17 | P.PN_ITS ---
Subjective Subjective: Interval history: Patient is still remaining intubated. In the process of being extubated. Vital signs remained stable. Afebrile. No chest pain or any specific cardiac symptoms. He is scheduled for a bronchoscopy by the carbon paper machine operator. Medications: Reviewed: Yes Medication Review Details: Current Medications Aspirin (Aspirin 81 Mg Ec Tablet) 81 mg PO DAILY LEOBARDO Last Admin: 04/08/21 08:50 Dose: 81 mg Documented by: Dextrose (Dextrose 50% Syringe 50 Ml) 25 ml IVP ONCE PRN; Protocol PRN Reason: hypoglycemia protocol Glucagon (Glucagon 1 Mg/Ml Inj 1 Ml) 1 mg IM ONCE PRN; Protocol PRN Reason: Adult Acute Hypoglycemia Prot. Heparin Sodium (Beef Lung) (Heparin 5,000 Unit/Ml Inj 1 Ml) 0 unit IV PRN PRN; Protocol PRN Reason: Heparin weight-base protocol Last Admin: 04/06/21 18:14 Dose: 2,700 unit Documented by: Norepinephrine Bitartrate 4 mg (/ Dextrose) 254 mls @ 0 mls/hr IV .Q0M LEOBARDO; Protocol Last Titration: 04/07/21 04:44 Dose: Infused Documented by: Midazolam HCl 100 mg/ Sodium (Chloride) 100 mls @ 0 mls/hr IV .Q0M LEOBARDO; Protocol Last Titration: 04/05/21 15:10 Dose: 0 mg/hr, 0 mls/hr Documented by: Heparin Sodium/Sodium Chloride (Heparin Drip) 25,000 unit in 500 mls @ 0 mls/hr IV .Q0M LEOBARDO; Protocol Last Titration: 04/08/21 06:03 Dose: 11.76 unit/kg/hr, 16 mls/hr Documented by: Fentanyl 1,000 mcg/ Sodium (Chloride) 100 mls @ 0 mls/hr IV .Q0M LEOBARDO; Protocol Last Titration: 04/08/21 09:02 Dose: 50 mcg/hr, 5 mls/hr Documented by: Epinephrine HCl 2.5 mg/ Sodium (Chloride) 252.5 mls @ 0 mls/hr IV .Q0M LEOBARDO; Protocol Last Titration: 04/05/21 19:03 Dose: 0 mcg/min, 0 mls/hr Documented by: Sodium Chloride (Sodium Chloride 0.9%) 1,000 mls @ 0 mls/hr IV .Q0M PRN PRN Reason: hypotension or symptomatic Dextrose (D5w) 500 mls @ 100 mls/hr IV ONCE PRN; Protocol PRN Reason: Adult Acute Hypoglycemia Prot Last Infusion: 04/06/21 02:30 Dose: Infused Documented by: Vancomycin HCl 750 mg/ Sodium (Chloride) 250 mls @ 250 mls/hr IV MoWeFr [facility]; Protocol Last Infusion: 04/07/21 17:02 Dose: Infused Documented by: Piperacillin Sod/Tazobactam (Sod 3.375 gm/ Sodium Chloride) 50 mls @ 12.5 mls/hr IV Q12H [facility]; Protocol Last Infusion: 04/08/21 07:57 Dose: Infused Documented by: Levofloxacin/Dextrose (Levaquin-D5w) 500 mg in 100 mls @ 100 mls/hr IV Q48H [facility] Last Admin: 04/08/21 08:49 Dose: 100 mls/hr Documented by: Dextrose/Sodium Chloride (Dextrose 5%-Sod Chloride 0.9%) 1,000 mls @ 100 mls/hr IV .Q10H LEOBARDO Last Admin: 04/07/21 23:26 Dose: 100 mls/hr Documented by: Insulin Aspart (Insulin Aspart 100 Unit/1 Ml) 0 unit SUBCUT BEDTIME [facility]; Protocol Last Admin: 04/07/21 21:55 Dose: Not Given Documented by: Insulin Aspart (Insulin Aspart 100 Unit/1 Ml) 0 unit SUBCUT TIDWM [facility]; Protocol Last Admin: 04/08/21 08:48 Dose: Not Given Documented by: Lanolin (Lanolin Oint 7 Gm) 1 applic TOPICAL PRN PRN PRN Reason: DRYNESS Last Admin: 04/08/21 05:30 Dose: 1 applic Documented by: Pantoprazole Sodium (Pantoprazole Dr 40 Mg Tablet) 40 mg PO BID [facility] Last Admin: 04/08/21 08:50 Dose: 40 mg Documented by: Vitals/I&O/Wt Last Vital Signs Temp 98.6 F 04/08/21 08:00 Pulse 103 H 04/08/21 09:00 Resp 10 L 04/08/21 09:00 BP 116/63 04/08/21 09:00 Pulse Ox 100 04/08/21 09:00 04/07/21 04/08/21 04/08/21 22:59 06:59 14:59 Intake Total 1415.642 / 2465.642 1354.984 / 3820.626 101.458 / 101.458 Output Total Balance 1415.642 / 2465.642 1329.984 / 3795.626 86.458 / 86.458 Weight last 48 hrs Weight 160 lb 8 oz Weight 146 lb 5 oz Physical Exam Narrative: EXAM NARRATIVE: GENERAL: The patient is intubated and sedated. HEENT: Minimal pallor. Pupils are dilated and sluggishly reacting to light. Oral cavity: There are no mucous membrane lesions. Funduscopic examination: The fundus is not visualized NECK: Trachea appears to be central. No masses noted. No JVD or thyromegaly appreciated. No carotid bruit. RESPIRATORY: There are some slight bilateral no rales or rhonchi BREASTS: Deferred. HEART: The heart sounds are normal no S3 or S4. Short systolic murmur in the left sternal border. Ejection systolic murmur of grade 2/6 in the aortic area. No diastolic murmurs. ABDOMEN: No vessel pulsations or distention. No tenderness. No organomegaly appreciated. No abdominal bruit. Bowel sounds are normally heard. : Deferred. RECTAL: Deferred. LYMPHATIC: No lymphadenopathy noted in the neck or groin. EXTREMITIES: There is hematoma in the left upper extremity. Dialysis access site on the left side. In the right leg, the big toe and the lateral 2 toes appears to be cyanotic some cyanotic changes are noted in the plantar aspect of the toes on the left side. Dorsalis pedis and posterior pulses are extremely weak bilaterally. MUSCULOSKELETAL: No acute joint deformities or swelling. SKIN: Multiple ecchymotic areas in the upper extremity. Healing skin abrasions in the anterior knee bilaterally NEUROPSYCHIATRIC: Patient is intubated. Moving all extremities. Urinary Catheter Management^: Neal: Cath Placed During This Visit: yes Reason for Continuing Indwelling Catheter: Accurate Measurement of Urinary Output in Critically Ill Patients Urinary Catheter Date of Insertion: 04/05/21 Data : 04/09/21 03:40 04/09/21 03:40 Other Labs: Laboratory Last Values WBC 8.1 10^3/uL (4.0-10.0) 04/08/21 05:08 RBC 3.57 10^6/uL (4.1-5.3) L 04/08/21 05:08 Hgb 9.8 g/dL (11.7-16.6) L 04/08/21 05:08 Hct 32.4 % (42.0-52.0) L 04/08/21 05:08 MCV 90.8 fL (80-94) 04/08/21 05:08 MCH 27.5 pg (28.0-34.0) L 04/08/21 05:08 MCHC 30.2 g/dL (30.0-36.0) 04/08/21 05:08 RDW 18.6 % (12.1-15.1) H 04/08/21 05:08 Plt Count 133 10^3/cmm (130-400) 04/08/21 05:08 MPV 10.2 fL (7.4-10.4) 04/08/21 05:08 Neut % (Auto) 74.8 % 04/08/21 05:08 Lymph % (Auto) 11.3 % 04/08/21 05:08 [place] % (Auto) 9.5 % 04/08/21 05:08 Eos % (Auto) 3.6 % 04/08/21 05:08 Baso % (Auto) 0.4 % 04/08/21 05:08 Neut # (Auto) 6.04 10^3/uL (1.8-7.7) 04/08/21 05:08 Lymph # (Auto) 0.9 10^3/uL (0.8-4.8) 04/08/21 05:08 [place] # (Auto) 0.8 10^3/uL (0.2-0.9) 04/08/21 05:08 Eos # (Auto) 0.3 10^3/uL (0.0-0.8) 04/08/21 05:08 Baso # (Auto) 0.0 10^3/uL (0.0-0.1) 04/08/21 05:08 Nucleated RBC % (auto) 0 % 04/08/21 05:08 Nucleated RBCs # 0.0 /100WBC 04/08/21 05:08 PT 18.50 SECONDS (12.1-14.9) H 04/06/21 04:00 INR 1.50 (0.8-1.2) H 04/06/21 04:00 APTT 83.1 SECONDS (23.9-36.7) H 04/08/21 05:08 D-Dimer 6.15 ug/mIFEU (0-0.59) H 04/05/21 02:31 Specimen Type Arterial 04/08/21 05:28 Sample Site Radial, right 04/08/21 05:28 ABG pH 7.42 (7.35-7.45) 04/08/21 05:28 ABG pCO2 41.9 mmHg (35-45) 04/08/21 05:28 ABG pO2 74.0 mmHg (80.0-100.0) L 04/08/21 05:28 ABG HCO3 27.3 mmol/L (22-26) H 04/08/21 05:28 ABG O2 Saturation 87.1 04/04/21 22:16 ABG Base Excess 2.5 mmol/L (-2.0-2.0) H 04/08/21 05:28 Eusebio Test Pos 04/08/21 05:28 A-a O2 Gradient 77.8 mmHg (5-10) H 04/04/21 22:16 Hematocrit 32.1 % (42-52) L 04/08/21 05:28 Hgb O2 Saturation 84.9 % (95-100) L 04/04/21 22:16 Carboxyhemoglobin 1.5 %THgb (0.4-20.1) 04/04/21 22:16 Methemoglobin 1.0 % (0.4-1.5) 04/04/21 22:16 Total Hemoglobin 8.6 g/dL (14-18) L 04/04/21 22:16 Sodium 137.0 mmol/L (131-143) 04/04/21 22:16 Potassium 4.7 mmol/L (3.5-5.0) 04/04/21 22:16 Glucose 63.0 mg/dL (70-115) L 04/04/21 22:16 Ionized Calcium 0.7 mmol/L (1.1-1.4) L 04/04/21 22:16 O2 Delivery Device Vent 04/08/21 05:28 O2 Liters/Min 15.0 % 04/04/21 22:16 FiO2 30.0 % 04/08/21 05:28 Tidal Volume 0.45 04/08/21 05:28 PEEP 5.0 cmH20 04/08/21 05:28 Documentation Liaison ID Harkr 04/08/21 05:28 Sodium 132 mmol/L (136-145) L 04/08/21 05:08 Potassium 3.6 mmol/L (3.5-5.1) 04/08/21 05:08 Chloride 99 mmol/L (98-107) 04/08/21 05:08 Carbon Dioxide 27 mmol/L (22-29) 04/08/21 05:08 Anion Gap 9.6 (5-19) 04/08/21 05:08 BUN 15 mg/dL (8-23) 04/08/21 05:08 Creatinine 3.9 mg/dL (0.7-1.2) H 04/08/21 05:08 GFR Calculation 15.5 mL/min (90-130) L 04/08/21 05:08 Glucose 93 mg/dL (65-115) 04/08/21 05:08 POC Glucose 103 mg/dL (70-110) 04/08/21 07:15 Estimat Average Glucose 91 04/07/21 05:32 Hemoglobin A1c 4.8 % (4.0-6.0) 04/07/21 05:32 Calculated Osmolality 275 mOsm/kg (285-295) L 04/08/21 05:08 Lactate 2.3 mmol/L (0.5-2.2) H 04/05/21 02:58 Calcium 7.0 mg/dL (8.5-10.5) L 04/08/21 05:08 Phosphorus 4.4 mg/dL (2.5-4.5) 04/07/21 05:32 Magnesium 1.9 mg/dL (1.7-2.3) 04/07/21 05:32 Total Bilirubin 0.4 mg/dL (0.15-1.2) 04/04/21 20:51 AST 24 U/L (0-40) 04/04/21 20:51 ALT 27 U/L (0-41) 04/04/21 20:51 Alkaline Phosphatase 130 IU/L (40-130) 04/04/21 20:51 Troponin T Gen 5 ng/L Cancelled 04/04/21 20:51 Troponin T Baseline 70 ng/L (0-15) H 04/04/21 20:51 Troponin T 120 Minute 63.13 ng/L (0-15) H 04/04/21 22:36 Delta Troponin T -6.87 ABS# (0-10) L 04/04/21 22:36 Troponin T Hi Sens 6Hr 36.62 ng/L (0-15) H 04/05/21 02:58 Troponin T Hi Sens 6Hr Delta -33.38 ng/L (0-12) L 04/05/21 02:58 Total Protein 6.6 g/dL (6.6-8.7) 04/04/21 20:51 Albumin 3.1 g/dL (3.5-5.2) L 04/04/21 20:51 Globulin 3.5 g/dL (1.3-4.6) 04/04/21 20:51 Procalcitonin 2.99 ng/mL (0-0.5) H 04/06/21 04:00 TSH 2.41 uIU/mL (0.27-4.20) 04/05/21 02:58 Hep Bs Antigen Non-reactive (Nonreactive) 04/05/21 09:58 Hepatitis C Antibody Reactive (Nonreactive) H 04/05/21 09:58 HCV RNA (PCR) IUs/ml <1.18 not detected Log IU/mL (NOT DETECTED) 04/06/21 04:00 HCV RNA (PCR) IU log10 <15 not detected IU/mL (NOT DETECTED) 04/06/21 04:00 PT 18.50 SECONDS (12.1-14.9) H 04/06/21 04:00 APTT 83.1 SECONDS (23.9-36.7) H 04/08/21 05:08 Micro: Microbiology 04/06/21 08:36 Blood Culture - Preliminary Blood NEGATIVE TO DATE 04/06/21 08:56 Blood Culture - Preliminary Blood NEGATIVE TO DATE A&P Assessment and plan (1) Atrial fibrillation with slow ventricular response: Patient may have underlying sinus yesica dysfunction. Medication causing the bradycardia also are considerations. Currently the heart rate is in the normal range. May continue on the current measures. Status: Acute (2) Respiratory arrest: The respiratory status seems to be improving. Patient had a CTA of the chest. Pulmonary embolism was ruled out. Status: Acute (3) DVT (deep venous thrombosis): Patient is on IV heparin. Consider restarting the oral anticoagulation Status: Acute Qualifiers: Affected thrombotic vein of extremity: other lower extremity vein Chronicity: acute DVT location: lower extremity Laterality: right Qualified Code(s): I82.491 - Acute embolism and thrombosis of other specified deep vein of right lower extremity (4) Elevated troponin: He has LV dysfunction, possibility of him having had a coronary event causing elevated troponin T and LV systolic dysfunction is a consideration. Patient may benefit from a cardiac catheterization, to further evaluate the coronary status. Status: Acute (5) Chronic anticoagulation: He has a history of longstanding atrial fibrillation. Unless there is a contraindication, he may be put back on the Eliquis Status: Chronic (6) End-stage renal disease (ESRD): Patient is scheduled for hemodialysis on Monday Status: Acute (7) Peripheral cyanosis: Could be related to the peripheral arterial disease. Arterial Doppler examination today. Based on the results, further recommendations will be made Status: Acute Additional A&P Information Other problems are Status post hypertension, currently normotensive Pneumonia, resolving Once the patient is medical condition is stable, we may consider doing a cardiac catheterization, to further evaluate the coronary status and decide on further management. 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
--- NOTE | 2021-04-08 09:29 | PC.CHAP ---
Pastoral Care Encounter/Spiritual Assessment Type of Contact [] Declined stopperer assembler visit [] Patient/Family/Request visit [] Outpatient visit [] Follow-up visit [] Physician referral [] Code/Alert [x] Routine visit [] Staff referral [] Actively dying [] Patient sleeping [] Family support [] [] Out of room [] Palliative care [] [] Receiving care in room [] Pre-surgical visit [] Trauma [] Long length of stay [x] ICU visit [] Other: Relational/Emotional Strength [] Patient feels connected with others/family/visitors/staff [] Distress [] Loneliness/isolation [] Abandonment Spirituality of Patient [] Person of Jelly [] Attends Baptism of their Jelly [] Believes in Prayer [] Reads Bible or Scientology materials [] There are Spiritual issues to be addressed Trade Facilitator Interventions [x] Prayer [] Active listening [] Non-anxious presence [] Spiritual/emotional support [] Crisis/trauma care [] Spiritual counseling [] Bereavement support [] Provided bereavement packet [] Provided Bible/devotional materials [] Provided toy/stuffed animal, coloring book to patient or family member [] Provided Communion [] Anointing/Romeo [] Salvation [x] Completed spiritual assessment [] Other: Impact on Illness or Injury [] Angry [] Fearful [] Anxious [] Often cries [] Exhaustion [] Unable to work [] Unable to attend episcopal [] Unable to walk/stand [] Unable to read [] Unable to drive [] Unable to eat/drink [] Unable to sleep [] Unable to be with family [] Patient intubated [] Other: Summary Time spent with patient
--- NOTE | 2021-04-08 11:10 | PC.NURSE ---
Patient not tolerating ETT, is very anxious trying to mouth I can't breathe. Patient was verbally redirect. Will notify Dr. Hazel.
[2021-04-08] MEDS: dexmedetomidine 400 MCG in sodium chloride 0.9% (100 ml) 100 ML 13.3 MCG IV (11:30)
--- NOTE | 2021-04-08 11:30 | PC.NURSE ---
New bag of Fentanyl started. Previous fentanyl bag empty. Rate is 100 mcg/hr.
--- NOTE | 2021-04-08 11:30 | PC.NURSE ---
On Fentanyl gtt flowsheet. The entry at 1130 on 04/08/21 was the beginning of new bag not a titration
[2021-04-08 11:40] LABS: Partial Thromboplastin Time 83.9 SECONDS (23.9-36.7)
--- NOTE | 2021-04-08 13:04 | PM.PN ---
Subjective Subjective: Interval history: Yesterday morning CT did not show PE but showed significantly enlarged right heart chambers with evidence of increased right heart strain and tricuspid regurgitation into the hepatic veins. No acute events overnight. Patient is off sedation and wanted ET tube to be taken out. Leak test was negative. Started on sedation and decided to give steroids Solu-Medrol 40 mg every 8 and will schedule for bronchoscopic inspection of upper airway tomorrow morning before extubation. Medications: Reviewed: Yes Vitals/I&O/Wt Last Vital Signs Temp 97.5 F L 04/08/21 12:00 Pulse 128 H 04/08/21 12:00 Resp 14 04/08/21 11:16 BP 135/82 04/08/21 12:00 Pulse Ox 97 04/08/21 12:00 04/07/21 04/08/21 04/08/21 22:59 06:59 14:59 Intake Total 1415.642 / 2465.642 1354.984 / 3820.626 1201.458 / 1201.458 Output Total 15 Balance 1415.642 / 2465.642 1329.984 / 3795.626 1186.458 / 1186.458 Weight last 48 hrs Weight 160 lb 8 oz Weight 146 lb 5 oz Physical Exam Narrative: EXAM NARRATIVE: General: lying in bed, intubated off sedation and agitated HEENT:NCAT, PERRLA, EOMI Neck: Supple Lungs: bibasilar crepitations Heart: s1/s2, RRR Abd: soft, NT, ND, BS + Normoactive Extremities: No edema PACKAGING ASSOCIATE: limited PACKAGING ASSOCIATE exam possible. SKIN: no rash LDA: # Dialysis catheter in the right upper chest, EJ in the neck, no central line, gallegos Urinary Catheter Management^: Gallegos: Cath Placed During This Visit: yes Reason for Continuing Indwelling Catheter: Accurate Measurement of Urinary Output in Critically Ill Patients Urinary Catheter Date of Insertion: 04/05/21 Data : 04/08/21 05:08 04/08/21 05:08 Other Labs: Laboratory Results WBC 8.1 10^3/uL (4.0-10.0) 04/08/21 05:08 RBC 3.57 10^6/uL (4.1-5.3) L 04/08/21 05:08 Hgb 9.8 g/dL (11.7-16.6) L 04/08/21 05:08 Hct 32.4 % (42.0-52.0) L 04/08/21 05:08 MCV 90.8 fL (80-94) 04/08/21 05:08 MCH 27.5 pg (28.0-34.0) L 04/08/21 05:08 MCHC 30.2 g/dL (30.0-36.0) 04/08/21 05:08 RDW 18.6 % (12.1-15.1) H 04/08/21 05:08 Plt Count 133 10^3/cmm (130-400) 04/08/21 05:08 MPV 10.2 fL (7.4-10.4) 04/08/21 05:08 Neut % (Auto) 74.8 % 04/08/21 05:08 Lymph % (Auto) 11.3 % 04/08/21 05:08 Ward % (Auto) 9.5 % 04/08/21 05:08 Eos % (Auto) 3.6 % 04/08/21 05:08 Baso % (Auto) 0.4 % 04/08/21 05:08 Neut # (Auto) 6.04 10^3/uL (1.8-7.7) 04/08/21 05:08 Lymph # (Auto) 0.9 10^3/uL (0.8-4.8) 04/08/21 05:08 Ward # (Auto) 0.8 10^3/uL (0.2-0.9) 04/08/21 05:08 Eos # (Auto) 0.3 10^3/uL (0.0-0.8) 04/08/21 05:08 Baso # (Auto) 0.0 10^3/uL (0.0-0.1) 04/08/21 05:08 Nucleated RBC % (auto) 0 % 04/08/21 05:08 Nucleated RBCs # 0.0 /100WBC 04/08/21 05:08 PT 18.50 SECONDS (12.1-14.9) H 04/06/21 04:00 INR 1.50 (0.8-1.2) H 04/06/21 04:00 APTT 83.9 SECONDS (23.9-36.7) H 04/08/21 11:06 D-Dimer 6.15 ug/mIFEU (0-0.59) H 04/05/21 02:31 Specimen Type Arterial 04/08/21 05:28 Sample Site Radial, right 04/08/21 05:28 ABG pH 7.42 (7.35-7.45) 04/08/21 05:28 ABG pCO2 41.9 mmHg (35-45) 04/08/21 05:28 ABG pO2 74.0 mmHg (80.0-100.0) L 04/08/21 05:28 ABG HCO3 27.3 mmol/L (22-26) H 04/08/21 05:28 ABG O2 Saturation 87.1 04/04/21 22:16 ABG Base Excess 2.5 mmol/L (-2.0-2.0) H 04/08/21 05:28 Eusebio Test Pos 04/08/21 05:28 A-a O2 Gradient 77.8 mmHg (5-10) H 04/04/21 22:16 Hematocrit 32.1 % (42-52) L 04/08/21 05:28 Hgb O2 Saturation 84.9 % (95-100) L 04/04/21 22:16 Carboxyhemoglobin 1.5 %THgb (0.4-20.1) 04/04/21 22:16 Methemoglobin 1.0 % (0.4-1.5) 04/04/21 22:16 Total Hemoglobin 8.6 g/dL (14-18) L 04/04/21 22:16 Sodium 137.0 mmol/L (131-143) 04/04/21 22:16 Potassium 4.7 mmol/L (3.5-5.0) 04/04/21 22:16 Glucose 63.0 mg/dL (70-115) L 04/04/21 22:16 Ionized Calcium 0.7 mmol/L (1.1-1.4) L 04/04/21 22:16 O2 Delivery Device Vent 04/08/21 05:28 O2 Liters/Min 15.0 % 04/04/21 22:16 FiO2 30.0 % 04/08/21 05:28 Tidal Volume 0.45 04/08/21 05:28 PEEP 5.0 cmH20 04/08/21 05:28 Rafter Cutting Machine Operator ID Harkr 04/08/21 05:28 Sodium 132 mmol/L (136-145) L 04/08/21 05:08 Potassium 3.6 mmol/L (3.5-5.1) 04/08/21 05:08 Chloride 99 mmol/L (98-107) 04/08/21 05:08 Carbon Dioxide 27 mmol/L (22-29) 04/08/21 05:08 Anion Gap 9.6 (5-19) 04/08/21 05:08 BUN 15 mg/dL (8-23) 04/08/21 05:08 Creatinine 3.9 mg/dL (0.7-1.2) H 04/08/21 05:08 GFR Calculation 15.5 mL/min (90-130) L 04/08/21 05:08 Glucose 93 mg/dL (65-115) 04/08/21 05:08 POC Glucose 103 mg/dL (70-110) 04/08/21 07:15 Estimat Average Glucose 91 04/07/21 05:32 Hemoglobin A1c 4.8 % (4.0-6.0) 04/07/21 05:32 Calculated Osmolality 275 mOsm/kg (285-295) L 04/08/21 05:08 Lactate 2.3 mmol/L (0.5-2.2) H 04/05/21 02:58 Calcium 7.0 mg/dL (8.5-10.5) L 04/08/21 05:08 Phosphorus 4.4 mg/dL (2.5-4.5) 04/07/21 05:32 Magnesium 1.9 mg/dL (1.7-2.3) 04/07/21 05:32 Total Bilirubin 0.4 mg/dL (0.15-1.2) 04/04/21 20:51 AST 24 U/L (0-40) 04/04/21 20:51 ALT 27 U/L (0-41) 04/04/21 20:51 Alkaline Phosphatase 130 IU/L (40-130) 04/04/21 20:51 Troponin T Gen 5 ng/L Cancelled 04/04/21 20:51 Troponin T Baseline 70 ng/L (0-15) H 04/04/21 20:51 Troponin T 120 Minute 63.13 ng/L (0-15) H 04/04/21 22:36 Delta Troponin T -6.87 ABS# (0-10) L 04/04/21 22:36 Troponin T Hi Sens 6Hr 36.62 ng/L (0-15) H 04/05/21 02:58 Troponin T Hi Sens 6Hr Delta -33.38 ng/L (0-12) L 04/05/21 02:58 Total Protein 6.6 g/dL (6.6-8.7) 04/04/21 20:51 Albumin 3.1 g/dL (3.5-5.2) L 04/04/21 20:51 Globulin 3.5 g/dL (1.3-4.6) 04/04/21 20:51 Procalcitonin 2.99 ng/mL (0-0.5) H 04/06/21 04:00 TSH 2.41 uIU/mL (0.27-4.20) 04/05/21 02:58 Hep Bs Antigen Non-reactive (Nonreactive) 04/05/21 09:58 Hepatitis C Antibody Reactive (Nonreactive) H 04/05/21 09:58 HCV RNA (PCR) IUs/ml <1.18 not detected Log IU/mL (NOT DETECTED) 04/06/21 04:00 HCV RNA (PCR) IU log10 <15 not detected IU/mL (NOT DETECTED) 04/06/21 04:[address] 04/04/21 23:30 IMPRESSION: 1. No acute intracranial hemorrhage or mass effect. 2. Changes of microvascular disease, and old infarcts, details above. 3. No definite acute infarct by CT, see above. 4. Other findings discussed above. Radiation Dose CTDIVOL = (mGy): DLP = 777.95 (mGy-cm) Chest X-Ray 04/06/21 07:35 IMPRESSION: 1. Stable chest without acute process. 2. Stable position of life support structures. Chest CTA 04/07/21 08:27 IMPRESSION: 1. No pulmonary embolism. 2. Moderate bilateral pleural effusions with compressive atelectasis at the lung bases. 3. Endotracheal and nasogastric tubes in good position. 4. Marked enlargement of the RIGHT heart chambers with evidence for increased RIGHT heart strain and tricuspid regurgitation into the hepatic veins. The RIGHT heart has increased in size since 11/02/2020. 5. Small amount of ascites adjacent to the liver. 6. Anterior mediastinal stranding secondary to small amount of posttraumatic bleeding at the site of the LEFT central line insertion site. No active bleeding. 7. Soft tissue anasarca. Micro: Microbiology 04/06/21 08:36 Blood Culture - Preliminary Blood NEGATIVE TO DATE 04/06/21 08:56 Blood Culture - Preliminary Blood NEGATIVE TO DATE A&P Assessment and plan (1) CAD (coronary artery disease): Status: Chronic Qualifiers: Coronary Disease-Associated Artery/Lesion type: [place] artery [place] vs. transplanted heart: [place] heart Associated angina: without angina Qualified Code(s): I25.10 - Atherosclerotic heart disease of [place] coronary artery without angina pectoris (2) DVT (deep venous thrombosis): Status: Acute Qualifiers: DVT location: lower extremity Affected thrombotic vein of extremity: other lower extremity vein Chronicity: acute Laterality: right Qualified Code(s): I82.491 - Acute embolism and thrombosis of other specified deep vein of right lower extremity (3) Bradycardia: Status: Acute (4) Atrial fibrillation with slow ventricular response: Status: Acute (5) End stage chronic kidney disease: Status: Acute (6) Recent non-ST elevation myocardial infarction: Status: Acute (7) Ventilator dependent: Status: Acute (8) Subglottic edema: Status: Acute #Acute hypoxic respiratory failure # bradycardia/atrial fibrillation with RVR in patient with ESRD and right leg DVT suspected PE #Difficult airway-upper airway edema? Subglottic stenosis on CT chest; possible reason for hypoxia induced bradycardia upon admission and difficult intubation -Currently on mechanical ventilator 450/5/30 %/14-7.4 2/41/74/27/87% -Due to concerns of upper airway edema on CT chest-leak test performed at bedside which was negative -Ordered Solu-Medrol 40 mg every 8 -Continue sedation and we will do bronchoscopic inspection of upper airway before extubation tomorrow morning neuro -CTA 04/07/2021: No evidence of PE moderate bilateral pleural effusions likely secondary to CHF and ESRD --on scheduled dialysis for ESRD -Plan for extubation after bronchoscopic inspection of upper airway -Currently off pressors, normal WBC count, afebrile -Initial procalcitonin 2.99-So far cultures negative -Covered with Zosyn, Levaquin and vancomycin -Currently also on IV heparin for right leg DVT seen on venous Doppler -hold heparin 4 hours and NG feeding prior to bronchoscopy tomorrow a.m. - cardiology and renal on board for afib and ESRD Recommendations conveyed to RN covering the patient and Dr. Nguyen hospitalist covering the patient Attestations Medical Necessity Statement*: Patient requires ongoing inpatient stay for continued management of issues as noted above. He is presently requiring both ventilatory and cardiovascular support. Time Spent in Patient Care: Greater than 35 minutes (>than 50% of time spent in counselling and/or direct pt care on unit). Critical Care Time: The high probability of a clinically significant, sudden or life threatening deterioration of the patient's respiratory system(s) required my full and direct attention, intervention and personal management. The critical care time is as shown. This time is in addition to time spent performing any reported procedures but includes the following: [x] Data and vital sign review and interpretation [x] Patient assessment, examination and intervention [x] Documentation [x] Medication orders and management Critical Care Time (min): 45 Coding Level of Care Code Established Pt Acute Chemical Economist for Chg Fwd Patient Type Established History Comprehensive Exam Comprehensive Medical Decision Making High Complexity Diagnoses CAD (coronary artery disease) I25.10 Coronary Disease-Associated Artery/Lesion type: [place] artery [place] vs. transplanted heart: [place] heart Associated angina: without angina DVT (deep venous thrombosis) I82.491 DVT location: lower extremity Affected thrombotic vein of extremity: other lower extremity vein Chronicity: acute Laterality: right Bradycardia R00.1 Atrial fibrillation with slow ventricular response I48.91 End stage chronic kidney disease N18.6 Recent non-ST elevation myocardial infarction Ventilator dependent Z99.11 Subglottic edema J38.4 Time Spent (min) 45
[2021-04-08 13:52] LABS: Glucose Point of Care 77 mg/dL (70-110)
--- NOTE | 2021-04-08 14:03 | PM.PN ---
Subjective Subjective: Interval history: awake, intubated Medications: Reviewed: Yes Vitals/I&O/Wt Last Vital Signs Temp 97.5 F L 04/08/21 12:00 Pulse 128 H 04/08/21 12:00 Resp 16 04/08/21 13:18 BP 135/82 04/08/21 12:00 Pulse Ox 95 04/08/21 13:18 04/07/21 04/08/21 04/08/21 22:59 06:59 14:59 Intake Total 1415.642 / 2465.642 1354.984 / 3820.626 1201.458 / 1201.458 Output Total 15 Balance 1415.642 / 2465.642 1329.984 / 3795.626 1186.458 / 1186.458 Weight last 48 hrs Weight 72.802 kg Weight 66.366 kg Physical Exam Const: COMMON NORMALS: no acute distress Urinary Catheter Management^: Neal: Cath Placed During This Visit: yes Reason for Continuing Indwelling Catheter: Accurate Measurement of Urinary Output in Critically Ill Patients Urinary Catheter Date of Insertion: 04/05/21 Data : 04/08/21 05:08 04/08/21 05:08 Micro: Microbiology 04/06/21 08:36 Blood Culture - Preliminary Blood NEGATIVE TO DATE 04/06/21 08:56 Blood Culture - Preliminary Blood NEGATIVE TO DATE CTA Chest: Radiologist's impression: 1. No pulmonary embolism. 2. Moderate bilateral pleural effusions with compressive atelectasis at the lung bases. 3. Endotracheal and nasogastric tubes in good position. 4. Marked enlargement of the RIGHT heart chambers with evidence for increased RIGHT heart strain and tricuspid regurgitation into the hepatic veins. The RIGHT heart has increased in size since 11/02/2020. 5. Small amount of ascites adjacent to the liver. 6. Anterior mediastinal stranding secondary to small amount of posttraumatic bleeding at the site of the LEFT central line insertion site. No active bleeding. 7. Soft tissue anasarc A&P Additional A&P Information Impression: 1. ESRD 2. VDRF, oxygenating well on 30% FIO2, subglottic edema, plan for bronchscopy tomorrow 3. Mild hyponatremia, anemia Plan: HD tomorrow Attestations Medical Necessity Statement*: see above Time Spent in Patient Care: 16 - 35 minutes Coding Level of Care Code Acute Laborer [employer] for Singh Chairez
[2021-04-08] MEDS: propofol 1,000 MG/100 ML INJ 4.4 MG IV (14:37)
--- NOTE | 2021-04-08 15:33 | PC.SOCIAL ---
Pg 2 IMM Explained to pt's brother, Anil, Pg 2 IMM. No questions voiced. Provided pt a copy. Signed, dated, & timed a copy & placed in chart.
[2021-04-08] MEDS: dextrose 5%-sod chloride 0.9% 1,000 ML 100 ML IV (16:18)
--- NOTE | 2021-04-08 19:14 | PC.NURSE ---
Spoke with Dr. Gavin about patient's brother Anil about [facility] tomorrow et patient's history with scarring in his airway. Dr. Gavin had RN inform brother anil, that the procedure is to just look at the airway to determine if he can be extubated or what needs to occur moving forward. Called et spoke with Anil et obtained consent for [facility].
[2021-04-08 19:59] LABS: Partial Thromboplastin Time 94.6 SECONDS (23.9-36.7)
--- NOTE | 2021-04-08 21:18 | PM.PN ---
Subjective Subjective: Interval history: Attempts at weaning have remained unsuccessful. Further review of available images have indicated that patient has extensive airway edema. He did have a difficult intubation. It is unclear if findings are related to that or alcohol for the difficulty breathing. CTA of the chest has come back not demonstrating evidence of a PE. He does have right strain indicated which is increased from October 2020. For dialysis today. No new arrhythmias. Tolerating feeds at current rate which are not yet at goal. Medications: Reviewed: Yes Vitals/I&O/Wt Last Vital Signs Temp 97.7 F 04/08/21 16:00 Pulse 101 H 04/08/21 18:00 Resp 14 04/08/21 20:42 BP 127/70 04/08/21 18:00 Pulse Ox 100 04/08/21 20:42 04/08/21 04/08/21 04/08/21 06:59 14:59 22:59 Intake Total 1354.984 / 3820.626 1201.458 / 1201.458 490.6 / 1692.058 Output Total Balance 1329.984 / 3795.626 1186.458 / 1186.458 490.6 / 1677.058 Weight last 48 hrs Weight 72.802 kg Weight 66.366 kg Physical Exam Narrative: EXAM NARRATIVE: Constitutional: Awakens more, not as restless Respiratory: No wheezes or rhonchi, breath sounds equal Cardiovascular: Irregularly irregular Abdomen: Soft, positive bowel sounds, nondistended : gallegos in place Extremities: No pitting edema today Neuro: Moves all extremities Other: Dialysis catheter intact right upper chest, no change to visible ecchymosis right upper chest Urinary Catheter Management^: Gallegos: Cath Placed During This Visit: yes Reason for Continuing Indwelling Catheter: Accurate Measurement of Urinary Output in Critically Ill Patients Urinary Catheter Date of Insertion: 04/05/21 Data : 04/08/21 05:08 04/08/21 05:08 A&P Assessment and plan (1) Respiratory arrest: In the field, necessitated intubation upon arrival to the ER. Occurred after administration of Versed for pacing. PE is within the differential and with elevation in D-dimer, right lower extremity DVT and other findings current working diagnosis. Chest x-ray has shown some infiltrates versus atelectasis. Low-grade fever 04/06 could be from either atelectasis or infection. Having increased secretions. Now with evidence of subglottic edema. Status: Acute (2) Hypoglycemia: Recurrent problem despite being on feeds. He does not have a diagnosis of diabetes. No medications to specifically account for hypoglycemia. No evidence of acute coronary syndrome identified. Beta-grace toxicity a consideration from the time of admission and could still be a recurring problem. Infection also in the differential as are other metabolic processes. A1c 4.8. Unknown if any sulfonylureas in his home. Starting to show improving. Status: Acute (3) Atrial fibrillation with slow ventricular response: Heart rate in the 30s on EMS arrival, ultimately treated with epinephrine. Has not had recurrent bradycardia but been on Levophed. Has had transient A. fib with RVR but thus far not required treatment. Chronically on Cardizem and beta-grace for rate control. Status: Acute (4) Hypotension: Upon arrival, has required pressor support. Differential includes medication effect, sepsis, cardiopulmonary etiology such as PE. Sepsis secondary to infection seems less likely given initial improvement without antibiotic coverage. Status: Acute Qualifiers: Hypotension type: other hypotension type Qualified Code(s): I95.89 - Other hypotension (5) Elevated troponin: Unclear acute significance, may be type II process from above but he does have known coronary artery disease with prior bypass. Has had previous similar baseline elevations. Status: Acute (6) DVT (deep venous thrombosis): Right lower extremity, extensive, present prior to admission Status: Acute Qualifiers: DVT location: lower extremity Affected thrombotic vein of extremity: other lower extremity vein Chronicity: acute Laterality: right Qualified Code(s): I82.491 - Acute embolism and thrombosis of other specified deep vein of right lower extremity (7) Hypothermia: Unclear reason currently, temperature was 93 initially, not stated anywhere if he was found outside or if windows open. Temperature was in the 40s upper night of admission. Temperature improved with bear hugger. Infection is a consideration as is other etiology for the impaired thermoregulation. Status: Acute Qualifiers: Encounter type: initial encounter Qualified Code(s): T68.XXXA - Hypothermia, initial encounter (8) Lactic acidosis: [place] related to respiratory arrest, improved with respiratory and cardiovascular support. Status: Acute (9) Hepatitis C antibody test positive: Prior history unknown Hepatitis C RNA not detected, hepatitis C genotype still pending Status: Acute (10) End stage chronic kidney disease: On hemodialysis Wednesdays and Fridays Status: Acute (11) CAD (coronary artery disease): Prior coronary artery bypass and PCI previously Status: Chronic Qualifiers: Coronary Disease-Associated Artery/Lesion type: [place] artery [place] vs. transplanted heart: [place] heart Associated angina: without angina Qualified Code(s): I25.10 - Atherosclerotic heart disease of [place] coronary artery without angina pectoris (12) Chronic anticoagulation: Secondary to atrial fibrillation, previously was on coumadin last cardiology visit 08/2020. Home medication list at admission (taken from [place] records but not confirmed due to unable to reach family and medical condition) apixaban. Indications in cardiology notes are that he was on coumadin. Unclear which he was taking. Status: Chronic Additional A&P Information Current working diagnosis is PE secondary to DVT in the right lower extremity. Low-grade fevers could be associated with this but cannot rule out an infection. Procalcitonin level is elevated suggesting possibility of pneumonia which would have been present on admission given nonspecific infiltrates on chest x-ray since that time. Continues to have intermittent hypoglycemia and requiring low-dose pressor support. Not weaning from ventilator as expected. Continue antibiotics Continue to follow blood cultures Greatly appreciate pulmonology assistance in care Plan is currently for bronchoscopy tomorrow Steroids have been started to help with the edema which should also help blood sugars Nephrology following for hemodialysis Wednesdays and Fridays On heparin drip for DVT right lower extremity, will eventually transition to oral anticoagulation, either coumadin versus eliquis, unclear what he was taking prior to admission Cardiology follows, cardiac catheterization may be considered when medically stable Remains off of calcium channel blockers and beta-blockers Off of home isosorbide On home PPI and aspirin Continue Gallegos catheter for now with plan to remove once extubated On trophic tube feeds, has not advanced secondary to attempts to wean ventilator, will try to advance some this evening with more definitive plans after bronchoscopy tomorrow Appreciate nutrition assistance Will need to have blood sugars monitor closely when steroids are ultimately discontinued If hypoglycemia persists or recurs after steroids are stopped, consider checking insulin, c-peptide, betahydroxybuterate, proinsulin and drug levels (sulfonylurea and meglitinide) Hepatitis C genotype pending, need to clarify history when able On PPI Supportive care otherwise Pending/ordered tests to follow: Blood cultures, sputum culture Lines/tubes: Dialysis catheter in the right upper chest, central line in the left neck, gallegos DVT prophylaxis: Currently on heparin drip secondary to DVT in the right lower extremity Anticipated Disposition: Currently anticipate disposition home but will depend on clinical course Code Status: Full code Attestations Medical Necessity Statement*: Requires ongoing inpatient and ICU stay for critical care management as noted Coding Level of Care Code Acute Crop Pest Control Specialist for g Fwd Diagnoses Respiratory arrest R09.2 Hypoglycemia E16.2 Atrial fibrillation with slow ventricular response I48.91 Hypotension I95.89 Hypotension type: other hypotension type Elevated troponin R77.8 DVT (deep venous thrombosis) I82.491 DVT location: lower extremity Affected thrombotic vein of extremity: other lower extremity vein Chronicity: acute Laterality: right Hypothermia T68.XXXA Encounter type: initial encounter Lactic acidosis E87.2 Hepatitis C antibody test positive R76.8 End stage chronic kidney disease N18.6 CAD (coronary artery disease) I25.10 Coronary Disease-Associated Artery/Lesion type: [place] artery [place] vs. transplanted heart: [place] heart Associated angina: without angina Chronic anticoagulation Z79.01
[2021-04-08 22:25] LABS: Glucose Point of Care 132 mg/dL (70-110)
[2021-04-09] VITALS (63 sets, daily range): BP systolic 72–174; BP diastolic 50–103; PULSE 60–116; RESP 14–18; TEMP 36.9; O2SAT 84–100
--- NOTE | 2021-04-09 01:00 | PC.NURSE ---
ASSUMING CARE Patient resting in bed on mechanical ventilation, FiO2 30 %, PEEP 5, TV 450, Rate of 14. Fentanyl is running at 100 mcg/hour, propofol at 15 mcg/kg/min, zosyn is running at 12.5 mL/hour, and D5NS at 100 mL/hour. Left IJ CVL in place with all medications running through this, gallegos catheter in place and draining, and right tunneled HD cath in place and draining. Patient is following commands and appears anxious.
--- NOTE | 2021-04-09 01:09 | PC.NURSE ---
CUFF LEAK Respiratory notified of audible cuff leak heard by nurse while doing central line dressing change. Respiratory added air to cuff, no audible leak at this time.
[2021-04-09 01:27] LABS: Partial Thromboplastin Time 59.1 SECONDS (23.9-36.7)
[2021-04-09] MEDS: lanolin oint 7 gm 1 APPLIC TOPICAL (02:07)
[2021-04-09] MEDS: propofol 1,000 MG/100 ML INJ 15.3 MG IV (02:44)
[2021-04-09] MEDS: piperacillin-tazobactam 3.375 GM in sodium chloride 0.9% (plus) 50 ML IV ×2 (03:56→16:59)
[2021-04-09 04:14] LABS: Hematocrit 36.4 % (42.0-52.0); Hemoglobin 11.1 g/dL (11.7-16.6); Lymphocytes # 0.8 10^3/uL (0.8-4.8); Lymphocytes % 15.6 %; Mean Corpuscular HGB Conc 30.5 g/dL (30.0-36.0); Mean Corpuscular Hemoglobin 27.3 pg (28.0-34.0); Mean Corpuscular Volume 89.4 fL (80-94); Mean Platelet Volume 10.5 fL (7.4-10.4); Monocytes # 0.2 10^3/uL (0.2-0.9); Monocytes % 3.8 %; Nucleated Red Blood Cells % 0 %; Platelet Count 137 10^3/cmm (130-400); Red Blood Count 4.07 10^6/uL (4.1-5.3); Red Cell Distribution Width 18.5 % (12.1-15.1); White Blood Count 5.3 10^3/uL (4.0-10.0)
--- NOTE | 2021-04-09 04:26 | PC.NURSE ---
Addendum entered by Xochilt Thompson RN 04/09/21 04:32: Patients fentanyl drip has been at 100 mcg/hour entire shift. No fentanyl wasted out of any drips. Original Note: When fentanyl drip was replaced for the second time during this shift, it was noted that the rate was wrong. rate was 100 mcg/hr throughout shift. Rate was changed to 100 mcg/hr prior to shift starting.
[2021-04-09 04:28] LABS: Alanine Aminotransferase 13 U/L (0-41); Alkaline Phosphatase 138 IU/L (40-130); Anion Gap 18.1 (5-19); Aspartate Amino Transferase 16 U/L (0-40); Blood Urea Nitrogen 24 mg/dL (8-23); Calcium 7.6 mg/dL (8.5-10.5); Carbon Dioxide 21 mmol/L (22-29); Chloride 97 mmol/L (98-107); Globulin 3.6 g/dL (1.3-4.6); Glomerular Filtration Rate 11.9 mL/min (90-130); Glucose 150 mg/dL (65-115); Magnesium 1.8 mg/dL (1.7-2.3); Osmolality Calculated 281 mOsm/kg (285-295); Phosphorus 5.8 mg/dL (2.5-4.5); Potassium 4.1 mmol/L (3.5-5.1); Sodium 132 mmol/L (136-145); Total Bilirubin 0.7 mg/dL (0.15-1.2); Total Protein 5.6 g/dL (6.6-8.7)
[2021-04-09 06:19] LABS: ABG PCO2 32.2 mmHg (35-45); ABG PH Result 7.45 (7.35-7.45); Arterial Blood Gas Hematocrit 34.6 % (42-52); Base Excess ABG -1.2 mmol/L (-2.0-2.0); Blood Gas Allen Test Pos; Blood Gas Operator Identificat JB; Blood Gas Sample Site Radial, right; Blood Gas Sample Type Arterial; Blood Gas Tidal Volume 0.45; HCO3 ABG 22.2 mmol/L (22-26); Oxygen Device VENT; PO2 ABG 78.1 mmHg (80.0-100.0)
--- NOTE | 2021-04-09 06:56 | P.PN_ITS ---
Subjective Subjective: Interval history: intubated, had bronchoscopy this AM Medications: Reviewed: Yes Vitals/I&O/Wt Last Vital Signs Temp 98.4 F 04/09/21 06:22 Pulse 87 04/09/21 06:00 Resp 14 04/09/21 06:21 BP 117/62 04/09/21 06:00 Pulse Ox 99 04/09/21 06:21 04/08/21 04/08/21 04/09/21 14:59 22:59 06:59 Intake Total 1201.458 / 1201.458 515.167 / 6268.989 6487.743 / 3230.368 Output Total 50 / 65 Balance 1186.458 / 1186.458 515.167 / 6590.636 2785.743 / 3165.368 Weight last 48 hrs Weight 75.75 kg Weight 72.802 kg Physical Exam Urinary Catheter Management^: Neal: Cath Placed During This Visit: yes Reason for Continuing Indwelling Catheter: Accurate Measurement of Urinary Output in Critically Ill Patients Urinary Catheter Date of Insertion: 04/05/21 Data : 04/09/21 03:40 04/09/21 03:40 A&P Additional A&P Information Impression: 1. ESRD 2. VDRF, oxygenating well on 30% FIO2, subglottic edema, plan for extubation after dialysis today 3. Mild hyponatremia, anemia Plan: HD today, then MWF Attestations Medical Necessity Statement*: see above Time Spent in Patient Care: 16 - 35 minutes Coding Level of Care Code Acute Subsurface Augmentee Operator for Singh Chairez
[2021-04-09 07:30] LABS: Glucose Point of Care 157 mg/dL (70-110)
--- NOTE | 2021-04-09 08:09 | PM.PN ---
Subjective Subjective: Interval history: No events overnight. He has some leak around the ET tube cuff this morning. Dr. Gavin is going to take him for bronchoscopy this morning. He is due for dialysis today. Hoping to be able to extubate later today after dialysis. No arrhythmias noted overnight. Vitals/I&O/Wt Last Vital Signs Temp 98.4 F 04/09/21 06:22 Pulse 90 04/09/21 07:30 Resp 14 04/09/21 07:35 BP 123/66 04/09/21 07:30 Pulse Ox 98 04/09/21 07:35 04/08/21 04/09/21 04/09/21 22:59 06:59 14:59 Intake Total 515.167 / 4477.702 0105.743 / 3230.368 Output Total 50 / 65 Balance 515.167 / 4309.474 2004.743 / 3165.368 Weight last 48 hrs Weight 75.75 kg Weight 72.802 kg Physical Exam Narrative: EXAM NARRATIVE: Constitutional: Mildly sedate, arouses and makes eye contact Respiratory: Clear bilaterally Cardiovascular: Irregularly irregular Abdomen: Soft, positive bowel sounds, nondistended : gallegos in place Extremities: trace edema, feet cool, cap refill 2 sec Neuro: Moves all extremities Other: Dialysis catheter intact right upper chest, stable ecchymosis right upper chest Urinary Catheter Management^: Gallegos: Cath Placed During This Visit: yes Reason for Continuing Indwelling Catheter: Accurate Measurement of Urinary Output in Critically Ill Patients Urinary Catheter Date of Insertion: 04/05/21 Data : 04/09/21 03:40 04/09/21 03:40 A&P Assessment and plan (1) Respiratory arrest: In the field, necessitated intubation upon arrival to the ER. Occurred after administration of Versed for pacing. PE is within the differential and with elevation in D-dimer, right lower extremity DVT and other findings current working diagnosis. Chest x-ray has shown some infiltrates versus atelectasis. Low-grade fever 04/06 could be from either atelectasis or infection. Having increased secretions. Now with evidence of subglottic edema. For bronchoscopy today. Status: Acute (2) Hypoglycemia: Recurrent problem despite being on feeds. He does not have a diagnosis of diabetes. No medications to specifically account for hypoglycemia. No evidence of acute coronary syndrome identified. Beta-grace toxicity a consideration from the time of admission and could still be a recurring problem. Infection also in the differential as are other metabolic processes. A1c 4.8. Unknown if any sulfonylureas in his home. Improved with steroids. Status: Acute (3) Atrial fibrillation with slow ventricular response: Heart rate in the 30s on EMS arrival, ultimately treated with epinephrine. Has not had recurrent bradycardia but been on Levophed. Has had transient A. fib with RVR but thus far not required treatment. Chronically on Cardizem and beta-grace for rate control. No recurrent bradycardia or significant tachyarrythmias off usual medications last few days. Status: Acute (4) Hypotension: Upon arrival, has required pressor support. Differential includes medication effect, sepsis, cardiopulmonary etiology such as PE. Sepsis secondary to infection seems less likely given initial improvement without antibiotic coverage. Status: Acute Qualifiers: Hypotension type: other hypotension type Qualified Code(s): I95.89 - Other hypotension (5) Elevated troponin: Unclear acute significance, may be type II process from above but he does have known coronary artery disease with prior bypass. Has had previous similar baseline elevations. Status: Acute (6) DVT (deep venous thrombosis): Right lower extremity, extensive, present prior to admission Status: Acute Qualifiers: DVT location: lower extremity Affected thrombotic vein of extremity: other lower extremity vein Chronicity: acute Laterality: right Qualified Code(s): I82.491 - Acute embolism and thrombosis of other specified deep vein of right lower extremity (7) Hypothermia: Unclear reason currently, temperature was 93 initially, not stated anywhere if he was found outside or if windows open. Temperature was in the 40s upper night of admission. Temperature improved with bear hugger. Infection is a consideration as is other etiology for the impaired thermoregulation. Status: Acute Qualifiers: Encounter type: initial encounter Qualified Code(s): T68.XXXA - Hypothermia, initial encounter (8) Lactic acidosis: [place] related to respiratory arrest, improved with respiratory and cardiovascular support. Status: Acute (9) Hepatitis C antibody test positive: Prior history unknown Hepatitis C RNA not detected, hepatitis C genotype still pending Status: Acute (10) End stage chronic kidney disease: On hemodialysis Wednesdays and Fridays Status: Acute (11) CAD (coronary artery disease): Prior coronary artery bypass and PCI previously Status: Chronic Qualifiers: Coronary Disease-Associated Artery/Lesion type: [place] artery [place] vs. transplanted heart: [place] heart Associated angina: without angina Qualified Code(s): I25.10 - Atherosclerotic heart disease of [place] coronary artery without angina pectoris (12) Chronic anticoagulation: Secondary to atrial fibrillation, previously was on coumadin last cardiology visit 08/2020. Home medication list at admission (taken from [place] records but not confirmed due to unable to reach family and medical condition) apixaban. Indications in cardiology notes are that he was on coumadin. Unclear which he was taking. Status: Chronic Additional A&P Information Continue antibiotics For bronch today Greatly appreciate pulmonology assistance in care Continue steroids Nephrology following for hemodialysis Wednesdays and Fridays Hope to extubate after dialysis pending results of bronch On heparin drip for DVT right lower extremity, will eventually transition to oral anticoagulation, either coumadin versus eliquis, unclear what he was taking prior to admission Cardiology follows, cardiac catheterization may be considered when medically stable Remains off of calcium channel blockers and beta-blockers Off of home isosorbide On home PPI and aspirin Continue Gallegos catheter for now with plan to remove once extubated On trophic tube feeds, if not extubated need to advance to goal Appreciate nutrition assistance Will need to have blood sugars monitor closely when steroids are ultimately discontinued If hypoglycemia persists or recurs after steroids are stopped, consider checking insulin, c-peptide, betahydroxybuterate, proinsulin and drug levels (sulfonylurea and meglitinide) Hepatitis C genotype pending, need to clarify history when able On PPI Supportive care otherwise Pending/ordered tests to follow: Blood cultures, sputum culture Lines/tubes: Dialysis catheter in the right upper chest, central line in the left neck, gallegos DVT prophylaxis: Currently on heparin drip secondary to DVT in the right lower extremity, though held at moment for procedure Anticipated Disposition: Currently anticipate disposition home but will depend on clinical course, with prolonged stay may require rehab Code Status: Full code Attestations Medical Necessity Statement*: Requires ongoing inpatient stay for continued management as noted above including the choice of power, further evaluation, regular dialysis and other care as indicated. Coding Level of Care Code Acute Dividing Machine Operator for Singh Chairez Diagnoses Respiratory arrest R09.2 Hypoglycemia E16.2 Atrial fibrillation with slow ventricular response I48.91 Hypotension I95.89 Hypotension type: other hypotension type Elevated troponin R77.8 DVT (deep venous thrombosis) I82.491 DVT location: lower extremity Affected thrombotic vein of extremity: other lower extremity vein Chronicity: acute Laterality: right Hypothermia T68.XXXA Encounter type: initial encounter Lactic acidosis E87.2 Hepatitis C antibody test positive R76.8 End stage chronic kidney disease N18.6 CAD (coronary artery disease) I25.10 Coronary Disease-Associated Artery/Lesion type: [place] artery [place] vs. transplanted heart: [place] heart Associated angina: without angina Chronic anticoagulation Z79.01
[2021-04-09] MEDS: cisatracurium 2 mg/mL SDV 10mL 10 MG IV (08:14)
[2021-04-09] MEDS: EPINEPHrine 1 mg/mL INJ (08:31)
--- NOTE | 2021-04-09 08:50 | PM.ACPR ---
Procedure/Consent Time out: Time Out Performed: Yes Consent: Consent for Procedure: Consent obtained from other (indicate) (Brother Ainl Valera, DPOA), Risks & Benefits reviewed and Agrees to proceed with procedure Procedure Narrative: Procedure: Flexible bronchoscopy with upper airway inspection Pre-Operative Diagnosis: Subglottic edema Post-Operative Diagnosis: Same Indication: Planned for extubation in patient with subglottic edema as evidenced on CT and with no leak yesterday Anesthesia: Currently on fentanyl 100 MCG/hour, propofol 20 mg/hour, propofol 10 mg IV push given and stat dose of Nimbex given For paralysis Pre-procedure Evaluation: Patient was evaluated clinically and ancillary testing reviewed. The risk of having active MTB infection is very low in my clinical judgement. ASA:Malampati score: unable to evaluate due to presence of endotracheal tube Consent: Consents were obtained from patient/MPOA and placed in the chart Procedure Details: Time out was performed by the procedure team and nursing staff. Vent support maintained on Fio2 100. The bronchoscope was introduced initially in the oropharyngeal cavity and ET cuff deflated and noted air and secretions coming through glottis surrounding the tube. A bronchoscopic airway exam was performed to evaluate the upper trachea. Summary of Significant Findings: -Bronchoscope passed through ET tube and main ulices visualized which was sharp and normal. Then the scope was pulled back to the tip of ET tube and deflated ET tube cuff. Slowly retrieved ET tube along with bronchoscope at the tip of it back to the glottis while simultaneously visualizing upper trachea and subglottic area. There is mild subglottic wall edema. The scope was pushed back into the trachea and ET tube was slided over bronchoscope into the trachea and left 2 to 3 cm above main ulices. The bronchoscope was then removed and the procedure terminated. Estimated Blood Loss: None Specimens: None Complications:None; patient tolerated the procedure well. Disposition: Intubated and stays in ICU; plan is to continue steroids 40 daily every 12 today and possible extubation after dialysis. Patient tolerated the procedure well. Jeremías Gavin MD Pulmonary critical Care Medicine [facility] Acute Procedures Epistaxis Control: Time out performed: Yes
[2021-04-09] MEDS: aspirin 81 mg EC Tablet PO (08:57)
[2021-04-09] MEDS: pantoprazole DR 40 mg Tablet PO ×2 (08:57→17:27)
--- NOTE | 2021-04-09 09:04 | P.PN_ITS ---
Subjective Subjective: Interval history: -No acute events overnight -Received 3 doses of Solu-Medrol 40 mg last 24 hours -Leak test positive today morning and also upper airway inspection done with bedside bronchoscopy showed mild subglottic stenosis likely responding to steroids - tapered Solu-Medrol to 40 every 12 today and will evaluate for extubation after dialysis today -Labs and imaging reviewed Medications: Reviewed: Yes Vitals/I&O/Wt Last Vital Signs Temp 98.4 F 04/09/21 06:22 Pulse 90 04/09/21 07:30 Resp 14 04/09/21 07:35 BP 123/66 04/09/21 07:30 Pulse Ox 98 04/09/21 07:35 04/08/21 04/09/21 04/09/21 22:59 06:59 14:59 Intake Total 515.167 / 8276.261 6539.743 / 3230.368 Output Total 50 / 65 Balance 515.167 / 9528.399 5276.743 / 3165.368 Weight last 48 hrs Weight 167 lb Weight 160 lb 8 oz Physical Exam Narrative: EXAM NARRATIVE: General: lying in bed, intubated off sedation and agitated HEENT:NCAT, PERRLA, EOMI Neck: Supple Lungs: bibasilar crepitations Heart: s1/s2, RRR Abd: soft, NT, ND, BS + Normoactive Extremities: No edema CHICKEN FANCIER: limited CHICKEN FANCIER exam possible. SKIN: no rash LDA: # Dialysis catheter in the right upper chest, EJ in the neck, no central line, gallegos Urinary Catheter Management^: Gallegos: Cath Placed During This Visit: yes Reason for Continuing Indwelling Catheter: Accurate Measurement of Urinary Output in Critically Ill Patients Urinary Catheter Date of Insertion: 04/05/21 Data : 04/09/21 03:40 04/09/21 03:40 Other Labs: Laboratory Results WBC 5.3 10^3/uL (4.0-10.0) 04/09/21 03:40 RBC 4.07 10^6/uL (4.1-5.3) L 04/09/21 03:40 Hgb 11.1 g/dL (11.7-16.6) L 04/09/21 03:40 Hct 36.4 % (42.0-52.0) L 04/09/21 03:40 MCV 89.4 fL (80-94) 04/09/21 03:40 MCH 27.3 pg (28.0-34.0) L 04/09/21 03:40 MCHC 30.5 g/dL (30.0-36.0) 04/09/21 03:40 RDW 18.5 % (12.1-15.1) H 04/09/21 03:40 Plt Count 137 10^3/cmm (130-400) 04/09/21 03:40 MPV 10.5 fL (7.4-10.4) H 04/09/21 03:40 Neut % (Auto) 80.0 % 04/09/21 03:40 Lymph % (Auto) 15.6 % 04/09/21 03:40 Ross % (Auto) 3.8 % 04/09/21 03:40 Eos % (Auto) 0.0 % 04/09/21 03:40 Baso % (Auto) 0.0 % 04/09/21 03:40 Neut # (Auto) 4.20 10^3/uL (1.8-7.7) 04/09/21 03:40 Lymph # (Auto) 0.8 10^3/uL (0.8-4.8) 04/09/21 03:40 Ross # (Auto) 0.2 10^3/uL (0.2-0.9) 04/09/21 03:40 Eos # (Auto) 0.0 10^3/uL (0.0-0.8) 04/09/21 03:40 Baso # (Auto) 0.0 10^3/uL (0.0-0.1) 04/09/21 03:40 Nucleated RBC % (auto) 0 % 04/09/21 03:40 Nucleated RBCs # 0.0 /100WBC 04/09/21 03:40 PT 18.50 SECONDS (12.1-14.9) H 04/06/21 04:00 INR 1.50 (0.8-1.2) H 04/06/21 04:00 APTT 59.1 SECONDS (23.9-36.7) H 04/09/21 01:05 D-Dimer 6.15 ug/mIFEU (0-0.59) H 04/05/21 02:31 Specimen Type Arterial 04/09/21 06:04 Sample Site Radial, right 04/09/21 06:04 ABG pH 7.45 (7.35-7.45) 04/09/21 06:04 ABG pCO2 32.2 mmHg (35-45) L 04/09/21 06:04 ABG pO2 78.1 mmHg (80.0-100.0) L 04/09/21 06:04 ABG HCO3 22.2 mmol/L (22-26) 04/09/21 06:04 ABG O2 Saturation 87.1 04/04/21 22:16 ABG Base Excess -1.2 mmol/L (-2.0-2.0) 04/09/21 06:04 Eusebio Test Pos 04/09/21 06:04 A-a O2 Gradient 77.8 mmHg (5-10) H 04/04/21 22:16 Hematocrit 34.6 % (42-52) L 04/09/21 06:04 Hgb O2 Saturation 84.9 % (95-100) L 04/04/21 22:16 Carboxyhemoglobin 1.5 %THgb (0.4-20.1) 04/04/21 22:16 Methemoglobin 1.0 % (0.4-1.5) 04/04/21 22:16 Total Hemoglobin 8.6 g/dL (14-18) L 04/04/21 22:16 Sodium 137.0 mmol/L (131-143) 04/04/21 22:16 Potassium 4.7 mmol/L (3.5-5.0) 04/04/21 22:16 Glucose 63.0 mg/dL (70-115) L 04/04/21 22:16 Ionized Calcium 0.7 mmol/L (1.1-1.4) L 04/04/21 22:16 O2 Delivery Device Vent 04/09/21 06:04 O2 Liters/Min 15.0 % 04/04/21 22:16 FiO2 30.0 % 04/09/21 06:04 Tidal Volume 0.45 04/09/21 06:04 PEEP 5.0 cmH20 04/09/21 06:04 Technical Sales Director ID See 04/09/21 06:04 Sodium 132 mmol/L (136-145) L 04/09/21 03:40 Potassium 4.1 mmol/L (3.5-5.1) 04/09/21 03:40 Chloride 97 mmol/L (98-107) L 04/09/21 03:40 Carbon Dioxide 21 mmol/L (22-29) L 04/09/21 03:40 Anion Gap 18.1 (5-19) 04/09/21 03:40 BUN 24 mg/dL (8-23) H 04/09/21 03:40 Creatinine 4.9 mg/dL (0.7-1.2) H 04/09/21 03:40 GFR Calculation 11.9 mL/min (90-130) L 04/09/21 03:40 Glucose 150 mg/dL (65-115) H 04/09/21 03:40 POC Glucose 157 mg/dL (70-110) H 04/09/21 07:26 Estimat Average Glucose 91 04/07/21 05:32 Hemoglobin A1c 4.8 % (4.0-6.0) 04/07/21 05:32 Calculated Osmolality 281 mOsm/kg (285-295) L 04/09/21 03:40 Lactate 2.3 mmol/L (0.5-2.2) H 04/05/21 02:58 Calcium 7.6 mg/dL (8.5-10.5) L 04/09/21 03:40 Phosphorus 5.8 mg/dL (2.5-4.5) H 04/09/21 03:40 Magnesium 1.8 mg/dL (1.7-2.3) 04/09/21 03:40 Total Bilirubin 0.7 mg/dL (0.15-1.2) 04/09/21 03:40 AST 16 U/L (0-40) 04/09/21 03:40 ALT 13 U/L (0-41) 04/09/21 03:40 Alkaline Phosphatase 138 IU/L (40-130) H 04/09/21 03:40 Troponin T Gen 5 ng/L Cancelled 04/04/21 20:51 Troponin T Baseline 70 ng/L (0-15) H 04/04/21 20:51 Troponin T 120 Minute 63.13 ng/L (0-15) H 04/04/21 22:36 Delta Troponin T -6.87 ABS# (0-10) L 04/04/21 22:36 Troponin T Hi Sens 6Hr 36.62 ng/L (0-15) H 04/05/21 02:58 Troponin T Hi Sens 6Hr Delta -33.38 ng/L (0-12) L 04/05/21 02:58 Total Protein 5.6 g/dL (6.6-8.7) L 04/09/21 03:40 Albumin 2.0 g/dL (3.5-5.2) L 04/09/21 03:40 Globulin 3.6 g/dL (1.3-4.6) 04/09/21 03:40 Procalcitonin 2.99 ng/mL (0-0.5) H 04/06/21 04:00 TSH 2.41 uIU/mL (0.27-4.20) 04/05/21 02:58 Hep Bs Antigen Non-reactive (Nonreactive) 04/05/21 09:58 Hepatitis C Antibody Reactive (Nonreactive) H 04/05/21 09:58 HCV RNA (PCR) IUs/ml <1.18 not detected Log IU/mL (NOT DETECTED) 04/06/21 04:00 HCV RNA (PCR) IU log10 <15 not detected IU/mL (NOT DETECTED) 04/06/21 04:[address] 04/04/21 23:30 IMPRESSION: 1. No acute intracranial hemorrhage or mass effect. 2. Changes of microvascular disease, and old infarcts, details above. 3. No definite acute infarct by CT, see above. 4. Other findings discussed above. Radiation Dose CTDIVOL = (mGy): DLP = 777.95 (mGy-cm) Chest X-Ray 04/06/21 07:35 IMPRESSION: 1. Stable chest without acute process. 2. Stable position of life support structures. Chest CTA 04/07/21 08:27 IMPRESSION: 1. No pulmonary embolism. 2. Moderate bilateral pleural effusions with compressive atelectasis at the lung bases. 3. Endotracheal and nasogastric tubes in good position. 4. Marked enlargement of the RIGHT heart chambers with evidence for increased RIGHT heart strain and tricuspid regurgitation into the hepatic veins. The RIGHT heart has increased in size since 11/02/2020. 5. Small amount of ascites adjacent to the liver. 6. Anterior mediastinal stranding secondary to small amount of posttraumatic bleeding at the site of the LEFT central line insertion site. No active bleeding. 7. Soft tissue anasarca. A&P Assessment and plan (1) CAD (coronary artery disease): Status: Chronic Qualifiers: Coronary Disease-Associated Artery/Lesion type: [place] artery [place] vs. transplanted heart: [place] heart Associated angina: without angina Qualified Code(s): I25.10 - Atherosclerotic heart disease of [place] coronary artery without angina pectoris (2) DVT (deep venous thrombosis): Status: Acute Qualifiers: DVT location: lower extremity Affected thrombotic vein of extremity: other lower extremity vein Chronicity: acute Laterality: right Qualified Code(s): I82.491 - Acute embolism and thrombosis of other specified deep vein of right lower extremity (3) Bradycardia: Status: Acute (4) Atrial fibrillation with slow ventricular response: Status: Acute (5) End stage chronic kidney disease: Status: Acute (6) Recent non-ST elevation myocardial infarction: Status: Acute (7) Ventilator dependent: Status: Acute (8) Subglottic edema: Status: Acute #Acute hypoxic respiratory failure # bradycardia/atrial fibrillation with RVR in patient with ESRD and right leg DVT suspected PE #Difficult airway-upper airway edema? Subglottic stenosis on CT chest; possible reason for hypoxia induced bradycardia upon admission and difficult intubation -Currently on mechanical ventilator 450/5/30 %/14-7.4 5//78/2 2/99% -Due to concerns of upper airway edema on CT chest-yesterday leak test performed at bedside which was negative; patient received Solu-Medrol 40 mg 3 doses over 24 hours -Today morning bedside bronchoscopic inspection of upper airway showed mild subglottic stenosis -However leak test is positive and possible that patient is responding to steroids -We will taper down steroids to 40 every 12 today -Patient is scheduled for dialysis today-after dialysis hold NG feeding and wean off sedation -We will place patient on breathing trial and if passes can extubate today evening. -CTA 04/07/2021: No evidence of PE moderate bilateral pleural effusions likely secondary to CHF and ESRD --on scheduled dialysis for ESRD -Currently off pressors, normal WBC count, afebrile -DC IV fluids -Initial procalcitonin 2.99 (Can elevate in renal failure)-So far cultures negative -Covered with Zosyn, Levaquin and vancomycin -Currently also on IV heparin for right leg DVT seen on venous Doppler and transition to p.o. Eliquis - cardiology and renal on board for afib (tachybradycardia) and ESRD Recommendations conveyed to RN covering the patient and Dr. Nguyen hospitalist covering the patient Attestations Medical Necessity Statement*: Requires ongoing inpatient stay for continued management as noted above including the choice of power, further evaluation, regular dialysis and other care as indicated. Time Spent in Patient Care: Greater than 35 minutes (>than 50% of time spent in counselling and/or direct pt care on unit) . Critical Care Time: Critical Care Time (min): 45 Coding Level of Care Code Established Pt Acute Supervisor [employer]le Machines for Chg Fwd Patient Type Established History Comprehensive Exam Comprehensive Medical Decision Making Moderate Complexity Diagnoses CAD (coronary artery disease) I25.10 Coronary Disease-Associated Artery/Lesion type: [place] artery [place] vs. transplanted heart: [place] heart Associated angina: without angina DVT (deep venous thrombosis) I82.491 DVT location: lower extremity Affected thrombotic vein of extremity: other lower extremity vein Chronicity: acute Laterality: right Bradycardia R00.1 Atrial fibrillation with slow ventricular response I48.91 End stage chronic kidney disease N18.6 Recent non-ST elevation myocardial infarction Ventilator dependent Z99.11 Subglottic edema J38.4 Time Spent (min) 45
[2021-04-09 11:16] LABS: Glucose Point of Care 138 mg/dL (70-110)
[2021-04-09 14:57] LABS: Vancomycin Trough 14.8 ug/mL (10-15)
[2021-04-09] MEDS: vancomycin 750 MG in sodium chloride 0.9% 250 ML 250 MG IV (15:33)
--- NOTE | 2021-04-09 16:32 | PC.NURSE ---
tube feeding restarted until weaning of vent again in am
[2021-04-09 17:09] LABS: Glucose Point of Care 115 mg/dL (70-110)
[2021-04-09 17:10] LABS: Glucose Point of Care 135 mg/dL (70-110)
[2021-04-09] MEDS: propofol 1,000 MG/100 ML INJ 8.7 MG IV (17:28)
[2021-04-09] MEDS: heparin drip 25,000 UNIT/500 ML PREMIX 12 UNIT IV (17:28)
[2021-04-09 19:07] LABS: Partial Thromboplastin Time 42.5 SECONDS (23.9-36.7)
[2021-04-09 21:30] LABS: Glucose Point of Care 101 mg/dL (70-110)
[2021-04-10] VITALS (62 sets, daily range): BP systolic 120–172; BP diastolic 64–125; PULSE 83–126; RESP 14–22; TEMP 36.7; O2SAT 90–100
[2021-04-10 00:58] LABS: Hepatitis C Genotype RNA NOT DETECTED
[2021-04-10] MEDS: dextrose 5%-sod chloride 0.9% 1,000 ML 30 ML IV (01:11)
[2021-04-10] MEDS: propofol 1,000 MG/100 ML INJ 8.7 MG IV (01:12)
--- NOTE | 2021-04-10 02:16 | PC.NURSE ---
attempted to wean off sedation for potential extubation later today, patient started bitting at tube and not tolerating vent with VT in the 100's, sedation increased for vent compliance
[2021-04-10 03:51] LABS: Partial Thromboplastin Time 62.8 SECONDS (23.9-36.7)
[2021-04-10] MEDS: piperacillin-tazobactam 3.375 GM in sodium chloride 0.9% (plus) 50 ML IV ×2 (04:00→16:40)
[2021-04-10 04:06] LABS: Basophils % 0.1 %; Hematocrit 37.1 % (42.0-52.0); Hemoglobin 11.6 g/dL (11.7-16.6); Lymphocytes # 0.6 10^3/uL (0.8-4.8); Lymphocytes % 6.2 %; Mean Corpuscular HGB Conc 31.3 g/dL (30.0-36.0); Mean Corpuscular Hemoglobin 27.1 pg (28.0-34.0); Mean Corpuscular Volume 86.7 fL (80-94); Mean Platelet Volume 9.8 fL (7.4-10.4); Monocytes # 0.3 10^3/uL (0.2-0.9); Monocytes % 3.7 %; Neutrophils # 8.04 10^3/uL (1.8-7.7); Neutrophils % 89.6 %; Nucleated Red Blood Cells % 0 %; Platelet Count 144 10^3/cmm (130-400); Red Blood Count 4.28 10^6/uL (4.1-5.3); Red Cell Distribution Width 18.6 % (12.1-15.1)
[2021-04-10 04:29] LABS: Alanine Aminotransferase 11 U/L (0-41); Albumin Level 2.1 g/dL (3.5-5.2); Alkaline Phosphatase 120 IU/L (40-130); Anion Gap 13.8 (5-19); Aspartate Amino Transferase 13 U/L (0-40); Blood Urea Nitrogen 17 mg/dL (8-23); Calcium 7.5 mg/dL (8.5-10.5); Carbon Dioxide 24 mmol/L (22-29); Chloride 99 mmol/L (98-107); Glomerular Filtration Rate 16.9 mL/min (90-130); Glucose 146 mg/dL (65-115); Osmolality Calculated 280 mOsm/kg (285-295); Potassium 3.8 mmol/L (3.5-5.1); Sodium 133 mmol/L (136-145); Total Bilirubin 0.5 mg/dL (0.15-1.2); Total Protein 5.1 g/dL (6.6-8.7)
--- NOTE | 2021-04-10 04:48 | ECG_ITS ---
[facility] Test Date: 2021-04-10 Pat Name: Shin Valera Department: Room: ICU11 Gender: Male Photogeologist: : 1955 Requested By: Estefania Salazar Order Number: [id number] Claudio MD: Pk Parker M.D. Measurements Intervals [place] Rate: 92 P: [place]: QRS: 57 QRSD: 109 T: 228 QT: 387 QTc: 480 Interpretive Statements ATRIAL FLUTTER/TACHYCARDIA LOW QRS VOLTAGE IN EXTREMITY LEADS [QRS DEFLECTION < 0.5 mV IN LIMB LEADS] ST DEVIATION AND MODERATE T-WAVE ABNORMALITY, CONSIDER LATERAL ISCHEMIA [-0.1+ mV T WAVE IN I/aVL/V5/V6] ST DEVIATION AND MODERATE T-WAVE ABNORMALITY, CONSIDER INFERIOR ISCHEMIA [-0.1+ mV T WAVE IN II/aVF] INTERPRETATION BASED ON A DEFAULT AGE OF 40 YEARS Compared to ECG 04/05/2021 22:51:42 Low QRS voltage now present T-wave abnormality still present Possible ischemia still present Electronically Signed On 04-10-2021 14:57:28 CDT by Pk Parker M.D. [id number] rené
--- NOTE | 2021-04-10 06:07 | PC.NURSE ---
this nurse noticed slight rhythm change 409 EKG performed [address] abnormality in I/aVL/V5/V6 not present in previous EKG, Dr. Salazar notifed, at bedside gave v.o. to draw mg and troponin, if no significant findings continue to monitor
[2021-04-10 06:24] LABS: Magnesium 1.9 mg/dL (1.7-2.3)
[2021-04-10 06:27] LABS: Troponin T (5th) Once 37 ng/L (0-15)
--- NOTE | 2021-04-10 06:41 | PC.NURSE ---
Tolerated Vent, becomes alert with verbal stimulation, no s/s of distress, call light within reach
[2021-04-10 07:02] LABS: Glucose Point of Care 148 mg/dL (70-110)
--- NOTE | 2021-04-10 07:11 | P.PN_ITS ---
Subjective Subjective: Interval history: BP dropped toward end of dialysis yesterday, responded to fluid replacement extubated Medications: Reviewed: Yes Vitals/I&O/Wt Last Vital Signs Temp 98.4 F 04/09/21 14:00 Pulse 98 04/10/21 06:00 Resp 14 04/10/21 06:27 BP 124/70 04/10/21 06:00 Pulse Ox 98 04/10/21 06:27 04/09/21 04/10/21 04/10/21 22:59 06:59 14:59 Intake Total 359.067 / 741.357 222.242 / 963.599 Output Total Balance 339.067 / 671.357 222.242 / 893.599 Weight last 48 hrs Weight 72.121 kg Weight 75.75 kg Physical Exam Urinary Catheter Management^: Gallegos: Cath Placed During This Visit: yes Reason for Continuing Indwelling Catheter: Accurate Measurement of Urinary Output in Critically Ill Patients Urinary Catheter Date of Insertion: 04/05/21 Data : 04/10/21 03:55 04/10/21 03:55 Micro: Microbiology 04/04/21 22:36 Blood Culture - Final Blood NO GROWTH AFTER 5 DAYS A&P Additional A&P Information Impression: 1. ESRD, HD MWF 2. s/p VDRF 3. Mild hyponatremia Plan: continue HD MWF, will dialyze after cardiac cath on Monday. Remove gallegos Attestations Medical Necessity Statement*: see above Time Spent in Patient Care: less than 15 minutes Coding Level of Care Code Acute Hoop Bending Machine Operator for Singh Chairez
[2021-04-10] MEDS: levofloxacin-dextrose 5 % 500 MG/100 ML PREMIX 100 MG IV (07:25)
--- NOTE | 2021-04-10 07:38 | PM.PN ---
Subjective Subjective: Interval history: -No acute events overnight -Appears slightly edematous, completed hemodialysis yesterday night and removal of 1.4 L of fluid -Please DC urine Gallegos as patient does not have good urine output -Patient is tachycardic 126 and appears to be in atrial flutter will give metoprolol 5 mg IV push -Plan is to turn off sedation to awakening trial followed by breathing trial and if successful to extubate to 3 L nasal cannula - Vitals/I&O/Wt Last Vital Signs Temp 98.4 F 04/09/21 14:00 Pulse 98 04/10/21 06:00 Resp 14 04/10/21 06:27 BP 124/70 04/10/21 06:00 Pulse Ox 98 04/10/21 06:27 04/09/21 04/10/21 04/10/21 22:59 06:59 14:59 Intake Total 359.067 / 741.357 222.242 / 963.599 Output Total Balance 339.067 / 671.357 222.242 / 893.599 Weight last 48 hrs Weight 159 lb Weight 167 lb Physical Exam Narrative: EXAM NARRATIVE: General: lying in bed, intubated, off sedation and agitated, appeared slightly edematous overall HEENT:NCAT, PERRLA, EOMI Neck: Supple Lungs: Bibasilar Heart: s1/s2, RRR Abd: soft, NT, ND, BS + Normoactive Extremities: No edema OCCASIONAL BABYSITTER: limited OCCASIONAL BABYSITTER exam possible. SKIN: no rash LDA: # Dialysis catheter in the right upper chest, EJ in the neck, no central line, gallegos Urinary Catheter Management^: Gallegos: Cath Placed During This Visit: yes Reason for Continuing Indwelling Catheter: Accurate Measurement of Urinary Output in Critically Ill Patients Urinary Catheter Date of Insertion: 04/05/21 Data : 04/10/21 03:55 04/10/21 03:55 Other Labs: Laboratory Results WBC 9.0 10^3/uL (4.0-10.0) 04/10/21 03:55 RBC 4.28 10^6/uL (4.1-5.3) 04/10/21 03:55 Hgb 11.6 g/dL (11.7-16.6) L 04/10/21 03:55 Hct 37.1 % (42.0-52.0) L 04/10/21 03:55 MCV 86.7 fL (80-94) 04/10/21 03:55 MCH 27.1 pg (28.0-34.0) L 04/10/21 03:55 MCHC 31.3 g/dL (30.0-36.0) 04/10/21 03:55 RDW 18.6 % (12.1-15.1) H 04/10/21 03:55 Plt Count 144 10^3/cmm (130-400) 04/10/21 03:55 MPV 9.8 fL (7.4-10.4) 04/10/21 03:55 Neut % (Auto) 89.6 % 04/10/21 03:55 Lymph % (Auto) 6.2 % 04/10/21 03:55 Hale % (Auto) 3.7 % 04/10/21 03:55 Eos % (Auto) 0.0 % 04/10/21 03:55 Baso % (Auto) 0.1 % 04/10/21 03:55 Neut # (Auto) 8.04 10^3/uL (1.8-7.7) H 04/10/21 03:55 Lymph # (Auto) 0.6 10^3/uL (0.8-4.8) L 04/10/21 03:55 Hale # (Auto) 0.3 10^3/uL (0.2-0.9) 04/10/21 03:55 Eos # (Auto) 0.0 10^3/uL (0.0-0.8) 04/10/21 03:55 Baso # (Auto) 0.0 10^3/uL (0.0-0.1) 04/10/21 03:55 Nucleated RBC % (auto) 0 % 04/10/21 03:55 Nucleated RBCs # 0.0 /100WBC 04/10/21 03:55 PT 18.50 SECONDS (12.1-14.9) H 04/06/21 04:00 INR 1.50 (0.8-1.2) H 04/06/21 04:00 APTT 62.8 SECONDS (23.9-36.7) H 04/10/21 02:12 D-Dimer 6.15 ug/mIFEU (0-0.59) H 04/05/21 02:31 Specimen Type Arterial 04/09/21 06:04 Sample Site Radial, right 04/09/21 06:04 ABG pH 7.45 (7.35-7.45) 04/09/21 06:04 ABG pCO2 32.2 mmHg (35-45) L 04/09/21 06:04 ABG pO2 78.1 mmHg (80.0-100.0) L 04/09/21 06:04 ABG HCO3 22.2 mmol/L (22-26) 04/09/21 06:04 ABG O2 Saturation 87.1 04/04/21 22:16 ABG Base Excess -1.2 mmol/L (-2.0-2.0) 04/09/21 06:04 Eusebio Test Pos 04/09/21 06:04 A-a O2 Gradient 77.8 mmHg (5-10) H 04/04/21 22:16 Hematocrit 34.6 % (42-52) L 04/09/21 06:04 Hgb O2 Saturation 84.9 % (95-100) L 04/04/21 22:16 Carboxyhemoglobin 1.5 %THgb (0.4-20.1) 04/04/21 22:16 Methemoglobin 1.0 % (0.4-1.5) 04/04/21 22:16 Total Hemoglobin 8.6 g/dL (14-18) L 04/04/21 22:16 Sodium 137.0 mmol/L (131-143) 04/04/21 22:16 Potassium 4.7 mmol/L (3.5-5.0) 04/04/21 22:16 Glucose 63.0 mg/dL (70-115) L 04/04/21 22:16 Ionized Calcium 0.7 mmol/L (1.1-1.4) L 04/04/21 22:16 O2 Delivery Device Vent 04/09/21 06:04 O2 Liters/Min 15.0 % 04/04/21 22:16 FiO2 30.0 % 04/09/21 06:04 Tidal Volume 0.45 04/09/21 06:04 PEEP 5.0 cmH20 04/09/21 06:04 Preflight Inspector ID See 04/09/21 06:04 Sodium 133 mmol/L (136-145) L 04/10/21 03:55 Potassium 3.8 mmol/L (3.5-5.1) 04/10/21 03:55 Chloride 99 mmol/L (98-107) 04/10/21 03:55 Carbon Dioxide 24 mmol/L (22-29) 04/10/21 03:55 Anion Gap 13.8 (5-19) 04/10/21 03:55 BUN 17 mg/dL (8-23) 04/10/21 03:55 Creatinine 3.6 mg/dL (0.7-1.2) H 04/10/21 03:55 GFR Calculation 16.9 mL/min (90-130) L 04/10/21 03:55 Glucose 146 mg/dL (65-115) H 04/10/21 03:55 POC Glucose 148 mg/dL (70-110) H 04/10/21 06:55 Estimat Average Glucose 91 04/07/21 05:32 Hemoglobin A1c 4.8 % (4.0-6.0) 04/07/21 05:32 Calculated Osmolality 280 mOsm/kg (285-295) L 04/10/21 03:55 Lactate 2.3 mmol/L (0.5-2.2) H 04/05/21 02:58 Calcium 7.5 mg/dL (8.5-10.5) L 04/10/21 03:55 Phosphorus 5.8 mg/dL (2.5-4.5) H 04/09/21 03:40 Magnesium 1.9 mg/dL (1.7-2.3) 04/10/21 03:55 Total Bilirubin 0.5 mg/dL (0.15-1.2) 04/10/21 03:55 AST 13 U/L (0-40) 04/10/21 03:55 ALT 11 U/L (0-41) 04/10/21 03:55 Alkaline Phosphatase 120 IU/L (40-130) 04/10/21 03:55 Troponin T Gen 5 ng/L 37 ng/L (0-15) H 04/10/21 03:55 Troponin T Baseline 70 ng/L (0-15) H 04/04/21 20:51 Troponin T 120 Minute 63.13 ng/L (0-15) H 04/04/21 22:36 Delta Troponin T -6.87 ABS# (0-10) L 04/04/21 22:36 Troponin T Hi Sens 6Hr 36.62 ng/L (0-15) H 04/05/21 02:58 Troponin T Hi Sens 6Hr Delta -33.38 ng/L (0-12) L 04/05/21 02:58 Total Protein 5.1 g/dL (6.6-8.7) L 04/10/21 03:55 Albumin 2.1 g/dL (3.5-5.2) L 04/10/21 03:55 Globulin 3.0 g/dL (1.3-4.6) 04/10/21 03:55 Procalcitonin 2.99 ng/mL (0-0.5) H 04/06/21 04:00 TSH 2.41 uIU/mL (0.27-4.20) 04/05/21 02:58 Vancomycin Trough 14.8 ug/mL (10-15) 04/09/21 14:05 Hep Bs Antigen Non-reactive (Nonreactive) 04/05/21 09:58 Hepatitis C Antibody Reactive (Nonreactive) H 04/05/21 09:58 HCV RNA (PCR) IUs/ml <1.18 not detected Log IU/mL (NOT DETECTED) 04/06/21 04:00 HCV RNA (PCR) IU log10 <15 not detected IU/mL (NOT DETECTED) 04/06/21 04:00 Hep C Genotype (PCR) Not detected 04/06/21 04:[address] 04/04/21 23:30 IMPRESSION: 1. No acute intracranial hemorrhage or mass effect. 2. Changes of microvascular disease, and old infarcts, details above. 3. No definite acute infarct by CT, see above. 4. Other findings discussed above. Radiation Dose CTDIVOL = (mGy): DLP = 777.95 (mGy-cm) Chest X-Ray 04/06/21 07:35 IMPRESSION: 1. Stable chest without acute process. 2. Stable position of life support structures. Chest CTA 04/07/21 08:27 IMPRESSION: 1. No pulmonary embolism. 2. Moderate bilateral pleural effusions with compressive atelectasis at the lung bases. 3. Endotracheal and nasogastric tubes in good position. 4. Marked enlargement of the RIGHT heart chambers with evidence for increased RIGHT heart strain and tricuspid regurgitation into the hepatic veins. The RIGHT heart has increased in size since 11/02/2020. 5. Small amount of ascites adjacent to the liver. 6. Anterior mediastinal stranding secondary to small amount of posttraumatic bleeding at the site of the LEFT central line insertion site. No active bleeding. 7. Soft tissue anasarca. Micro: Microbiology 04/04/21 22:36 Blood Culture - Final Blood NO GROWTH AFTER 5 DAYS A&P Assessment and plan (1) CAD (coronary artery disease): Status: Chronic Qualifiers: Associated angina: without angina Coronary Disease-Associated Artery/Lesion type: [place] artery [place] vs. transplanted heart: [place] heart Qualified Code(s): I25.10 - Atherosclerotic heart disease of [place] coronary artery without angina pectoris (2) DVT (deep venous thrombosis): Status: Acute Qualifiers: Affected thrombotic vein of extremity: other lower extremity vein Chronicity: acute DVT location: lower extremity Laterality: right Qualified Code(s): I82.491 - Acute embolism and thrombosis of other specified deep vein of right lower extremity (3) Bradycardia: Status: Acute (4) Atrial fibrillation with slow ventricular response: Status: Acute (5) End stage chronic kidney disease: Status: Acute (6) Recent non-ST elevation myocardial infarction: Status: Acute (7) Ventilator dependent: Status: Acute (8) Subglottic edema: Status: Acute #Acute hypoxic respiratory failure # bradycardia/atrial fibrillation with RVR in patient with ESRD and right leg DVT suspected PE #Difficult airway-upper airway edema? Subglottic stenosis on CT chest; possible reason for hypoxia induced bradycardia upon admission and difficult intubation -Currently on mechanical ventilator 450/5/30 %/14-7.4 5//78/2 2/99% -Due to concerns of upper airway edema on CT chest-yesterday leak test performed at bedside which was negative; -04/09/2021 morning bedside bronchoscopic inspection of upper airway showed mild subglottic stenosis - patient on tapering doses of Solu-Medrol, to receive 40 mg 1 dose today -Today leak test is positive and possible that patient is responding to steroids -Patient is on scheduled dialysis Monday; yesterday night had HD removed 1.4 L -Appears slightly edematous overall, albumin 2.1, will give albumin 1 dose before next hemodialysis -We will place patient on breathing trial and if passes can extubate to 3 L nasal cannula -Bilateral diffuse wheeze-please give DuoNeb nebulizations before extubation and every 6 hour thereafter -CTA 04/07/2021: No evidence of PE moderate bilateral pleural effusions likely secondary to CHF and ESRD --on scheduled dialysis for ESRD -Currently off pressors, normal WBC count, afebrile -Initial procalcitonin 2.99 (Can elevate in renal failure)-So far cultures negative -Covered with Zosyn, Levaquin and vancomycin -can DC antibiotics after total of 7 days course -Currently also on IV heparin for right leg DVT seen on venous Doppler and transition to p.o. Eliquis - cardiology and renal on board for afib (tachybradycardia) and ESRD -Today appears to be in atrial flutter and heart rate 126 after turning of sedation-given metoprolol 5 mg IV push and cardiology to follow-up Recommendations conveyed to RN covering the patient and Dr. Nguyen hospitalist covering the patient Attestations Medical Necessity Statement*: Requires ongoing inpatient stay for continued management as noted above Time Spent in Patient Care: Greater than 35 minutes (>than 50% of time spent in counselling and/or direct pt care on unit). The high probability of a clinically significant, sudden or life threatening deterioration of the patient's respiratory, cardiac, renal system(s) required my full and direct attention, intervention and personal management. The critical care time is as shown. This time is in addition to time spent performing any reported procedures but includes the following: [x] Data and vital sign review and interpretation [x] Patient assessment, examination and intervention [x] Documentation [x] Medication orders and management Critical Care Time: Critical Care Time (min): 45 Coding Level of Care Code Established Pt Acute Soda Clerk for Natang Fwd Patient Type Established History Comprehensive Exam Comprehensive Medical Decision Making High Complexity Diagnoses CAD (coronary artery disease) I25.10 Associated angina: without angina Coronary Disease-Associated Artery/Lesion type: [place] artery [place] vs. transplanted heart: redding heart DVT (deep venous thrombosis) I82.491 Affected thrombotic vein of extremity: other lower extremity vein Chronicity: acute DVT location: lower extremity Laterality: right Bradycardia R00.1 Atrial fibrillation with slow ventricular response I48.91 End stage chronic kidney disease N18.6 Recent non-ST elevation myocardial infarction Ventilator dependent Z99.11 Subglottic edema J38.4 Time Spent (min) 45
[2021-04-10] MEDS: metoprolol tartrate 1 mg/1 mL SDV 5 mL 5 MG IV (08:38)
--- NOTE | 2021-04-10 08:57 | P.PN_ITS ---
Subjective Subjective: Interval history: Patient got dialysis late yesterday afternoon. Given the airway edema, decision made not to extubate. No overnight events. This morning he has become tachycardic, atrial flutter. This is chronic for him. He had been bradycardic at admission and his metoprolol and diltiazem has been held. He has not been particularly tachycardic the entire hospital stay. Both medications have been held due to the bradycardia and unclear event at admission. Recently administered some IV metoprolol. Heart rate remains in the 120s. Blood pressure is stable. Tube feeds have been turned off. Sedation is weaned down. He is restless this morning. Vitals/I&O/Wt Last Vital Signs Temp 98.4 F 04/09/21 14:00 Pulse 105 H 04/10/21 08:00 Resp 14 04/10/21 08:39 BP 140/109 04/10/21 08:00 Pulse Ox 99 04/10/21 08:39 04/09/21 04/10/21 04/10/21 22:59 06:59 14:59 Intake Total 359.067 / 741.357 222.242 / 963.599 188.425 / 188.425 Output Total 20 / 70 Balance 339.067 / 671.357 222.242 / 893.599 188.425 / 188.425 Weight last 48 hrs Weight 72.121 kg Weight 75.75 kg Physical Exam Narrative: EXAM NARRATIVE: Constitutional: More alert, follows simple commands but restless Respiratory: Clear bilaterally Cardiovascular: Regular tachycardic rhythm currently Abdomen: Soft, positive bowel sounds, nondistended : gallegos in place Extremities: Upper extremities are more puffy today. Lower extremities with 1+ edema. Hands and feet are cool but capillary refill unchanged Neuro: Moves all extremities Other: Dialysis catheter intact right upper chest, stable ecchymosis right upper chest, central line left neck Urinary Catheter Management^: Gallegos: Cath Placed During This Visit: yes Reason for Continuing Indwelling Catheter: Accurate Measurement of Urinary Output in Critically Ill Patients Urinary Catheter Date of Insertion: 04/05/21 Data : 04/10/21 03:55 04/10/21 03:55 Micro: Microbiology 04/04/21 22:36 Blood Culture - Final Blood NO GROWTH AFTER 5 DAYS A&P Assessment and plan (1) Respiratory arrest: In the field, necessitated intubation upon arrival to the ER. Occurred after administration of Versed for pacing. PE is within the differential and with elevation in D-dimer, right lower extremity DVT and other findings current working diagnosis. Chest x-ray has shown some infiltrates versus atelectasis. Low-grade fever 04/06 could be from either atelectasis or infection. Having increased secretions. Now with evidence of subglottic edema. Status post bronchoscopy 04/09. Status: Acute (2) Hypoglycemia: Recurrent problem despite being on feeds. He does not have a diagnosis of diabetes. No medications to specifically account for hypoglycemia. No evidence of acute coronary syndrome identified. Beta-grace toxicity a consideration from the time of admission and could still be a recurring problem. Infection also in the differential as are other metabolic processes. A1c 4.8. Unknown if any sulfonylureas in his home. Improved with steroids. Status: Acute (3) Atrial fibrillation with slow ventricular response: Heart rate in the 30s on EMS arrival, ultimately treated with epinephrine. Has not had recurrent bradycardia but been on Levophed. Has had transient A. fib with RVR but thus far not required treatment. Chronically on Cardizem and beta-grace for rate control. These have been held throughout the hospital stay due to heart rate generally in the 80s and bradycardia in the field. Today heart rate is in the 120s, a flutter. Status: Acute (4) Hypotension: Upon arrival, has required pressor support. Differential includes medication effect, sepsis, cardiopulmonary etiology such as PE. Sepsis secondary to infection seems less likely given initial improvement without antibiotic coverage. Has been off of pressors for several days. Status: Acute Qualifiers: Hypotension type: other hypotension type Qualified Code(s): I95.89 - Other hypotension (5) Elevated troponin: Unclear acute significance, may be type II process from above but he does have known coronary artery disease with prior bypass. Has had previous similar baseline elevations. Status: Acute (6) DVT (deep venous thrombosis): Right lower extremity, extensive, present prior to admission Status: Acute Qualifiers: DVT location: lower extremity Affected thrombotic vein of extremity: other lower extremity vein Chronicity: acute Laterality: right Qualified Code(s): I82.491 - Acute embolism and thrombosis of other specified deep vein of right lower extremity (7) Hypothermia: Unclear reason currently, temperature was 93 initially, not stated anywhere if he was found outside or if windows open. Temperature was in the 40s upper night of admission. Temperature improved with bear hugger. Infection is a consideration as is other etiology for the impaired thermoregulation. Status: Acute Qualifiers: Encounter type: initial encounter Qualified Code(s): T68.XXXA - Hypothermia, initial encounter (8) Lactic acidosis: [place] related to respiratory arrest, improved with respiratory and car diovascular support. Status: Acute (9) Hepatitis C antibody test positive: Prior history unknown Hepatitis C RNA not detected, hepatitis C genotype not detected. May be false positive or he may be status post treatment Status: Acute (10) End stage chronic kidney disease: On hemodialysis Wednesdays and Fridays Status: Acute (11) CAD (coronary artery disease): Prior coronary artery bypass and PCI previously Status: Chronic Qualifiers: Coronary Disease-Associated Artery/Lesion type: [place] artery [place] vs. transplanted heart: [place] heart Associated angina: without angina Qualified Code(s): I25.10 - Atherosclerotic heart disease of [place] coronary artery without angina pectoris (12) Chronic anticoagulation: Secondary to atrial fibrillation, previously was on coumadin last cardio logy visit 08/2020. [facility] but not [facility] due to unable to reach family and medical condition) apixaban. Indications in cardiology notes are that he was on coumadin. Unclear which he was taking. Status: Chronic Additional A&P Information At least moderate protein calorie malnutrition secondary to illness Status post 5 mg IV metoprolol, we will also institute a lower dose of oral. He had been on 100 mg every 12 hours at home. I do think some of this is him being agitated with decreased sedation and still being intubated. He is receiving an additional dose of Solu-Medrol this morning and plan is to extubate. We will have to monitor very closely given subglottic edema. Should he require reintubation would recommend consideration for anesthesia involvement We will monitor in the ICU closely post extubation given airway edema Greatly appreciate pulmonology assistance in care Nephrology following for hemodialysis Wednesdays and Fridays On heparin drip for DVT right lower extremity, will eventually transition to oral anticoagulation, either coumadin versus eliquis, unclear what he was taking prior to admission Cardiology follows, cardiac catheterization may be considered when medically stable Will need to further address rate control pending how he does after extubation Off of home isosorbide On home PPI and aspirin Continue Gallegos catheter for now with plan to remove once extubated Feeds stopped for planned extubation, will have to monitor oral intake closely Appreciate nutrition assistance, will need to see how he does with oral intake Will need to have blood sugars monitor closely when steroids are ultimately discontinued If hypoglycemia persists or recurs after steroids are stopped, consider checking insulin, c-peptide, betahydroxybuterate, proinsulin and drug levels (sulfonylurea and meglitinide) Hepatitis C genotype pending, need to clarify history when able On PPI When he is able to talk need to see if we can get a clear picture of what happened prior to admission Supportive care otherwise Pending/ordered tests to follow: Second set of blood cultures Lines/tubes: Dialysis catheter in the right upper chest, central line in the left neck, gallegos DVT prophylaxis: Currently on heparin drip secondary to DVT in the right lower extremity Anticipated Disposition: Initially anticipated disposition home but with prolonged ICU stay and ventilation may require rehab Code Status: Full code Attestations Medical Necessity Statement*: Requires ongoing inpatient and ICU stay secondary to cardiopulmonary issues as described above. Remains at high risk of rapid clinical decline Coding Level of Care Code Acute Casing Wringer Operator for [facility] Fwd Diagnoses Respiratory arrest R09.2 Hypoglycemia E16.2 Atrial fibrillation with slow ventricular response I48.91 Hypotension I95.89 Hypotension type: other hypotension type Elevated troponin R77.8 DVT (deep venous thrombosis) I82.491 DVT location: lower extremity Affected thrombotic vein of extremity: other lower extremity vein Chronicity: acute Laterality: right Hypothermia T68.XXXA Encounter type: initial encounter Lactic acidosis E87.2 Hepatitis C antibody test positive R76.8 End stage chronic kidney disease N18.6 CAD (coronary artery disease) I25.10 Coronary Disease-Associated Artery/Lesion type: [place] artery [place] vs. transplanted heart: [place] heart Associated angina: without angina Chronic anticoagulation Z79.01
[2021-04-10] MEDS: aspirin 81 mg EC Tablet PO (09:21)
[2021-04-10] MEDS: pantoprazole DR 40 mg Tablet PO ×2 (09:21→17:04)
[2021-04-10] MEDS: metoprolol tartrate 25 mg Tablet PO (09:22)
[2021-04-10] MEDS: nitroglycerin 1 gm/inch oint Pkt 1 INCH TOPICAL (10:30)
--- NOTE | 2021-04-10 11:27 | P.PN_ITS ---
Subjective Subjective: Interval history: Patient got extubated this morning. Imaging shows atrial flutter with rapid ventricular rate. Heart rate was fairly under control, through the night. He just got extubated. He is very apprehensive, which could be contributing to this. No fever or chills. No cough. He had a bronchoscopy yesterday. He was found to have some features of subglottic edema. He was given steroids. Medications: Reviewed: Yes Medication Review Details: Current Medications Albuterol/Ipratropium (Ipratropium-Albuterol 3 Ml Neb) 3 ml INHALATION Q6H.RESPIRATORY PRN PRN Reason: SHORTNESS OF BREATH Aspirin (Aspirin 81 Mg Ec Tablet) 81 mg PO DAILY LEOBARDO Last Admin: 04/10/21 09:21 Dose: 81 mg Documented by: Dextrose (Dextrose 50% Syringe 50 Ml) 25 ml IVP ONCE PRN; Protocol PRN Reason: hypoglycemia protocol Glucagon (Glucagon 1 Mg/Ml Inj 1 Ml) 1 mg IM ONCE PRN; Protocol PRN Reason: Adult Acute Hypoglycemia Prot. Heparin Sodium (Beef Lung) (Heparin 5,000 Unit/Ml Inj 1 Ml) 0 unit IV PRN PRN; Protocol PRN Reason: Heparin weight-base protocol Last Admin: 04/06/21 18:14 Dose: 2,700 unit Documented by: Norepinephrine Bitartrate 4 mg (/ Dextrose) 254 mls @ 0 mls/hr IV .Q0M [facility]ARDO; Protocol Last Titration: 04/09/21 23:00 Dose: 0 mcg/min, 0 mls/hr Documented by: Heparin Sodium/Sodium Chloride (Heparin Drip) 25,000 unit in 500 mls @ 0 mls/hr IV .Q0M LEOBARDO; Protocol Last Titration: 04/09/21 20:25 Dose: 11.02 unit/kg/hr, 15 mls/hr Documented by: Fentanyl 1,000 mcg/ Sodium (Chloride) 100 mls @ 0 mls/hr IV .Q0M [facility]ARD[facility]; Protocol Last Titration: 04/10/21 06:20 Dose: 0 mcg/hr, 0 mls/hr Documented by: Epinephrine HCl 2.5 mg/ Sodium (Chloride) 252.5 mls @ 0 mls/hr IV .Q0M [facility]; Protocol Last Titration: 04/05/21 19:03 Dose: 0 mcg/min, 0 mls/hr Documented by: Sodium Chloride (Sodium Chloride 0.9%) 1,000 mls @ 0 mls/hr IV .Q0M PRN PRN Reason: hypotension or symptomatic Dextrose (D5w) 500 mls @ 100 mls/hr IV ONCE PRN; Protocol PRN Reason: Adult Acute Hypoglycemia Prot Last Infusion: 04/06/21 02:30 Dose: Infused Documented by: Vancomycin HCl 750 mg/ Sodium (Chloride) 250 mls @ 250 mls/hr IV MoWeFr [facility]; Protocol Last Infusion: 04/09/21 17:29 Dose: Infused Documented by: Piperacillin Sod/Tazobactam (Sod 3.375 gm/ Sodium Chloride) 50 mls @ 12.5 mls/hr IV Q12H [facility]; Protocol Last Infusion: 04/10/21 08:00 Dose: Infused Documented by: Levofloxacin/Dextrose (Levaquin-D5w) 500 mg in 100 mls @ 100 mls/hr IV Q48H [facility] Last Infusion: 04/10/21 08:25 Dose: Infused Documented by: Dextrose/Sodium Chloride (Dextrose 5%-Sod Chloride 0.9%) 1,000 mls @ 30 mls/hr IV .Q24H [facility] Last Admin: 04/10/21 01:11 Dose: 30 mls/hr Documented by: Dexmedetomidine HCl 400 mcg/ (Sodium Chloride) 104 mls @ 0 mls/hr IV .Q0M [facility]; Protocol Sodium Chloride (Sodium Chloride 0.9%) 1,000 mls @ 0 mls/hr IV .Q0M PRN PRN Reason: hypotension or symptomatic Propofol (Diprivan) 1,000 mg in 100 mls @ 0 mls/hr IV .Q0M [facility]; Protocol Last Titration: 04/10/21 08:21 Dose: 0 mcg/kg/min, 0 mls/hr Documented by: Insulin Aspart (Insulin Aspart 100 Unit/1 Ml) 0 unit SUBCUT BEDTIME LEOBARDO; Protocol Last Admin: 04/09/21 07:46 Dose: 2 unit Documented by: Insulin Aspart (Insulin Aspart 100 Unit/1 Ml) 0 unit SUBCUT TIDWM [facility]; Protocol Last Admin: 04/10/21 07:25 Dose: 2 unit Documented by: Lanolin (Lanolin Oint 7 Gm) 1 applic TOPICAL PRN PRN PRN Reason: DRYNESS Last Admin: 04/09/21 02:07 Dose: 1 applic Documented by: Metoprolol Tartrate (Metoprolol Tartrate 25 Mg Tablet) 25 mg PO BID@0900,2100 [facility] Last Admin: 04/10/21 09:22 Dose: 25 mg Documented by: Nitroglycerin (Nitroglycerin 1 Gm/Inch Oint Pkt) 1 inch TOPICAL Q6H [facility] Last Admin: 04/10/21 10:30 Dose: 1 inch Documented by: Pantoprazole Sodium (Pantoprazole Dr 40 Mg Tablet) 40 mg PO BID [facility] Last Admin: 04/10/21 09:21 Dose: 40 mg Documented by: Vitals/I&O/Wt Last Vital Signs Temp 98.4 F 04/09/21 14:00 Pulse 125 H 04/10/21 10:00 Resp 20 H 04/10/21 10:00 BP 159/96 04/10/21 10:00 Pulse Ox 100 04/10/21 10:00 04/09/21 04/10/21 04/10/21 22:59 06:59 14:59 Intake Total 359.067 / 741.357 222.242 / 963.599 188.425 / 188.425 Output Total 20 / 70 Balance 339.067 / 671.357 222.242 / 893.599 188.425 / 188.425 Weight last 48 hrs Weight 159 lb Weight 167 lb Physical Exam Narrative: EXAM NARRATIVE: GENERAL: The patient is intubated and sedated. HEENT: Minimal pallor. Pupils are symmetrical. Oral cavity: There are no mucous membrane lesions. NECK: Trachea appears to be central. No masses noted. No JVD or thyromegaly appreciated. No carotid bruit. RESPIRATORY: There are some slight bilateral no rales or rhonchi BREASTS: Deferred. HEART: The heart sounds are normal no S3 or S4. Short systolic murmur in the left sternal border. Ejection systolic murmur of grade 2/6 in the aortic area. No diastolic murmurs. ABDOMEN: No vessel pulsations or distention. No tenderness. No organomegaly appreciated. No abdominal bruit. Bowel sounds are normally heard. : Deferred. RECTAL: Deferred. LYMPHATIC: No lymphadenopathy noted in the neck or groin. EXTREMITIES: There is hematoma in the left upper extremity. Dialysis access site on the left side. Peripheral cyanosis in the toes seems to be slowly improving MUSCULOSKELETAL: No acute joint deformities or swelling. SKIN: Multiple ecchymotic areas in the upper extremity. Healing skin abrasions in the anterior knee bilaterally NEUROPSYCHIATRIC: Patient is intubated. Moving all extremities. Urinary Catheter Management^: Neal: Cath Placed During This Visit: yes Reason for Continuing Indwelling Catheter: Accurate Measurement of Urinary Output in Critically Ill Patients Urinary Catheter Date of Insertion: 04/05/21 Data : 04/11/21 08:50 04/10/21 03:55 Micro: Microbiology 04/04/21 22:36 Blood Culture - Final Blood NO GROWTH AFTER 5 DAYS A&P Assessment and plan (1) Accelerated hypertension: We will try to optimize the antihypertensive medications. Status: Acute (2) Atrial fibrillation with rapid ventricular response: We will try to optimize the AV yesica blocking agents. I will start him on metoprolol 50 mg p.o. twice daily. We will continue the heparin. We will discuss about cardiac catheterization later today Status: Acute (3) Respiratory arrest: Currently extubated. Management as per the pulmonary service Status: Acute (4) DVT (deep venous thrombosis): Patient is on IV heparin. May continue the heparin for the time being Status: Acute Qualifiers: Affected thrombotic vein of extremity: other lower extremity vein Chronicity: acute DVT location: lower extremity Laterality: right Qualified Code(s): I82.491 - Acute embolism and thrombosis of other specified deep vein of right lower extremity (5) Elevated troponin: He has LV dysfunction, possibility of him having had a coronary event causing elevated troponin T and LV systolic dysfunction is a consideration. Patient may benefit from a cardiac catheterization, to further evaluate the coronary status. I will be discussing this this afternoon the decision will be made afterwards. Status: Acute (6) End-stage renal disease (ESRD): Patient is scheduled for hemodialysis today Status: Acute (7) Peripheral cyanosis: RITA was normal bilaterally. No significant arterial obstruction, based on the duplex examination findings. Most likely related to peripheral vasoconstri ction/low output state We will continue on the current medications Status: Acute Additional A&P Information Other problems are Atherosclerotic heart disease, status post coronary artery bypass surgery Status post respiratory failure History of diastolic heart failure, currently compensated Pneumonia, resolving I discussed with the patient about further management options. He would benefit from a cardiac catheterization to evaluate the coronary arteries and the bypass grafts. Apparently the patient is undecided about this. I may discuss this with his brother who visited him today. In the meanwhile, he may continue on the current medications. I may continue the heparin drip till we make a decis ion on the cardiac cath. Attestations Medical Necessity Statement*: Patient requires continued hospital stay for close monitoring and further management Coding Level of Care Code Acute Sports Umpire for g Fwd Diagnoses Accelerated hypertension I10 Atrial fibrillation with rapid ventricular response I48.91 Respiratory arrest R09.2 DVT (deep venous thrombosis) I82.491 Affected thrombotic vein of extremity: other lower extremity vein Chronicity: acute DVT location: lower extremity Laterality: right Elevated troponin R77.8 End-stage renal disease (ESRD) N18.6 Peripheral cyanosis R23.0
[2021-04-10 11:47] LABS: Glucose Point of Care 129 mg/dL (70-110)
[2021-04-10 12:16] LABS: Partial Thromboplastin Time 45.7 SECONDS (23.9-36.7)
[2021-04-10] MEDS: ipratropium-albuterol 3 mL Neb INHALATION (14:12)
--- NOTE | 2021-04-10 14:37 | PC.SOCIAL ---
IMM Updated Updated pt & pt's brother Anil, on Pg 2 IMM. No questions voiced. Provided pt a copy. Signed, dated, & timed copy in chart.
[2021-04-10] MEDS: nitroglycerin 1 gm/inch oint Pkt 0.5 INCH TOPICAL ×2 (16:41→21:37)
[2021-04-10 16:48] LABS: Glucose Point of Care 110 mg/dL (70-110)
[2021-04-10 19:00] LABS: Partial Thromboplastin Time 65.1 SECONDS (23.9-36.7)
[2021-04-10] MEDS: metoprolol tartrate 50 mg Tablet PO (20:01)
[2021-04-10 20:43] LABS: Glucose Point of Care 174 mg/dL (70-110)
[2021-04-11] VITALS (40 sets, daily range): BP systolic 124–163; BP diastolic 78–111; PULSE 72–108; RESP 7–33; TEMP 36.4–36.6; O2SAT 88–100
[2021-04-11 01:52] LABS: Partial Thromboplastin Time 41.7 SECONDS (23.9-36.7)
[2021-04-11] MEDS: heparin 5,000 unit/mL INJ 1 mL IV ×2 (02:40→23:05)
[2021-04-11] MEDS: piperacillin-tazobactam 3.375 GM in sodium chloride 0.9% (plus) 50 ML IV ×2 (03:55→15:44)
[2021-04-11] MEDS: nitroglycerin 1 gm/inch oint Pkt 0.5 INCH TOPICAL ×4 (03:56→21:06)
[2021-04-11] MEDS: heparin drip 25,000 UNIT/500 ML PREMIX 19 UNIT IV (05:42)
[2021-04-11 07:36] LABS: Glucose Point of Care 95 mg/dL (70-110)
[2021-04-11] MEDS: metoprolol tartrate 50 mg Tablet PO ×2 (08:01→21:06)
[2021-04-11] MEDS: pantoprazole DR 40 mg Tablet PO ×2 (08:01→17:30)
[2021-04-11] MEDS: aspirin 81 mg EC Tablet PO (08:01)
[2021-04-11 09:00] LABS: Basophils % 0.1 %; Eosinophils % 0.1 %; Hematocrit 36.5 % (42.0-52.0); Hemoglobin 10.9 g/dL (11.7-16.6); Lymphocytes # 1.1 10^3/uL (0.8-4.8); Lymphocytes % 10.4 %; Mean Corpuscular HGB Conc 29.9 g/dL (30.0-36.0); Mean Corpuscular Volume 90.6 fL (80-94); Mean Platelet Volume 10.3 fL (7.4-10.4); Monocytes # 0.7 10^3/uL (0.2-0.9); Monocytes % 6.8 %; Neutrophils # 8.78 10^3/uL (1.8-7.7); Neutrophils % 81.9 %; Nucleated Red Blood Cells % 0 %; Platelet Count 177 10^3/cmm (130-400); Red Blood Count 4.03 10^6/uL (4.1-5.3); Red Cell Distribution Width 18.6 % (12.1-15.1); White Blood Count 10.7 10^3/uL (4.0-10.0)
--- NOTE | 2021-04-11 09:19 | P.PN_ITS ---
Subjective Subjective: Interval history: No new issues today. He feels comfortable, he feels well. Eating and drinking normally. Hemodynamics reviewed, remained stable. Minimal extremity edema, breathing comfortably. No uremic symptoms Vitals/I&O/Wt Last Vital Signs Temp 97.6 F 04/11/21 04:00 Pulse 94 04/11/21 09:00 Resp 20 H 04/11/21 09:00 BP 150/86 04/11/21 09:00 Pulse Ox 96 04/11/21 09:00 04/10/21 04/11/21 04/11/21 22:59 06:59 14:59 Intake Total 586 / 1123.675 469.35 / 1593.025 290 / 290 Output Total 100 / 100 Balance 586 / 1123.675 369.35 / 1493.025 290 / 290 Weight last 48 hrs Weight 74.117 kg Weight 72.121 kg Physical Exam Narrative: EXAM NARRATIVE: Constitutional: Sedated and vented HEENT: Wet mucosa, no jvp, non icteric Lungs: Bilaterally clear without discernible wheeze, rales in all lung zones CVS: S1 S2, no murmurs Abdo: Soft, BS ok Ext 4: Minimal edema, peripheral perfusion with no cyanosis Neurological: Grossly non-focal Urinary Catheter Management^: Neal: Cath Placed During This Visit: yes Reason for Continuing Indwelling Catheter: Accurate Measurement of Urinary Output in Critically Ill Patients Urinary Catheter Date of Insertion: 04/05/21 Data : 04/11/21 08:50 04/10/21 03:55 A&P Additional A&P Information 1. ESRD Plan for dialysis tomorrow 2K, UF 2-3L Dose medication GFR less than 15 on dialysis 2. CAD for C tomorrow Plan for dialysis after [facility] 3. Hemodynamics A. fib with RVR last evening management per Dr. Parker is noted, now rate controlled Khanh Orr MD Nephrology [phone] Patient seen and examined via telemedicine, with the assistance of the bedside RN > 25 min spent in evaluation and mgmt of patient Attestations Medical Necessity Statement*: Eval for ESRD Coding Level of Care Code Acute Breaker Tender for [facility] Mihaela
[2021-04-11] MEDS: dextrose 5%-sod chloride 0.9% 1,000 ML 30 ML IV (09:21)
--- NOTE | 2021-04-11 09:33 | PM.PN ---
Subjective Subjective: Interval history: Extubated yesterday. Has done well since that time. This morning sitting up feeding himself a little bit of breakfast. He is able to talk but has to pause every little bit. He has no recollection of what happened prior to admission. Patient's brother was here from I believe [place]. And talk to him for a while. Patient had been living in [place] until about 2 weeks ago. Family had moved him up there where they were more of them to care for him. He did not like that and wanted to come back home here. He lives with a sister that is in her 90s as I understand it. There is not a lot of direct support. The brother just arrived yesterday and at the home discovered that his pillbox which had been set up for a week only had 1-1/2 days of medications taken from it. He had not taken any medications on the Monday prior to admission per the pillbox. Patient had reported difficulty swallowing pills the week prior to admission. He does have a history of having what sounds like esophageal dilatation previously. He has had that several times. Patient himself has no recollection of hepatitis C positivity. Denies ever having had any treatment for it. Patient does not make any urine or much at all at baseline, did not miss any hemodialysis. Reviewed with the brother anticoagulants. Patient was on Eliquis prior to admission rather than Coumadin. He had had issues with supratherapeutic INR and associated significant complications while on Coumadin. Medications: Reviewed: Yes Medication Review Details: Levaquin and Zosyn day 5 Vancomycin day 4 Vitals/I&O/Wt Last Vital Signs Temp 97.6 F 04/11/21 04:00 Pulse 94 04/11/21 09:00 Resp 20 H 04/11/21 09:00 BP 150/86 04/11/21 09:00 Pulse Ox 96 04/11/21 09:00 04/10/21 04/11/21 04/11/21 22:59 06:59 14:59 Intake Total 586 / 1123.675 469.35 / 2798.795 2667 / 1255 Output Total 100 / 100 Balance 586 / 1123.675 369.35 / 1237.143 6966 / 1255 Weight last 48 hrs Weight 74.117 kg Weight 72.121 kg Physical Exam Narrative: EXAM NARRATIVE: Constitutional: Awake and alert, feeding himself, occasional productive cough Respiratory: Clear after coughing Cardiovascular: Rate controlled today Abdomen: Soft, positive bowel sounds, nondistended, nontender : gallegos in place Extremities: Decreased upper extremity edema. Lower extremities unchanged. Hands and feet not as cool to touch. Skin: Continues to have discoloration at the right great toe. Scattered ecchymoses both iatrogenic and present prior to admission. Neuro: Moves all extremities Other: Dialysis catheter intact right upper chest, stable ecchymosis right upper chest, central line left neck Urinary Catheter Management^: Gallegos: Cath Placed During This Visit: yes Reason for Continuing Indwelling Catheter: Accurate Measurement of Urinary Output in Critically Ill Patients Urinary Catheter Date of Insertion: 04/05/21 Data : 04/11/21 08:50 04/10/21 03:55 Micro: Microbiology 04/06/21 08:36 Blood Culture - Final Blood NO GROWTH AFTER 5 DAYS 04/06/21 08:56 Blood Culture - Final Blood NO GROWTH AFTER 5 DAYS A&P Assessment and plan (1) Respiratory arrest: In the field, necessitated intubation upon arrival to the ER. Occurred after administration of Versed for pacing. PE is within the differential and with elevation in D-dimer, right lower extremity DVT and other findings current working diagnosis. Chest x-ray has shown some infiltrates versus atelectasis. Low-grade fever 04/06 could be from either atelectasis or infection. Having increased secretions. Now with evidence of subglottic edema. Status post bronchoscopy 04/09. Extubated 04/10. Status: Acute (2) Hypoglycemia: Was a reurrent problem initially despite being on tube feeds. He does not have a diagnosis of diabetes. No medications to specifically account for hypoglycemia. No evidence of acute coronary syndrome identified. Beta-grace toxicity a consideration from the time of admission but did not have other features of such and with the revelation that he was not taking his medications less likely. Infection also in the differential as are other metabolic processes. A1c 4.8. Unknown if any sulfonylureas in his home. Resolved after steroids were initiated for subglottic edema. Status: Acute (3) Atrial fibrillation with slow ventricular response: Heart rate in the 30s on EMS arrival, ultimately treated with epinephrine. Has not had recurrent bradycardia. Treated with pressor support initially. Chronically on Cardizem and beta-grace for rate control. These held until 04/10 when atrial flutter/A. fib with RVR developed and beta-grace resumed. Status: Acute (4) Hypotension: Upon arrival, has required pressor support. Differential includes medication effect, sepsis, cardiopulmonary etiology such as PE. Sepsis secondary to infection seems less likely given initial improvement without antibiotic coverage. Epinephrine discontinued first day of admission. Levophed administered at low doses intermittently particularly for maintenance of blood pressure with sedation changes, with last administration on 04/10 Status: Acute Qualifiers: Hypotension type: other hypotension type Qualified Code(s): I95.89 - Other hypotension (5) Elevated troponin: Unclear acute significance, may be type II process from above but he does have known coronary artery disease with prior bypass. Has had previous similar baseline elevations. Status: Acute (6) DVT (deep venous thrombosis): Right common femoral vein, deep profunda and superficial femoral vein, extensive, present prior to admission Status: Acute Qualifiers: DVT location: lower extremity Affected thrombotic vein of extremity: other lower extremity vein Chronicity: acute Laterality: right Qualified Code(s): I82.491 - Acute embolism and thrombosis of other specified deep vein of right lower extremity (7) Hypothermia: Unclear reason currently, temperature was 93 initially, not stated anywhere if he was found outside or if windows open. Temperature was in the 40s upper night of admission. Temperature improved with bear hugger. Infection is a consideration as is other etiology for the impaired thermoregulation. Status: Acute Qualifiers: Encounter type: initial encounter Qualified Code(s): T68.XXXA - Hypothermia, initial encounter (8) Lactic acidosis: [place] related to respiratory arrest, improved with respiratory and cardiovascular support. Status: Acute (9) Hepatitis C antibody test positive: Denies prior history or treatment, though unclear to me presently how accurate his recall is Hepatitis C RNA not detected, hepatitis C genotype not detected. May be false positive Status: Acute (10) End stage chronic kidney disease: On hemodialysis Wednesdays and Fridays Status: Acute (11) CAD (coronary artery disease): Prior coronary artery bypass and PCI previously Status: Chronic Qualifiers: Coronary Disease-Associated Artery/Lesion type: [place] artery [place] vs. transplanted heart: creek heart Associated angina: without angina Qualified Code(s): I25.10 - Atherosclerotic heart disease of creek coronary artery without angina pectoris (12) Chronic anticoagulation: Secondary to atrial fibrillation. Had been on Coumadin previously is [facility] Eli[facility]. Had 2 episodes of complications from supratherapeutic INR and was on Eliquis prior to admission. Status: Chronic Additional A&P Information At least moderate protein calorie malnutrition secondary to illness Brother reports what sounds like esophageal stricture requiring dilatation intermittently, unclear of exactly when the last time was Empirically covered with antibiotics due to nonspecific clinical and laboratory/imaging findings in the setting of difficulty weaning from ventilator with plan to treat for a full 7-day course Right great toe discoloration, status post arterial Doppler 04/08 Continue oral beta-blockade Cardiology considering whether or not to pursue catheterization On home aspirin Off of home isosorbide and diltiazem Continue heparin drip for now Transition to Eliquis once cleared not needing any invasive procedures, on for atrial fibrillation as well as treatment for DVT in the right lower extremity Advance diet and monitor swallowing, reported that he has required esophageal dilatation in the past and that he was having difficulty swallowing his pills the week prior to admission. Depending on clinical course may have to consider endoscopic evaluation. Pulmonology following Dr Gavin Breathing treatments Resume home Flonase Status post steroids for subglottic edema We will need to watch blood sugars with cessation of steroids Continue antibiotics for a full 7 days though with negative blood cultures we will discontinue vancomycin PT and OT evaluations Speech evaluation Discontinue Gallegos catheter as does not make urine or much at all at baseline Maintain central line presently but consider discontinuation in next 24-48 hours if stable and able to get peripheral IV Nephrology following for hemodialysis Wednesdays and Fridays Repeat hepatitis C as I am wondering if it was a false positive Monitor right foot for progressive change On PPI Resume lower dose of home gabapentin Supportive care otherwise If remains stable should be able to move out of the ICU in the next 24 hours to CSU given bradycardia leading to respiratory arrest at admission Lines/tubes: Dialysis catheter in the right upper chest, central line in the left neck DVT prophylaxis: Currently on heparin drip secondary to DVT in the right lower extremity with plan to transition to Eliquis when cleared no invasive testing needed Anticipated Disposition: Consideration will have to be given to placement if patient will agree for rehabilitation. He moved back here 2 weeks ago according to his brother. He has limited support to assist him here as his sister is older than he is. I have not yet broached the subject at length with patient is at like to see how he does with therapy in such first. It does look like he was not taking his medications at least for a couple of days prior to admission. Code Status: Full code Attestations Medical Necessity Statement*: Requires ongoing inpatient stay for continued management post respiratory arrest as noted. Has done well post extubation thus far. 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 Operator for [facility] Fwd Diagnoses Respiratory arrest R09.2 Hypoglycemia E16.2 Atrial fibrillation with slow ventricular response I48.91 Hypotension I95.89 Hypotension type: other hypotension type Elevated troponin R77.8 DVT (deep venous thrombosis) I82.491 DVT location: lower extremity Affected thrombotic vein of extremity: other lower extremity vein Chronicity: acute Laterality: right Hypothermia T68.XXXA Encounter type: initial encounter Lactic acidosis E87.2 Hepatitis C antibody test positive R76.8 End stage chronic kidney disease N18.6 CAD (coronary artery disease) I25.10 Coronary Disease-Associated Artery/Lesion type: [place] artery [place] vs. transplanted heart: creek heart Associated angina: without angina Chronic anticoagulation Z79.01
[2021-04-11 09:48] LABS: Anion Gap 17.8 (5-19); Blood Urea Nitrogen 28 mg/dL (8-23); Calcium 7.7 mg/dL (8.5-10.5); Carbon Dioxide 21 mmol/L (22-29); Chloride 96 mmol/L (98-107); Glomerular Filtration Rate 14.2 mL/min (90-130); Glucose 144 mg/dL (65-115); Osmolality Calculated 280 mOsm/kg (285-295); Potassium 3.8 mmol/L (3.5-5.1); Sodium 131 mmol/L (136-145)
[2021-04-11 10:09] LABS: Partial Thromboplastin Time 159.6 SECONDS (23.9-36.7)
[2021-04-11] MEDS: fluticasone nasal spray 16gm Btl 2 SPRAY INTRANASAL (10:49)
[2021-04-11] MEDS: dilTIAZem 30 mg Tablet PO ×2 (10:49→17:30)
[2021-04-11 10:55] LABS: Partial Thromboplastin Time 122.1 SECONDS (23.9-36.7)
[2021-04-11 11:02] LABS: Glucose Point of Care 167 mg/dL (70-110)
--- NOTE | 2021-04-11 11:31 | P.PN_ITS ---
Vitals/I&O/Wt Last Vital Signs Temp 97.6 F 04/11/21 04:00 Pulse 88 04/11/21 11:00 Resp 15 04/11/21 11:00 BP 158/97 04/11/21 11:00 Pulse Ox 92 04/11/21 11:00 04/10/21 04/11/21 04/11/21 22:59 06:59 14:59 Intake Total 586 / 1123.675 469.35 / 4586.131 0672.45 / 1360.45 Output Total 100 / 100 Balance 586 / 1123.675 369.35 / 8167.441 2729.45 / 1360.45 Weight last 48 hrs Weight 163 lb 6.4 oz Weight 159 lb Physical Exam Narrative: EXAM NARRATIVE: General: lying in bed, intubated, off sedation and agitated, appeared slightly edematous overall HEENT:NCAT, PERRLA, EOMI Neck: Supple Lungs: Bibasilar crackles Heart: s1/s2, RRR Abd: soft, NT, ND, BS + Normoactive Extremities: No edema MULTIPLE LAUNCH ROCKET 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 SKIN: no rash LDA: # Dialysis catheter in the right upper chest, EJ in the neck, no central line, gallegos Urinary Catheter Management^: Gallegos: Cath Placed During This Visit: yes Reason for Continuing Indwelling Catheter: Accurate Measurement of Urinary Output in Critically Ill Patients Urinary Catheter Date of Insertion: 04/05/21 Data : 04/11/21 08:50 04/11/21 08:50 Other Labs: Laboratory Results WBC 10.7 10^3/uL (4.0-10.0) H 04/11/21 08:50 RBC 4.03 10^6/uL (4.1-5.3) L 04/11/21 08:50 Hgb 10.9 g/dL (11.7-16.6) L 04/11/21 08:50 Hct 36.5 % (42.0-52.0) L 04/11/21 08:50 MCV 90.6 fL (80-94) 04/11/21 08:50 MCH 27.0 pg (28.0-34.0) L 04/11/21 08:50 MCHC 29.9 g/dL (30.0-36.0) L 04/11/21 08:50 RDW 18.6 % (12.1-15.1) H 04/11/21 08:50 Plt Count 177 10^3/cmm (130-400) 04/11/21 08:50 MPV 10.3 fL (7.4-10.4) 04/11/21 08:50 Neut % (Auto) 81.9 % 04/11/21 08:50 Lymph % (Auto) 10.4 % 04/11/21 08:50 [place] % (Auto) 6.8 % 04/11/21 08:50 Eos % (Auto) 0.1 % 04/11/21 08:50 Baso % (Auto) 0.1 % 04/11/21 08:50 Neut # (Auto) 8.78 10^3/uL (1.8-7.7) H 04/11/21 08:50 Lymph # (Auto) 1.1 10^3/uL (0.8-4.8) 04/11/21 08:50 [place] # (Auto) 0.7 10^3/uL (0.2-0.9) 04/11/21 08:50 Eos # (Auto) 0.0 10^3/uL (0.0-0.8) 04/11/21 08:50 Baso # (Auto) 0.0 10^3/uL (0.0-0.1) 04/11/21 08:50 Nucleated RBC % (auto) 0 % 04/11/21 08:50 Nucleated RBCs # 0.0 /100WBC 04/11/21 08:50 PT 18.50 SECONDS (12.1-14.9) H 04/06/21 04:00 INR 1.50 (0.8-1.2) H 04/06/21 04:00 APTT 122.1 SECONDS (23.9-36.7) H 04/11/21 10:26 D-Dimer 6.15 ug/mIFEU (0-0.59) H 04/05/21 02:31 Specimen Type Arterial 04/09/21 06:04 Sample Site Radial, right 04/09/21 06:04 ABG pH 7.45 (7.35-7.45) 04/09/21 06:04 ABG pCO2 32.2 mmHg (35-45) L 04/09/21 06:04 ABG pO2 78.1 mmHg (80.0-100.0) L 04/09/21 06:04 ABG HCO3 22.2 mmol/L (22-26) 04/09/21 06:04 ABG O2 Saturation 87.1 04/04/21 22:16 ABG Base Excess -1.2 mmol/L (-2.0-2.0) 04/09/21 06:04 Eusebio Test Pos 04/09/21 06:04 A-a O2 Gradient 77.8 mmHg (5-10) H 04/04/21 22:16 Hematocrit 34.6 % (42-52) L 04/09/21 06:04 Hgb O2 Saturation 84.9 % (95-100) L 04/04/21 22:16 Carboxyhemoglobin 1.5 %THgb (0.4-20.1) 04/04/21 22:16 Methemoglobin 1.0 % (0.4-1.5) 04/04/21 22:16 Total Hemoglobin 8.6 g/dL (14-18) L 04/04/21 22:16 Sodium 137.0 mmol/L (131-143) 04/04/21 22:16 Potassium 4.7 mmol/L (3.5-5.0) 04/04/21 22:16 Glucose 63.0 mg/dL (70-115) L 04/04/21 22:16 Ionized Calcium 0.7 mmol/L (1.1-1.4) L 04/04/21 22:16 O2 Delivery Device Vent 04/09/21 06:04 O2 Liters/Min 15.0 % 04/04/21 22:16 FiO2 30.0 % 04/09/21 06:04 Tidal Volume 0.45 04/09/21 06:04 PEEP 5.0 cmH20 04/09/21 06:04 County Manager ID See 04/09/21 06:04 Sodium 131 mmol/L (136-145) L 04/11/21 08:50 Potassium 3.8 mmol/L (3.5-5.1) 04/11/21 08:50 Chloride 96 mmol/L (98-107) L 04/11/21 08:50 Carbon Dioxide 21 mmol/L (22-29) L 04/11/21 08:50 Anion Gap 17.8 (5-19) 04/11/21 08:50 BUN 28 mg/dL (8-23) H 04/11/21 08:50 Creatinine 4.2 mg/dL (0.7-1.2) H 04/11/21 08:50 GFR Calculation 14.2 mL/min (90-130) L 04/11/21 08:50 Glucose 144 mg/dL (65-115) H 04/11/21 08:50 POC Glucose 167 mg/dL (70-110) H 04/11/21 11:00 Estimat Average Glucose 91 04/07/21 05:32 Hemoglobin A1c 4.8 % (4.0-6.0) 04/07/21 05:32 Calculated Osmolality 280 mOsm/kg (285-295) L 04/11/21 08:50 Lactate 2.3 mmol/L (0.5-2.2) H 04/05/21 02:58 Calcium 7.7 mg/dL (8.5-10.5) L 04/11/21 08:50 Phosphorus 5.8 mg/dL (2.5-4.5) H 04/09/21 03:40 Magnesium 1.9 mg/dL (1.7-2.3) 04/10/21 03:55 Total Bilirubin 0.5 mg/dL (0.15-1.2) 04/10/21 03:55 AST 13 U/L (0-40) 04/10/21 03:55 ALT 11 U/L (0-41) 04/10/21 03:55 Alkaline Phosphatase 120 IU/L (40-130) 04/10/21 03:55 Troponin T Gen 5 ng/L 37 ng/L (0-15) H 04/10/21 03:55 Troponin T Baseline 70 ng/L (0-15) H 04/04/21 20:51 Troponin T 120 Minute 63.13 ng/L (0-15) H 04/04/21 22:36 Delta Troponin T -6.87 ABS# (0-10) L 04/04/21 22:36 Troponin T Hi Sens 6Hr 36.62 ng/L (0-15) H 04/05/21 02:58 Troponin T Hi Sens 6Hr Delta -33.38 ng/L (0-12) L 04/05/21 02:58 Total Protein 5.1 g/dL (6.6-8.7) L 04/10/21 03:55 Albumin 2.1 g/dL (3.5-5.2) L 04/10/21 03:55 Globulin 3.0 g/dL (1.3-4.6) 04/10/21 03:55 Procalcitonin 2.99 ng/mL (0-0.5) H 04/06/21 04:00 TSH 2.41 uIU/mL (0.27-4.20) 04/05/21 02:58 Vancomycin Trough 14.8 ug/mL (10-15) 04/09/21 14:05 Hep Bs Antigen Non-reactive (Nonreactive) 04/05/21 09:58 Hepatitis C Antibody Reactive (Nonreactive) H 04/05/21 09:58 HCV RNA (PCR) IUs/ml <1.18 not detected Log IU/mL (NOT DETECTED) 04/06/21 04:00 HCV RNA (PCR) IU log10 <15 not detected IU/mL (NOT DETECTED) 04/06/21 04:00 Hep C Genotype (PCR) Not detected 04/06/21 04:[address] 04/04/21 23:30 IMPRESSION: 1. No acute intracranial hemorrhage or mass effect. 2. Changes of microvascular disease, and old infarcts, details above. 3. No definite acute infarct by CT, see above. 4. Other findings discussed above. Radiation Dose CTDIVOL = (mGy): DLP = 777.95 (mGy-cm) Chest X-Ray 04/06/21 07:35 IMPRESSION: 1. Stable chest without acute process. 2. Stable position of life support structures. Chest CTA 04/07/21 08:27 IMPRESSION: 1. No pulmonary embolism. 2. Moderate bilateral pleural effusions with compressive atelectasis at the lung bases. 3. Endotracheal and nasogastric tubes in good position. 4. Marked enlargement of the RIGHT heart chambers with evidence for increased RIGHT heart strain and tricuspid regurgitation into the hepatic veins. The RIGHT heart has increased in size since 11/02/2020. 5. Small amount of ascites adjacent to the liver. 6. Anterior mediastinal stranding secondary to small amount of posttraumatic bleeding at the site of the LEFT central line insertion site. No active bleeding. 7. Soft tissue anasarca. Micro: Microbiology 04/06/21 08:36 Blood Culture - Final Blood NO GROWTH AFTER 5 DAYS 04/06/21 08:56 Blood Culture - Final Blood NO GROWTH AFTER 5 DAYS Coding Level of Care Code Acute Transistor Tester for Singh Chairez
[2021-04-11 12:16] LABS: Hepatitis C Virus Antibody Reactive (Nonreactive)
--- NOTE | 2021-04-11 12:45 | P.PN_ITS ---
Subjective Subjective: Interval history: - Mr. Melissa is clinically stable -Saturating 95% on 2 L nasal cannula now respiratory distress -Reported having esophageal strictures and undergoes dilations frequently -Ask about his right leg DVT-reported that he is usually an active panda walks up 7 packs of stairs every day -Dr. Nguyen collected information from patient and his family the patient just left living his brother 2 weeks ago and knows he was hospitalized recently at a hospital in [place] for GI bleeding for which he underwent the procedure. He is noncompliant with his his Eliquis for A. fib -Currently denied any complaints -Labs and imaging reviewed Medications: Reviewed: Yes Vitals/I&O/Wt Last Vital Signs Temp 97.6 F 04/11/21 12:00 Pulse 97 04/11/21 12:00 Resp 15 04/11/21 12:00 BP 161/90 04/11/21 12:00 Pulse Ox 94 04/11/21 12:00 04/10/21 04/11/21 04/11/21 22:59 06:59 14:59 Intake Total 586 / 1123.675 469.35 / 4084.922 6011.45 / 1600.45 Output Total 100 / 100 20 / 20 Balance 586 / 1123.675 369.35 / 9343.065 7355.45 / 1580.45 Weight last 48 hrs Weight 163 lb 6.4 oz Weight 159 lb Physical Exam Narrative: EXAM NARRATIVE: General: lying in bed, on 2 L nasal cannula, not in acute respiratory distress HEENT:NCAT, PERRLA, EOMI Neck: Supple Lungs: Bibasilar crackles Heart: s1/s2, RRR Abd: soft, NT, ND, BS + Normoactive Extremities: 1+ pitting edema generalized edema FOOD TECHNICIAN: Alert oriented and communicative, no FND SKIN: no rash LDA: # Dialysis catheter in the right upper chest, EJ in the neck, no central line, gallegos Urinary Catheter Management^: Gallegos: Cath Placed During This Visit: yes Reason for Continuing Indwelling Catheter: Accurate Measurement of Urinary Output in Critically Ill Patients Urinary Catheter Date of Insertion: 04/05/21 Data : 04/11/21 08:50 04/11/21 08:50 Other Labs: Laboratory Results WBC 10.7 10^3/uL (4.0-10.0) H 04/11/21 08:50 RBC 4.03 10^6/uL (4.1-5.3) L 04/11/21 08:50 Hgb 10.9 g/dL (11.7-16.6) L 04/11/21 08:50 Hct 36.5 % (42.0-52.0) L 04/11/21 08:50 MCV 90.6 fL (80-94) 04/11/21 08:50 MCH 27.0 pg (28.0-34.0) L 04/11/21 08:50 MCHC 29.9 g/dL (30.0-36.0) L 04/11/21 08:50 RDW 18.6 % (12.1-15.1) H 04/11/21 08:50 Plt Count 177 10^3/cmm (130-400) 04/11/21 08:50 MPV 10.3 fL (7.4-10.4) 04/11/21 08:50 Neut % (Auto) 81.9 % 04/11/21 08:50 Lymph % (Auto) 10.4 % 04/11/21 08:50 [place] % (Auto) 6.8 % 04/11/21 08:50 Eos % (Auto) 0.1 % 04/11/21 08:50 Baso % (Auto) 0.1 % 04/11/21 08:50 Neut # (Auto) 8.78 10^3/uL (1.8-7.7) H 04/11/21 08:50 Lymph # (Auto) 1.1 10^3/uL (0.8-4.8) 04/11/21 08:50 [place] # (Auto) 0.7 10^3/uL (0.2-0.9) 04/11/21 08:50 Eos # (Auto) 0.0 10^3/uL (0.0-0.8) 04/11/21 08:50 Baso # (Auto) 0.0 10^3/uL (0.0-0.1) 04/11/21 08:50 Nucleated RBC % (auto) 0 % 04/11/21 08:50 Nucleated RBCs # 0.0 /100WBC 04/11/21 08:50 PT 18.50 SECONDS (12.1-14.9) H 04/06/21 04:00 INR 1.50 (0.8-1.2) H 04/06/21 04:00 APTT 122.1 SECONDS (23.9-36.7) H 04/11/21 10:26 D-Dimer 6.15 ug/mIFEU (0-0.59) H 04/05/21 02:31 Specimen Type Arterial 04/09/21 06:04 Sample Site Radial, right 04/09/21 06:04 ABG pH 7.45 (7.35-7.45) 04/09/21 06:04 ABG pCO2 32.2 mmHg (35-45) L 04/09/21 06:04 ABG pO2 78.1 mmHg (80.0-100.0) L 04/09/21 06:04 ABG HCO3 22.2 mmol/L (22-26) 04/09/21 06:04 ABG O2 Saturation 87.1 04/04/21 22:16 ABG Base Excess -1.2 mmol/L (-2.0-2.0) 04/09/21 06:04 Eusebio Test Pos 04/09/21 06:04 A-a O2 Gradient 77.8 mmHg (5-10) H 04/04/21 22:16 Hematocrit 34.6 % (42-52) L 04/09/21 06:04 Hgb O2 Saturation 84.9 % (95-100) L 04/04/21 22:16 Carboxyhemoglobin 1.5 %THgb (0.4-20.1) 04/04/21 22:16 Methemoglobin 1.0 % (0.4-1.5) 04/04/21 22:16 Total Hemoglobin 8.6 g/dL (14-18) L 04/04/21 22:16 Sodium 137.0 mmol/L (131-143) 04/04/21 22:16 Potassium 4.7 mmol/L (3.5-5.0) 04/04/21 22:16 Glucose 63.0 mg/dL (70-115) L 04/04/21 22:16 Ionized Calcium 0.7 mmol/L (1.1-1.4) L 04/04/21 22:16 O2 Delivery Device Vent 04/09/21 06:04 O2 Liters/Min 15.0 % 04/04/21 22:16 FiO2 30.0 % 04/09/21 06:04 Tidal Volume 0.45 04/09/21 06:04 PEEP 5.0 cmH20 04/09/21 06:04 Rib Knitter ID See 04/09/21 06:04 Sodium 131 mmol/L (136-145) L 04/11/21 08:50 Potassium 3.8 mmol/L (3.5-5.1) 04/11/21 08:50 Chloride 96 mmol/L (98-107) L 04/11/21 08:50 Carbon Dioxide 21 mmol/L (22-29) L 04/11/21 08:50 Anion Gap 17.8 (5-19) 04/11/21 08:50 BUN 28 mg/dL (8-23) H 04/11/21 08:50 Creatinine 4.2 mg/dL (0.7-1.2) H 04/11/21 08:50 GFR Calculation 14.2 mL/min (90-130) L 04/11/21 08:50 Glucose 144 mg/dL (65-115) H 04/11/21 08:50 POC Glucose 167 mg/dL (70-110) H 04/11/21 11:00 Estimat Average Glucose 91 04/07/21 05:32 Hemoglobin A1c 4.8 % (4.0-6.0) 04/07/21 05:32 Calculated Osmolality 280 mOsm/kg (285-295) L 04/11/21 08:50 Lactate 2.3 mmol/L (0.5-2.2) H 04/05/21 02:58 Calcium 7.7 mg/dL (8.5-10.5) L 04/11/21 08:50 Phosphorus 5.8 mg/dL (2.5-4.5) H 04/09/21 03:40 Magnesium 1.9 mg/dL (1.7-2.3) 04/10/21 03:55 Total Bilirubin 0.5 mg/dL (0.15-1.2) 04/10/21 03:55 AST 13 U/L (0-40) 04/10/21 03:55 ALT 11 U/L (0-41) 04/10/21 03:55 Alkaline Phosphatase 120 IU/L (40-130) 04/10/21 03:55 Troponin T Gen 5 ng/L 37 ng/L (0-15) H 04/10/21 03:55 Troponin T Baseline 70 ng/L (0-15) H 04/04/21 20:51 Troponin T 120 Minute 63.13 ng/L (0-15) H 04/04/21 22:36 Delta Troponin T -6.87 ABS# (0-10) L 04/04/21 22:36 Troponin T Hi Sens 6Hr 36.62 ng/L (0-15) H 04/05/21 02:58 Troponin T Hi Sens 6Hr Delta -33.38 ng/L (0-12) L 04/05/21 02:58 Total Protein 5.1 g/dL (6.6-8.7) L 04/10/21 03:55 Albumin 2.1 g/dL (3.5-5.2) L 04/10/21 03:55 Globulin 3.0 g/dL (1.3-4.6) 04/10/21 03:55 Procalcitonin 2.99 ng/mL (0-0.5) H 04/06/21 04:00 TSH 2.41 uIU/mL (0.27-4.20) 04/05/21 02:58 Vancomycin Trough 14.8 ug/mL (10-15) 04/09/21 14:05 Hep Bs Antigen Non-reactive (Nonreactive) 04/05/21 09:58 Hepatitis C Antibody Reactive (Nonreactive) H 04/05/21 09:58 HCV RNA (PCR) IUs/ml <1.18 not detected Log IU/mL (NOT DETECTED) 04/06/21 04:00 HCV RNA (PCR) IU log10 <15 not detected IU/mL (NOT DETECTED) 04/06/21 04:00 Hep C Genotype (PCR) Not detected 04/06/21 04:[address] 04/04/21 23:30 IMPRESSION: 1. No acute intracranial hemorrhage or mass effect. 2. Changes of microvascular disease, and old infarcts, details above. 3. No definite acute infarct by CT, see above. 4. Other findings discussed above. Radiation Dose CTDIVOL = (mGy): DLP = 777.95 (mGy-cm) Chest X-Ray 04/06/21 07:35 IMPRESSION: 1. Stable chest without acute process. 2. Stable position of life support structures. Chest CTA 04/07/21 08:27 IMPRESSION: 1. No pulmonary embolism. 2. Moderate bilateral pleural effusions with compressive atelectasis at the lung bases. 3. Endotracheal and nasogastric tubes in good position. 4. Marked enlargement of the RIGHT heart chambers with evidence for increased RIGHT heart strain and tricuspid regurgitation into the hepatic veins. The RIGHT heart has increased in size since 11/02/2020. 5. Small amount of ascites adjacent to the liver. 6. Anterior mediastinal stranding secondary to small amount of posttraumatic bleeding at the site of the LEFT central line insertion site. No active bleeding. 7. Soft tissue anasarca. Micro: Microbiology 04/06/21 08:36 Blood Culture - Final Blood NO GROWTH AFTER 5 DAYS 04/06/21 08:56 Blood Culture - Final Blood NO GROWTH AFTER 5 DAYS A&P Assessment and plan (1) CAD (coronary artery disease): Status: Chronic Qualifiers: Coronary Disease-Associated Artery/Lesion type: [place] artery [place] vs. transplanted heart: [place] heart Associated angina: without angina Qualified Code(s): I25.10 - Atherosclerotic heart disease of [place] coronary artery without angina pectoris (2) DVT (deep venous thrombosis): Status: Acute Qualifiers: DVT location: lower extremity Affected thrombotic vein of extremity: other lower extremity vein Chronicity: acute Laterality: right Qualified Code(s): I82.491 - Acute embolism and thrombosis of other specified deep vein of right lower extremity (3) Bradycardia: Status: Acute (4) Atrial fibrillation with slow ventricular response: Status: Acute (5) End stage chronic kidney disease: Status: Acute (6) Recent non-ST elevation myocardial infarction: Status: Acute (7) Subglottic edema: Status: Acute #Acute hypoxic respiratory failure # bradycardia/atrial fibrillation with RVR in patient with ESRD and right leg DVT suspected PE #Difficult airway-upper airway edema? Subglottic stenosis on CT chest; possible reason for hypoxia induced bradycardia upon admission and difficult intubation -Currently on mechanical ventilator 450/5/30 %/14-7.4 /78/2 2/99% -Due to concerns of upper airway edema on CT chest-yesterday leak test performed at bedside which was negative; on 04/08/2021 -04/09/2021 morning bedside bronchoscopic inspection of upper airway showed mild subglottic stenosis - patient on received tapering doses of Solu-Medrol for 3 days -Successfully extubated to 2 L nasal cannula on 04/10/2021 -Patient is on scheduled dialysis Monday; -Appears slightly edematous overall, albumin 2.1, will give albumin 1 dose before next hemodialysis -We will place patient on breathing trial and if passes can extubate to 3 L nasal cannula -Bilateral diffuse wheeze-please give DuoNeb nebulizations before extubation and every 6 hour thereafter -CTA 04/07/2021: No evidence of PE moderate bilateral pleural effusions likely secondary to CHF and ESRD --on scheduled dialysis for ESRD -Currently off pressors, normal WBC count, afebrile -Initial procalcitonin 2.99 (Can elevate in renal failure)-So far cultures negative -Covered with Zosyn, Levaquin and vancomycin -can DC antibiotics after total of 7 days course -Currently also on IV heparin for right leg DVT seen on venous Doppler and transition to p.o. Eliquis - cardiology and renal on board for afib (tachybradycardia) and ESRD -Cardiology to decide on [facility] Recommendations conveyed to RN covering the patient and Dr. Nguyen hospitalist covering the patient I was involved in Dr. Shin Valera's care to help with extubation. Currently looks stable respiratory foley on 2 L nasal cannula. I will sign off please for now and please feel free to consult if necessary. Thank you. Attestations Medical Necessity Statement*: Requires ongoing inpatient stay for continued management post respiratory arrest as noted. Has done well post extubation thus far. Time Spent in Patient Care: Greater than 35 minutes (>than 50% of time spent in counselling and/or direct pt care on unit) . The high probability of a clinically significant, sudden or life threatening deterioration of the patient's respiratory, cardiac, renal system(s) required my full and direct attention, intervention and personal management. The critical care time is as shown. This time is in addition to time spent performing any reported procedures but includes the following: [x] Data and vital sign review and interpretation [x] Patient assessment, examination and intervention [x] Documentation [x] Medication orders and management Critical Care Time: Critical Care Time (min): 45 Coding Level of Care Code Established Pt Acute Needle Loom Setter for Chg Fwd Patient Type Established History Comprehensive Exam Comprehensive Medical Decision Making High Complexity Diagnoses CAD (coronary artery disease) I25.10 Coronary Disease-Associated Artery/Lesion type: [place] artery [place] vs. transplanted heart: [place] heart Associated angina: without angina DVT (deep venous thrombosis) I82.491 DVT location: lower extremity Affected thrombotic vein of extremity: other lower extremity vein Chronicity: acute Laterality: right Bradycardia R00.1 Atrial fibrillation with slow ventricular response I48.91 End stage chronic kidney disease N18.6 Recent non-ST elevation myocardial infarction Subglottic edema J38.4 Time Spent (min) 45
[2021-04-11 16:27] LABS: Glucose Point of Care 128 mg/dL (70-110)
[2021-04-11 17:18] LABS: Partial Thromboplastin Time 63.4 SECONDS (23.9-36.7)
[2021-04-11] MEDS: gabapentin 100 mg Capsule PO (17:30)
--- NOTE | 2021-04-11 18:07 | PM.PN ---
Subjective Subjective: Interval history: The patient remains extubated. Seems to be little more alert and oriented today. Telemetry shows atrial fibrillation/flutter with intermittent rapid ventricular rate. The systolic blood pressure stays anywhere between 124 to 157 mmHg. Denies any chest pain or shortness of breath. No fever. Oxygen saturations around 94% on room air. Medications: Reviewed: Yes Medication Review Details: Current Medications Albuterol/Ipratropium (Ipratropium-Albuterol 3 Ml Neb) 3 ml INHALATION Q6H.RESPIRATORY PRN PRN Reason: SHORTNESS OF BREATH Aspirin (Aspirin 81 Mg Ec Tablet) 81 mg PO DAILY [facility] Last Admin: 04/11/21 08:01 Dose: 81 mg Documented by: Dextrose (Dextrose 50% Syringe 50 Ml) 25 ml IVP ONCE PRN; Protocol PRN Reason: hypoglycemia protocol Diltiazem HCl (Diltiazem 30 Mg Tablet) 30 mg PO Q8H [facility] Last Admin: 04/11/21 17:30 Dose: 30 mg Documented by: Fluticasone Propionate (Fluticasone Nasal [place] 16gm Btl) 2 spray INTRANASAL DAILY [facility] Last Admin: 04/11/21 10:49 Dose: 2 spray Documented by: Gabapentin (Gabapentin 100 Mg Capsule) 100 mg PO BID [facility] Last Admin: 04/11/21 17:30 Dose: 100 mg Documented by: Glucagon (Glucagon 1 Mg/Ml Inj 1 Ml) 1 mg IM ONCE PRN; Protocol PRN Reason: Adult Acute Hypoglycemia Prot. Heparin Sodium (Beef Lung) (Heparin 5,000 Unit/Ml Inj 1 Ml) 0 unit IV PRN PRN; Protocol PRN Reason: Heparin weight-base protocol Last Admin: 04/11/21 02:40 Dose: 2,700 unit Documented by: Heparin Sodium/Sodium Chloride (Heparin Drip) 25,000 unit in 500 mls @ 0 mls/hr IV .Q0M [facility]; Protocol Last Titration: 04/11/21 11:15 Dose: 11.02 unit/kg/hr, 15 mls/hr Documented by: Sodium Chloride (Sodium Chloride 0.9%) 1,000 mls @ 0 mls/hr IV .Q0M PRN PRN Reason: hypotension or symptomatic Dextrose (D5w) 500 mls @ 100 mls/hr IV ONCE PRN; Protocol PRN Reason: Adult Acute Hypoglycemia Prot Last Infusion: 04/06/21 02:30 Dose: Infused Documented by: Piperacillin Sod/Tazobactam (Sod 3.375 gm/ Sodium Chloride) 50 mls @ 12.5 mls/hr IV Q12H [facility]; Protocol Last Admin: 04/11/21 15:44 Dose: 12.5 mls/hr Documented by: Levofloxacin/Dextrose (Levaquin-D5w) 500 mg in 100 mls @ 100 mls/hr IV Q48H [facility] Last Infusion: 04/10/21 08:25 Dose: Infused Documented by: Dextrose/Sodium Chloride (Dextrose 5%-Sod Chloride 0.9%) 1,000 mls @ 30 mls/hr IV .Q24H [facility] Last Admin: 04/11/21 09:21 Dose: 30 mls/hr Documented by: Sodium Chloride (Sodium Chloride 0.9%) 1,000 mls @ 0 mls/hr IV .Q0M PRN PRN Reason: hypotension or symptomatic Insulin Aspart (Insulin Aspart 100 Unit/1 Ml) 0 unit SUBCUT BEDTIME [facility]; Protocol Last Admin: 04/10/21 20:01 Dose: 2 unit Documented by: Insulin Aspart (Insulin Aspart 100 Unit/1 Ml) 0 unit SUBCUT TIDWM [facility]; Protocol Last Admin: 04/11/21 17:11 Dose: Not Given Documented by: Lanolin (Lanolin Oint 7 Gm) 1 applic TOPICAL PRN PRN PRN Reason: DRYNESS Last Admin: 04/09/21 02:07 Dose: 1 applic Documented by: Metoprolol Tartrate (Metoprolol Tartrate 50 Mg Tablet) 50 mg PO BID@0900,2100 [facility] Last Admin: 04/11/21 08:01 Dose: 50 mg Documented by: Nitroglycerin (Nitroglycerin 1 Gm/Inch Oint Pkt) 0.5 inch TOPICAL Q6H [facility] Last Admin: 04/11/21 15:43 Dose: 0.5 inch Documented by: Pantoprazole Sodium (Pantoprazole Dr 40 Mg Tablet) 40 mg PO BID [facility] Last Admin: 04/11/21 17:30 Dose: 40 mg Documented by: Vitals/I&O/Wt Last Vital Signs Temp 97.6 F 04/11/21 12:00 Pulse 94 04/11/21 17:00 Resp 22 H 04/11/21 17:00 BP 157/93 04/11/21 17:00 Pulse Ox 94 04/11/21 17:00 04/11/21 04/11/21 04/11/21 06:59 14:59 22:59 Intake Total 469.35 / 5996.009 6385.45 / 1600.45 Output Total 100 / 100 20 / 20 Balance 369.35 / 5304.051 1224.45 / 1580.45 Weight last 48 hrs Weight 163 lb 6.4 oz Weight 159 lb Physical Exam Narrative: EXAM NARRATIVE: GENERAL: The patient is alert and oriented x3 HEENT: Minimal pallor. Pupils are symmetrical. Oral cavity: There are no mucous membrane lesions. NECK: Trachea appears to be central. No masses noted. No JVD or thyromegaly appreciated. No carotid bruit. RESPIRATORY: Breath sounds noted bilaterally with a scattered coarse crackles and occasional expiratory wheezing BREASTS: Deferred. HEART: T the first heart sound is variable. Second heart sound is normal. No S3. Short systolic murmur in the left sternal border. Ejection systolic murmur of grade 2/6 in the aortic area. No diastolic murmurs. ABDOMEN: No vessel pulsations or distention. No tenderness. No organomegaly appreciated. No abdominal bruit. Bowel sounds are normally heard. : Deferred. RECTAL: Deferred. LYMPHATIC: No lymphadenopathy noted in the neck or groin. EXTREMITIES: There is hematoma in the left upper extremity. Dialysis access site on the left side. Peripheral cyanosis in the toes seems to be slowly improving. MUSCULOSKELETAL: No acute joint deformities or swelling. SKIN: Multiple ecchymotic areas in the upper extremity. Healing skin abrasions in the anterior knee bilaterally NEUROPSYCHIATRIC: No focal motor deficits Urinary Catheter Management^: Neal: Cath Placed During This Visit: yes Reason for Continuing Indwelling Catheter: Accurate Measurement of Urinary Output in Critically Ill Patients Urinary Catheter Date of Insertion: 04/05/21 Data : 04/11/21 08:50 04/11/21 08:50 Micro: Microbiology 04/06/21 08:36 Blood Culture - Final Blood NO GROWTH AFTER 5 DAYS 04/06/21 08:56 Blood Culture - Final Blood NO GROWTH AFTER 5 DAYS A&P Assessment and plan (1) Accelerated hypertension: We will try to optimize the antihypertensive medications. Status: Acute (2) Atrial fibrillation with rapid ventricular response: We will try to optimize the AV yesica blocking agents. I will start him on metoprolol 50 mg p.o. twice daily. We will continue the heparin. I will do an echocardiogram in the morning to reevaluate the LV function. We also will try to get the medical records from [facility]. Apparently the patient had an abdominal aortic aneurysm repair and some other procedures done in the hospital recently office we do not have any medical records. I may add diltiazem 30 mg p.o. every 8 hours to the current medications for better control of the blood pressure and the heart rate Status: Acute (3) Respiratory arrest: Currently extubated. Currently on the current treatment measures. Status: Acute (4) DVT (deep venous thrombosis): Patient is on IV heparin. May continue the heparin for the time being Status: Acute Qualifiers: Affected thrombotic vein of extremity: other lower extremity vein Chronicity: acute DVT location: lower extremity Laterality: right Qualified Code(s): I82.491 - Acute embolism and thrombosis of other specified deep vein of right lower extremity (5) Elevated troponin: Could be multifactorial. In view of the chronic atrial fibrillation and heart failure/renal failure.This could very well be a type II [place]. Status: Acute (6) End-stage renal disease (ESRD): Patient is scheduled for hemodialysis today Status: Acute (7) Peripheral cyanosis: RITA was normal bilaterally. No significant arterial obstruction, based on the duplex examination findings. Most likely related to peripheral vasoconstriction/low output state. We will continue on the current medications Status: Acute Additional A&P Information Other problems are Atherosclerotic heart disease, status post coronary artery bypass surgery Status post respiratory failure History of diastolic heart failure, currently compensated Pneumonia, resolving I had a long discussion with the patient's brother about his condition. He has multiple issues. 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 We did not have those information at the time of admission. He also had some complications following the abdominal aortic aneurysm repai, done in September of last year at the [facility]. We will try to get those records from [place]. Apparently is very forgetful and has been in and out of hospital multiple times. He is poorly compliant with her medical follow-ups. We will go ahead and do an echocardiogram tomorrow to reevaluate the LV ejection fraction. After reviewing the echocardiogram and the medical records, we will make a final decision. Attestations Medical Necessity Statement*: Patient requires continued hospital stay for close monitoring and further management Coding Level of Care Code Acute Metal Reed Tuner for Chg Fwd Exam Detailed Medical Decision Making Moderate Complexity Diagnoses Accelerated hypertension I10 Atrial fibrillation with rapid ventricular response I48.91 Respiratory arrest R09.2 DVT (deep venous thrombosis) I82.491 Affected thrombotic vein of extremity: other lower extremity vein Chronicity: acute DVT location: lower extremity Laterality: right Elevated troponin R77.8 End-stage renal disease (ESRD) N18.6 Peripheral cyanosis R23.0 Time Spent (min) 40
[2021-04-11 20:40] LABS: Glucose Point of Care 82 mg/dL (70-110)
[2021-04-11 22:54] LABS: Partial Thromboplastin Time 42.9 SECONDS (23.9-36.7)
[2021-04-12] VITALS (69 sets, daily range): BP systolic 102–165; BP diastolic 61–118; PULSE 76–140; RESP 12–35; TEMP 36.5–37.2; O2SAT 77–95
[2021-04-12] MEDS: dilTIAZem 30 mg Tablet PO ×2 (01:44→11:49)
[2021-04-12] MEDS: nitroglycerin 1 gm/inch oint Pkt 0.5 INCH TOPICAL ×4 (04:12→21:04)
[2021-04-12] MEDS: piperacillin-tazobactam 3.375 GM in sodium chloride 0.9% (plus) 50 ML IV ×2 (04:12→17:28)
[2021-04-12 04:42] LABS: Basophils % 0.1 %; Eosinophils % 0.3 %; Lymphocytes % 7.7 %; Mean Corpuscular HGB Conc 30.8 g/dL (30.0-36.0); Mean Corpuscular Hemoglobin 27.3 pg (28.0-34.0); Mean Corpuscular Volume 88.8 fL (80-94); Mean Platelet Volume 10.2 fL (7.4-10.4); Monocytes # 0.9 10^3/uL (0.2-0.9); Neutrophils % 84.2 %; Nucleated Red Blood Cells % 0 %; Platelet Count 152 10^3/cmm (130-400); Red Blood Count 4.39 10^6/uL (4.1-5.3); Red Cell Distribution Width 18.6 % (12.1-15.1); White Blood Count 12.8 10^3/uL (4.0-10.0)
[2021-04-12 05:04] LABS: Partial Thromboplastin Time 83.4 SECONDS (23.9-36.7)
[2021-04-12 05:06] LABS: Anion Gap 17.9 (5-19); Blood Urea Nitrogen 35 mg/dL (8-23); Calcium 7.9 mg/dL (8.5-10.5); Carbon Dioxide 20 mmol/L (22-29); Chloride 98 mmol/L (98-107); Glomerular Filtration Rate 12.2 mL/min (90-130); Glucose 76 mg/dL (65-115); Magnesium 1.9 mg/dL (1.7-2.3); Osmolality Calculated 281 mOsm/kg (285-295); Phosphorus 5.2 mg/dL (2.5-4.5); Potassium 3.9 mmol/L (3.5-5.1); Sodium 132 mmol/L (136-145)
--- NOTE | 2021-04-12 06:19 | PC.NURSE ---
Pt's heart rate increased to 130s this a.m. Dr. Salazar called x2. Orders received, see JAN. Will notify MD again if needed.
[2021-04-12] MEDS: metoprolol tartrate 1 mg/1 mL SDV 5 mL 5 MG IV (06:37)
[2021-04-12 07:42] LABS: Glucose Point of Care 83 mg/dL (70-110)
--- NOTE | 2021-04-12 08:00 | FL_ITS ---
WS: [id number] MODIFIED BARIUM SWALLOW TECHNIQUE: Modified barium swallow with speech therapy using multiple consistencies. FLUOROSCOPY TIME: 2.7 minutes. CLINICAL INFORMATION: Oropharyngeal dysphagia COMPARISON: None. FINDINGS: Multiple consistencies utilized. Aspiration seen with thin liquid. Early spillage with pooling in the vallecula. Patient could not swallow barium tablet. FL/FL barium swallow modifd [id number] IMPRESSION: Aspiration is seen with thin liquid
[2021-04-12] MEDS: levofloxacin-dextrose 5 % 500 MG/100 ML PREMIX 100 MG IV (08:01)
[2021-04-12] MEDS: fluticasone nasal spray 16gm Btl 2 SPRAY INTRANASAL (08:08)
[2021-04-12] MEDS: metoprolol tartrate 50 mg Tablet PO ×2 (08:08→20:09)
[2021-04-12] MEDS: aspirin 81 mg EC Tablet PO (08:08)
[2021-04-12] MEDS: gabapentin 100 mg Capsule PO ×2 (08:08→17:43)
[2021-04-12] MEDS: pantoprazole DR 40 mg Tablet PO ×2 (08:09→17:43)
--- NOTE | 2021-04-12 09:12 | P.PN_ITS ---
Subjective Subjective: Interval history: No new issues today. He feels comfortable, he feels well. Eating and drinking normally. Hemodynamics reviewed, intermittent Afib/flutter noted. Minimal extremity edema, breathing comfortably. No uremic symptoms. Pending barium swallow Vitals/I&O/Wt Last Vital Signs Temp 98 F 04/12/21 04:00 Pulse 123 H 04/12/21 06:00 Resp 16 04/12/21 06:00 BP 160/97 04/12/21 06:00 Pulse Ox 91 04/12/21 06:00 04/11/21 04/12/21 04/12/21 22:59 06:59 14:59 Intake Total 484 / 2084.45 533.3 / 2617.75 Output Total 120 / 140 Balance 364 / 1944.45 533.3 / 2477.75 Weight last 48 hrs Weight 72.665 kg Weight 74.117 kg Physical Exam Narrative: EXAM NARRATIVE: Constitutional: Sedated and vented HEENT: Wet mucosa, no jvp, non icteric Lungs: Bilaterally clear without discernible wheeze, rales in all lung zones CVS: S1 S2, no murmurs Abdo: Soft, BS ok Ext 4: Minimal edema, peripheral perfusion with no cyanosis Neurological: Grossly non-focal Urinary Catheter Management^: Neal: Cath Placed During This Visit: yes Reason for Continuing Indwelling Catheter: Accurate Measurement of Urinary Ou tput in Critically Ill Patients Urinary Catheter Date of Insertion: 04/05/21 Data : 04/12/21 04:36 04/12/21 04:36 Micro: Microbiology 04/06/21 08:36 Blood Culture - Final Blood NO GROWTH AFTER 5 DAYS 04/06/21 08:56 Blood Culture - Final Blood NO GROWTH AFTER 5 DAYS A&P Additional A&P Information 1. ESRD Plan for dialysis today after barium swallow 2K, UF 2-3L Dose medication GFR less than 15 on dialysis 2. CAD per Dr Parker Possible C 3. Hemodynamics A. fib with RVR last evening management per Dr. Parker is noted, now rate controlled 4. Esophageal stricture pending Barium swallow Khanh Orr MD Nephrology [phone] Patient seen and examined via telemedicine, with the assistance of the bedside RN > 25 min spent in evaluation and mgmt of patient Attestations Medical Necessity Statement*: Eval for BROOKS Coding Level of Care Code Acute Special Crimes Investigator for Chg Fwd
--- NOTE | 2021-04-12 10:16 | P.PN_ITS ---
Subjective Subjective: Interval history: We received the medical records from [facility] and from [place]. Patient apparently had aortic aneurysm repair and iliac artery stent placement bilaterally in September of last year. He had an uneventful postprocedure course. He had intervention of the posterior tibial and anterior tibial artery in the right leg and amputation of the fifth little toe in January. Few days later, he had intervention of the left superficial femoral artery followed by amputation of the left fifth toe. He denies any leg pains or abdominal pain now. His RITA is within normal limits bilateral Medications: Reviewed: Yes Medication Review Details: Current Medications Albuterol/Ipratropium (Ipratropium-Albuterol 3 Ml Neb) 3 ml INHALATION Q6H. RESPIRATORY PRN PRN Reason: SHORTNESS OF BREATH Aspirin (Aspirin 81 Mg Ec Tablet) 81 mg PO DAILY [facility] Last Admin: 04/12/21 08:08 Dose: 81 mg Documented by: Dextrose (Dextrose 50% Syringe 50 Ml) 25 ml IVP ONCE PRN; Protocol PRN Reason: hypoglycemia protocol Diltiazem HCl (Diltiazem 60 Mg Tablet) 60 mg PO TID [facility] Fluticasone Propionate (Fluticasone Nasal [place] 16gm Btl) 2 spray INTRANASAL D AILY [facility] Last Admin: 04/12/21 08:08 Dose: 2 spray Documented by: Gabapentin (Gabapentin 100 Mg Capsule) 100 mg PO BID [facility] Last Admin: 04/12/21 17:43 Dose: 100 mg Documented by: Glucagon (Glucagon 1 Mg/Ml Inj 1 Ml) 1 mg IM ONCE PRN; Protocol PRN Reason: Adult Acute Hypoglycemia Prot. Guaifenesin (Guaifenesin 600 Mg Tablet) 600 mg PO BID [facility] Last Admin: 04/12/21 17:43 Dose: 600 mg Documented by: Heparin Sodium (Beef Lung) (Heparin 5,000 Unit/Ml Inj 1 Ml) 0 unit IV PRN PRN; Protocol PRN Reason: Heparin weight-base protocol Last Admin: 04/11/21 23:05 Dose: 2,700 unit Documented by: Heparin Sodium/Sodium Chloride (Heparin Drip) 25,000 unit in 500 mls @ 0 mls/hr IV .Q0M [facility]; Protocol Last Titration: 04/12/21 05:31 Dose: 12.49 unit/kg/hr, 17 mls/hr Documented by: Sodium Chloride (Sodium Chloride 0.9%) 1,000 mls @ 0 mls/hr IV .Q0M PRN PRN Reason: hypotension or symptomatic Dextrose (D5w) 500 mls @ 100 mls/hr IV ONCE PRN; Protocol PRN Reason: Adult Acute Hypoglycemia Prot Last Infusion: 04/06/21 02:30 Dose: Infused Documented by: Piperacillin Sod/Tazobactam (Sod 3.375 gm/ Sodium Chloride) 50 mls @ 12.5 mls/hr IV Q12H [facility]; Protocol Last Admin: 04/12/21 17:28 Dose: 12.5 mls/hr Documented by: Levofloxacin/Dextrose (Levaquin-D5w) 500 mg in 100 mls @ 100 mls/hr IV Q48H [facility] Last Admin: 04/12/21 08:01 Dose: 100 mls/hr Documented by: Sodium Chloride (Sodium Chloride 0.9%) 1,000 mls @ 0 mls/hr IV .Q0M PRN PRN Reason: hypotension or symptomatic Insulin Aspart (Insulin Aspart 100 Unit/1 Ml) 0 unit SUBCUT BEDTIME [facility]; Protocol Last Admin: 04/11/21 20:40 Dose: Not Given Documented by: Insulin Aspart (Insulin Aspart 100 Unit/1 Ml) 0 unit SUBCUT TIDWM [facility]; Protocol Last Admin: 04/12/21 12:28 Dose: Not Given Documented by: Lanolin (Lanolin Oint 7 Gm) 1 applic TOPICAL PRN PRN PRN Reason: DRYNESS Last Admin: 04/09/21 02:07 Dose: 1 applic Documented by: Metoprolol Tartrate (Metoprolol Tartrate 50 Mg Tablet) 50 mg PO BID@0900,2100 [facility] Last Admin: 04/12/21 08:08 Dose: 50 mg Documented by: Nitroglycerin (Nitroglycerin 1 Gm/Inch Oint Pkt) 0.5 inch TOPICAL Q6H [facility] Last Admin: 04/12/21 17:42 Dose: 0.5 inch Documented by: Pantoprazole Sodium (Pantoprazole Dr 40 Mg Tablet) 40 mg PO BID [facility] Last Admin: 04/12/21 17:43 Dose: 40 mg Documented by: Vitals/I&O/Wt Last Vital Signs Temp 98.9 F 04/12/21 07:00 Pulse 107 H 04/12/21 09:38 Resp 16 04/12/21 09:38 BP 145/89 04/12/21 09:15 Pulse Ox 90 04/12/21 09:38 04/11/21 04/12/21 04/12/21 22:59 06:59 14:59 Intake Total 484 / 2084.45 533.3 / 2617.75 Output Total 120 / 140 Balance 364 / 1944.45 533.3 / 2477.75 Weight last 48 hrs Weight 160 lb 3.2 oz Weight 163 lb 6.4 oz Physical Exam Narrative: EXAM NARRATIVE: GENERAL: The patient is alert and oriented x3 HEENT: Minimal pallor. Pupils are symmetrical. Oral cavity: There are no mucous membrane lesions. NECK: Trachea appears to be central. No masses noted. No JVD or thyromegaly appreciated. No carotid bruit. RESPIRATORY: Breath sounds noted bilaterally with a scattered coarse crackles and occasional expiratory wheezing BREASTS: Deferred. HEART: T the first heart sound is variable. Second heart sound is normal. No S3. Short systolic murmur in the left sternal border. Ejection systolic murmur of grade 2/6 in the aortic area. No diastolic murmurs. ABDOMEN: No vessel pulsations or distention. No tenderness. No organomegaly appreciated. No abdominal bruit. Bowel sounds are normally heard. : Deferred. RECTAL: Deferred. LYMPHATIC: No lymphadenopathy noted in the neck or groin. EXTREMITIES: There is hematoma in the left upper extremity. Dialysis access site on the left side. Peripheral cyanosis in the toes seems to be slowly improving. MUSCULOSKELETAL: No acute joint deformities or swelling. SKIN: Multiple ecchymotic areas in the upper extremity. Healing skin abrasions in the anterior knee bilaterally NEUROPSYCHIATRIC: No focal motor deficits Urinary Catheter Management^: Neal: Cath Placed During This Visit: yes Reason for Continuing Indwelling Catheter: Accurate Measurement of Urinary Output in Critically Ill Patients Urinary Catheter Date of Insertion: 04/05/21 Data : 04/12/21 04:36 04/12/21 04:36 Micro: Microbiology 04/06/21 08:36 Blood Culture - Final Blood NO GROWTH AFTER 5 DAYS 04/06/21 08:56 Blood Culture - Final Blood NO GROWTH AFTER 5 DAYS Echo: My impression: Echocardiogram done on 04/12/2021 revealed Normal LV size with borderline low ejection fraction 50 to 55%. Wall motion normality as mentioned above. Mild biatrial enlargement. Thickened aortic and mitral valves. Mild-moderate mitral valve regurgitation. Moderate tricuspid valve regurgitation. Severe pulmonary hypertension with estimated pulmonary artery peak systolic pressure of 68 mmHg and a mean PA pressure of 46 mmHg. Mildly dilated IVC There is no pericardial effusion. There are no intracardiac masses. A&P Assessment and plan (1) Accelerated hypertension: We will try to optimize the antihypertensive medications. Status: Acute (2) Atrial fibrillation with rapid ventricular response: The patient had an echocardiogram today. The LV ejection fraction was around 50 to 55%. There was diffuse hypokinesia of the anteroseptal segments. Compared to the previous echocardiogram, in December, there was no significant change. At this point, the elevated troponin T was mostly related to atrial fibrillation or renal failure. He may not require a cardiac catheterization at this point in the absence of any chest pain or any other specific symptoms. Patient may be placed back on the Eliquis. Status: Acute (3) Respiratory arrest: Currently extubated. Currently on the current treatment measures. Status: Acute (4) DVT (deep venous thrombosis): Patient may be started on Eliquis. Pulmonary discontinued Status: Acute Qualifiers: Affected thrombotic vein of extremity: other lower extremity vein Chronicity: acute DVT location: lower extremity Laterality: right Qualified Code(s): I82.491 - Acute embolism and thrombosis of other specified deep vein of right lower extremity (5) Elevated troponin: Most likely type II [place] Status: Acute (6) End-stage renal disease (ESRD): Continue with dialysis as per nephrology Status: Acute (7) Peripheral cyanosis: RITA was normal bilaterally. No significant arterial obstruction, based on the duplex examination findings. Most likely related to peripheral vasoconstriction/low output state. We will continue on the current medications Status: Acute Additional A&P Information Other problems are Atherosclerotic heart disease, status post coronary artery bypass surgery Status post respiratory failure History of diastolic heart failure, currently compensated Pneumonia, resolving Attestations Medical Necessity Statement*: Disposition as per the primary Discussed with the patient's her brother. Patient is not able to take care of himself at this point. He may require a long-term facility at least for a while. Discussed with Dr. Alarcon Coding Level of Care Code Acute Concrete Bucket Loader for [facility] Fwd Diagnoses Accelerated hypertension I10 Atrial fibrillation with rapid ventricular response I48.91 Respiratory arrest R09.2 DVT (deep venous thrombosis) I82.491 Affected thrombotic vein of extremity: other lower extremity vein Chronicity: acute DVT location: lower extremity Laterality: right Elevated troponin R77.8 End-stage renal disease (ESRD) N18.6 Peripheral cyanosis R23.0
--- NOTE | 2021-04-12 10:54 | PC.NURSE ---
Nurse is attempting to get medical records form [facility] and the [facility] in [place]. [facility] should be faxing medical records. Had to leave a message with the [facility]. Needing procedure reports and discharge information.
--- NOTE | 2021-04-12 11:09 | PM.PN ---
Subjective Subjective: Interval history: Patient was seen this morning, he is laying in bed, he is multiple pain complaints, he tells me that he is doing better, has a chronic cough, he is try to call follow-up currently on 3 L, no events overnight, he does not remember what happened during his hospitalization in [place] a week ago, awaiting records Vitals/I&O/Wt Last Vital Signs Temp 98.9 F 04/12/21 07:00 Pulse 115 H 04/12/21 10:21 Resp 26 H 04/12/21 10:21 BP 146/75 04/12/21 09:45 Pulse Ox 92 04/12/21 10:21 04/11/21 04/12/21 04/12/21 22:59 06:59 14:59 Intake Total 484 / 2084.45 533.3 / 2617.75 Output Total 120 / 140 Balance 364 / 1944.45 533.3 / 2477.75 Weight last 48 hrs Weight 72.665 kg Weight 74.117 kg Physical Exam Const: COMMON NORMALS: no acute distress GENERAL APPEARANCE: cooperative and frail appearing ORIENTATION/CONSCIOUSNESS: Yes awake, Yes oriented to person, Yes oriented to place and Yes oriented to time HENMT: COMMON NORMALS: normocephalic HEAD & SCALP: normocephalic Neck/C-Spine: COMMON NORMALS: no JVD Resp: COMMON NORMALS: normal respiratory effort, No retractions, No use of accessory muscles and clear to auscultation bilaterally AUSCULTATION: clear to auscultation bilaterally Cardio: COMMON NORMALS: no JVD, S1 normal heart sound present and S2 normal heart sound present RATE: tachycardic RHYTHM: abnormal rhythm HEART SOUNDS: S1 normal heart sound present and S2 normal heart sound present OTHER: Sternotomy scar GI: COMMON NORMALS: Normal to inspection, nondistended, normoactive bowel sounds present, Soft to palpation, non-tender and No hepatosplenomegaly present PALPATION: Yes Soft to palpation and Yes No hepatosplenomegaly present Extremity: NARRATIVE EXTREMITY EXAM: Left arm AV fistula RIGHT LOWER EXTREMITY: Yes foot & digits (Bilateral toes, blue toe, status post amputation third digit right foot) OTHER: Right chest dialysis catheter- Left internal jugular central line Neuro: SENSORIUM/ORIENTATION: Yes oriented to person, Yes oriented to place and Yes oriented to time Urinary Catheter Management^: Neal: Cath Placed During This Visit: yes Reason for Continuing Indwelling Catheter: Accurate Measurement of Urinary Output in Critically Ill Patients Urinary Catheter Date of Insertion: 04/05/21 Data : 04/12/21 04:36 04/12/21 04:36 Micro: Microbiology 04/06/21 08:36 Blood Culture - Final Blood NO GROWTH AFTER 5 DAYS 04/06/21 08:56 Blood Culture - Final Blood NO GROWTH AFTER 5 DAYS A&P Assessment and plan (1) Respiratory arrest: In the field, necessitated intubation upon arrival to the ER. Occurred after administration of Versed for pacing. PE is within the differential and with elevation in D-dimer, right lower extremity DVT and other findings current working diagnosis. Chest x-ray has shown some infiltrates versus atelectasis. Low-grade fever 04/06 could be from either atelectasis or infection. Having increased secretions. Now with evidence of subglottic edema. Status post bronchoscopy 04/09. Extubated 04/10. -Currently on 3 L, chronic cough -Continue aspiration precautions, Mucinex, flutter valve, incentive spirometer, PT OT Status: Acute (2) Hypoglycemia: Was a recurrent problem initially despite being on tube feeds. He does not have a diagnosis of diabetes. No medications to specifically account for hypoglycemia. No evidence of acute coronary syndrome identified. Beta-grace toxicity a consideration from the time of admission but did not have other features of such and with the revelation that he was not taking his medications less likely. Infection also in the differential as are other metabolic processes. A1c 4.8. Unknown if any sulfonylureas in his home. Resolved after steroids were initiated for subglottic edema. Status: Acute (3) Atrial fibrillation with slow ventricular response: Heart rate in the 30s on EMS arrival, ultimately treated with epinephrine. Has not had recurrent bradycardia. Treated with pressor support initially. Chronically on Cardizem and beta-grace for rate control. These held until 04/10 when atrial flutter/A. fib with RVR developed and beta-grace resumed. -Currently on Cardizem 30 every 8 hours -Metoprolol 50 mg twice daily -Heparin drip Status: Acute (4) Hypotension: Upon arrival, had required pressor support. Differential includes medication effect, sepsis, cardiopulmonary etiology such as PE. Sepsis secondary to infection seems less likely given initial improvement without antibiotic coverage. Epinephrine discontinued first day of admission. Levophed administered at low doses intermittently particularly for maintenance of blood pressure with sedation changes, with last administration on 04/10 -Currently no hypotensive episodes Status: Acute Qualifiers: Hypotension type: other hypotension type Qualified Code(s): I95.89 - Other hypotension (5) Elevated troponin: Unclear acute significance, may be type II process from above but he does have known coronary artery disease with prior bypass. Has had previous similar baseline elevations. -Awaiting records from [place] -Cardiology on consult -On aspirin, anticoagulation -Possible consideration of cardiac cath Status: Acute (6) DVT (deep venous thrombosis): Right common femoral vein, deep profunda and superficial femoral vein, extensive, present prior to admission Status: Acute Qualifiers: DVT location: lower extremity Affected thrombotic vein of extremity: other lower extremity vein Chronicity: acute Laterality: right Qualified Code(s): I82.491 - Acute embolism and thrombosis of other specified deep vein of right lower extremity (7) Hypothermia: Unclear reason currently, temperature was 93 initially, not stated anywhere if he was found outside or if windows open. Temperature was in the 40s upper night of admission. Temperature improved with bear hugger. Infection is a consideration as is other etiology for the impaired thermoregulation. -Currently resolved Status: Acute Qualifiers: Encounter type: initial encounter Qualified Code(s): T68.XXXA - Hypothermia, initial encounter (8) Lactic acidosis: [place] related to respiratory arrest, improved with respiratory and cardiovascular support. Resolved Status: Acute (9) Hepatitis C antibody test positive: Denies prior history or treatment, though unclear to me presently how accurate his recall is Hepatitis C RNA not detected, hepatitis C genotype not detected. May be false positive Status: Acute (10) End stage chronic kidney disease: On hemodialysis Wednesdays and Fridays Status: Acute (11) CAD (coronary artery disease): Prior coronary artery bypass and PCI previously Status: Chronic Qualifiers: Coronary Disease-Associated Artery/Lesion type: [place] artery [place] vs. transplanted heart: [place] heart Associated angina: without angina Qualified Code(s): I25.10 - Atherosclerotic heart disease of [place] coronary artery without angina pectoris (12) Chronic anticoagulation: Secondary to atrial fibrillation. Had been on Coumadin previously is [facility] not [facility] Eliquis. Had 2 episodes of complications from supratherapeutic INR and was on Eliquis prior to admission. 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 -Has a history of atrial fibrillation, noncompliant with Eliquis -All indicative of emboli to lower extremity -ABIs do not show any significant obstruction Status: Acute Additional A&P Information At least moderate protein calorie malnutrition secondary to illness Brother reports what sounds like esophageal stricture requiring dilatation intermittently, unclear of exactly when the last time was Empirically covered with antibiotics due to nonspecific clinical and laboratory/imaging findings in the setting of difficulty weaning from ventilator with plan to treat for a full 7-day course, currently on zosyn and levaquin IV Continue oral beta-blockade Cardiology considering whether or not to pursue catheterization On home aspirin On Cardizem Continue heparin drip for now Transition to Eliquis once cleared not needing any invasive procedures, on for atrial fibrillation as well as treatment for DVT in the right lower extremity Barium swallow ordered, speech therapy ordered, advance diet and monitor swallowing as per studies, reported that he has required esophageal dilatation in the past and that he was having difficulty swallowing his pills the week prior to admission. Depending on clinical course may have to consider endoscopic evaluation. Pulmonology following Dr Jayceer Breathing treatments Resume home Flonase Status post steroids for subglottic edema We will need to watch blood sugars with cessation of steroids Continue antibiotics for a full 7 days though with negative blood cultures we will discontinue vancomycin PT and OT evaluations Neal removed Maintain central line presently but consider discontinuation in next 24-48 hours if stable and able to get peripheral IV Nephrology following for hemodialysis Wednesdays and Fridays Monitor right foot for progressive change On PPI Resume lower dose of home gabapentin Supportive care otherwise If remains stable should be able to move out of the ICU in the next 24 hours to CSU given bradycardia leading to respiratory arrest at admission Lines/tubes: Dialysis catheter in the right upper chest, central line in the left neck DVT prophylaxis: Currently on heparin drip secondary to DVT in the right lower extremity with plan to transition to Eliquis when cleared no invasive testing needed Anticipated Disposition: Will require placement in skilled nursing due to deconditioning awaiting NH placement Code Status: Full code Attestations Medical Necessity Statement*: Patient requires hospitalization for respiratory arrest, sinus bradycardia, atrial fibrillation, dysphagia, supraglottic edema, might require cardiac catheterization Coding Level of Care Code Acute Zoology Teacher for Chg Fwd Diagnoses Respiratory arrest R09.2 Hypoglycemia E16.2 Atrial fibrillation with slow ventricular response I48.91 Hypotension I95.89 Hypotension type: other hypotension type Elevated troponin R77.8 DVT (deep venous thrombosis) I82.491 DVT location: lower extremity Affected thrombotic vein of extremity: other lower extremity vein Chronicity: acute Laterality: right Hypothermia T68.XXXA Encounter type: initial encounter Lactic acidosis E87.2 Hepatitis C antibody test positive R76.8 End stage chronic kidney disease N18.6 CAD (coronary artery disease) I25.10 Coronary Disease-Associated Artery/Lesion type: [place] artery [place] vs. 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
--- NOTE | 2021-04-12 11:31 | USCV_ITS ---
Shin Valera Age: 66 Gender: M : 1955 Exam Date: 04/12/2021 13:24 Ordering Phys: Allen Alarcon MD Technologist: Marilee Rivers Exam Location: [facility] [place] Indication: diminished pulses RIGHT LEFT Brachial 143.00 mmHg Brachial mmHg Pressure (mmHg) Waveform Pressure (mmHg) Waveform 140.00 SHEET METAL FOREMAN 158.00 160.00 DPA 164.00 1.10 Ankle/Brachial Index 1.10 FINDINGS Normal resting ABIs bilaterally CONCLUSIONS No significant arterial obstruction, based on the above findings. Dr Pk Parker MD [facility] (Electronically Signed) Final Date: 12 Apr 2021 16:17 S
[2021-04-12] MEDS: guaiFENesin 600 mg Tablet PO ×2 (11:50→17:43)
[2021-04-12 12:05] LABS: Glucose Point of Care 96 mg/dL (70-110)
[2021-04-12 12:28] LABS: Partial Thromboplastin Time 56.6 SECONDS (23.9-36.7)
--- NOTE | 2021-04-12 12:36 | PC.NURSE ---
Patient has food tray in front of him and is struggling to eat. Has made very little progress on his tray and appears to have trouble lifting food to his mouth due to weakness. Nurse offered assistance, but the patient declined.
--- NOTE | 2021-04-12 12:37 | PC.NURSE ---
Recieved medical records form [facility], and [facility]. Added documentation to chart.
--- NOTE | 2021-04-12 14:07 | PC.OT ---
OT note: Attempted and pt in dialysis. Will attempt later as able.
--- NOTE | 2021-04-12 14:41 | PC.SOCIAL ---
IMM Updated Updated pt on Pg 2 IMM. No questions voiced. Provided pt a copy. Signed, dated, & timed copy in chart.
[2021-04-12 16:42] LABS: Partial Thromboplastin Time 69.1 SECONDS (23.9-36.7)
--- NOTE | 2021-04-12 16:50 | PC.NURSE ---
Nurse is delaying Zosyn and nitroglycerin administration. Pt is currently receiving dialysis and pressure has decreased during dialysis, and the zosyn would be dialyzed out. Will administer when Dialysis is completed.
[2021-04-12] MEDS: dilTIAZem 60 mg Tablet PO (17:51)
[2021-04-12 18:04] LABS: Glucose Point of Care 91 mg/dL (70-110)
--- NOTE | 2021-04-12 18:15 | USCV_ITS ---
Shin Valera Age: 66 Gender: M : 1955 Exam Date: 04/12/2021 05:56 Ordering Phys: Pk Parker MD ([email or web address]) Technologist: Magy Fitzgerald Exam Location: [facility] [place] Indication: POST CPR HEART FAILURE AFIB BP: 122 / 77 HR: 126 Rhythm: Sinus Technical Quality: MEASUREMENTS (Male / Female) Normal Values 2D ECHO LV Diastolic Diameter PLAX 4.6 cm 4.2 - 5.9 / 3.9 - 5.3 cm LV Systolic Diameter PLAX 3.1 cm LV Chamber Size 3.6 cm IVS Diastolic Thickness 1.2 cm 0.6 - 1.0 / 0.6 - 0.9 cm IVS Systolic Thickness 1.6 cm LVPW Diastolic Thickness 1.4 cm 0.6 - 1.0 / 0.6 - 0.9 cm LVPW Systolic Thickness 1.3 cm RV Chamber Size 3.9 cm LVOT Diameter 2.0 cm LV Ejection Fraction 2D Teich 60.3 % LV Ejection Fraction MOD 2C 64.0 % LV Ejection Fraction 2C AL 63.3 % LA Diameter 4.4 cm LA Width 3.9 cm LA Height 4.5 cm RA Width 4.1 cm RA Height 4.4 cm Aorta at Sinotubular Diameter 3.2 cm M-MODE LV Diastolic Diameter MM 5.5 cm 4.2 - 5.9 / 3.9 - 5.3 cm LV Systolic Diameter MM 3.7 cm LV Ejection Fraction MM Teich 60.5 % IVS Diastolic Thickness MM 0.8 cm 0.6 - 1.0 / 0.6 - 0.9 cm IVS Systolic Thickness MM 1.1 cm LVPW Diastolic Thickness MM 0.9 cm 0.6 - 1.0 / 0.6 - 0.9 cm LVPW Systolic Thickness MM 1.7 cm Aortic Annulus Diameter 3.6 cm LA Ao Ratio MM 1.2 MV E Point Septal Separation 1.4 cm DOPPLER TR Peak Velocity 362.7 cm/s TR Peak Gradient 52.6 mmHg TR Mean Velocity 263.1 cm/s TR Mean Gradient 31.1 mmHg TR Velocity Time Integral 105.2 cm Right Atrial Pressure 15.0 mmHg Pulmonary Artery Systolic Pressu 67.6 mmHg FINDINGS Left Ventricle Normal LV size with diminished ejection fraction of around 50 to 55%. Diffuse hypokinesia of the anteroseptal segments. Right Ventricle The right ventricle is normal in size and function. Right Atrium Mildly increased right atrial size. Left Atrium Mildly increased left atrial size. Mitral Valve Thickened mitral valve. Mild-moderate mitral valve regurgitation. Aortic Valve Thickened aortic valve. Tricuspid Valve Moderate tricuspid valve regurgitation. Severe pulmonary hypertension with estimated pulmonary artery peak systolic pressure of 68 mmHg and a mean PA pressure of 46 mmHg Pulmonic Valve Pulmonic valve not well visualized. Pericardium The IVC diameter is 22 mm Aorta Normal ascending aorta dimension. CONCLUSIONS Normal LV size with borderline low ejection fraction 50 to 55%. Wall motion normality as mentioned above. Mild biatrial enlargement. Thickened aortic and mitral valves. Mild-moderate mitral valve regurgitation. Moderate tricuspid valve regurgitation. Severe pulmonary hypertension with estimated pulmonary artery peak systolic pressure of 68 mmHg and a mean PA pressure of 46 mmHg. Mildly dilated IVC There is no pericardial effusion. There are no intracardiac masses. Compared to the study from 11/02/2020, there may not be a significant change Dr Pk Parker MD [facility] (Electronically Signed) Final Date: 12 Apr 2021 09:07 S
[2021-04-12] MEDS: heparin drip 25,000 UNIT/500 ML PREMIX 17 UNIT IV (18:48)
--- NOTE | 2021-04-12 19:28 | PC.NURSE ---
Report called to Aixa BALTAZAR in CSU.
--- NOTE | 2021-04-12 19:32 | PC.NURSE ---
Shift SUmmary: Uneventful shift. Patient went for barium swallow, had a bedside ultrasound of legs, and had dialysis. Vitals remained within normal limits throughout the day except tachycardia which developed towards the end of Dialysis. Dialysis was stopped and the tachycardia resolved. 2600 mL removed during dialysis. Pt currently awaiting transfer to CSU.
[2021-04-12 19:54] LABS: Glucose Point of Care 129 mg/dL (70-110)
[2021-04-12 21:01] LABS: Glucose Point of Care 102 mg/dL (70-110)
[2021-04-13] VITALS (12 sets, daily range): BP systolic 129–154; BP diastolic 65–94; PULSE 74–125; RESP 2–22; TEMP 36.6–36.7; O2SAT 88–97
[2021-04-13 03:45] LABS: Basophils % 0.1 %; Eosinophils # 0.2 10^3/uL (0.0-0.8); Eosinophils % 1.7 %; Hematocrit 32.4 % (42.0-52.0); Hemoglobin 10.1 g/dL (11.7-16.6); Lymphocytes # 0.9 10^3/uL (0.8-4.8); Lymphocytes % 10.5 %; Mean Corpuscular HGB Conc 31.2 g/dL (30.0-36.0); Mean Corpuscular Volume 86.6 fL (80-94); Mean Platelet Volume 10.4 fL (7.4-10.4); Monocytes # 0.7 10^3/uL (0.2-0.9); Monocytes % 7.9 %; Neutrophils # 7.11 10^3/uL (1.8-7.7); Neutrophils % 79.2 %; Nucleated Red Blood Cells % 0 %; Platelet Count 115 10^3/cmm (130-400); Red Blood Count 3.74 10^6/uL (4.1-5.3); Red Cell Distribution Width 18.7 % (12.1-15.1)
[2021-04-13] MEDS: piperacillin-tazobactam 3.375 GM in sodium chloride 0.9% (plus) 50 ML IV ×2 (04:05→17:56)
[2021-04-13] MEDS: nitroglycerin 1 gm/inch oint Pkt 0.5 INCH TOPICAL ×4 (04:06→21:20)
[2021-04-13 04:14] LABS: Alanine Aminotransferase 12 U/L (0-41); Albumin Level 2.2 g/dL (3.5-5.2); Alkaline Phosphatase 79 IU/L (40-130); Anion Gap 15.3 (5-19); Aspartate Amino Transferase 12 U/L (0-40); Blood Urea Nitrogen 23 mg/dL (8-23); C Reactive Protein 132.1 mg/L (0.0-4.9); Calcium 7.9 mg/dL (8.5-10.5); Carbon Dioxide 25 mmol/L (22-29); Chloride 101 mmol/L (98-107); Globulin 3.4 g/dL (1.3-4.6); Glomerular Filtration Rate 15.5 mL/min (90-130); Glucose 78 mg/dL (65-115); Magnesium 1.8 mg/dL (1.7-2.3); Osmolality Calculated 289 mOsm/kg (285-295); Phosphorus 3.8 mg/dL (2.5-4.5); Potassium 3.3 mmol/L (3.5-5.1); Sodium 138 mmol/L (136-145); Total Bilirubin 0.7 mg/dL (0.15-1.2); Total Protein 5.6 g/dL (6.6-8.7)
[2021-04-13 04:15] LABS: Procalcitonin 0.87 ng/mL (0-0.5)
[2021-04-13 06:25] LABS: NT Pro B Type Natriuretic Pept > 70000 pg/mL (0-125)
[2021-04-13 06:41] LABS: Glucose Point of Care 89 mg/dL (70-110)
[2021-04-13 06:45] LABS: Partial Thromboplastin Time 76.3 SECONDS (23.9-36.7)
--- NOTE | 2021-04-13 07:00 | XRR_ITS ---
PROCEDURE INFORMATION: Exam: XR Chest Exam date and time: 04/13/2021 6:40 AM Age: 66 years old Clinical indication: Cough and shortness of breath; Prior surgery; Surgery type: Bypass; Additional info: SOB TECHNIQUE: Imaging protocol: XR of the chest. Views: 1 view. COMPARISON: CR XR chest 1V portable [id number] 04/06/2021 8:01 AM FINDINGS: Tubes, catheters and devices: A dialysis catheter is present with the tip projecting in the SVC. Left jugular venous catheter is also present with its tip projecting in the SVC. Lungs: There is bibasilar pulmonary consolidation which is more prominent than previous radiograph. Pleural spaces: Bilateral small pleural effusions are present. Heart/Mediastinum: The patient has undergone coronary bypass surgery. The cardiac silhouette is unchanged. Bones/joints: Unremarkable. XR/XR chest 1V portable [id number] IMPRESSION: Bibasilar pulmonary consolidation with small pleural effusions have developed since previous study. This is consistent with heart failure and volume overload. Superimposed pneumonia in the lung bases cannot be excluded.
--- NOTE | 2021-04-13 07:04 | P.PN_ITS ---
Subjective Subjective: Interval history: less sob. + edema. palps, weak. does not want extra dialysis. + cough w/ colored sputum Medications: Reviewed: Yes Medication Review Details: Current Medications Albuterol/Ipratropium (Ipratropium-Albuterol 3 Ml Neb) 3 ml INHALATION Q6H.RESPIRATORY PRN PRN Reason: SHORTNESS OF BREATH Aspirin (Aspirin 81 Mg Ec Tablet) 81 mg PO DAILY [facility] Last Admin: 04/12/21 08:08 Dose: 81 mg Documented by: Dextrose (Dextrose 50% Syringe 50 Ml) 25 ml IVP ONCE PRN; Protocol PRN Reason: hypoglycemia protocol Diltiazem HCl (Diltiazem 60 Mg Tablet) 60 mg PO TID [facility] Last Admin: 04/12/21 17:51 Dose: 60 mg Documented by: Fluticasone Propionate (Fluticasone Nasal [place]elia 16gm Btl) 2 spray INTRANASAL DAILY [facility] Last Admin: 04/12/21 08:08 Dose: 2 spray Documented by: Gabapentin (Gabapentin 100 Mg Capsule) 100 mg PO BID [facility] Last Admin: 04/12/21 17:43 Dose: 100 mg Documented by: Glucagon (Glucagon 1 Mg/Ml Inj 1 Ml) 1 mg IM ONCE PRN; Protocol PRN Reason: Adult Acute Hypoglycemia Prot. Guaifenesin (Guaifenesin 600 Mg Tablet) 600 mg PO BID [facility] Last Admin: 04/12/21 17:43 Dose: 600 mg Documented by: Heparin Sodium (Beef Lung) (Heparin 5,000 Unit/Ml Inj 1 Ml) 0 unit IV PRN PRN; Protocol PRN Reason: Heparin weight-base protocol Last Admin: 04/11/21 23:05 Dose: 2,700 unit Documented by: Heparin Sodium/Sodium Chloride (Heparin Drip) 25,000 unit in 500 mls @ 0 mls/hr IV .Q0M LEOBARDO; Protocol Last Admin: 04/12/21 18:48 Dose: 12.49 unit/kg/hr, 17 mls/hr Documented by: Sodium Chloride (Sodium Chloride 0.9%) 1,000 mls @ 0 mls/hr IV .Q0M PRN PRN Reason: hypotension or symptomatic Dextrose (D5w) 500 mls @ 100 mls/hr IV ONCE PRN; Protocol PRN Reason: Adult Acute Hypoglycemia Prot Last Infusion: 04/06/21 02:30 Dose: Infused Documented by: Piperacillin Sod/Tazobactam (Sod 3.375 gm/ Sodium Chloride) 50 mls @ 12.5 mls/hr IV Q12H [facility]; Protocol Last Admin: 04/13/21 04:05 Dose: 12.5 mls/hr Documented by: Levofloxacin/Dextrose (Levaquin-D5w) 500 mg in 100 mls @ 100 mls/hr IV Q48H [facility] Last Infusion: 04/12/21 18:02 Dose: Infused Documented by: Sodium Chloride (Sodium Chloride 0.9%) 1,000 mls @ 0 mls/hr IV .Q0M PRN PRN Reason: hypotension or symptomatic Insulin Aspart (Insulin Aspart 100 Unit/1 Ml) 0 unit SUBCUT BEDTIME [facility]; Protocol Last Admin: 04/12/21 20:09 Dose: Not Given Documented by: Insulin Aspart (Insulin Aspart 100 Unit/1 Ml) 0 unit SUBCUT TIDWM [facility]; Protocol Last Admin: 04/12/21 18:08 Dose: Not Given Documented by: Lanolin (Lanolin Oint 7 Gm) 1 applic TOPICAL PRN PRN PRN Reason: DRYNESS Last Admin: 04/09/21 02:07 Dose: 1 applic Documented by: Metoprolol Tartrate (Metoprolol Tartrate 50 Mg Tablet) 50 mg PO BID@0900,2100 [facility] Last Admin: 04/12/21 20:09 Dose: 50 mg Documented by: Nitroglycerin (Nitroglycerin 1 Gm/Inch Oint Pkt) 0.5 inch TOPICAL Q6H [facility] Last Admin: 04/13/21 04:06 Dose: 0.5 inch Documented by: Pantoprazole Sodium (Pantoprazole Dr 40 Mg Tablet) 40 mg PO BID [facility] Last Admin: 04/12/21 17:43 Dose: 40 mg Documented by: Vitals/I&O/Wt Last Vital Signs Temp 98.0 F 04/13/21 04:04 Pulse 116 H 04/13/21 05:17 Resp 16 04/13/21 04:04 BP 130/84 04/13/21 04:04 Pulse Ox 90 04/13/21 04:04 04/12/21 04/13/21 04/13/21 22:59 06:59 14:59 Intake Total 990 / 1441.25 150 / 1591.25 Output Total 50 / 50 Balance 940 / 1391.25 150 / 1541.25 Weight last 48 hrs Weight 77.111 kg Weight 73.028 kg Weight 72.665 kg Physical Exam Narrative: EXAM NARRATIVE: using nc02- comfortable in bed, sitting up vs noted heent- nc/at, eomi, anicteric neck supple lungs scaterred crackles heart -irreg irreg, +TI abd soft, nt, nd, +BS ext scrotal edema 1+ leg edema neuro- a,a, o x 3 access rt ij tuneled catheter mood good skin- blue toes Urinary Catheter Management^: Neal: Cath Placed During This Visit: yes Reason for Continuing Indwelling Catheter: Accurate Measurement of Urinary Output in Critically Ill Patients Urinary Catheter Date of Insertion: 04/05/21 Data : 04/13/21 03:05 04/13/21 03:05 A&P Additional A&P Information 66 yr old man 1. ESRD- HD MWF 2. resp distress- on abx. Q PE- has a RLE DVT -challenge fluid removal as tolerated on HD in am 2b. Pulm htn- echo- Normal LV size with borderline low ejection fraction 50 to 55%. Wall motion normality as mentioned above. Mild biatrial enlargement. Thickened aortic and mitral valves. Mild-moderate mitral valve regurgitation. Moderate tricuspid valve regurgitation. Severe pulmonary hypertension with estimated pulmonary artery peak systolic pressure of 68 mmHg and a mean PA pressure of 46 mmHg. Mildly dilated IVC There is no pericardial effusion. There are no intracardiac masses. very elevated bnp = if pt accepts, would do extra UF today- he does not want 3. DM control= gluc improved 4. a fib w/ RVR per cardiology - cardizem and metoprolol - renal dose eliquis -+ trop- further cardiac eval per Dr. Parker 5. Hep c ab + no rna or genotype- per medicine 6. hgb okay- check iron studies 7. hypokalemia- gentle k repletion as a fib 8. normal phos Attestations Medical Necessity Statement*: sob, esrd, chf, pulm htn, + trop Time Spent in Patient Care: Greater than 35 minutes Coding Level of Care Code Acute Pet Resort Concierge for Chg Mihaela
[2021-04-13] MEDS: metoprolol tartrate 50 mg Tablet PO ×2 (08:37→21:14)
[2021-04-13] MEDS: guaiFENesin 600 mg Tablet PO ×2 (08:37→17:57)
[2021-04-13] MEDS: aspirin 81 mg EC Tablet PO (08:37)
[2021-04-13] MEDS: gabapentin 100 mg Capsule PO ×2 (08:37→17:57)
[2021-04-13] MEDS: b-complex-vitamin c Tablet 1 EACH PO (08:37)
[2021-04-13] MEDS: dilTIAZem 60 mg Tablet PO ×2 (08:37→21:13)
[2021-04-13] MEDS: pantoprazole DR 40 mg Tablet PO ×2 (08:38→17:57)
[2021-04-13] MEDS: fluticasone nasal spray 16gm Btl 2 SPRAY INTRANASAL (08:50)
--- NOTE | 2021-04-13 09:15 | PC.CHAP ---
Pastoral Care Encounter/Spiritual Assessment Type of Contact [] Declined preschool aide visit [] Patient/Family/Request visit [] Outpatient visit [] Follow-up visit [] Physician referral [] Code/Alert [x] Routine visit [] Staff referral [] Actively dying [] Patient sleeping [] Family support [] [] Out of room [] Palliative care [] [x] Receiving care in room [] Pre-surgical visit [] Trauma [] Long length of stay [] ICU visit [] Other: Relational/Emotional Strength [] Patient feels connected with others/family/visitors/staff [] Distress [] Loneliness/isolation [] Abandonment Spirituality of Patient [] Person of Jelly [] Attends Congregational of their Jelly [] Believes in Prayer [] Reads Bible or Voodoo materials [] There are Spiritual issues to be addressed Foundry Supervisor Interventions [x] Prayer [] Active listening [] Non-anxious presence [] Spiritual/emotional support [] Crisis/trauma care [] Spiritual counseling [] Bereavement support [] Provided bereavement packet [] Provided Bible/devotional materials [] Provided toy/stuffed animal, coloring book to patient or family member [] Provided Communion [] Anointing/[place] [] Salvation [x] Completed spiritual assessment [] Other: Impact on Illness or Injury [] Angry [] Fearful [] Anxious [] Often cries [] Exhaustion [] Unable to work [] Unable to attend mu-ism [] Unable to walk/stand [] Unable to read [] Unable to drive [] Unable to eat/drink [] Unable to sleep [] Unable to be with family [] Patient intubated [] Other: Summary Time spent with patient
[2021-04-13] MEDS: apixaban 5 mg Tablet 2.5 MG PO ×2 (10:01→21:14)
[2021-04-13 11:01] LABS: Glucose Point of Care 104 mg/dL (70-110)
--- NOTE | 2021-04-13 11:28 | PM.PN ---
Subjective Subjective: Interval history: Patient was seen this morning, he still complaining of bilateral upper extremity swelling, lower extremity swelling, some anasarca, however he did refuse ultrafiltration this morning, agrees to have dialysis this morning, he tells me that overall he is feeling quite well, he is agreeable to go to a group home, there is no plans on a cardiac catheterization, Vitals/I&O/Wt Last Vital Signs Temp 98.0 F 04/13/21 11:01 Pulse 77 04/13/21 11:01 Resp 17 04/13/21 11:01 BP 130/84 04/13/21 11:01 Pulse Ox 96 04/13/21 11:01 04/12/21 04/13/21 04/13/21 22:59 06:59 14:59 Intake Total 990 / 1441.25 150 / 1591.25 410 / 410 Output Total 50 / 50 Balance 940 / 1391.25 150 / 1541.25 410 / 410 Weight last 48 hrs Weight 77.111 kg Weight 73.028 kg Weight 72.665 kg Physical Exam Const: COMMON NORMALS: no acute distress GENERAL APPEARANCE: frail appearing NUTRITIONAL APPEARANCE: thin ORIENTATION/CONSCIOUSNESS: Yes awake, Yes oriented to person and Yes oriented to place HENMT: COMMON NORMALS: normocephalic HEAD & SCALP: normocephalic Neck/C-Spine: COMMON NORMALS: no JVD Resp: COMMON NORMALS: normal respiratory effort, No retractions and No use of accessory muscles AUSCULTATION: crackles Cardio: COMMON NORMALS: no JVD, regular rate, regular rhythm, S1 normal heart sound present and S2 normal heart sound present RATE: regular rate RHYTHM: regular rhythm and abnormal rhythm HEART SOUNDS: S1 normal heart sound present and S2 normal heart sound present OTHER: Sternotomy scar GI: COMMON NORMALS: Normal to inspection, nondistended, normoactive bowel sounds present, Soft to palpation, non-tender and No hepatosplenomegaly present PALPATION: Yes Soft to palpation and Yes No hepatosplenomegaly present Extremity: NARRATIVE EXTREMITY EXAM: Left arm AV fistula OTHER: 1+ edema, bilateral arm edema, anasarca Neuro: SENSORIUM/ORIENTATION: Yes oriented to person and Yes oriented to place Urinary Catheter Management^: Neal: Cath Placed During This Visit: yes Reason for Continuing Indwelling Catheter: Accurate Measurement of Urinary Output in Critically Ill Patients Urinary Catheter Date of Insertion: 04/05/21 Data : 04/13/21 03:05 04/13/21 03:05 A&P Assessment and plan (1) Respiratory arrest: In the field, necessitated intubation upon arrival to the ER. Occurred after administration of Versed for pacing. PE is within the differential and with elevation in D-dimer, right lower extremity DVT and other findings current working diagnosis. Chest x-ray has shown some infiltrates versus atelectasis. Low-grade fever 04/06 could be from either atelectasis or infection. Having increased secretions. Now with evidence of subglottic edema. Status post bronchoscopy 04/09. Extubated 04/10. -Currently on 3 L, chronic cough -Continue aspiration precautions, Mucinex, flutter valve, incentive spirometer, PT OT -On Zosyn and Levaquin, Status: Acute (2) Hypoglycemia: Was a recurrent problem initially despite being on tube feeds. He does not have a diagnosis of diabetes. No medications to specifically account for hypoglycemia. No evidence of acute coronary syndrome identified. Beta-grace toxicity a consideration from the time of admission but did not have other features of such and with the revelation that he was not taking his medications less likely. Infection also in the differential as are other metabolic processes. A1c 4.8. Unknown if any sulfonylureas in his home. Resolved after steroids were initiated for subglottic edema. Status: Acute (3) Atrial fibrillation with slow ventricular response: -Heart rate in the 30s on EMS arrival, ultimately treated with epinephrine. Has not had recurrent bradycardia. Treated with pressor support initially. Chronically on Cardizem and beta-grace for rate control. These held until 04/10 when atrial flutter/A. fib with RVR developed and beta-grace resumed. -Currently on Cardizem 60 mg every 8 hours -Metoprolol 50 mg twice daily -Heparin drip transitioned to Eliquis Status: Acute (4) Hypotension: Upon arrival, had required pressor support. Differential includes medication effect, sepsis, cardiopulmonary etiology such as PE. Sepsis secondary to infection seems less likely given initial improvement without antibiotic coverage. Epinephrine discontinued first day of admission. Levophed administered at low doses intermittently particularly for maintenance of blood pressure with sedation changes, with last administration on 04/10 -Currently no hypotensive episodes Status: Acute Qualifiers: Hypotension type: other hypotension type Qualified Code(s): I95.89 - Other hypotension (5) Elevated troponin: Unclear acute significance, may be type II process from above but he does have known coronary artery disease with prior bypass. Has had previous similar baseline elevations. -Cardiology on consult -On aspirin, anticoagulation -No plans on cardiac catheterization -Echocardiogram shows EF of 50 to 55%, diffuse hypokinesia of the anteroseptal segments, pulmonary arterial pressure of 46 mmHg Status: Acute (6) DVT (deep venous thrombosis): Right common femoral vein, deep profunda and superficial femoral vein, extensive, present prior to admission currently on renally dosed Eliquis Status: Acute Qualifiers: DVT location: lower extremity Affected thrombotic vein of extremity: other lower extremity vein Chronicity: acute Laterality: right Qualified Code(s): I82.491 - Acute embolism and thrombosis of other specified deep vein of right lower extremity (7) Hypothermia: Unclear reason currently, temperature was 93 initially, not stated anywhere if he was found outside or if windows open. Temperature was in the 40s upper night of admission. Temperature improved with bear hugger. Infection is a consideration as is other etiology for the impaired thermoregulation. -Currently resolved Status: Acute Qualifiers: Encounter type: initial encounter Qualified Code(s): T68.XXXA - Hypothermia, initial encounter (8) Lactic acidosis: [place] related to respiratory arrest, improved with respiratory and cardiovascular support. Resolved Status: Acute (9) Hepatitis C antibody test positive: Denies prior history or treatment, though unclear to me presently how accurate his recall is Hepatitis C RNA not detected, hepatitis C genotype not detected. May be false positive Status: Acute (10) End stage chronic kidney disease: On hemodialysis Wednesdays and Fridays Status: Acute (11) CAD (coronary artery disease): Prior coronary artery bypass and PCI previously Status: Chronic Qualifiers: Coronary Disease-Associated Artery/Lesion type: [place] artery [place] vs. transplanted heart: [place] heart Associated angina: without angina Qualified Code(s): I25.10 - Atherosclerotic heart disease of [place] coronary artery without angina pectoris (12) Chronic anticoagulation: Secondary to atrial fibrillation. Had been on Coumadin previously is [facility]. Had 2 episodes of complications from supratherapeutic INR and was on Eliquis prior to admission. 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, had a EGD and colonoscopy, which did not show any significant findings Status: Acute (15) S/P abdominal aortic aneurysm repair: Complicated abdominal aortic aneurysm repair, with complications, resulting in renal artery ischemia, thus was transitioned to renal dialysis Status: Acute Additional A&P Information At least moderate protein calorie malnutrition secondary to illness Brother reports what sounds like esophageal stricture requiring dilatation intermittently, unclear of exactly when the last time was Empirically covered with antibiotics due to nonspecific clinical and laboratory/imaging findings in the setting of difficulty weaning from ventilator with plan to treat for a full 7-day course, currently on zosyn and levaquin IV Continue oral beta-blockade No plans or cardiac catheterization On home aspirin On Cardizem On Eliquis Barium swallow ordered, speech therapy ordered, shows aspiration with thin liquids, advance diet and monitor swallowing as per studies, reported that he has required esophageal dilatation in the past and that he was having difficulty swallowing his pills the week prior to admission. Depending on clinical course may have to consider endoscopic evaluation. Pulmonology following Dr Gavin Breathing treatments Resume home Flonase Status post steroids for subglottic edema We will need to watch blood sugars with cessation of steroids Continue antibiotics for a full 7 days though with negative blood cultures we will discontinue vancomycin PT and OT evaluations Neal removed Maintain central line presently but consider discontinuation in next 24-48 hours if stable and able to get peripheral IV Nephrology following for hemodialysis Wednesdays and Fridays Monitor right foot for progressive change On PPI Resume lower dose of home gabapentin Supportive care otherwise Lines/tubes: Dialysis catheter in the right upper chest, central line in the left neck DVT prophylaxis: Eliquis Anticipated Disposition: Will require placement in group home due to deconditioning awaiting NH placement, however family consider taking him home will have to make all the arrangements Code Status: Full code Attestations Medical Necessity Statement*: Patient requires hospitalization for respiratory distress, primary hypertension, A. fib, deconditioning, Coding Level of Care Code Acute Bilingual Account Manager for Chg Fwd Diagnoses Respiratory arrest R09.2 Hypoglycemia E16.2 Atrial fibrillation with slow ventricular response I48.91 Hypotension I95.89 Hypotension type: other hypotension type Elevated troponin R77.8 DVT (deep venous thrombosis) I82.491 DVT location: lower extremity Affected thrombotic vein of extremity: other lower extremity vein Chronicity: acute Laterality: right Hypothermia T68.XXXA Encounter type: initial encounter Lactic acidosis E87.2 Hepatitis C antibody test positive R76.8 End stage chronic kidney disease N18.6 CAD (coronary artery disease) I25.10 Coronary Disease-Associated Artery/Lesion type: [place] artery [place] vs. 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
--- NOTE | 2021-04-13 14:14 | PC.OT ---
OT tx attempted. Pt is off the floor in dialysis. Plan to resume OT tx in the a.m.
--- NOTE | 2021-04-13 20:37 | P.PN_ITS ---
Subjective Subjective: Interval history: Patient seems to be slowly improving. He is ambulating with assistance. Denies any chest pain or shortness of breath. Vital signs seems to be stable. Remains afebrile. No cough. He is still very forgetful Medications: Reviewed: Yes Medication Review Details: Current Medications Albuterol/Ipratropium (Ipratropium-Albuterol 3 Ml Neb) 3 ml INHALATION Q6H.RESPIRATORY PRN PRN Reason: SHORTNESS OF BREATH Apixaban (Apixaban 5 Mg Tablet) 2.5 mg PO BID@0900,2100 [facility] Last Admin: 04/13/21 10:01 Dose: 2.5 mg Documented by: Aspirin (Aspirin 81 Mg Ec Tablet) 81 mg PO DAILY [facility] Last Admin: 04/13/21 08:37 Dose: 81 mg Documented by: Dextrose (Dextrose 50% Syringe 50 Ml) 25 ml IVP ONCE PRN; Protocol PRN Reason: hypoglycemia protocol Diltiazem HCl (Diltiazem 60 Mg Tablet) 60 mg PO TID [facility] Last Admin: 04/13/21 16:49 Dose: Not Given Documented by: Fluticasone Propionate (Fluticasone Nasal [place] 16gm Btl) 2 spray INTRANASAL DAILY [facility] Last Admin: 04/13/21 08:50 Dose: 2 spray Documented by: Gabapentin (Gabapentin 100 Mg Capsule) 100 mg PO BID [facility] Last Admin: 04/13/21 17:57 Dose: 100 mg Documented by: Glucagon (Glucagon 1 Mg/Ml Inj 1 Ml) 1 mg IM ONCE PRN; Protocol PRN Reason: Adult Acute Hypoglycemia Prot. Guaifenesin (Guaifenesin 600 Mg Tablet) 600 mg PO BID [facility] Last Admin: 04/13/21 17:57 Dose: 600 mg Documented by: Sodium Chloride (Sodium Chloride 0.9%) 1,000 mls @ 0 mls/hr IV .Q0M PRN PRN Reason: hypotension or symptomatic Dextrose (D5w) 500 mls @ 100 mls/hr IV ONCE PRN; Protocol PRN Reason: Adult Acute Hypoglycemia Prot Last Infusion: 04/06/21 02:30 Dose: Infused Documented by: Piperacillin Sod/Tazobactam (Sod 3.375 gm/ Sodium Chloride) 50 mls @ 12.5 mls/hr IV Q12H [facility]; Protocol Last Admin: 04/13/21 17:56 Dose: 12.5 mls/hr Documented by: Levofloxacin/Dextrose (Levaquin-D5w) 500 mg in 100 mls @ 100 mls/hr IV Q48H [facility] Last Infusion: 04/12/21 18:02 Dose: Infused Documented by: Sodium Chloride (Sodium Chloride 0.9%) 1,000 mls @ 0 mls/hr IV .Q0M PRN PRN Reason: hypotension or symptomatic Albumin Human (Albumin) 12.5 gm in 50 mls @ 60 mls/hr IV PRN PRN PRN Reason: Hypotension and/or symptomatic Insulin Aspart (Insulin Aspart 100 Unit/1 Ml) 0 unit SUBCUT BEDTIME [facility]; Protocol Last Admin: 04/12/21 20:09 Dose: Not Given Documented by: Insulin Aspart (Insulin Aspart 100 Unit/1 Ml) 0 unit SUBCUT TIDWM [facility]; Protocol Last Admin: 04/13/21 17:46 Dose: Not Given Documented by: Lanolin (Lanolin Oint 7 Gm) 1 applic TOPICAL PRN PRN PRN Reason: DRYNESS Last Admin: 04/09/21 02:07 Dose: 1 applic Documented by: Metoprolol Tartrate (Metoprolol Tartrate 50 Mg Tablet) 50 mg PO BID@0900,2100 [facility] Last Admin: 04/13/21 08:37 Dose: 50 mg Documented by: Multivitamins (T-Zjirvsp-Hdnurhk C Tablet) 1 each PO DAILY [facility] Last Admin: 04/13/21 08:37 Dose: 1 each Documented by: Nitroglycerin (Nitroglycerin 1 Gm/Inch Oint Pkt) 0.5 inch TOPICAL Q6H [facility] Last Admin: 04/13/21 17:56 Dose: 0.5 inch Documented by: Pantoprazole Sodium (Pantoprazole Dr 40 Mg Tablet) 40 mg PO BID [facility] Last Admin: 04/13/21 17:57 Dose: 40 mg Documented by: Vitals/I&O/Wt Last Vital Signs Temp 98 F 04/13/21 20:00 Pulse 94 04/13/21 20:00 Resp 2 L 04/13/21 20:00 BP 131/80 04/13/21 20:00 Pulse Ox 96 04/13/21 20:00 04/13/21 04/13/21 04/13/21 06:59 14:59 22:59 Intake Total 150 / 1591.25 410 / 410 740 / 1150 Balance 150 / 1541.25 410 / 410 740 / 1150 Weight last 48 hrs Weight 170 lb Weight 161 lb Weight 160 lb 3.2 oz Physical Exam Narrative: EXAM NARRATIVE: GENERAL: The patient is alert and oriented x3 HEENT: Minimal pallor. Pupils are symmetrical. Oral cavity: There are no mucous membrane lesions. NECK: Trachea appears to be central. No masses noted. No JVD or thyromegaly appreciated. No carotid bruit. RESPIRATORY: Breath sounds noted bilaterally with a scattered coarse crackles and occasional expiratory wheezing BREASTS: Deferred. HEART: T the first heart sound is variable. Second heart sound is normal. No S3. Short systolic murmur in the left sternal border. Ejection systolic murmur of grade 2/6 in the aortic area. No diastolic murmurs. ABDOMEN: No vessel pulsations or distention. No tenderness. No organomegaly appreciated. No abdominal bruit. Bowel sounds are normally heard. : Deferred. RECTAL: Deferred. LYMPHATIC: No lymphadenopathy noted in the neck or groin. EXTREMITIES: There is hematoma in the left upper extremity. Dialysis access site on the left side. Peripheral cyanosis in the toes seems to be fading away MUSCULOSKELETAL: No acute joint deformities or swelling. SKIN: Multiple ecchymotic areas in the upper extremity. Healing skin abrasions in the anterior knee bilaterally NEUROPSYCHIATRIC: No focal motor deficits Urinary Catheter Management^: Neal: Cath Placed During This Visit: yes Reason for Continuing Indwelling Catheter: Accurate Measurement of Urinary Output in Critically Ill Patients Urinary Catheter Date of Insertion: 04/05/21 Data : 04/13/21 03:05 04/13/21 03:05 A&P Assessment and plan (1) Accelerated hypertension: The blood pressure seems to be getting under control. We will continue on the current medications Status: Acute (2) Atrial fibrillation with rapid ventricular response: The atrial fibrillation seems to be getting under control. At this point, he may continue on the current medications. Status: Acute (3) Respiratory arrest: Currently extubated. Currently on the current treatment measures. Status: Acute (4) DVT (deep venous thrombosis): The patient is on Eliquis. So far seems to be tolerating the medication well. Status: Acute Qualifiers: DVT location: lower extremity Affected thrombotic vein of extremity: other lower extremity vein Chronicity: acute Laterality: right Qualified Code(s): I82.491 - Acute embolism and thrombosis of other specified deep vein of right lower extremity (5) Elevated troponin: Most likely type II [place]-demand ischemia from the atrial fibrillation and renal failure. Status: Acute (6) End-stage renal disease (ESRD): Continue with dialysis as per nephrology. Status: Acute (7) Peripheral cyanosis: RITA was normal bilaterally. No significant arterial obstruction, based on the duplex examination findings. Most likely related to peripheral vasoconstriction/recent embolic events. Status post amputation of the fifth toes bilaterally We will continue on the current medications Status: Acute Additional A&P Information Other problems are Atherosclerotic heart disease, status post coronary artery bypass surgery Status post respiratory failure History of diastolic heart failure, currently compensated Pneumonia, resolving Hypokalemia, requires supplementation of potassium Attestations Medical Necessity Statement*: Disposition, as per the primary Coding Level of Care Code Acute Mixing House Operator for Chg Fwd History Detailed Exam Detailed Medical Decision Making Moderate Complexity Diagnoses Accelerated hypertension I10 Atrial fibrillation with rapid ventricular response I48.91 Respiratory arrest R09.2 DVT (deep venous thrombosis) I82.491 DVT location: lower extremity Affected thrombotic vein of extremity: other lower extremity vein Chronicity: acute Laterality: right Elevated troponin R77.8 End-stage renal disease (ESRD) N18.6 Peripheral cyanosis R23.0 Time Spent (min) 20
[2021-04-13 20:52] LABS: Glucose Point of Care 157 mg/dL (70-110)
[2021-04-14] VITALS (11 sets, daily range): BP systolic 132–162; BP diastolic 69–89; PULSE 74–100; RESP 17–29; TEMP 36.4–36.8; O2SAT 92–97
[2021-04-14 03:40] LABS: Basophils % 0.1 %; Eosinophils # 0.3 10^3/uL (0.0-0.8); Eosinophils % 3.1 %; Hematocrit 32.9 % (42.0-52.0); Lymphocytes # 1.1 10^3/uL (0.8-4.8); Lymphocytes % 12.7 %; Mean Corpuscular HGB Conc 30.4 g/dL (30.0-36.0); Mean Corpuscular Hemoglobin 26.7 pg (28.0-34.0); Mean Platelet Volume 10.5 fL (7.4-10.4); Monocytes # 0.8 10^3/uL (0.2-0.9); Monocytes % 9.3 %; Neutrophils # 6.62 10^3/uL (1.8-7.7); Neutrophils % 74.1 %; Nucleated Red Blood Cells % 0 %; Platelet Count 136 10^3/cmm (130-400); Red Blood Count 3.74 10^6/uL (4.1-5.3); White Blood Count 8.9 10^3/uL (4.0-10.0)
[2021-04-14] MEDS: piperacillin-tazobactam 3.375 GM in sodium chloride 0.9% (plus) 50 ML IV ×2 (04:00→17:26)
[2021-04-14] MEDS: nitroglycerin 1 gm/inch oint Pkt 0.5 INCH TOPICAL ×4 (04:02→21:05)
[2021-04-14 04:04] LABS: Alanine Aminotransferase 10 U/L (0-41); Albumin Level 2.4 g/dL (3.5-5.2); Alkaline Phosphatase 78 IU/L (40-130); Anion Gap 18.1 (5-19); Aspartate Amino Transferase 10 U/L (0-40); Blood Urea Nitrogen 31 mg/dL (8-23); C Reactive Protein 90.9 mg/L (0.0-4.9); Carbon Dioxide 22 mmol/L (22-29); Chloride 102 mmol/L (98-107); Globulin 3.3 g/dL (1.3-4.6); Glomerular Filtration Rate 12.2 mL/min (90-130); Glucose 114 mg/dL (65-115); Magnesium 1.9 mg/dL (1.7-2.3); Osmolality Calculated 295 mOsm/kg (285-295); Phosphorus 4.9 mg/dL (2.5-4.5); Potassium 3.1 mmol/L (3.5-5.1); Sodium 139 mmol/L (136-145); Total Bilirubin 0.6 mg/dL (0.15-1.2); Total Protein 5.7 g/dL (6.6-8.7)
[2021-04-14 04:11] LABS: Procalcitonin 0.72 ng/mL (0-0.5)
[2021-04-14 04:16] LABS: Calcium 7.7 mg/dL (8.5-10.5); Parathyroid Hormone 181.4 pg/mL (15-65)
[2021-04-14 04:24] LABS: Ferritin 195 ng/mL (30-400)
[2021-04-14 05:00] LABS: Iron 39 ug/dL (59-158)
[2021-04-14 05:02] LABS: NT Pro B Type Natriuretic Pept 35000 pg/mL (0-125); Unsaturated Iron Binding > 17 ug/dL (112-347)
[2021-04-14 06:49] LABS: Glucose Point of Care 93 mg/dL (70-110)
--- NOTE | 2021-04-14 06:50 | P.PN_ITS ---
Subjective Subjective: Interval history: still swollen, feels better. dec edema. less sob. HR controlled. no n/v/d/delgado/cp Medications: Reviewed: Yes Medication Review Details: Current Medications Albuterol/Ipratropium (Ipratropium-Albuterol 3 Ml Neb) 3 ml INHALATION Q6H.RESPIRATORY PRN PRN Reason: SHORTNESS OF BREATH Apixaban (Apixaban 5 Mg Tablet) 2.5 mg PO BID@0900,2100 [facility] Last Admin: 04/13/21 21:14 Dose: 2.5 mg Documented by: Aspirin (Aspirin 81 Mg Ec Tablet) 81 mg PO DAILY [facility] Last Admin: 04/13/21 08:37 Dose: 81 mg Documented by: Dextrose (Dextrose 50% Syringe 50 Ml) 25 ml IVP ONCE PRN; Protocol PRN Reason: hypoglycemia protocol Diltiazem HCl (Diltiazem 60 Mg Tablet) 60 mg PO TID [facility] Last Admin: 04/13/21 21:13 Dose: 60 mg Documented by: Fluticasone Propionate (Fluticasone Nasal [place] 16gm Btl) 2 spray INTRANASAL DAILY [facility] Last Admin: 04/13/21 08:50 Dose: 2 spray Documented by: Gabapentin (Gabapentin 100 Mg Capsule) 100 mg PO BID [facility] Last Admin: 04/13/21 17:57 Dose: 100 mg Documented by: Glucagon (Glucagon 1 Mg/Ml Inj 1 Ml) 1 mg IM ONCE PRN; Protocol PRN Reason: Adult Acute Hypoglycemia Prot. Guaifenesin (Guaifenesin 600 Mg Tablet) 600 mg PO BID [facility] Last Admin: 04/13/21 17:57 Dose: 600 mg Documented by: Sodium Chloride (Sodium Chloride 0.9%) 1,000 mls @ 0 mls/hr IV .Q0M PRN PRN Reason: hypotension or symptomatic Dextrose (D5w) 500 mls @ 100 mls/hr IV ONCE PRN; Protocol PRN Reason: Adult Acute Hypoglycemia Prot Last Infusion: 04/06/21 02:30 Dose: Infused Documented by: Piperacillin Sod/Tazobactam (Sod 3.375 gm/ Sodium Chloride) 50 mls @ 12.5 mls/hr IV Q12H [facility]; Protocol Last Admin: 04/14/21 04:00 Dose: 12.5 mls/hr Documented by: Levofloxacin/Dextrose (Levaquin-D5w) 500 mg in 100 mls @ 100 mls/hr IV Q48H [facility] Last Infusion: 04/12/21 18:02 Dose: Infused Documented by: Sodium Chloride (Sodium Chloride 0.9%) 1,000 mls @ 0 mls/hr IV .Q0M PRN PRN Reason: hypotension or symptomatic Albumin Human (Albumin) 12.5 gm in 50 mls @ 60 mls/hr IV PRN PRN PRN Reason: Hypotension and/or symptomatic Insulin Aspart (Insulin Aspart 100 Unit/1 Ml) 0 unit SUBCUT BEDTIME [facility]; Protocol Last Admin: 04/13/21 21:25 Dose: 1 unit Documented by: Insulin Aspart (Insulin Aspart 100 Unit/1 Ml) 0 unit SUBCUT TIDWM [facility]; Protocol Last Admin: 04/13/21 17:46 Dose: Not Given Documented by: Lanolin (Lanolin Oint 7 Gm) 1 applic TOPICAL PRN PRN PRN Reason: DRYNESS Last Admin: 04/09/21 02:07 Dose: 1 applic Documented by: Metoprolol Tartrate (Metoprolol Tartrate 50 Mg Tablet) 50 mg PO BID@0900,2100 [facility] Last Admin: 04/13/21 21:14 Dose: 50 mg Documented by: Multivitamins (L-Jnwohxg-Yvyimxc C Tablet) 1 each PO DAILY [facility] Last Admin: 04/13/21 08:37 Dose: 1 each Documented by: Nitroglycerin (Nitroglycerin 1 Gm/Inch Oint Pkt) 0.5 inch TOPICAL Q6H [facility] Last Admin: 04/14/21 04:02 Dose: 0.5 inch Documented by: Pantoprazole Sodium (Pantoprazole Dr 40 Mg Tablet) 40 mg PO BID [facility] Last Admin: 04/13/21 17:57 Dose: 40 mg Documented by: Vitals/I&O/Wt Last Vital Signs Temp 98 F 04/14/21 04:00 Pulse 79 04/14/21 04:00 Resp 29 H 04/14/21 04:00 BP 143/89 04/14/21 04:00 Pulse Ox 95 04/14/21 04:00 04/13/21 04/13/21 04/14/21 14:59 22:59 06:59 Intake Total 410 / 410 800 / 1210 3174 / 4384 Balance 410 / 410 800 / 1210 3174 / 4384 Weight last 48 hrs Weight 78.29 kg Weight 77.111 kg Weight 73.028 kg Physical Exam Narrative: EXAM NARRATIVE: using nc02- comfortable in bed, sitting up vs noted heent- nc/at, eomi, anicteric neck supple lungs scaterred crackles heart -RRR, +TI abd soft, nt, nd, +BS ext scrotal edema 1+ leg edema -improved neuro- a,a, o x 3 access rt ij tunneled catheter mood good skin- blue toes Urinary Catheter Management^: Neal: Cath Placed During This Visit: yes Reason for Continuing Indwelling Catheter: Accurate Measurement of Urinary Output in Critically Ill Patients Urinary Catheter Date of Insertion: 04/05/21 Data : 04/14/21 02:50 04/14/21 02:50 A&P Additional A&P Information 66 yr old man 1. ESRD- HD MWF -hd now 3 hrs, 4 k bath- remove 2.5 liters -needs new lower EDW 2. resp distress- on abx. Q PE- has a RLE DVT -challenge fluid removal as tolerated on HD in am 2b. Pulm htn- echo- Normal LV size with borderline low ejection fraction 50 to 55%. Wall motion normality as mentioned above. Mild biatrial enlargement. Thickened aortic and mitral valves. Mild-moderate mitral valve regurgitation. Moderate tricuspid valve regurgitation. Severe pulmonary hypertension with estimated pulmonary artery peak systolic pressure of 68 mmHg and a mean PA pressure of 46 mmHg. Mildly dilated IVC There is no pericardial effusion. There are no intracardiac masses. 3. DM control= gluc improved 4. a fib w/ RVR per cardiology - cardizem and metoprolol - renal dose eliquis -+ trop- further cardiac eval per Dr. Parker 5. Hep c ab + no rna or genotype- per medicine 6. hgb okay- check iron studies 7. hypokalemia- gentle k repletion as a fib 8. 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
--- NOTE | 2021-04-14 07:27 | PC.NURSE ---
Home meds: Removed from ICU pyxis delivered to CSU.
[2021-04-14] MEDS: potassium chloride ER 20 mEq Tablet 40 MEQ PO (08:00)
[2021-04-14] MEDS: levofloxacin-dextrose 5 % 500 MG/100 ML PREMIX 100 MG IV (08:01)
[2021-04-14] MEDS: epoetin alfa 10,000 unit/mL INJ 10000 UNIT SUBCUT (09:31)
[2021-04-14] MEDS: b-complex-vitamin c Tablet 1 EACH PO (09:32)
[2021-04-14] MEDS: guaiFENesin 600 mg Tablet PO ×2 (09:32→18:00)
[2021-04-14] MEDS: aspirin 81 mg EC Tablet PO (09:32)
[2021-04-14] MEDS: pantoprazole DR 40 mg Tablet PO ×2 (09:32→18:01)
[2021-04-14] MEDS: gabapentin 100 mg Capsule PO ×2 (09:32→18:01)
[2021-04-14] MEDS: apixaban 5 mg Tablet 2.5 MG PO ×2 (09:39→21:01)
[2021-04-14] MEDS: dilTIAZem 60 mg Tablet PO ×3 (09:39→21:02)
--- NOTE | 2021-04-14 10:13 | PC.CHAP ---
Pastoral Care Encounter/Spiritual Assessment Type of Contact [] Declined insurance sales executive visit [] Patient/Family/Request visit [] Outpatient visit [] Follow-up visit [] Physician referral [] Code/Alert [x] Routine visit [] Staff referral [] Actively dying [] Patient sleeping [] Family support [] [] Out of room [] Palliative care [] [x] Receiving care in room [] Pre-surgical visit [] Trauma [] Long length of stay [] ICU visit [] Other: Relational/Emotional Strength [] Patient feels connected with others/family/visitors/staff [] Distress [] Loneliness/isolation [] Abandonment Spirituality of Patient [x] Person of Jelly [] Attends Hinduism of their Jelly [] Believes in Prayer [] Reads Bible or Islam materials [] There are Spiritual issues to be addressed Sports Leadership Instructor Interventions [x] Prayer [x] Active listening ]x Non-anxious presence [x] Spiritual/emotional support [] Crisis/trauma care [] Spiritual counseling [] Bereavement support [] Provided bereavement packet [] Provided Bible/devotional materials [] Provided toy/stuffed animal, coloring book to patient or family member [] Provided Communion [] Anointing/[place] [] Salvation [x] Completed spiritual assessment [] Other: Impact on Illness or Injury [] Angry [] Fearful [] Anxious [] Often cries [] Exhaustion [] Unable to work [] Unable to attend congregation [] Unable to walk/stand [] Unable to read [] Unable to drive [] Unable to eat/drink [] Unable to sleep [] Unable to be with family [] Patient intubated [] Other: Summary patient receiving injection during my visit... feeling stronger Time spent with patient 10 min
[2021-04-14 10:57] LABS: Glucose Point of Care 138 mg/dL (70-110)
[2021-04-14] MEDS: metoprolol tartrate 50 mg Tablet PO ×2 (11:59→21:06)
--- NOTE | 2021-04-14 12:09 | PM.PN ---
Subjective Subjective: Interval history: Patient was examined this morning, he tells me that his family wants to take him to [place], it is a 7-hour trip, he thinks he can make it, he tells me he is to get a do fine, currently his swelling has improved, no chest pain, no shortness of breath, no cough, family in case workers are still arranging his dialysis in [place], and it will take about 7 hours for family to pick him up, he hopes that he can go tomorrow Vitals/I&O/Wt Last Vital Signs Temp 97.6 F 04/14/21 11:19 Pulse 79 04/14/21 11:19 Resp 18 04/14/21 11:19 BP 145/83 04/14/21 11:19 Pulse Ox 92 04/14/21 11:19 04/13/21 04/14/21 04/14/21 22:59 06:59 14:59 Intake Total 800 / 1210 3174 / 4384 510 / 510 Balance 800 / 1210 3174 / 4384 510 / 510 Weight last 48 hrs Weight 78.29 kg Weight 77.111 kg Weight 73.028 kg Physical Exam Const: COMMON NORMALS: no acute distress GENERAL APPEARANCE: frail appearing ORIENTATION/CONSCIOUSNESS: Yes awake, Yes oriented to person and Yes oriented to place Neck/C-Spine: COMMON NORMALS: no JVD Resp: COMMON NORMALS: normal respiratory effort, No retractions, No use of accessory muscles and clear to auscultation bilaterally AUSCULTATION: clear to auscultation bilaterally Cardio: COMMON NORMALS: no JVD, regular rate, regular rhythm, S1 normal heart sound present and S2 normal heart sound present RATE: regular rate RHYTHM: regular rhythm HEART SOUNDS: S1 normal heart sound present and S2 normal heart sound present GI: COMMON NORMALS: Normal to inspection, nondistended, normoactive bowel sounds present, Soft to palpation, non-tender and No hepatosplenomegaly present PALPATION: Yes Soft to palpation and Yes No hepatosplenomegaly present Extremity: COMMON NORMALS: no pedal edema Neuro: SENSORIUM/ORIENTATION: Yes oriented to person and Yes oriented to place Urinary Catheter Management^: Neal: Cath Placed During This Visit: yes Reason for Continuing Indwelling Catheter: Accurate Measurement of Urinary Output in Critically Ill Patients Urinary Catheter Date of Insertion: 04/05/21 Data : 04/14/21 02:50 04/14/21 02:50 A&P Assessment and plan (1) Respiratory arrest: In the field, necessitated intubation upon arrival to the ER. Occurred after administration of Versed for pacing. PE is within the differential and with elevation in D-dimer, right lower extremity DVT and other findings current working diagnosis. Chest x-ray has shown some infiltrates versus atelectasis. Low-grade fever 04/06 could be from either atelectasis or infection. Having increased secretions. Now with evidence of subglottic edema. Status post bronchoscopy 04/09. Extubated 04/10. -Currently on 3 L, chronic cough -Continue aspiration precautions, Mucinex, flutter valve, incentive spirometer, PT OT -On Zosyn and Levaquin, Status: Acute (2) Hypoglycemia: Was a recurrent problem initially despite being on tube feeds. He does not have a diagnosis of diabetes. No medications to specifically account for hypoglycemia. No evidence of acute coronary syndrome identified. Beta-grace toxicity a consideration from the time of admission but did not have other features of such and with the revelation that he was not taking his medications less likely. Infection also in the differential as are other metabolic processes. A1c 4.8. Unknown if any sulfonylureas in his home. Resolved after steroids were initiated for subglottic edema. Status: Acute (3) Atrial fibrillation with slow ventricular response: -Heart rate in the 30s on EMS arrival, ultimately treated with epinephrine. Has not had recurrent bradycardia. Treated with pressor support initially. Chronically on Cardizem and beta-grace for rate control. These held until 04/10 when atrial flutter/A. fib with RVR developed and beta-grace resumed. -Currently on Cardizem 60 mg every 8 hours -Metoprolol 50 mg twice daily -Currently on Eliquis Status: Acute (4) Hypotension: Upon arrival, had required pressor support. Differential includes medication effect, sepsis, cardiopulmonary etiology such as PE. Sepsis secondary to infection seems less likely given initial improvement without antibiotic coverage. Epinephrine discontinued first day of admission. Levophed administered at low doses intermittently particularly for maintenance of blood pressure with sedation changes, with last administration on 04/10 -Currently no hypotensive episodes Status: Acute Qualifiers: Hypotension type: other hypotension type Qualified Code(s): I95.89 - Other hypotension (5) Elevated troponin: Unclear acute significance, may be type II process from above but he does have known coronary artery disease with prior bypass. Has had previous similar baseline elevations. -Cardiology on consult -On aspirin, anticoagulation -No plans on cardiac catheterization -Echocardiogram shows EF of 50 to 55%, diffuse hypokinesia of the anteroseptal segments, pulmonary arterial pressure of 46 mmHg Status: Acute (6) DVT (deep venous thrombosis): Right common femoral vein, deep profunda and superficial femoral vein, extensive, present prior to admission currently on renally dosed Eliquis Status: Acute Qualifiers: DVT location: lower extremity Affected thrombotic vein of extremity: other lower extremity vein Chronicity: acute Laterality: right Qualified Code(s): I82.491 - Acute embolism and thrombosis of other specified deep vein of right lower extremity (7) Hypothermia: Unclear reason currently, temperature was 93 initially, not stated anywhere if he was found outside or if windows open. Temperature was in the 40s upper night of admission. Temperature improved with bear hugger. Infection is a consideration as is other etiology for the impaired thermoregulation. -Currently resolved Status: Acute Qualifiers: Encounter type: initial encounter Qualified Code(s): T68.XXXA - Hypothermia, initial encounter (8) Lactic acidosis: [place] related to respiratory arrest, improved with respiratory and cardiovascular support. Resolved Status: Acute (9) Hepatitis C antibody test positive: Denies prior history or treatment, though unclear to me presently how accurate his recall is Hepatitis C RNA not detected, hepatitis C genotype not detected. May be false positive Status: Acute (10) End stage chronic kidney disease: On hemodialysis Wednesdays and Fridays Status: Acute (11) CAD (coronary artery disease): Prior coronary artery bypass and PCI previously Status: Chronic Qualifiers: Coronary Disease-Associated Artery/Lesion type: [place] artery [place] vs. transplanted heart: [place] heart Associated angina: without angina Qualified Code(s): I25.10 - Atherosclerotic heart disease of [place] coronary artery without angina pectoris (12) Chronic anticoagulation: Secondary to atrial fibrillation. Had been on Coumadin previously is [facility] not [facility] Eliquis. Had 2 episodes of complications from supratherapeutic INR and was on Eliquis prior to admission. 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, had a EGD and colonoscopy, which did not show any significant findings Status: Acute (15) S/P abdominal aortic aneurysm repair: Complicated abdominal aortic aneurysm repair, with complications, resulting in renal artery ischemia, thus was transitioned to renal dialysis Status: Acute Additional A&P Information At least moderate protein calorie malnutrition secondary to illness Brother reports what sounds like esophageal stricture requiring dilatation intermittently, unclear of exactly when the last time was Empirically covered with antibiotics due to nonspecific clinical and laboratory/imaging findings in the setting of difficulty weaning from ventilator with plan to treat for a full 7-day course, currently on zosyn and levaquin IV Continue oral beta-blockade No plans or cardiac catheterization On home aspirin On Cardizem On Eliquis Barium swallow ordered, speech therapy ordered, shows aspiration with thin liquids, advance diet and monitor swallowing as per studies, reported that he has required esophageal dilatation in the past and that he was having difficulty swallowing his pills the week prior to admission. Breathing treatments Resume home Flonase Status post steroids for subglottic edema We will need to watch blood sugars with cessation of steroids Continue antibiotics for a full 7 PT and OT evaluations Neal removed Maintain central line presently but consider discontinuation in next 24-48 hours if stable and able to get peripheral IV Nephrology following for hemodialysis Wednesdays and Fridays Monitor right foot for progressive change On PPI Resume lower dose of home gabapentin Supportive care otherwise Lines/tubes: Dialysis catheter in the right upper chest, central line in the left neck DVT prophylaxis: Eliquis Anticipated Disposition: Will require placement in long-term due to deconditioning awaiting NH placement, however family consider taking him home will have to make all the arrangements Code Status: Full code Plan for today, continue dialysis, continue anticoagulation, continue antibiotics, PT OT, will be discharged tomorrow morning into the care of family, awaiting dialysis to be set up in [place], will require dialysis on Monday Attestations Medical Necessity Statement*: Patient requires hospitalization, for respiratory arrest, NSTEMI, pneumonia, fluid overload, Coding Level of Care Code Acute 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 [facility] Fwd Diagnoses Respiratory arrest R09.2 Hypoglycemia E16.2 Atrial fibrillation with slow ventricular response I48.91 Hypotension I95.89 Hypotension type: other hypotension type Elevated troponin R77.8 DVT (deep venous thrombosis) I82.491 DVT location: lower extremity Affected thrombotic vein of extremity: other lower extremity vein Chronicity: acute Laterality: right Hypothermia T68.XXXA Encounter type: initial encounter Lactic acidosis E87.2 Hepatitis C antibody test positive R76.8 End stage chronic kidney disease N18.6 CAD (coronary artery disease) I25.10 Coronary Disease-Associated Artery/Lesion type: [place] artery [place] vs. 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
--- NOTE | 2021-04-14 12:50 | PC.NURSE ---
off unit to hemodialysis
--- NOTE | 2021-04-14 14:10 | PC.SOCIAL ---
*IMM UPDATE* Gave patient IMM update. Provided him copy of pg 2. Verbalized understanding. 04/14/21 @ 0928 Initialed, dated, timed and placed in chart.
--- NOTE | 2021-04-14 15:29 | PC.OT ---
OT TREATMENT HELD PATIENT IS OFF UNIT TO DIALYSIS.
[2021-04-14 17:13] LABS: Glucose Point of Care 91 mg/dL (70-110)
--- NOTE | 2021-04-14 17:13 | PC.NURSE ---
suprapubic cath floey bag changed to leg bag.
[2021-04-14 20:14] LABS: Glucose Point of Care 157 mg/dL (70-110)
--- NOTE | 2021-04-14 23:09 | PM.PN ---
Subjective Subjective: Interval history: Patient is feeling okay. Mainly complaining of pain of the lower back where he has some bedsores. Denies any chest pain or chest tightness. No unusual shortness of breath. Vital signs remained stable. He had a hemodialysis today. Tolerated it well.no new symptoms. Medications: Reviewed: Yes Medication Review Details: Current Medications Albuterol/Ipratropium (Ipratropium-Albuterol 3 Ml Neb) 3 ml INHALATION Q6H.RESPIRATORY PRN PRN Reason: SHORTNESS OF BREATH Apixaban (Apixaban 5 Mg Tablet) 2.5 mg PO BID@0900,2100 [facility] Last Admin: 04/14/21 21:01 Dose: 2.5 mg Documented by: Aspirin (Aspirin 81 Mg Ec Tablet) 81 mg PO DAILY [facility] Last Admin: 04/14/21 09:32 Dose: 81 mg Documented by: Dextrose (Dextrose 50% Syringe 50 Ml) 25 ml IVP ONCE PRN; Protocol PRN Reason: hypoglycemia protocol Diltiazem HCl (Diltiazem 60 Mg Tablet) 60 mg PO TID [facility] Last Admin: 04/14/21 21:02 Dose: 60 mg Documented by: Fluticasone Propionate (Fluticasone Nasal [place] 16gm Btl) 2 spray INTRANASAL DAILY [facility] Last Admin: 04/14/21 09:32 Dose: Not Given Documented by: Gabapentin (Gabapentin 100 Mg Capsule) 100 mg PO BID [facility] Last Admin: 04/14/21 18:01 Dose: 100 mg Documented by: Glucagon (Glucagon 1 Mg/Ml Inj 1 Ml) 1 mg IM ONCE PRN; Protocol PRN Reason: Adult Acute Hypoglycemia Prot. Guaifenesin (Guaifenesin 600 Mg Tablet) 600 mg PO BID [facility] Last Admin: 04/14/21 18:00 Dose: 600 mg Documented by: Sodium Chloride (Sodium Chloride 0.9%) 1,000 mls @ 0 mls/hr IV .Q0M PRN PRN Reason: hypotension or symptomatic Dextrose (D5w) 500 mls @ 100 mls/hr IV ONCE PRN; Protocol PRN Reason: Adult Acute Hypoglycemia Prot Last Infusion: 04/06/21 02:30 Dose: Infused Documented by: Piperacillin Sod/Tazobactam (Sod 3.375 gm/ Sodium Chloride) 50 mls @ 12.5 mls/hr IV Q12H [facility]; Protocol Last Admin: 04/14/21 17:26 Dose: 12.5 mls/hr Documented by: Levofloxacin/Dextrose (Levaquin-D5w) 500 mg in 100 mls @ 100 mls/hr IV Q48H [facility] Last Infusion: 04/14/21 09:41 Dose: Infused Documented by: Sodium Chloride (Sodium Chloride 0.9%) 1,000 mls @ 0 mls/hr IV .Q0M PRN PRN Reason: hypotension or symptomatic Albumin Human (Albumin) 12.5 gm in 50 mls @ 60 mls/hr IV PRN PRN PRN Reason: Hypotension and/or symptomatic Insulin Aspart (Insulin Aspart 100 Unit/1 Ml) 0 unit SUBCUT BEDTIME [facility]; Protocol Last Admin: 04/14/21 21:02 Dose: 1 unit Documented by: Insulin Aspart (Insulin Aspart 100 Unit/1 Ml) 0 unit SUBCUT TIDWM [facility]; Protocol Last Admin: 04/14/21 18:01 Dose: Not Given Documented by: Lanolin (Lanolin Oint 7 Gm) 1 applic TOPICAL PRN PRN PRN Reason: DRYNESS Last Admin: 04/09/21 02:07 Dose: 1 applic Documented by: Metoprolol Tartrate (Metoprolol Tartrate 50 Mg Tablet) 50 mg PO BID@0900,2100 [facility] Last Admin: 04/14/21 21:06 Dose: 50 mg Documented by: Multivitamins (E-Pdwhsbg-Ilpvigw C Tablet) 1 each PO DAILY [facility] Last Admin: 04/14/21 09:32 Dose: 1 each Documented by: Nitroglycerin (Nitroglycerin 1 Gm/Inch Oint Pkt) 0.5 inch TOPICAL Q6H [facility] Last Admin: 04/14/21 21:05 Dose: 0.5 inch Documented by: Pantoprazole Sodium (Pantoprazole Dr 40 Mg Tablet) 40 mg PO BID [facility] Last Admin: 04/14/21 18:01 Dose: 40 mg Documented by: Vitals/I&O/Wt Last Vital Signs Temp 97.9 F 04/14/21 20:29 Pulse 76 04/14/21 20:29 Resp 20 H 04/14/21 20:29 BP 134/69 04/14/21 20:29 Pulse Ox 93 04/14/21 20:29 04/14/21 04/14/21 04/15/21 14:59 22:59 06:59 Intake Total 870 / 870 Balance 870 / 870 Weight last 48 hrs Weight 172 lb 9.6 oz Weight 170 lb Weight 161 lb Physical Exam Narrative: EXAM NARRATIVE: GENERAL: The patient is alert and oriented x3 HEENT: Minimal pallor. Pupils are symmetrical. Oral cavity: There are no mucous membrane lesions. NECK: Trachea appears to be central. No masses noted. No JVD or thyromegaly appreciated. No carotid bruit. RESPIRATORY: Breath sounds noted bilaterally with a scattered coarse crackles and occasional expiratory wheezing BREASTS: Deferred. HEART: T the first heart sound is variable. Second heart sound is normal. No S3. Short systolic murmur in the left sternal border. Ejection systolic murmur of grade 2/6 in the aortic area. No diastolic murmurs. ABDOMEN: No vessel pulsations or distention. No tenderness. No organomegaly appreciated. No abdominal bruit. Bowel sounds are normally heard. : Deferred. RECTAL: Deferred. LYMPHATIC: No lymphadenopathy noted in the neck or groin. EXTREMITIES: There is hematoma in the left upper extremity. Dialysis access site on the left side. Peripheral cyanosis in the toes seems to be fading away MUSCULOSKELETAL: No acute joint deformities or swelling. SKIN: Multiple ecchymotic areas in the upper extremity. Healing skin abrasions in the anterior knee bilaterally NEUROPSYCHIATRIC: No focal motor deficits Urinary Catheter Management^: Neal: Cath Placed During This Visit: yes Reason for Continuing Indwelling Catheter: Accurate Measurement of Urinary Output in Critically Ill Patients Urinary Catheter Date of Insertion: 04/05/21 Data : 04/14/21 02:50 04/14/21 02:50 Other Labs: Laboratory Last Values WBC 8.9 10^3/uL (4.0-10.0) 04/14/21 02:50 RBC 3.74 10^6/uL (4.1-5.3) L 04/14/21 02:50 Hgb 10.0 g/dL (11.7-16.6) L 04/14/21 02:50 Hct 32.9 % (42.0-52.0) L 04/14/21 02:50 MCV 88.0 fL (80-94) 04/14/21 02:50 MCH 26.7 pg (28.0-34.0) L 04/14/21 02:50 MCHC 30.4 g/dL (30.0-36.0) 04/14/21 02:50 RDW 19.0 % (12.1-15.1) H 04/14/21 02:50 Plt Count 136 10^3/cmm (130-400) 04/14/21 02:50 MPV 10.5 fL (7.4-10.4) H 04/14/21 02:50 Neut % (Auto) 74.1 % 04/14/21 02:50 Lymph % (Auto) 12.7 % 04/14/21 02:50 [place] % (Auto) 9.3 % 04/14/21 02:50 Eos % (Auto) 3.1 % 04/14/21 02:50 Baso % (Auto) 0.1 % 04/14/21 02:50 Neut # (Auto) 6.62 10^3/uL (1.8-7.7) 04/14/21 02:50 Lymph # (Auto) 1.1 10^3/uL (0.8-4.8) 04/14/21 02:50 [place] # (Auto) 0.8 10^3/uL (0.2-0.9) 04/14/21 02:50 Eos # (Auto) 0.3 10^3/uL (0.0-0.8) 04/14/21 02:50 Baso # (Auto) 0.0 10^3/uL (0.0-0.1) 04/14/21 02:50 Nucleated RBC % (auto) 0 % 04/14/21 02:50 Nucleated RBCs # 0.0 /100WBC 04/14/21 02:50 PT 18.50 SECONDS (12.1-14.9) H 04/06/21 04:00 INR 1.50 (0.8-1.2) H 04/06/21 04:00 APTT 76.3 SECONDS (23.9-36.7) H 04/13/21 03:05 D-Dimer 6.15 ug/mIFEU (0-0.59) H 04/05/21 02:31 Specimen Type Arterial 04/09/21 06:04 Sample Site Radial, right 04/09/21 06:04 ABG pH 7.45 (7.35-7.45) 04/09/21 06:04 ABG pCO2 32.2 mmHg (35-45) L 04/09/21 06:04 ABG pO2 78.1 mmHg (80.0-100.0) L 04/09/21 06:04 ABG HCO3 22.2 mmol/L (22-26) 04/09/21 06:04 ABG O2 Saturation 87.1 04/04/21 22:16 ABG Base Excess -1.2 mmol/L (-2.0-2.0) 04/09/21 06:04 Eusebio Test Pos 04/09/21 06:04 A-a O2 Gradient 77.8 mmHg (5-10) H 04/04/21 22:16 Hematocrit 34.6 % (42-52) L 04/09/21 06:04 Hgb O2 Saturation 84.9 % (95-100) L 04/04/21 22:16 Carboxyhemoglobin 1.5 %THgb (0.4-20.1) 04/04/21 22:16 Methemoglobin 1.0 % (0.4-1.5) 04/04/21 22:16 Total Hemoglobin 8.6 g/dL (14-18) L 04/04/21 22:16 Sodium 137.0 mmol/L (131-143) 04/04/21 22:16 Potassium 4.7 mmol/L (3.5-5.0) 04/04/21 22:16 Glucose 63.0 mg/dL (70-115) L 04/04/21 22:16 Ionized Calcium 0.7 mmol/L (1.1-1.4) L 04/04/21 22:16 O2 Delivery Device Vent 04/09/21 06:04 O2 Liters/Min 15.0 % 04/04/21 22:16 FiO2 30.0 % 04/09/21 06:04 Tidal Volume 0.45 04/09/21 06:04 PEEP 5.0 cmH20 04/09/21 06:04 Creative Technologist ID See 04/09/21 06:04 Sodium 139 mmol/L (136-145) 04/14/21 02:50 Potassium 3.1 mmol/L (3.5-5.1) L 04/14/21 02:50 Chloride 102 mmol/L (98-107) 04/14/21 02:50 Carbon Dioxide 22 mmol/L (22-29) 04/14/21 02:50 Anion Gap 18.1 (5-19) 04/14/21 02:50 BUN 31 mg/dL (8-23) H 04/14/21 02:50 Creatinine 4.8 mg/dL (0.7-1.2) H 04/14/21 02:50 GFR Calculation 12.2 mL/min (90-130) L 04/14/21 02:50 Glucose 114 mg/dL (65-115) 04/14/21 02:50 POC Glucose 157 mg/dL (70-110) H 04/14/21 20:05 Estimat Average Glucose 91 04/07/21 05:32 Hemoglobin A1c 4.8 % (4.0-6.0) 04/07/21 05:32 Calculated Osmolality 295 mOsm/kg (285-295) 04/14/21 02:50 Lactate 2.3 mmol/L (0.5-2.2) H 04/05/21 02:58 Calcium 8.0 mg/dL (8.5-10.5) L 04/14/21 02:50 Phosphorus 4.9 mg/dL (2.5-4.5) H 04/14/21 02:50 Magnesium 1.9 mg/dL (1.7-2.3) 04/14/21 02:50 Iron 39 ug/dL (59-158) L 04/14/21 02:50 TIBC 56.77045 mcg/dl 04/14/21 02:50 % Saturation 69.0 % (20-50) H 04/14/21 02:50 Unsat Iron Binding > 17 ug/dL (112-347) L 04/14/21 02:50 Ferritin 195 ng/mL (30-400) 04/14/21 02:50 Total Bilirubin 0.6 mg/dL (0.15-1.2) 04/14/21 02:50 AST 10 U/L (0-40) 04/14/21 02:50 ALT 10 U/L (0-41) 04/14/21 02:50 Alkaline Phosphatase 78 IU/L (40-130) 04/14/21 02:50 Troponin T Gen 5 ng/L 37 ng/L (0-15) H 04/10/21 03:55 Troponin T Baseline 70 ng/L (0-15) H 04/04/21 20:51 Troponin T 120 Minute 63.13 ng/L (0-15) H 04/04/21 22:36 Delta Troponin T -6.87 ABS# (0-10) L 04/04/21 22:36 Troponin T Hi Sens 6Hr 36.62 ng/L (0-15) H 04/05/21 02:58 Troponin T Hi Sens 6Hr Delta -33.38 ng/L (0-12) L 04/05/21 02:58 C-Reactive Protein 90.9 mg/L (0.0-4.9) H 04/14/21 02:50 NT-Pro-B Natriuret Pep 12040 pg/mL (0-125) H 04/14/21 02:50 Total Protein 5.7 g/dL (6.6-8.7) L 04/14/21 02:50 Albumin 2.4 g/dL (3.5-5.2) L 04/14/21 02:50 Globulin 3.3 g/dL (1.3-4.6) 04/14/21 02:50 Procalcitonin 0.72 ng/mL (0-0.5) H 04/14/21 02:50 TSH 2.41 uIU/mL (0.27-4.20) 04/05/21 02:58 PTH Intact 181.4 pg/mL (15-65) H 04/14/21 02:50 Calcium (PTH Intact) 7.7 mg/dL (8.5-10.5) L 04/14/21 02:50 Vancomycin Trough 14.8 ug/mL (10-15) 04/09/21 14:05 Hep Bs Antigen Non-reactive (Nonreactive) 04/05/21 09:58 Hepatitis C Antibody Reactive (Nonreactive) H 04/11/21 08:50 HCV RNA (PCR) IUs/ml <1.18 not detected Log IU/mL (NOT DETECTED) 04/06/21 04:00 HCV RNA (PCR) IU log10 <15 not detected IU/mL (NOT DETECTED) 04/06/21 04:00 Hep C Genotype (PCR) Not detected 04/06/21 04:00 A&P Assessment and plan (1) Atrial fibrillation with rapid ventricular response: Currently the patient is in atrial fibrillation with a mostly controlled ventricular response rate. Hemodynamically seems to be stable. Status: Acute (2) Accelerated hypertension: The blood pressure seems to be fairly under control. May continue on the current antihypertensive medications. Status: Acute (3) Respiratory arrest: The respiratory status is stable. His oxygen saturation is around 95%, most of the times in room air. Status: Acute (4) DVT (deep venous thrombosis): The patient is on Eliquis. So far seems to be tolerating the medication well. Status: Acute Qualifiers: DVT location: lower extremity Affected thrombotic vein of extremity: other lower extremity vein Chronicity: acute Laterality: right Qualified Code(s): I82.491 - Acute embolism and thrombosis of other specified deep vein of right lower extremity (5) Elevated troponin: Most likely type II AK-demand ischemia from the atrial fibrillation and renal failure. Status: Acute (6) End-stage renal disease (ESRD): Continue with dialysis as per nephrology. Seems to be tolerating the dialysis so far well Status: Acute (7) Peripheral cyanosis: RITA was normal bilaterally. No significant arterial obstruction, based on the duplex examination findings. Most likely related to peripheral vasoconstriction/recent embolic events. Status post amputation of the fifth toes bilaterally We will continue on the current medications Status: Acute Additional A&P Information Other problems are Atherosclerotic heart disease, status post coronary artery bypass surgery Status post respiratory failure History of diastolic heart failure, currently compensated Pneumonia, resolving Hypokalemia, currently normokalemic. Attestations Medical Necessity Statement*: Disposition as per the primary attending. Time Spent in Patient Care: 16 - 35 minutes Coding Level of Care Code Acute Political Science Faculty Member for Singh Fwd Diagnoses Atrial fibrillation with rapid ventricular response I48.91 Accelerated hypertension I10 Respiratory arrest R09.2 DVT (deep venous thrombosis) I82.491 DVT location: lower extremity Affected thrombotic vein of extremity: other lower extremity vein Chronicity: acute Laterality: right Elevated troponin R77.8 End-stage renal disease (ESRD) N18.6 Peripheral cyanosis R23.0
[2021-04-15 03:45] LABS: Basophils % 0.2 %; Eosinophils # 0.3 10^3/uL (0.0-0.8); Hematocrit 32.9 % (42.0-52.0); Hemoglobin 10.3 g/dL (11.7-16.6); Lymphocytes # 1.3 10^3/uL (0.8-4.8); Lymphocytes % 15.2 %; Mean Corpuscular HGB Conc 31.3 g/dL (30.0-36.0); Mean Corpuscular Hemoglobin 27.2 pg (28.0-34.0); Mean Platelet Volume 9.9 fL (7.4-10.4); Monocytes # 0.8 10^3/uL (0.2-0.9); Monocytes % 9.6 %; Neutrophils # 6.21 10^3/uL (1.8-7.7); Neutrophils % 71.4 %; Nucleated Red Blood Cells % 0 %; Platelet Count 149 10^3/cmm (130-400); Red Blood Count 3.78 10^6/uL (4.1-5.3); White Blood Count 8.7 10^3/uL (4.0-10.0)
[2021-04-15 04:05] LABS: Procalcitonin 0.54 ng/mL (0-0.5)
[2021-04-15 04:06] LABS: Alanine Aminotransferase 10 U/L (0-41); Albumin Level 2.5 g/dL (3.5-5.2); Alkaline Phosphatase 79 IU/L (40-130); Anion Gap 13.1 (5-19); Aspartate Amino Transferase 13 U/L (0-40); Blood Urea Nitrogen 17 mg/dL (8-23); C Reactive Protein 54.3 mg/L (0.0-4.9); Calcium 7.7 mg/dL (8.5-10.5); Carbon Dioxide 27 mmol/L (22-29); Chloride 104 mmol/L (98-107); Globulin 3.2 g/dL (1.3-4.6); Glomerular Filtration Rate 16.9 mL/min (90-130); Glucose 73 mg/dL (65-115); Magnesium 1.8 mg/dL (1.7-2.3); Osmolality Calculated 292 mOsm/kg (285-295); Phosphorus 3.4 mg/dL (2.5-4.5); Potassium 3.1 mmol/L (3.5-5.1); Sodium 141 mmol/L (136-145); Total Bilirubin 0.7 mg/dL (0.15-1.2); Total Protein 5.7 g/dL (6.6-8.7)
[2021-04-15 04:10] LABS: NT Pro B Type Natriuretic Pept 3500 pg/mL (0-125)
[2021-04-15 04:18] VITALS: BP 142/73; PULSE 89; RESP 29; TEMP 36.6; O2SAT 93
[2021-04-15] MEDS: piperacillin-tazobactam 3.375 GM in sodium chloride 0.9% (plus) 50 ML IV (04:47)
[2021-04-15] MEDS: nitroglycerin 1 gm/inch oint Pkt 0.5 INCH TOPICAL (04:48)
[2021-04-15 05:37] VITALS: PULSE 79
--- NOTE | 2021-04-15 06:57 | PC.NURSE ---
TRANSFER Pt received from [facility] via bed. Is alert and oriented. Not happy about room change because he says he is going home today. Says his brother is coming from [place] to take him home with him. Is alert and oriented. Says has not needed any O2 now and is 93% on RA. Denies SOB or pain. Pt has a dialysis fistula in left upper arm and a dialysis catheter to right chest. Says using catheter for his dialysis. Left IJ in place with IV Zosyn infusing. Telemetry placed. Telenephrology called for session with pt. . Report given to day shift nurse
[2021-04-15 07:50] VITALS: BP 164/83; PULSE 109; RESP 20; TEMP 36.7; O2SAT 91
[2021-04-15 07:57] LABS: Glucose Point of Care 90 mg/dL (70-110)
--- NOTE | 2021-04-15 07:58 | P.PN_ITS ---
Subjective Subjective: Interval history: feels well. wants to go to brother in [place]. still weak. no n/v/f/c/delgado/d/leg pain or CP. + edema improved Medications: Reviewed: Yes Medication Review Details: Current Medications Albuterol/Ipratropium (Ipratropium-Albuterol 3 Ml Neb) 3 ml INHALATION Q6H.RESPIRATORY PRN PRN Reason: SHORTNESS OF BREATH Apixaban (Apixaban 5 Mg Tablet) 2.5 mg PO BID@0900,2100 [facility] Last Admin: 04/14/21 21:01 Dose: 2.5 mg Documented by: Aspirin (Aspirin 81 Mg Ec Tablet) 81 mg PO DAILY [facility] Last Admin: 04/14/21 09:32 Dose: 81 mg Documented by: Dextrose (Dextrose 50% Syringe 50 Ml) 25 ml IVP ONCE PRN; Protocol PRN Reason: hypoglycemia protocol Diltiazem HCl (Diltiazem 60 Mg Tablet) 60 mg PO TID [facility] Last Admin: 04/14/21 21:02 Dose: 60 mg Documented by: Fluticasone Propionate (Fluticasone Nasal [place] 16gm Btl) 2 spray INTRANASAL DAILY [facility] Last Admin: 04/14/21 09:32 Dose: Not Given Documented by: Gabapentin (Gabapentin 100 Mg Capsule) 100 mg PO BID [facility] Last Admin: 04/14/21 18:01 Dose: 100 mg Documented by: Glucagon (Glucagon 1 Mg/Ml Inj 1 Ml) 1 mg IM ONCE PRN; Protocol PRN Reason: Adult Acute Hypoglycemia Prot. Guaifenesin (Guaifenesin 600 Mg Tablet) 600 mg PO BID [facility] Last Admin: 04/14/21 18:00 Dose: 600 mg Documented by: Sodium Chloride (Sodium Chloride 0.9%) 1,000 mls @ 0 mls/hr IV .Q0M PRN PRN Reason: hypotension or symptomatic Dextrose (D5w) 500 mls @ 100 mls/hr IV ONCE PRN; Protocol PRN Reason: Adult Acute Hypoglycemia Prot Last Infusion: 04/06/21 02:30 Dose: Infused Documented by: Piperacillin Sod/Tazobactam (Sod 3.375 gm/ Sodium Chloride) 50 mls @ 12.5 mls/hr IV Q12H [facility]; Protocol Last Admin: 04/15/21 04:47 Dose: 12.5 mls/hr Documented by: Levofloxacin/Dextrose (Levaquin-D5w) 500 mg in 100 mls @ 100 mls/hr IV Q48H [facility] Last Infusion: 04/14/21 09:41 Dose: Infused Documented by: Sodium Chloride (Sodium Chloride 0.9%) 1,000 mls @ 0 mls/hr IV .Q0M PRN PRN Reason: hypotension or symptomatic Albumin Human (Albumin) 12.5 gm in 50 mls @ 60 mls/hr IV PRN PRN PRN Reason: Hypotension and/or symptomatic Insulin Aspart (Insulin Aspart 100 Unit/1 Ml) 0 unit SUBCUT BEDTIME [facility]ARDO; Pro tocol Last Admin: 04/14/21 21:02 Dose: 1 unit Documented by: Insulin Aspart (Insulin Aspart 100 Unit/1 Ml) 0 unit SUBCUT TIDWM [facility]; Protocol Last Admin: 04/14/21 18:01 Dose: Not Given Documented by: Lanolin (Lanolin Oint 7 Gm) 1 applic TOPICAL PRN PRN PRN Reason: DRYNESS Last Admin: 04/09/21 02:07 Dose: 1 applic Documented by: Metoprolol Tartrate (Metoprolol Tartrate 50 Mg Tablet) 50 mg PO BID@0900,2100 [facility] Last Admin: 04/14/21 21:06 Dose: 50 mg Documented by: Multivitamins (T-Lnjtzwb-Ykuatye C Tablet) 1 each PO DAILY [facility] Last Admin: 04/14/21 09:32 Dose: 1 each Documented by: Nitroglycerin (Nitroglycerin 1 Gm/Inch Oint Pkt) 0.5 inch TOPICAL Q6H [facility] Last Admin: 04/15/21 04:48 Dose: 0.5 inch Documented by: Pantoprazole Sodium (Pantoprazole Dr 40 Mg Tablet) 40 mg PO BID [facility] Last Admin: 04/14/21 18:01 Dose: 40 mg Documented by: Vitals/I&O/Wt Last Vital Signs Temp 98.0 F 04/15/21 07:50 Pulse 109 H 04/15/21 07:50 Resp 20 H 04/15/21 07:50 BP 164/83 04/15/21 07:50 Pulse Ox 91 04/15/21 07:50 04/14/21 04/15/21 04/15/21 22:59 06:59 14:59 Intake Total 170 / 1040 240 / 1280 Output Total Balance 170 / 1040 239 / 1279 Weight last 48 hrs Weight 78.154 kg Weight 78.29 kg Physical Exam Narrative: EXAM NARRATIVE: using nc02- comfortable in bed, NARD vs noted heent- nc/at, eomi, anicteric neck supple lungs- improved air movement b/l. dull b/l bases heart -irreg irreg, +TI abd soft, nt, nd, +BS ext scrotal edema improving 1+ leg edema -improved neuro- a,a, o x 3 access rt ij tunneled catheter LUE AVF w/ thrill and bruit mood good skin- blue toes Urinary Catheter Management^: Neal: Cath Placed During This Visit: yes Reason for Continuing Indwelling Catheter: Accurate Measurement of Urinary Output in Critically Ill Patients Urinary Catheter Date of Insertion: 04/05/21 Data : 04/15/21 02:53 04/15/21 02:53 A&P Additional A&P Information 66 yr old man 1. ESRD- HD MWF -needs new lower EDW. i explained this to hime. lowering EDW helps his respiratory status -attempt to start using AVF 2. resp distress- on abx. Q PE- has a RLE DVT -challenge fluid removal as tolerated on HD -bnp decreased from >70,000 to 35,000 to 3500 2b. Pulm htn- echo- Normal LV size with borderline low ejection fraction 50 to 55%. Wall motion normality as mentioned above. Mild biatrial enlargement. Thickened aortic and mitral valves. Mild-moderate mitral valve regurgitation. Moderate tricuspid valve regurgitation. Severe pulmonary hypertension with estimated pulmonary artery peak systolic pressure of 68 mmHg and a mean PA pressure of 46 mmHg. Mildly dilated IVC There is no pericardial effusion. There are no intracardiac masses. 3. DM control= gluc improved 4. a fib w/ RVR per cardiology - cardizem and metoprolol - renal dose eliquis -+ trop- cardiac eval per Dr. Parker- appreciated 5. Hep c ab + no rna or genotype- per medicine 6. hgb okay- high iron sat- no iv iron 7. hypokalemia- gentle k and mag repletion as a fib 8. normal phos pth 181= okay for ESRD 9. normal tsh pt seen and examine dw/ rN- telehealth visit Attestations Medical Necessity Statement*: per hospitalist Time Spent in Patient Care: 16 - 35 minutes Coding Level of Care Code Acute Cook Pie for Singh Chairez
--- NOTE | 2021-04-15 09:52 | P.DS_ITS ---
Discharge Providers Date of Admission: 04/05/21 01:34 Date of Discharge: April 15, 2021 Attending Provider at Admission: Marla Solis MD Attending Provider at Discharge: Allen Alarcon MD Diagnoses at Discharge Discharge Diagnosis (1) Atrial fibrillation with rapid ventricular response: Status: Acute (2) Accelerated hypertension: Status: Acute (3) Respiratory arrest: Status: Acute (4) DVT (deep venous thrombosis): Status: Acute Qualifiers: Affected thrombotic vein of extremity: other lower extremity vein Chronicity: acute DVT location: lower extremity Laterality: right Qualified Code(s): I82.491 - Acute embolism and thrombosis of other specified deep vein of right lower extremity (5) Elevated troponin: Status: Acute (6) End-stage renal disease (ESRD): Status: Acute (7) Peripheral cyanosis: Status: Acute Reason for Visit Reason for Visit: cpr Hospital Course Hospital Course This is a 66-year-old male with a past medical history of end-stage renal disease as a complication of AAA repair, has a temporal hemodialysis catheter in place, has a left arm AV fistula that is during, atrial fibrillation on Eliquis, recent history of abdominal aortic aneurysm repair, with complications, renal failure, renal artery embolism, 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 Patient had a complicated medical history, he had respiratory arrest, requiring intubation in the field, likely secondary to pneumonia, pulmonary edema, successfully extubated, which was complicated with subglottic edema, he received a bronchoscopy, pulmonary was consulted, monitored in ICU, clinically improved, did receive dialysis for fluid overload, did have elevated troponins during his hospitalization, cardiology was consulted, no plans on cardiac catheterization. Was also found to have a DVT of right lower extremity, managed with Eliquis. Patient and his family is adamant about taking him to [place], patient will be discharged to the care of his family, will be taken up to [place], all his appointments, and his dialysis has been set up in [place]. Patient will follow up for dialysis tomorrow, follow-up with cardiology, nephrology in the next few weeks. Follow with primary care provider in the next few weeks. He finished his antibiotic course for his pneumonia as inpatient. For his atrial fibrillation discharge, Toprol, Cardizem, Eliquis. For his DVT discharged on renally dosed Eliquis. He has a temporary dialysis catheter in place, a maturing left AV fistula, follow-up with nephrology, for possible using left AV fistula. Respiratory arrest: In the field, necessitated intubation upon arrival to the ER. Occurred after administration of Versed for pacing. PE is within the differential and with elevation in D-dimer, right lower extremity DVT and other findings current working diagnosis. Chest x-ray has shown some infiltrates versus atelectasis. Low-grade fever 04/06 could be from either atelectasis or infection. Having increased secretions. with evidence of subglottic edema tx with steroids, resolved. Status post bronchoscopy 04/09. Extubated 04/10. -Currently on RA, chronic cough -Continue aspiration precautions, Mucinex, flutter valve, incentive spirometer, PT OT -finished Zosyn and Levaquin as inpatient -on RA on d/c Hypoglycemia: Was a recurrent problem initially despite being on tube feeds. He does not have a diagnosis of diabetes. No medications to specifically account for hypoglycemia. No evidence of acute coronary syndrome identified. Beta-grace toxicity a consideration from the time of admission but did not have other features of such and with the revelation that he was not taking his medications less likely. Infection also in the differential as are other metabolic processes. A1c 4.8. Unknown if any sulfonylureas in his home. Resolved after steroids were initiated for subglottic edema. Atrial fibrillation with slow ventricular response: -Heart rate in the 30s on EMS arrival, ultimately treated with epinephrine. Has not had recurrent bradycardia. Treated with pressor support initially. Chronically on Cardizem and beta-grace for rate control. These held until 04/10 when atrial flutter/A. fib with RVR developed and beta-grace resumed. -dc on Cardizem 180mgqD -Metoprolol 50 mg twice daily -Currently on Eliquis 2.5mg BID Hypotension: Upon arrival, had required pressor support. Differential includes medication effect, sepsis, cardiopulmonary etiology such as PE. Sepsis secondary to infection seems less likely given initial improvement without antibiotic coverage. Epinephrine discontinued first day of admission. Levophed administered at low doses intermittently particularly for maintenance of blood pressure with sedation changes, with last administration on 04/10 -Currently no hypotensive episodes Elevated troponin: likleyl type II process from above but he does have known coronary artery disease with prior bypass. Has had previous similar baseline elevations. -Cardiology on consult -On aspirin, anticoagulation -No plans on cardiac catheterization -Echocardiogram shows EF of 50 to 55%, diffuse hypokinesia of the anteroseptal segments, pulmonary arterial pressure of 46 mmHg DVT (deep venous thrombosis): Right common femoral vein, deep profunda and superficial femoral vein, extensive, present prior to admission currently on renally dosed Eliquis Hypothermia: Unclear reason currently, temperature was 93 initially, not stated anywhere if he was found outside or if windows open. Temperature was in the 40s upper night of admission. Temperature improved with bear hugger. Infection is a consideration as is other etiology for the impaired thermoregulation. -Currently resolved lactic acidosis: [place] related to respiratory arrest, improved with respiratory and cardiovascular support. Hepatitis C antibody test positive: Denies prior history or treatment, though unclear to me presently how accurate his recall is Hepatitis C RNA not detected, hepatitis C genotype not detected. 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, had a EGD and colonoscopy, which did not show any significant findings S/P abdominal aortic aneurysm repair: Complicated abdominal aortic aneurysm repair, with complications, resulting in renal artery ischemia, thus was transitioned to renal dialysis At least moderate protein calorie malnutrition secondary to illness Brother reports what sounds like esophageal stricture requiring dilatation intermittently, unclear of exactly when the last time was Physical Exam Const: COMMON NORMALS: no acute distress GENERAL APPEARANCE: cooperative and frail appearing ORIENTATION/CONSCIOUSNESS: Yes awake, Yes oriented to person, Yes oriented to place and Yes oriented to time Resp: COMMON NORMALS: normal respiratory effort, No retractions, No use of accessory muscles and clear to auscultation bilaterally AUSCULTATION: clear to auscultation bilaterally Cardio: COMMON NORMALS: regular rate, regular rhythm, S1 normal heart sound present and S2 normal heart sound present RATE: regular rate RHYTHM: regular rhythm HEART SOUNDS: S1 normal heart sound present and S2 normal heart sound present GI: COMMON NORMALS: Normal to inspection, nondistended, normoactive bowel sounds present, Soft to palpation and non-tender PALPATION: Yes Soft to palpation Extremity: COMMON NORMALS: no pedal edema Neuro: SENSORIUM/ORIENTATION: Yes oriented to person, Yes oriented to place and Yes oriented to time Urinary Catheter Management^: Neal: Cath Placed During This Visit: yes Reason for Continuing Indwelling Catheter: Accurate Measurement of Urinary Output in Critically Ill Patients Urinary Catheter Date of Insertion: 04/05/21 Discharge Data Data Completed and Pending: Completed Studies During Hospitalization Category Date Time Status CT angio chest PE protcl 16484 Rout ine Cat Scan 04/07/21 08:[address] head wo con* 7 0450 Stat Cat Scan 04/04/21 23:30 Completed FL barium swallow modifd 78023 Rout ine Exams 04/12/21 08:00 Completed XR chest 1V consuelo ble 20096 Routine Exams 04/06/21 07:35 Completed XR chest 1V consuelo ble 42347 Routine Exams 04/13/21 07:00 Completed XR chest 1V consuelo ble 79674 Stat Exams 04/04/21 22:12 Completed XR chest 1V consuelo ble 69452 Stat Exams 04/05/21 03:22 Completed XR chest 1V consuelo ble 37672 Stat Exams 04/05/21 15:02 [place] [address] Rout ine Ultrasound 04/08/21 07:36 Completed CV echo limited 9 3308 Routine Ultrasound 04/05/21 12:24 Completed CV echo limited 9 3308 Routine Ultrasound 04/12/21 18:15 [place] [id number] Routin e Ultrasound 04/05/21 03:19 Completed US RITA [CV ankle brachial index 939 22] Routine Ultrasound 04/12/21 11:31 Completed Pending at discharge Category Date Time Status Sputum Culture Ro utine Lab 04/05/21 12:19 Uncollected Labs from last 24 hours 04/15/21 04/15/21 04/15/21 07:53 02:53 02:53 WBC RBC Hgb Hct MCV MCH MCHC RDW Plt Count MPV Neut % (Auto) Lymph % (Auto) [place] % (Auto) Eos % (Auto) Baso % (Auto) Neut # (Auto) Lymph # (Auto) [place] # (Auto) Eos # (Auto) Baso # (Auto) Nucleated RBC % (a uto) Nucleated RBCs # Sodium 141 Potassium 3.1 L Chloride 104 Carbon Dioxide 27 Anion Gap 13.1 BUN 17 Creatinine 3.6 H GFR Calculation 16.9 L Glucose 73 POC Glucose 90 Calculated Osmolal ity 292 Calcium 7.7 L Phosphorus 3.4 Magnesium 1.8 Total Bilirubin 0.7 AST 13 ALT 10 Alkaline Phosphata se 79 C-Reactive Protein 54.3 H NT-Pro-B Natriuret Pep 3500 H Total Protein 5.7 L Albumin 2.5 L Globulin 3.2 Procalcitonin 0.54 H 04/15/21 04/14/21 04/14/21 02:53 20:05 17:11 WBC 8.7 RBC 3.78 L Hgb 10.3 L Hct 32.9 L MCV 87.0 MCH 27.2 L MCHC 31.3 RDW 19.0 H Plt Count 149 MPV 9.9 Neut % (Auto) 71.4 Lymph % (Auto) 15.2 [place] % (Auto) 9.6 Eos % (Auto) 3.0 Baso % (Auto) 0.2 Neut # (Auto) 6.21 Lymph # (Auto) 1.3 [place] # (Auto) 0.8 Eos # (Auto) 0.3 Baso # (Auto) 0.0 Nucleated RBC % (a uto) 0 Nucleated RBCs # 0.0 Sodium Potassium Chloride Carbon Dioxide Anion Gap BUN Creatinine GFR Calculation Glucose POC Glucose 157 H 91 Calculated Osmolal ity Calcium Phosphorus Magnesium Total Bilirubin AST ALT Alkaline Phosphata se C-Reactive Protein NT-Pro-B Natriuret Pep Total Protein Albumin Globulin Procalcitonin 04/14/21 10:49 WBC RBC Hgb Hct MCV MCH MCHC RDW Plt Count MPV Neut % (Auto) Lymph % (Auto) [place] % (Auto) Eos % (Auto) Baso % (Auto) Neut # (Auto) Lymph # (Auto) [place] # (Auto) Eos # (Auto) Baso # (Auto) Nucleated RBC % (a uto) Nucleated RBCs # Sodium Potassium Chloride Carbon Dioxide Anion Gap BUN Creatinine GFR Calculation Glucose POC Glucose 138 H Calculated Osmolal ity Calcium Phosphorus Magnesium Total Bilirubin AST ALT Alkaline Phosphata se C-Reactive Protein NT-Pro-B Natriuret Pep Total Protein Albumin Globulin Procalcitonin Vitals: Last Vital Signs Temp 98.0 F 04/15/21 07:50 Pulse 109 H 04/15/21 07:50 Resp 20 H 04/15/21 07:50 BP 164/83 04/15/21 07:50 Pulse Ox 91 04/15/21 07:50 Discharge Plan Discharge Patient Disposition: Home Condition: Stable Prescriptions: New B-complex with vitamin C Tablet 1 ea PO DAILY 30 Days Qty: 30 RF: 0 diltiazem HCl 180 mg capsule,extended release 24hr 180 mg PO DAILY 30 Days Qty: 30 RF: 0 B-complex with vitamin C Tablet 1 tab PO DAILY 30 Days Qty: 30 RF: 0 aspirin 81 mg tablet,delayed release (DR/EC) 81 mg PO DAILY 30 Days Qty: 30 RF: 0 Protonix 40 mg tablet,delayed release (DR/EC) 40 mg PO DAILY 30 Days Qty: 30 RF: 0 metoprolol tartrate 50 mg tablet 50 mg PO BID 30 Days Qty: 60 RF: 0 gabapentin 100 mg capsule 100 mg PO BID 30 Days Qty: 60 RF: 0 Continued testosterone 20.25 mg/1.25 gram (1.62 %) Gel In Metered-Dose Pump 1 pump TOPICAL DAILY RF: 0 fluticasone propionate 50 mcg/actuation [place],Suspension 2 spray INTRANASAL DAILY PRN (Reason: Allergy Symptoms) RF: 0 diphenhydramine HCl [Benadryl] 25 mg Capsule 25 mg PO PRN RF: 0 Eliquis 2.5 mg tablet 2.5 mg PO BID 30 Days Qty: 60 RF: 0 Changed isosorbide mononitrate 60 mg tablet extended release 24 hr 30 mg PO DAILY 30 Days Qty: 30 RF: 0 Discontinued pantoprazole [Protonix] 40 mg tablet,delayed release (DR/EC) 40 mg PO DAILY RF: 0 metoprolol tartrate 50 mg Tablet 100 mg PO Q12H Qty: 60 RF: 0 diltiazem HCl 120 mg capsule,extended release 24 hr 120 mg PO DAILY Qty: 30 RF: 0 aspirin 81 mg tablet,delayed release (DR/EC) 81 mg PO DAILY Qty: 30 RF: 0 gabapentin 300 mg Capsule 300 mg PO TID RF: 0 Discharge Orders: Discharge Order (Routine); Ordered 04/15/21 Ordered By: Allen Alarcon Referrals: [facility] [Other] (You have a hospital follow up on May 05 at 10:[address] Nicolas. If you need to reschedule please call them at [phone].) [facility] [Other] - 04/16/21 10:00 am Discharge Diet: Cardiac Discharge Activity: Increase activity as tolerated Patient Instructions: Diltiazem (By mouth), Aspirin (By mouth), Vitamin B Complex (By mouth), Atrial Fibrillation (DC), Gastrointestinal Bleeding (DC), Abdominal Aortic Aneurysm Repair (DC), Hypertension (DC), Opioid Safety Activity Restrictions/Additional Instructions: -Dialysis is setup for 04/16/21, need o have dialysis -need to see capacity analyst in 1 week, have temporary dialysis Catheter in place -follow up with cardiology in [place] in 1 week -follow up with primary care in one week for cbc and cmp and blood presure check Discharge Attestations Time Spent in Discharge Care*: greater than 30 min Status at Discharge: Cognitive status at discharge: cognitively intact , Behavioral status at discharge: cooperative , Quality Metrics Clinical Quality Measures During this hospital stay, did patient experience: None Coding Level of Care Code Acute Chg FW DC note Exam Detailed Diagnoses Atrial fibrillation with rapid ventricular response I48.91 Accelerated hypertension I10 Respiratory arrest R09.2 DVT (deep venous thrombosis) I82.491 Affected thrombotic vein of extremity: other lower extremity vein Chronicity: acute DVT location: lower extremity Laterality: right Elevated troponin R77.8 End-stage renal disease (ESRD) N18.6 Peripheral cyanosis R23.0
[2021-04-15] MEDS: b-complex-vitamin c Tablet 1 EACH PO (09:59)
[2021-04-15] MEDS: aspirin 81 mg EC Tablet PO (09:59)
[2021-04-15] MEDS: guaiFENesin 600 mg Tablet PO (09:59)
[2021-04-15] MEDS: apixaban 5 mg Tablet 2.5 MG PO (09:59)
[2021-04-15] MEDS: dilTIAZem 60 mg Tablet PO (10:03)
[2021-04-15] MEDS: magnesium oxide 400 mg tablet PO (10:03)
[2021-04-15] MEDS: potassium chloride ER 20 mEq Tablet 40 MEQ PO (10:03)
[2021-04-15] MEDS: gabapentin 100 mg Capsule PO (10:04)
[2021-04-15] MEDS: metoprolol tartrate 50 mg Tablet PO (10:08)
[2021-04-15] MEDS: pantoprazole DR 40 mg Tablet PO (10:08)
[2021-04-15 11:42] LABS: Glucose Point of Care 108 mg/dL (70-110)
[2021-04-15 12:20] VITALS: PULSE 99; RESP 18; O2SAT 91; O2SAT 94
--- NOTE | 2021-04-15 12:36 | PC.NURSE ---
patient verbalizes understanding of discharge instructions. follow up appointments, as well as chair time for dialysis tomorrow set up for patient in [place]. home medications were returned to patient and verified. pt refused med[facility] to beds services because [facility].
[2021-04-15 12:40] VITALS: BP 168/83; PULSE 99; RESP 18; TEMP 36.6; O2SAT 94
== END 2021-04-15 12:45 | disposition home or self-care (01) | DRG 207 ==
LOC: ER 23:14 → ICU 04-05 01:47 → CSU 04-12 20:44 → MEDSURG 04-15 06:47
PROVIDERS: Emergency Medicine; Hospitalist; Internal Medicine; Internal Medicine Cardiovascular Disease; Internal Medicine Nephrology; Internal Medicine Pulmonary Disease; Admitting Provider Internal Medicine; Emergency Provider Emergency Medicine; Visit Provider Family Medicine
PROC: 0BJ08ZZ Inspection of Tracheobronchial Tree, Via Natural or Artificial Opening Endoscopic (ICD-10-PCS; CPT 31622; principal; 2021-04-09 08:00)
DX: J96.01 Acute respiratory failure with hypoxia (principal); N18.6 End stage renal disease; I50.33 Acute on chronic diastolic (congestive) heart failure; I21.4 Non-ST elevation (NSTEMI) myocardial infarction; J18.9 Pneumonia, unspecified organism; I13.2 Hypertensive heart and chronic kidney disease with heart failure and with stage 5 chronic kidney disease, or end stage renal disease; E87.2 Acidosis; I82.411 Acute embolism and thrombosis of right femoral vein; I82.431 Acute embolism and thrombosis of right popliteal vein; I82.451 Acute embolism and thrombosis of right peroneal vein; I82.441 Acute embolism and thrombosis of right tibial vein; E44.0 Moderate protein-calorie malnutrition; J95.5 Postprocedural subglottic stenosis; Z99.2 Dependence on renal dialysis; I48.91 Unspecified atrial fibrillation; I25.10 Atherosclerotic heart disease of native coronary artery without angina pectoris; Z95.5 Presence of coronary angioplasty implant and graft; Z95.1 Presence of aortocoronary bypass graft; I25.2 Old myocardial infarction; Z90.49 Acquired absence of other specified parts of digestive tract; Z87.891 Personal history of nicotine dependence; I95.9 Hypotension, unspecified; E16.2 Hypoglycemia, unspecified; B19.20 Unspecified viral hepatitis C without hepatic coma; I07.1 Rheumatic tricuspid insufficiency; I27.20 Pulmonary hypertension, unspecified; Z68.25 Body mass index [BMI] 25.0-25.9, adult; Z79.01 Long term (current) use of anticoagulants; E87.6 Hypokalemia; R23.0 Cyanosis; R68.0 Hypothermia, not associated with low environmental temperature
CPT/HCPCS: 31500; 36415; 36416; 36556; 36592; 36600; 51702; 70450; 71045; 71275; 74230; 80048; 80051; 80053; 80202; 82310; 82330; 82728; 82803; 82805; 82962; 83036; 83540; 83550; 83605; 83735; 83880; 83970; 84100; 84145; 84443; 84484; 85025; 85378; 85610; 85730; 86140; 86803; 87040; 87340; 87522; 87902; 90935; 92610; 92611; 93005; 93308; 93922; 93925; 93970; 94002; 94003; 94799; 96365; 96366; 96367; 96372; 97110; 97162; 97167; 97530; 99291; A4570; J0171; J0610; J1644; J1815; J1956; J2250; J2543; J2704; J2920; J3010; J3370; J3490; J7050; Q3014; Q4081; Q9967

== ENCOUNTER → 2022-01-27 11:17 | Outpatient (BNVA) | payer OTHER, SELFPAY | PROVIDERS: PCP Family Medicine; Visit Provider Thoracic Surgery (Cardiothoracic Vascular Surgery) | DX: I73.9 Peripheral vascular disease, unspecified (principal); Z87.891 Personal history of nicotine dependence | CPT/HCPCS: 99203 ==

== ENCOUNTER → 2022-03-07 11:00 | Outpatient (BNVA) | payer OTHER, SELFPAY | PROVIDERS: PCP Family Medicine; Visit Provider Internal Medicine Cardiovascular Disease | DX: I25.10 Atherosclerotic heart disease of native coronary artery without angina pectoris (principal); Z79.01 Long term (current) use of anticoagulants; Z86.79 Personal history of other diseases of the circulatory system; Z98.890 Other specified postprocedural states; Z87.891 Personal history of nicotine dependence; I12.0 Hypertensive chronic kidney disease with stage 5 chronic kidney disease or end stage renal disease; N18.6 End stage renal disease; I48.20 Chronic atrial fibrillation, unspecified | CPT/HCPCS: 99214 ==